=== PATIENT | male | born 1950 | race Caucasian/White ===

== ENCOUNTER 2016-11-19 21:03 | Emergency (ER) | payer OTHER ==
[~2016-11-19] VITALS: Ht 172.7 cm; Wt 83.5 kg
[~2016-11-19 21:03] MED LIST: AMBIEN5 MG PO; AMOXICILLIN500 MG PO; BENZTROPINE MESY2 MG PO; DOLOPHINE10 MG PO; HALDOL1 MG PO; IBU600 MG PO; NAPROSYN500 MG PO; ORETIC25 MG PO; PRILOSEC40 MG PO; SEROQUEL25 MG PO; TOPROL XL50 MG PO; ZESTRIL20 MG PO
[2016-11-19 21:11] VITALS: BP 156/68
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
--- NOTE | 2016-11-19 22:25 | NUR ---
SALTY CARRASCO AT BEDSIDE SPEAKING TO PT.
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
[2016-11-19] MEDS ORDERED: IBUPROFEN 400 MG TAB PO ONE (23:00)
[2016-11-19] MEDS ORDERED: BACITRACIN OINT 500 UNITS/GM PKT TP ONE (23:14)
[2016-11-19 23:29] VITALS: BP 145/83
--- NOTE | 2016-11-19 23:29 | NUR ---
Patient discharged with v/s stable. Written and verbal after care instructions given and explained. Patient verbalized understanding. Ambulatory with steady gait. All questions addressed prior to discharge. Advised to follow up with PMD OR RETURN TO ER IF CONDITION WORSENS. NO S/S OF DISTRESS AT THIS MOMENT.
== END 2016-11-19 23:29 | disposition home or self-care (01) ==
LOC: MED 21:03
DX: S00.31XA Abrasion of nose, initial encounter (principal); S00.81XA Abrasion of other part of head, initial encounter; Z88.8 Allergy status to other drugs, medicaments and biological substances; I10 Essential (primary) hypertension; Y04.2XXA Assault by strike against or bumped into by another person, initial encounter; Y93.89 Activity, other specified; Y92.89 Other specified places as the place of occurrence of the external cause; Y99.8 Other external cause status

== ENCOUNTER 2016-12-27 10:17 | Emergency (ER) | payer OTHER ==
[~2016-12-27] VITALS: Ht 167.6 cm; Wt 68.9 kg
[~2016-12-27 10:17] MED LIST changes: -AMBIEN5 MG PO; -AMOXICILLIN500 MG PO; +BENZ2TAB27 PO; -BENZTROPINE MESY2 MG PO; +DOL10 PO; -DOLOPHINE10 MG PO; +HAL1 PO; -HALDOL1 MG PO; -IBU600 MG PO; +LISI-420 PO; +METO50TE2 PO; +NAPR500T1 PO; -NAPROSYN500 MG PO; +OMEP40EC1 PO; +ORE25 PO; -ORETIC25 MG PO; -PRILOSEC40 MG PO; +QUET25TA PO; -SEROQUEL25 MG PO; -TOPROL XL50 MG PO; -ZESTRIL20 MG PO; +ZOLP5TAB1 PO; +[UNRECOGNIZED DRUG - CODE] PO
[2016-12-27 10:25] VITALS: BP 129/77
--- NOTE | 2016-12-27 14:00 | NUR ---
PT AMBULATED TO ER BED #7.
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
--- NOTE | 2016-12-27 14:15 | NUR ---
Patient being evaluated by physician at bedside.
[2016-12-27 14:29] VITALS: BP 130/78
--- NOTE | 2016-12-27 14:29 | NUR ---
Patient discharged with v/s stable. Written and verbal after care instructions given and explained. Patient alert, oriented and verbalized understanding of instructions. Ambulatory with steady gait. All questions addressed prior to discharge. ID band removed. Patient advised to follow up with PMD. Rx of AUGMENTIN 875MG TABLET given. Patient educated on indication of medication including possible reaction and side effects. Opportunity to ask questions provided and answered.
== END 2016-12-27 14:29 | disposition home or self-care (01) ==
LOC: MED 10:17
DX: L03.011 Cellulitis of right finger (principal); I10 Essential (primary) hypertension; J45.909 Unspecified asthma, uncomplicated; F11.90 Opioid use, unspecified, uncomplicated
CPT/HCPCS: 73130; 99284

== ENCOUNTER 2016-12-30 11:13 | Emergency (ER) | payer OTHER ==
[~2016-12-30] VITALS: Ht 172.7 cm; Wt 68.0 kg
--- NOTE | 2016-12-30 11:15 | NUR ---
Patient was BIBA and taken to bed 03 via gurney per EMS.
[2016-12-30 11:16] VITALS: BP 124/63
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
--- NOTE | 2016-12-30 11:45 | NUR ---
PT IS BEING EVALUATED BY DR. Romero AT BEDSIDE.
[2016-12-30 12:02] VITALS: BP 140/59
--- NOTE | 2016-12-30 12:03 | NUR ---
Patient discharged with v/s stable. Written and verbal after care instructions given and explained. Patient alert, oriented and verbalized understanding of instructions. Ambulatory with steady gait. All questions addressed prior to discharge. ID band removed. Patient advised to follow up with PMD. Rx of KELFEX 500 MG CAPSULE, 1 CAP 4 TIME A DAY, BY MOUTH, BACTRIM DS 800MG-160MG, 1 TAB, BID, BY MOUTH, MOTRIN 800 MG TABLE, 1 TAB, TID, BY MOUTH, AND NORCO 5MG/325MG TABLET, 1 TO 2 TABS, EVERY 4 HOURS, BY MOUTH given. Patient educated on indication of medication including possible reaction and side effects. Opportunity to ask questions provided and answered.
== END 2016-12-30 12:03 | disposition home or self-care (01) ==
LOC: MED 11:13
DX: L03.011 Cellulitis of right finger (principal); E11.9 Type 2 diabetes mellitus without complications; I10 Essential (primary) hypertension; Z79.899 Other long term (current) drug therapy; Z88.8 Allergy status to other drugs, medicaments and biological substances
CPT/HCPCS: 99283

== ENCOUNTER 2017-01-21 19:41 | Emergency (ER) | payer OTHER ==
[~2017-01-21] VITALS: Ht 172.7 cm; Wt 83.5 kg
[2017-01-21 20:02] VITALS: BP 132/75
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
[2017-01-21 21:54] VITALS: BP 128/88
--- NOTE | 2017-01-21 21:54 | NUR ---
Patient discharged with v/s stable. Written and verbal after care instructions given and explained. Patient alert, oriented and verbalized understanding of instructions. Ambulatory with steady gait. All questions addressed prior to discharge. ID band removed. Patient advised to follow up IN 2 DAYS. Rx of KEFLEX given. Patient educated on indication of medication including possible reaction and side effects. Opportunity to ask questions provided and answered.
== END 2017-01-21 21:54 | disposition home or self-care (01) ==
LOC: MED 20:02
DX: S41.111A Laceration without foreign body of right upper arm, initial encounter (principal); E11.9 Type 2 diabetes mellitus without complications; I10 Essential (primary) hypertension; Z79.899 Other long term (current) drug therapy; Z88.8 Allergy status to other drugs, medicaments and biological substances; X58.XXXA Exposure to other specified factors, initial encounter; Y93.89 Activity, other specified; Y92.89 Other specified places as the place of occurrence of the external cause; Y99.8 Other external cause status
CPT/HCPCS: 99283

== ENCOUNTER 2017-01-23 15:27 | Emergency (ER) | payer OTHER ==
[~2017-01-23] VITALS: Ht 162.6 cm; Wt 68.0 kg
--- NOTE | 2017-01-23 15:27 | NUR ---
Patient was BIBA at this time and taken to bed 04 via [facility].
[2017-01-23] MEDS ORDERED: MULTIVITAMIN-12 10 ML, THIAMINE 100 MG, MAGNESIUM SULFATE 50% 2,000 MG, FOLIC ACID 5 MG... IV ONE ×5 (15:34)
[2017-01-23] MEDS ORDERED: NACL 0.9% 1,000 ML IV ONE (15:34)
[2017-01-23 15:37] VITALS: BP 156/96
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
[2017-01-23 16:24] LABS: BASOPHILS # (AUTO) 0.2 K/uL (0.00-0.22); EOSINOPHILS # (AUTO) 0.1 K/uL (0-0.4); EOSINOPHILS % (AUTO) 2.3 % (0.0-4.0); HEMATOCRIT 30.4 % (36-52); HEMOGLOBIN 9.9 g/dL (12.0-18.0); LYMPHOCYTES # (AUTO) 2.1 K/uL (2.0-11.5); LYMPHOCYTES % (AUTO) 49.6 % (20.5-51.1); MEAN CORPUSCULAR HEMOGLOBIN 28 pg (27-31); MEAN CORPUSCULAR HGB CONC 32 g/dL (33-37); MEAN CORPUSCULAR VOLUME 86 fL (80-94); MONOCYTES # (AUTO) 0.4 K/uL (0.8-1.0); MONOCYTES % (AUTO) 10.6 % (1.7-9.3); NEUTROPHILS # (AUTO) 1.4 K/uL (1.8-7.7); PLATELET COUNT (AUTO) 166 K/uL (140-450); RED BLOOD CELL COUNT(AUTO) 3.52 MIL/uL (4.20-6.10); RED CELL DISTRIBUTION WIDTH 20.5 % (11.6-13.7); WHITE BLOOD COUNT (AUTO) 4.2 K/uL (4.8-10.8)
[2017-01-23 16:26] LABS: ANION GAP 9.3 (8-16); CALCIUM 7.4 mg/dL (8.5-10.1); CARBON DIOXIDE 27.7 mmol/L (21-32)
[2017-01-23 16:31] LABS: INR 1.4 (0.8-1.2); PARTIAL THROMBOPLASTIN TIME 29.9 secs (22-35.6); PROTHROMBIN TIME 13.4 secs (10.8-13.4)
[2017-01-23 16:32] LABS: ALBUMIN 2.2 g/dL (3.4-5.0); TOTAL BILIRUBIN 0.7 mg/dL (0.0-1.0); TOTAL PROTEIN, SERUM 7.2 g/dL (6.4-8.2)
[2017-01-23 16:40] LABS: ALANINE AMINOTRANSFERASE 34 U/L (12-78); ALBUMIN 2.2 g/dL (3.4-5.0); ALCOHOL, BLOOD < 3 mg/dL (<3); ALKALINE PHOSPHATASE 140 U/L (46-116); ASPARTATE AMINOTRANSFERASE 41 U/L (15-37); BILIRUBIN,DIRECT 0.4 mg/dL (0.0-0.3); TOTAL BILIRUBIN 0.6 mg/dL (0.0-1.0); TOTAL PROTEIN, SERUM 7.1 g/dL (6.4-8.2)
--- NOTE | 2017-01-23 18:00 | NUR ---
Patient appears to be resting comfortably in bed. Vital Signs within normal limits. Respirations even and unlabored.
[2017-01-23 18:14] LABS: APPEARANCE,URINE CLEAR (CLEAR); BILIRUBIN,URINE NEGATIVE (NEGATIVE); BLOOD, URINE NEGATIVE (NEGATIVE); COLOR,URINE YELLOW (YELLOW); LEUKOCYTE ESTERASE ,URINE NEGATIVE (NEGATIVE); NITRITE, URINE NEGATIVE (NEGATIVE); PROTEIN,URINE NEGATIVE (NEGATIVE); UGLUCOSE NEGATIVE (NEGATIVE)
[2017-01-23 18:19] LABS: BACTERIA,URINE None Seen /HPF (None Seen); RBC,URINE NONE SEEN /HPF (0-5); SQUAMOUS EPITHELIAL CELL,UR None Seen /LPF (0-3 (FEW)); WBC,URINE NONE SEEN /HPF (0-5)
[2017-01-23 18:20] VITALS: BP 186/94
--- NOTE | 2017-01-23 18:20 | NUR ---
Patient discharged with v/s stable. Written and verbal after care instructions given and explained. Patient alert, oriented and verbalized understanding of instructions. Ambulatory with steady gait. All questions addressed prior to discharge. ID band removed. Patient advised to follow up with PMD. Rx of MULTIVITAMIN given. Patient educated on indication of medication including possible reaction and side effects. Opportunity to ask questions provided and answered.
[2017-01-23 18:46] LABS: AMPHETAMINE, URINE NEG. ng/ml (NEG <=1000); BARBITURATE, URINE NEG. ng/ml (NEG <=200); BENZODIAZEPINE, URINE NEG. ng/mL (NEG <=200); CANNABINOID, URINE NEG. ng/mL (NEG <=50); COCAINE, URINE NEG. ng/mL (NEG <=300); OPIATE, URINE NEG. ng/mL (NEG <=2000); PHENCYCLIDINE SCREEN,URINE NEG. ng/mL (NEG <=25)
== END 2017-01-23 18:20 | disposition home or self-care (01) ==
LOC: MED 15:27
DX: F10.10 Alcohol abuse, uncomplicated (principal); E11.9 Type 2 diabetes mellitus without complications; I10 Essential (primary) hypertension; Z88.8 Allergy status to other drugs, medicaments and biological substances
CPT/HCPCS: 36415; 80053; 80076; 80305; 81001; 82553; 83880; 84484; 85025; 85610; 85730; 93005; 96365; 96366; 99285; A9153; G0482; J3411; J3475; J3490; J7030

== ENCOUNTER 2017-04-04 10:56 | Emergency (ER) | payer OTHER ==
[~2017-04-04] VITALS: Ht 170.2 cm; Wt 71.7 kg
[2017-04-04 11:00] VITALS: BP 140/91
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
--- NOTE | 2017-04-04 11:09 | NUR ---
BRIJESH PT TAKEN OFF THE UNIT FOR XRAY VIA WHEEL CHAIR BY JONH ADAMES
--- NOTE | 2017-04-04 11:32 | NUR ---
AAO PT BEING ASSESS BY DR PÉREZ AT BEDSIDE
[2017-04-04] MEDS ORDERED: KETOROLAC 60 MG/2 ML VIAL IM ONE (11:35)
[2017-04-04 11:55] VITALS: BP 135/77
--- NOTE | 2017-04-04 11:55 | NUR ---
Patient discharged with v/s stable. Written and verbal after care instructions given and explained. Patient alert, oriented and verbalized understanding of instructions. Ambulatory with steady gait. All questions addressed prior to discharge. ID band removed. Patient advised to follow up with PMD. Rx of KEFLEX, MOTRIN, BACTRIM given. Patient educated on indication of medication including possible reaction and side effects. Opportunity to ask questions provided and answered.
== END 2017-04-04 11:55 | disposition home or self-care (01) ==
LOC: MED 10:56
DX: S50.01XA Contusion of right elbow, initial encounter (principal); L03.113 Cellulitis of right upper limb; E11.9 Type 2 diabetes mellitus without complications; I10 Essential (primary) hypertension; F31.9 Bipolar disorder, unspecified; Z90.49 Acquired absence of other specified parts of digestive tract; W18.39XA Other fall on same level, initial encounter; Y93.89 Activity, other specified; Y92.89 Other specified places as the place of occurrence of the external cause; Y99.8 Other external cause status; Z88.8 Allergy status to other drugs, medicaments and biological substances
CPT/HCPCS: 73080; 96372; 99284; J1885

== ENCOUNTER 2017-04-11 15:08 | Emergency (ER) | payer OTHER ==
[~2017-04-11] VITALS: Ht 172.7 cm; Wt 71.9 kg
[2017-04-11 15:12] VITALS: BP 162/82
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
--- NOTE | 2017-04-11 16:45 | NUR ---
PT AMB TO BED6
[2017-04-11] MEDS ORDERED: DOXYCYCLINE 100 MG CAP PO SCH (17:05)
[2017-04-11] MEDS ORDERED: MORPHINE SULFATE 10 MG/ML SYR IM ONE (17:05)
[2017-04-11] MEDS ORDERED: LIDOCAINE 1% 500 MG/50 ML VIAL INJ ONE (17:10)
--- NOTE | 2017-04-11 17:10 | NUR ---
CALLED PHARMACY FOR VIBRAMYCIN.
--- NOTE | 2017-04-11 17:25 | NUR ---
I& D DONE BY ER MD DR DUMONT ; PT TOLERATED PROCEDURE WELL.
--- NOTE | 2017-04-11 17:50 | NUR ---
Patient discharged with v/s stable. Written and verbal after care instructions given and explained. Patient alert, oriented and verbalized understanding of instructions. Ambulatory with steady gait. All questions addressed prior to discharge. ID band removed. Patient advised to follow up with PMD. Rx of IBUPROFEN & DOXYCYCLINE given. Patient educated on indication of medication including possible reaction and side effects. Opportunity to ask questions provided and answered.
[2017-04-11 17:51] VITALS: BP 135/67
== END 2017-04-11 17:50 | disposition home or self-care (01) ==
LOC: MED 15:08
DX: L02.413 Cutaneous abscess of right upper limb (principal); I10 Essential (primary) hypertension; Z88.8 Allergy status to other drugs, medicaments and biological substances; E11.9 Type 2 diabetes mellitus without complications
CPT/HCPCS: 10060; 96372; 99283; J2001; J2270

== ENCOUNTER 2017-04-12 13:58 | Emergency (ER) | payer OTHER ==
[~2017-04-12] VITALS: Ht 172.7 cm; Wt 81.6 kg
[2017-04-12 14:03] VITALS: BP 126/58
--- NOTE | 2017-04-12 17:01 | NUR ---
PT PRESENTS TO ER EVALUATION OF BUG BITE TO RIGHT OUTER FOREARM X1 WEEK. DENIES N/V/D; SKIN IS PINK/WARM/DRY; AAOX4 WITH EVEN AND STEADY GAIT; LUNGS CLEAR BL; HR EVEN AND REGULAR; PT DENIES ANY FEVER, CP, SOB, OR COUGH AT THIS TIME; PATIENT STATES PAIN OF 6/10 AT THIS TIME; VSS; PATIENT POSITIONED FOR COMFORT; HOB ELEVATED; BEDRAILS UP X2; BED DOWN. ER MD MADE AWARE OF PT STATUS.
[2017-04-12 17:40] VITALS: BP 121/61
--- NOTE | 2017-04-12 17:40 | NUR ---
Patient discharged with v/s stable. Written and verbal after care instructions given and explained. Patient verbalized understanding. Ambulatory with steady gait. All questions addressed prior to discharge. Advised to follow up with PMD.
== END 2017-04-12 17:40 | disposition home or self-care (01) ==
LOC: MED 13:58
DX: Z48.01 Encounter for change or removal of surgical wound dressing (principal); E11.9 Type 2 diabetes mellitus without complications; I10 Essential (primary) hypertension; Z79.899 Other long term (current) drug therapy
CPT/HCPCS: 99282

== ENCOUNTER 2017-04-25 11:05 | Emergency (ER) | payer OTHER ==
[~2017-04-25] VITALS: Ht 172.7 cm; Wt 81.6 kg
[2017-04-25 11:11] VITALS: BP 149/77
--- NOTE | 2017-04-25 11:13 | NUR ---
Patient ambulated to bed 7. RN evaluating patient at bedside.
--- NOTE | 2017-04-25 11:22 | NUR ---
Dr. Cabral evaluating patient at bedside.
[2017-04-25] MEDS ORDERED: KETOROLAC 60 MG/2 ML VIAL IM ONE (11:30)
[2017-04-25 11:52] VITALS: BP 144/84
--- NOTE | 2017-04-25 11:53 | NUR ---
PATIENT PRESENTS TO ED WITH CHIEF COMPLAINTS OF RIGHT ELBOW PAIN . DENIES N/V/D; SKIN IS PINK/WARM/DRY; AAOX4 WITH EVEN AND STEADY GAIT; LUNGS CLEAR BL; HR EVEN AND REGULAR; PT DENIES ANY FEVER, CP, SOB, OR COUGH AT THIS TIME; PATIENT STATES PAIN OF 6/10 AT THIS TIME; VSS; PATIENT POSITIONED FOR COMFORT; HOB ELEVATED; BEDRAILS UP X2; BED DOWN. ER MD MADE AWARE OF PT STATUS.
--- NOTE | 2017-04-25 11:54 | NUR ---
Patient discharged with v/s stable. Written and verbal after care instructions given and explained. Patient alert, oriented and verbalized understanding of instructions. Ambulatory with steady gait. All questions addressed prior to discharge. ID band removed. Patient advised to follow up with PMD. Rx of MOTRIN, KEFLEX AND BACTRIM DS. given. Patient educated on indication of medication including possible reaction and side effects. Opportunity to ask questions provided and answered.
== END 2017-04-25 11:54 | disposition home or self-care (01) ==
LOC: MED 11:05
DX: L03.113 Cellulitis of right upper limb (principal); E11.9 Type 2 diabetes mellitus without complications; I10 Essential (primary) hypertension; Z88.8 Allergy status to other drugs, medicaments and biological substances; Z79.899 Other long term (current) drug therapy; Z79.1 Long term (current) use of non-steroidal anti-inflammatories (NSAID)
CPT/HCPCS: 96372; 99283; J1885

== ENCOUNTER 2017-07-09 10:47 | Inpatient (IN) | payer OTHER ==
[~2017-07-09] VITALS: Ht 172.7 cm; Wt 80.7 kg
--- NOTE | 2017-07-09 10:47 | NUR ---
Patient BIBA ACLS, transferred to bed 8. RN evaluating patient at bedside.
--- NOTE | 2017-07-09 10:50 | NUR ---
PLACED REVERSE TRENDELENBERG---PT SOMNOLENT AND RESPONSIVE --- REQUESTING BLANKET---DENIES PAIN
--- NOTE | 2017-07-09 10:50 | NUR ---
Dr. Sylvester evaluating patient at bedside.
[2017-07-09] MEDS ORDERED: ONDANSETRON 4 MG/2 ML VIAL IVP ONE (10:55)
[2017-07-09] MEDS ORDERED: NACL 0.9% 2,000 ML IV ONE (10:55)
--- NOTE | 2017-07-09 11:00 | NUR ---
MOVING ALL EXTREMITIES, PUPILS 2 BRISK REACTIVE---
[2017-07-09 11:01] VITALS: BP 80/54
--- NOTE | 2017-07-09 11:20 | NUR ---
# 16 FR Hazel catheter with ml utilizing sterile technique. Immediate return of ml urine noted. Bedside drainage bag placed below level of bladder. Urine sample collected and sent to lab. Pt tolerated procedure .
[2017-07-09 11:40] LABS: ACETAMINOPHEN 6.9 ug/ml (10-30); ALBUMIN 1.5 g/dL (3.4-5.0); ANION GAP 16.6 (8-16); ASPARTATE AMINOTRANSFERASE 59 U/L (15-37); CARBON DIOXIDE 17.6 mmol/L (21-32); CHLORIDE 110 mmol/L (98-107); CREATININE 1.5 mg/dL (0.7-1.3); GFR ARICAN-AMERICAN 60 mL/min (>90); GLUCOSE 135 mg/dL (74-106); POTASSIUM 4.2 mmol/L (3.5-5.1); SODIUM SERUM 140 mmol/L (136-145); TOTAL BILIRUBIN 0.2 mg/dL (0.0-1.0); UREA NITROGEN, BLOOD 38 mg/dL (7-18)
[2017-07-09 11:41] LABS: BILIRUBIN,URINE NEGATIVE (NEGATIVE); BLOOD, URINE NEGATIVE (NEGATIVE); COLOR,URINE YELLOW (YELLOW); LEUKOCYTE ESTERASE ,URINE TRACE (NEGATIVE); NITRITE, URINE NEGATIVE (NEGATIVE); UGLUCOSE NEGATIVE (NEGATIVE)
[2017-07-09 11:42] LABS: SALICYLATE < 2.8 mg/dL (2.8-20.0)
--- NOTE | 2017-07-09 11:44 | NUR ---
TO CT VIA [facility] ACLS PROTOCOL
[2017-07-09 11:54] LABS: BARBITURATE, URINE NEG. ng/ml (NEG <=200); BENZODIAZEPINE, URINE NEG. ng/mL (NEG <=200); CANNABINOID, URINE NEG. ng/mL (NEG <=50); COCAINE, URINE NEG. ng/mL (NEG <=300); OPIATE, URINE NEG. ng/mL (NEG <=2000); PHENCYCLIDINE SCREEN,URINE NEG. ng/mL (NEG <=25)
[2017-07-09] MEDS ORDERED: VANCOMYCIN 1,000 MG in DEXTROSE 5% 250 ML IV ONE (11:55)
[2017-07-09] MEDS ORDERED: PIPERACILLIN/TAZOBACTAM 3.375 GM in DEXTROSE 5% 50 ML IV ONE ×2 (11:55→14:20)
--- NOTE | 2017-07-09 11:57 | NUR ---
RETURNED FROM CT PLACED BACK ON MONITOR---PT MORE AWAKE--GCS 15 REMAINS SOMNOLENT
--- NOTE | 2017-07-09 11:59 | NUR ---
LAB TO REDRAW SAMPLE---
[2017-07-09] MEDS ORDERED: VANCOMYCIN 1,000 MG VIAL ONE (12:12)
[2017-07-09] MEDS ORDERED: PIPERACILLIN/TAZOBACTAM 3.375 GM VIAL IV ONE (12:12)
[2017-07-09 12:22] LABS: WHITE BLOOD COUNT (AUTO) 6.7 K/uL (4.8-10.8)
[2017-07-09 12:23] LABS: MEAN CORPUSCULAR HEMOGLOBIN 30 pg (27-31); MEAN CORPUSCULAR HGB CONC 32 g/dL (33-37); MEAN CORPUSCULAR VOLUME 92 fL (80-94); PLATELET COUNT (AUTO) 131 K/uL (140-450); RED BLOOD CELL COUNT(AUTO) 1.26 MIL/uL (4.20-6.10); RED CELL DISTRIBUTION WIDTH 17.1 % (11.6-13.7)
--- NOTE | 2017-07-09 12:25 | NUR ---
AWAKE, ABLE TO CONVERSE FOR X 2-3 MINS THEN CLOSES EYES ---HANDS FOLDED OVER ABD AND FEET CROSSED---NO S/S RESP DISTRESS
[2017-07-09 12:26] LABS: HEMATOCRIT 11.6 % (36-52); HEMOGLOBIN 3.7 g/dL (12.0-18.0)
[2017-07-09 12:52] LABS: PROTHROMBIN TIME 15.6 secs (10.8-13.4)
[2017-07-09 13:21] LABS: APPEARANCE,URINE HAZY (CLEAR)
[2017-07-09 13:22] LABS: RBC,URINE NONE SEEN /HPF (0-5); WBC,URINE 0-5 (RARE) /HPF (0-5)
[2017-07-09] MEDS ORDERED: NACL 0.9% 1,000 ML IV ONE (13:30)
--- NOTE | 2017-07-09 13:40 | NUR ---
BLOOD PRODUCTS STARTED
[2017-07-09] MEDS ORDERED: NOREPINEPHRINE 4 MG in DEXTROSE 5% 250 ML IV ONE (13:50)
--- NOTE | 2017-07-09 14:04 | NUR ---
DR. HORNER AT BEDSIDE EVALUATING PATIENT
[2017-07-09] MEDS ORDERED: MORPHINE SULFATE 2 MG/ML SYR IVP PRN (14:20)
[2017-07-09] MEDS ORDERED: LORazepam 2 MG/ML VIAL IVP PRN (14:20)
[2017-07-09] MEDS ORDERED: ONDANSETRON 4 MG/2 ML VIAL IVP PRN (14:20)
[2017-07-09] MEDS: MIDAZOLAM 2 MG/2 ML VIAL IV ONE ×2 (14:30→14:40)
[2017-07-09] MEDS ORDERED: MIDAZOLAM 2 MG/2 ML VIAL ONE (14:34)
[2017-07-09] MEDS ORDERED: diphenhydrAMINE 50 MG/ML VIAL ONE (14:34)
[2017-07-09] MEDS ORDERED: fentaNYL 0.05 MG/ML VIAL ONE (14:35)
--- NOTE | 2017-07-09 14:38 | NUR ---
Consent signed per MIGUEL AGUAYO agreeing to administration of blood. Blood has been type and crossmatched. Blood sent from blood bank. Information on unit of blood checked against patient wristband at bedside by two nurses. All information matches. Patient or responsible democrat informed of potential complications associated with blood transfusion. Informed of possible transfusion reaction symptoms. Aware of need to notify nurse at once of itching, shortness of breath, flushing, feeling of impending doom, or other symptoms not previously present. Vital signs taken within 5 minutes prior to initiation of transfusion. RN will remain with patient for first 15 minutes of transfusion at which time vital signs will be re-assessed.
--- NOTE | 2017-07-09 14:39 | NUR ---
PT TAKEN TO GI LAB REPORT GIVEN TO DEMETRIO AGUAYO---REPORT GIVEN TO JAVIER AGUAYO ICU
[2017-07-09] MEDS ORDERED: PANTOPRAZOLE 40 MG INJ VIAL IVP SCH (15:00)
--- NOTE | 2017-07-09 15:30 | NUR ---
received from gi lab after egd done. PT IS AWAKE IV ON RT ARM INFUSING BLOOD TRANSFUSION , IV ON LEFT ARM INFUSING LEVOPHED IS SLIGHTLY SWELLING. HIS V/S WITH IN NORMAL LIMIT ,IV WAS D/C, SKIN IS DRY AND WARM TO TOUCH. COLOR PALE. HE IS ON ROOM AIR O2 SAT93% . BREATH SOUND IS CLEAR, AB DOMEN IS FIRM B/S ACTIVE .RESTING IN BED QUIETLY , HORNER CATHETER DRAIN CLEAR YELLOW URINE,.
[2017-07-09] MEDS: PANTOPRAZOLE 80 MG in NACL 0.9% 100 ML IVP SCH ×2 (15:37→15:45)
--- NOTE | 2017-07-09 15:45 | NUR ---
PROTONIX IV DRIP STARTED AT 10 ML/HQ.
[2017-07-09 16:00] VITALS: BP 102/60
[2017-07-09 18:00] VITALS: BP 129/60
[2017-07-09 18:13] LABS: BASOPHILS # (AUTO) 0.2 K/uL (0.00-0.22); LYMPHOCYTES # (AUTO) 1.9 K/uL (2.0-11.5); MEAN CORPUSCULAR HEMOGLOBIN 29 pg (27-31); MEAN CORPUSCULAR HGB CONC 33 g/dL (33-37); MEAN CORPUSCULAR VOLUME 90 fL (80-94); MONOCYTES # (AUTO) 0.3 K/uL (0.8-1.0); NEUTROPHILS # (AUTO) 5.1 K/uL (1.8-7.7); PLATELET COUNT (AUTO) 136 K/uL (140-450); RED BLOOD CELL COUNT(AUTO) 1.88 MIL/uL (4.20-6.10); RED CELL DISTRIBUTION WIDTH 17.3 % (11.6-13.7); WHITE BLOOD COUNT (AUTO) 7.5 K/uL (4.8-10.8)
[2017-07-09 18:16] LABS: HEMATOCRIT 16.9 % (36-52); HEMOGLOBIN 5.5 g/dL (12.0-18.0)
--- NOTE | 2017-07-09 19:30 | NUR ---
RECEIVED PT FROM AM SHIFT, PT AWAKE,ALERT WITH CONFUSION, NO S/S OF RESP DISTRESS,NO SOB. PT ON ROOM AIR TOLERATED WELL.BILATERAL LUNGS SOUND CLEAR.DENIES ANY PAIN AT THIS TIME. SINUS RHYTHM ON THE MONITOR. ON GOING PROTONIX TO RIGHT ANTECUBITAL IV SITE NO 24 AND BLOOD RUNNING TO RIGHT HAND IV LINE NO 20 GAUGE TOLERATED WELL. NO S/S OF ALLERGIC REACTION NOTED. SKIN WARM TO TOUCH. PT NPO AT THIS TIME. ABD SOFT NON DISTENDED . MULTIPLE DRY SCABS TO LEFT FOREARM . KEPT AREA CLEAN AND DRY. EDEMA NOTED ON LET HAND,ELEVATED AREA WITH PILLOW.F/C INPLACE WITH YELLOW CLEAR URINE.
[2017-07-09 20:00] VITALS: BP 146/66
--- NOTE | 2017-07-09 20:05 | NUR ---
2ND BAG OF BLOOD FINISH TOLERATED WELL,NO S/S OF ANY ALLERGIC REACTION.
--- NOTE | 2017-07-09 20:30 | NUR ---
STARTING THE 3RD BAG OF BLOOD ABOUT 300 CC.V/S T 97.4, BP 131/69, P 72, R 14, SPO2 98%.
[2017-07-09] MEDS: BENZTROPINE 1 MG TAB PO SCH (21:00)
[2017-07-09] MEDS ORDERED: PANTOPRAZOLE 40 MG TABEC PO SCH (21:00)
[2017-07-09] MEDS: HALOPERIDOL 1 MG TAB PO SCH (21:00)
[2017-07-09] MEDS ORDERED: NON-FORMULARY ITEM (Omeprazole* (Prilosec*) 20 MG) PO SCH (21:00)
--- NOTE | 2017-07-09 21:10 | NUR ---
PLACED CALL TO DR.AMIT LIN PER MD TO HOLD ORDER OF CT SCAN ABD AND PELVIS WITH CONTRAST WAIT FOR MD TOMORROW. AND NEW ORDER CLEAR LIQUID DIET.ORDER NOTED AND CARRIED OUT.
[2017-07-09] MEDS: ZOLPIDEM 5 MG TAB PO SCH (21:36)
[2017-07-09 22:00] VITALS: BP 155/83
--- NOTE | 2017-07-09 22:00 | NUR ---
3RD BAG OF THE BLOOD DONE, TOLERATED WELL, NO S/S OF ALLERGIC TO TRANSFUSION. V/S T 97.4,P 73 BP 155/83,R 18,SPO2 97%. PT DRINK APPLE JUICE 100 CC TOLERATED WELL.
--- NOTE | 2017-07-09 22:20 | NUR ---
4TH BAG OF BLOOD TRANSFUSION STARTING,NO S/S OF ALLERGIC REACTION NOTED AT THIS TIME. V/S T 97.4 ,P67 ,BP 138/82,R19,SPO2 97%.
--- NOTE | 2017-07-09 22:30 | NUR ---
PER DR.AMIT LIN TO START THE HALDOL TAB AND COGENTIN TAB IN AM.PT MADE AWARE.
[2017-07-10] VITALS (10 sets, daily range): BP systolic 138–187; BP diastolic 68–130
--- NOTE | 2017-07-10 01:15 | NUR ---
THE LAST BAG OF TH BLOOD TRANSFUSION DONE. PT AWAKE ALERT, NO C/O OF ANY CHEST PAIN,NO C/O RESP DISTRESS OR SOB. SKIN WARM TO TOUCH. NO S/S OF ALLERGIC TO BLOOD TRANSFUSION. V/S T 98.0 ,BP 147/66, P 73 SPO2 97 %.
[2017-07-10] MEDS: DEXT 5% /NACL 0.9% 1,000 ML IV SCH ×3 (01:45→22:20)
--- NOTE | 2017-07-10 03:00 | NUR ---
PT SLEEPING WELL.NO S/S OF DISTRESS NOTED.
--- NOTE | 2017-07-10 05:00 | NUR ---
CBC AND CMP DRAWN RESULT PENDING
[2017-07-10 05:36] LABS: HEMATOCRIT 29.1 % (36-52); HEMOGLOBIN 9.7 g/dL (12.0-18.0); MEAN CORPUSCULAR HEMOGLOBIN 29 pg (27-31); MEAN CORPUSCULAR HGB CONC 33 g/dL (33-37); MEAN CORPUSCULAR VOLUME 86 fL (80-94); PLATELET COUNT (AUTO) 150 K/uL (140-450); RED CELL DISTRIBUTION WIDTH 14.7 % (11.6-13.7); WHITE BLOOD COUNT (AUTO) 7.6 K/uL (4.8-10.8)
[2017-07-10 05:46] LABS: LYMPHOCYTES % (MANUAL) 23 % (20-46); MONOCYTES % (MANUAL) 8 % (5-12)
[2017-07-10 05:52] LABS: ALBUMIN 1.9 g/dL (3.4-5.0); CARBON DIOXIDE 19.9 mmol/L (21-32); CREATININE 1.1 mg/dL (0.7-1.3); POTASSIUM 3.9 mmol/L (3.5-5.1); TOTAL BILIRUBIN 0.7 mg/dL (0.0-1.0)
--- NOTE | 2017-07-10 06:00 | NUR ---
AM CARE GIVEN TOLERATED WELL
--- NOTE | 2017-07-10 06:45 | NUR ---
PT PULLED IV LINE ON RIGHT HAND NO 20 GAUGE, CHANGE IV HYDRATION TO RIGHT AC SITE.
--- NOTE | 2017-07-10 07:15 | NUR ---
REPORT GIVEN TO AM SHIFT,PT IS ON STABLE CONDITION,NO S/S OF DISTRESS NOTED AT THIS TIME.
--- NOTE | 2017-07-10 07:43 | NUR ---
RECIEVED PT. SLEEPING, RESPIRATION EVEN AND UNLABORED, NO DISTRESS NOTED, NO BM AT THIS TIME.
[2017-07-10] MEDS: LISINOPRIL 20 MG TAB PO SCH (08:11)
[2017-07-10] MEDS: METHADONE 10 MG TAB PO SCH (08:12)
[2017-07-10] MEDS ORDERED: HYDROCHLOROTHIAZIDE 25 MG TAB PO SCH ×2 (09:00→17:30)
[2017-07-10] MEDS: HALOPERIDOL 1 MG TAB PO SCH ×2 (09:44→22:42)
[2017-07-10] MEDS: METOPROLOL SUCCINATE 50 MG TABER PO SCH (09:44)
[2017-07-10] MEDS: BENZTROPINE 1 MG TAB PO SCH ×2 (09:45→22:42)
--- NOTE | 2017-07-10 10:00 | NUR ---
PT. PASSING GAS, AM CARE DONE, TURNED TO BOTH SIDES, IV PUMP KEEPS ON BEEPING, DIFFICULT TO TROUBLE SHOOT.
[2017-07-10] MEDS: PANTOPRAZOLE 80 MG in NACL 0.9% 100 ML IVP SCH ×2 (10:47→21:00)
[2017-07-10] MEDS ORDERED: PROBIOTIC SCREEN 1 EA MISC MC PRN (11:40)
--- NOTE | 2017-07-10 13:00 | NUR ---
ATE LUNCH WITH POOR APPETITE.
--- NOTE | 2017-07-10 14:00 | NUR ---
IVF INFILTRATED, TRIED TO REINSERT BY 3 RN 7X, BUT UNABLE, MS JAVIER AGUAYO CHARGE NURSE MADE AWARE.
--- NOTE | 2017-07-10 14:52 | NUR ---
1200PM HEP LOCK WAS IN PLACE BY ANOTHER RN TO LT. AC GAUGE NUMBER 20, BUT IV MACHINE KEEP ON BEEPING.
--- NOTE | 2017-07-10 14:54 | NUR ---
FOR TRANSFER TO TELEMETRY ROOM , NURSE NOT AVAILABLE FOR REPORT AT THIS TIME, HEP LOCK INFILTRATED, WILL REINSER,
--- NOTE | 2017-07-10 15:30 | NUR ---
HOUSE SUPP INFORM THAT IV WAS INFILTRATED AND UNABL TO START THE NEWLINE. WILLL CALL DR LIN.
--- NOTE | 2017-07-10 16:29 | NUR ---
FOR PICC LINE INSERTION
--- NOTE | 2017-07-10 16:48 | NUR ---
FOR TRANSFER TO ROOM 106B
--- NOTE | 2017-07-10 17:02 | NUR ---
LATEST DJ=275/90
--- NOTE | 2017-07-10 17:05 | NUR ---
MD LIN WAS NOTIFIED BY [facility] NURSE OF PT. XF=661/90 TO MD LIN WITH ORDER TO GIVE CLONIDINE 0.1 PO.
--- NOTE | 2017-07-10 17:14 | NUR ---
TO ROOM 106B REPORT GIVEN TO MR RG AGUAYO FOR CONTINUITY OF CARE
[2017-07-10] MEDS: cloNIDine 0.1 MG TAB PO PRN (17:34)
--- NOTE | 2017-07-10 17:37 | NUR ---
CLONIDINE 0.1MG PO AND HYDROCHLOROTHIAZIDE 25MG PO GIVEN FOR PF=831/90, DINNEDR SERVED WITH GOOD APPETITE.
--- NOTE | 2017-07-10 17:55 | NUR ---
LATEST XO=773/92 NH=64, H1AMZ=32% ON RA
--- NOTE | 2017-07-10 17:57 | NUR ---
MS ARMENTA FURNITURE SPRAYER MADE AWARE OF PT. HIGH GB=797/92 AFTER THE BP MEDS WAS GIVEN
--- NOTE | 2017-07-10 18:35 | NUR ---
LATEST XI=633/92 CO=65 M0KGM=32% RA, WHEELED PT. TO TELEMETRY IN STABLE CONDITION.
--- NOTE | 2017-07-10 18:50 | NUR ---
PATIENT ARRIVED FROM ICU VIA WHEELCHAIR. PATIENT AMBULATED FROM WHEELCHAIR TO BED WITH ASSIST. PATIENT IN STABLE CONDITION. NO DISTRESS NOTED, DENIES ANY PAIN. V/S CHECKED: BP:167/78, 68, 97.6, 100% ROOM AIR. AAOX3, CALM, COOPERATIVE. ORIENTED PATIENT TO ROOM. NO IV IN PLACE. LEFT FOREARM CLOSED LESION, NO OTHER WOUND/LESIONS NOTED THROUGHOUT BODY. 16 FR HORNER CATHETER IN PLACE, INTACT. SAFETY MEASURES IN PLACE, CALL LIGHT WITHIN REACH. WILL ENDORSE PATIENT TO OTHER SPATIAL SCIENTIST NURSE.
--- NOTE | 2017-07-10 19:25 | NUR ---
GAVE REPORT TO SUPPLIER MANAGER NURSE DIONE. PATIENT IN STABLE CONDITION.
--- NOTE | 2017-07-10 19:27 | NUR ---
RECEIVED REPORT FROM DAY SHIFT NURSE. AAOX3. NO DISTRESS NOTED. NO IV LINE. DISCUSSED PLAN OF CARE. PT VERBALIZED UNDERSTANDING. CALL LIGHT WITHIN REACH. WILL CONTINUE TO MONITOR.
--- NOTE | 2017-07-10 19:45 | NUR ---
TRIED TO CONTACT FAMILY FOR PICC LINE INSERTION CONSENT. ROSEMARIE RASHID TEL. NO [phone], PHONE NOT IN SERVICE. JAYASHREE HOUSE TEL NO. [phone], PHONE NOT IN SERVICE. RAN ACEVEDO TEL NO. [phone], HE STATED THAT HE DIDNT KNOW THE PT.
--- NOTE | 2017-07-10 19:47 | NUR ---
PAGED DR. Zafar LIN REGARDING PICC LINE CONSENT, WAITING FOR CALL BACK.
--- NOTE | 2017-07-10 19:50 | NUR ---
DR. LIN STATED THAT LET THE PATIENT SIGN FOR THE PICC LINE CONSENT. PT IS ALERT AND ORIENTED.
--- NOTE | 2017-07-10 19:55 | NUR ---
PATIENT SIGNED THE PICC LINE INSERTION CONSENT. CHARGE NURSE WAS INFORMED AND SHE WILL INFORM FORM BUILDER HELPER.
--- NOTE | 2017-07-10 22:02 | NUR ---
PT LYING IN BED COMFORTABLY. NO DISTRESS NOTED. CALL LIGHT WITHIN REACH.
[2017-07-10] MEDS: ZOLPIDEM 5 MG TAB PO SCH (22:42)
[2017-07-11] VITALS (7 sets, daily range): BP systolic 140–180; BP diastolic 71–91
--- NOTE | 2017-07-11 00:45 | NUR ---
PT SLEEPING. NO SIGNS OF DISTRESS NOTED. CALL LIGHT WITHIN REACH.
--- NOTE | 2017-07-11 03:30 | NUR ---
PT AWAKE, LYING IN BED. NO C/O PAIN. CALL LIGHT WITHIN REACH.
--- NOTE | 2017-07-11 05:45 | NUR ---
PT SLEEPING. NO SIGNS OF DISTRESS. CALL LIGHT WITHIN REACH.
[2017-07-11 05:58] LABS: BASOPHILS # (AUTO) 0.3 K/uL (0.00-0.22); BASOPHILS % (AUTO) 4.8 % (0.0-2.0); EOSINOPHILS # (AUTO) 0.1 K/uL (0-0.4); HEMATOCRIT 27.6 % (36-52); HEMOGLOBIN 9.2 g/dL (12.0-18.0); LYMPHOCYTES # (AUTO) 2.2 K/uL (2.0-11.5); LYMPHOCYTES % (AUTO) 34.8 % (20.5-51.1); MEAN CORPUSCULAR HEMOGLOBIN 29 pg (27-31); MEAN CORPUSCULAR HGB CONC 33 g/dL (33-37); MEAN CORPUSCULAR VOLUME 87 fL (80-94); MONOCYTES # (AUTO) 0.6 K/uL (0.8-1.0); MONOCYTES % (AUTO) 9.4 % (1.7-9.3); NEUTROPHILS # (AUTO) 3.1 K/uL (1.8-7.7); PLATELET COUNT (AUTO) 151 K/uL (140-450); RED BLOOD CELL COUNT(AUTO) 3.16 MIL/uL (4.20-6.10); RED CELL DISTRIBUTION WIDTH 15.8 % (11.6-13.7); WHITE BLOOD COUNT (AUTO) 6.3 K/uL (4.8-10.8)
[2017-07-11] MEDS: DEXT 5% /NACL 0.9% 1,000 ML IV SCH (06:20)
[2017-07-11] MEDS: PANTOPRAZOLE 80 MG in NACL 0.9% 100 ML IVP SCH (06:32)
[2017-07-11 06:50] LABS: ANION GAP 10.2 (8-16); CARBON DIOXIDE 23.7 mmol/L (21-32); CREATININE 0.9 mg/dL (0.7-1.3); POTASSIUM 3.9 mmol/L (3.5-5.1)
[2017-07-11 06:55] LABS: MAGNESIUM 1.5 mg/dL (1.8-2.4)
--- NOTE | 2017-07-11 07:22 | NUR ---
ENDORSED PT TO DAY SHIFT NURSE. PT IN STABLE CONDITION.
--- NOTE | 2017-07-11 07:30 | NUR ---
RECEIVED PT REPORT FROM NIGHT NURSE AT BEDSIDE. PT IS SLEEPING AND SHOWS NO S/S OF ACUTE DISTRESS ON ROOM AIR. PT IS EASILY AWAKEN, AAOX4, WOUNDS IN DIFFERENT HEALING STAGES ON THE BUE. NO IV ACCESS, DR Chaya LIN IS AWARE AND PICC LINE NURSE IS ORDERED HOWEVER DR HAS NOT SIGNED CONSENT. WILL NOTIFY DR LIN. PT DENIES PAIN. PT ON TELE MONITOR. THE BED IS LOWERED WITH CALL LIGHT WITHIN REACH. WILL CONTINUE TO MONITOR.
--- NOTE | 2017-07-11 09:00 | NUR ---
DR Chaya LIN WAS NOTIFIED OF MAGNESIUM OF 1.5 AND STATED OKAY TO WAIT TO GIVE MEDICATION ONCE HE ARRIVED SO THAT HE CAN SIGN CONSENT FOR AN IV ACCESS.
--- NOTE | 2017-07-11 10:18 | NUR ---
PATIENT HAS BEEN SCREENED AND CATEGORIZED MODERATE NUTRITION RISK. PATIENT WILL BE SEEN WITHIN 3-5 DAYS OF ADMISSION. 07/11/17-07/14/[address]
[2017-07-11] MEDS: METOPROLOL SUCCINATE 50 MG TABER PO SCH (10:37)
[2017-07-11] MEDS: METHADONE 10 MG TAB PO SCH (10:37)
[2017-07-11] MEDS: LISINOPRIL 20 MG TAB PO SCH (10:37)
[2017-07-11] MEDS: PANTOPRAZOLE 40 MG TABEC PO SCH (10:38)
[2017-07-11] MEDS: BENZTROPINE 1 MG TAB PO SCH ×2 (10:38→20:27)
[2017-07-11] MEDS: HALOPERIDOL 1 MG TAB PO SCH ×2 (10:38→20:28)
[2017-07-11] MEDS: HYDROCHLOROTHIAZIDE 25 MG TAB PO SCH (10:38)
--- NOTE | 2017-07-11 10:40 | NUR ---
ADMINISTERED SCHEDULED MEDICATIONS LATE. PT SWALLOWED MEDICATIONS WITHOUT COMPLICATIONS. PT DENIES PAIN. PT HAS NO BM AND CANNOT ASSESS IF STOOLS IS BLOODY. PT IS AWARE TO NOTIFY HCP WHEN HE HAS A BM. THE BED IS LOWERED WITH CALL LIGHT WITHIN REACH.
--- NOTE | 2017-07-11 11:00 | NUR ---
PT IS SLEEPING AND SHOWS NO S/S OF ACUTE DISTRESS ON ROOM AIR.
--- NOTE | 2017-07-11 12:30 | NUR ---
DR LIN OKAYED TO HAVE NO IV ACCESS FOR PT. ORDER FOR PICC LINE WAS CANCELLED.
[2017-07-11] MEDS ORDERED: ONDANSETRON 4 MG ODT SL PRN (12:45)
[2017-07-11] MEDS ORDERED: MAGNESIUM OXIDE 400 MG TAB PO SCH (13:00)
[2017-07-11] MEDS: CHLORHEXADINE GLUC 2% CLOTH TP SCH (13:00)
[2017-07-11] MEDS: MUPIROCIN 2% OINT 22 GM TUBE TP SCH (13:00)
[2017-07-11] MEDS ORDERED: MAG SULF 2000 MG/WATER PREMIX 100 ML IV SCH (14:00)
--- NOTE | 2017-07-11 14:10 | NUR ---
ADMINISTERED SCHEDULED MEDICATIONS LATE. PT TOLERATED ACTIVITY WELL. ALL NEEDS MET AT THIS TIME. BED IN LOW POSITION WITH CALL LIGHT WITHIN REACH.
--- NOTE | 2017-07-11 15:32 | NUR ---
SPOKE WITH SABA FROM [facility]. FAXED INITIAL REVIEW TO [phone] PHONE [phone] PER SABA, [facility].
--- NOTE | 2017-07-11 16:02 | NUR ---
SPOKE WITH KEE AT [facility]. I TOLD HER TO CALL THE FLOOR IF NEEDED. SPOKE LATER WITH LUCIO AND SHE SAID THAT DR. LIN SPOKE WITH DR. RODRIGUEZ ABOUT PLACEMENT IN SNF EARLIER TODAY.
--- NOTE | 2017-07-11 16:30 | NUR ---
PT IS SITTING COMFORTABLY WATCHING TV AND SHOWS NO S/S OF ACUTE DISTRESS ON ROOM AIR. THE BED IN LOW POSITION WITH CALL LIGHT WITHIN REACH.
--- NOTE | 2017-07-11 17:00 | NUR ---
HORNER CATHETER DISCONTINUED WITH 1000 CC WITH CLEAR YELLOW URINE. PT TOLERATED WELL. WILL CONTINUE TO MONITOR.
--- NOTE | 2017-07-11 18:10 | NUR ---
PT VOIDED 100 CC CLEAR YELLOW URINE USING URINAL. NO BM TODAY; HOWEVER, PT HAS PASSED GAS.
--- NOTE | 2017-07-11 18:58 | NUR ---
PT IS WATCHING TV AND SHOWS NO S/S OF ACUTE DISTRESS ON ROOM AIR. PT DENIES PAIN. NO IV ACCESS. PT ON TELE. THE BED IS LOWERED WITH CALL LIGHT WITHIN REACH. PT REPORT WILL BE ENDORSED FOR CONTINUITY OF CARE TO NIGHT NURSE.
--- NOTE | 2017-07-11 19:20 | NUR ---
RECEIVED REPORT FROM AM NURSE. PT RESTING IN BED, AOX4, ABLE TO VERBALIZE NEEDS. PT CAN SPEAK FULL SENTENCES, TALKATIVE, MUMBLES WITH LOW VOLUME. PT DENIES CHEST PAIN, SOB OR S/S OF ACUTE DISTRESS. MOTORCYCLE REPAIR SHOP SUPERVISOR IN PLACE. BUE +1 PITTING EDEMA NOTED. RIGHT FA SKIN TEAR NOTED, LEFT FA ABRASIONS NOTED, MULTIPLE DRY SCABS ON UNDER RIGHT TOE AND ON LEFT HAND NOTED. SCDs IN PLACE. NO IV ACCESS, MD AWARE. DISCUSSED AND REVIEWED PLAN OF CARE WITH PT. PT STATED "OK." WILL CONTINUE WITH CONSTANT REINFORCEMENT. ALL NEEDS MET. SAFETY MEASURES ENSURED. CALL LIGHT WITHIN REACH. WILL CONTINUE TO MONITOR.
[2017-07-11] MEDS: cloNIDine 0.1 MG TAB PO PRN (20:27)
[2017-07-11] MEDS: ZOLPIDEM 5 MG TAB PO SCH (20:27)
--- NOTE | 2017-07-11 20:30 | NUR ---
BP 180/91, HR 66; ADMINISTERED CLONIDINE PO PRN WITH EDUCATION. WILL MONITOR BP ADMINISTERED DUE MEDS WITH EDUCATION. PT STATED "OK." PT TOLERATED MEDS WELL. ALL NEEDS MET. SAFETY MEASURES ENSURED. CALL LIGHT WITHIN REACH. WILL CONTINUE TO MONITOR.
[2017-07-11] MEDS ORDERED: DEXTROSE 50% 50 ML SYR IVP PRN (22:50)
[2017-07-11] MEDS ORDERED: LISINOPRIL 10 MG TAB PO SCH (22:50)
[2017-07-11] MEDS ORDERED: INSULIN LISPRO SLIDING SCALE 100 UNITS/ML VIAL SUBQ PRN (22:50)
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
[2017-07-11] MEDS: BLOOD GLUCOSE MONITORING 1 DEV DEV FS SCH (23:17)
--- NOTE | 2017-07-11 23:17 | NUR ---
BLOOD SUGAR CHECKED, 96, NO INSULIN COVERAGE NEEDED. ADMINISTERED LISINOPRIL 10MG PO AT THIS TIME PER MD WITH EDUCATION. PT VERBALIZED UNDERSTANDING, TOLERATED MED WELL. ALL NEEDS MET. SAFETY MEASURES ENSURED. CALL LIGHT WITHIN REACH. WILL CONTINUE TO MONITOR.
[2017-07-12] VITALS: BP 137/66
--- NOTE | 2017-07-12 00:12 | NUR ---
PT RESTING COMFORTABLY IN BED, NO S/S OF ACUTE DISTRESS. BP 137/66, HR 64. ALL NEEDS MET. SAFETY MEASURES ENSURED. CALL LIGHT WITHIN REACH. WILL CONTINUE TO MONITOR.
--- NOTE | 2017-07-12 02:15 | NUR ---
PT SLEEPING COMFORTABLY. NO S/S OF ACUTE DISTRESS. ALL NEEDS MET. SAFETY MEASURES ENSURED. CALL LIGHT WITHIN REACH. WILL CONTINUE TO MONITOR.
[2017-07-12 04:00] VITALS: BP 169/84
[2017-07-12] MEDS: cloNIDine 0.1 MG TAB PO PRN (04:37)
--- NOTE | 2017-07-12 04:38 | NUR ---
BLOOD PRESSURE 169/84, HR 62. ADMINISTERED CLONIDINE PO PRN ORDERED WITH EDUCATION. PT STATED "OK," TOLERATED MED WELL. ALL NEEDS MET. SAFETY MEASURES ENSURED. CALL LIGHT WITHIN REACH. WILL CONTINUE TO MONITOR.
[2017-07-12] MEDS: BLOOD GLUCOSE MONITORING 1 DEV DEV FS SCH ×2 (06:45→11:58)
[2017-07-12 06:57] LABS: ANION GAP 11.1 (8-16); CARBON DIOXIDE 25.8 mmol/L (21-32); CREATININE 0.9 mg/dL (0.7-1.3); HEMATOCRIT 26.9 % (36-52); HEMOGLOBIN 9.1 g/dL (12.0-18.0); MEAN CORPUSCULAR HEMOGLOBIN 30 pg (27-31); MEAN CORPUSCULAR HGB CONC 34 g/dL (33-37); MEAN CORPUSCULAR VOLUME 87 fL (80-94); PLATELET COUNT (AUTO) 169 K/uL (140-450); POTASSIUM 3.9 mmol/L (3.5-5.1); WHITE BLOOD COUNT (AUTO) 5.9 K/uL (4.8-10.8)
[2017-07-12 07:15] LABS: MAGNESIUM 1.5 mg/dL (1.8-2.4); PHOSPHORUS 3.9 mg/dL (2.5-4.9)
--- NOTE | 2017-07-12 07:15 | NUR ---
ENDORSED PLAN OF CARE TO AM NURSE. CONDITION STABLE.
--- NOTE | 2017-07-12 07:15 | NUR ---
RECEIVED REPORT FROM CONSTRUCTION SERVICES TECHNICIAN RN. PATIENT IS AWAKE AND ALERT X4, MUMBLES AT TIMES WHEN HE TALKS. DENIES ANY CHEST PAIN AND SOB, NO S/S OF ACUTE DISTRESS NOTED AT THIS TIME. NO IV ACCESS AT THIS TIME, DR LIN IS AWARE. PATIENT HAS SKIN TEAR ON RIGHT FA, HAS TRANSPARENT DRESSING. LEFT FA HAS A DRY SCAB MOLD SPRAYER. MULTIPLE DRY SCABS ON LEFT HAND. SCAB ON RIGHT TOE AZEEM. DISCUSSED PLAN OF CARE WITH PATIENT AND HE VERBALIZED UNDERSTANDING. SAFETY MEASURES IN PLACE. WILL CONTINUE TO MONITOR.
[2017-07-12] MEDS ORDERED: INFLUENZA VIRUS VACCINE QUAD 0.5 ML SYR IMVAC PRN (07:20)
[2017-07-12] MEDS ORDERED: PNEUMOCOCCAL VACCINE 23 MCG/0.5 ML VIAL IMVAC PRN (07:20)
[2017-07-12 07:49] LABS: EOSINOPHILS % (MANUAL) 1 % (0-4); LYMPHOCYTES % (MANUAL) 35 % (20-46); MONOCYTES % (MANUAL) 10 % (5-12)
[2017-07-12 08:00] VITALS: BP 161/97
[2017-07-12] MEDS: PANTOPRAZOLE 40 MG TABEC PO SCH (09:09)
[2017-07-12] MEDS: HYDROCHLOROTHIAZIDE 25 MG TAB PO SCH (09:09)
[2017-07-12] MEDS: LISINOPRIL 20 MG TAB PO SCH (09:09)
[2017-07-12] MEDS: METHADONE 10 MG TAB PO SCH (09:09)
[2017-07-12] MEDS: METOPROLOL SUCCINATE 50 MG TABER PO SCH (09:10)
[2017-07-12] MEDS: HALOPERIDOL 1 MG TAB PO SCH (09:10)
[2017-07-12] MEDS: BENZTROPINE 1 MG TAB PO SCH (09:10)
[2017-07-12] MEDS ORDERED: cloNIDine 0.1 MG TAB PO PRN (09:25)
[2017-07-12] MEDS ORDERED: MAGNESIUM OXIDE 400 MG TAB PO SCH (09:30)
--- NOTE | 2017-07-12 10:25 | NUR ---
SPOKE WITH RENE FROM [facility], . THEY ARE LOOKING FOR SNF FOR THIS PATIENT FOR P.T. WILL FAX CONCURRENT REVIEW AND PT JODY WHEN I GET THEM TO [phone].
[2017-07-12 12:00] VITALS: BP 157/77
[2017-07-12] MEDS: CHLORHEXADINE GLUC 2% CLOTH TP SCH (13:14)
[2017-07-12] MEDS: MUPIROCIN 2% OINT 22 GM TUBE TP SCH (13:16)
--- NOTE | 2017-07-12 13:58 | NUR ---
RECEIVED A CALL FROM RENE FROM [facility] [phone]. THE PATIENT HAS BEEN ACCEPTED AT [facility] ROOM [address] JANG. HE WILL SET UP TRANSPORT WITH [facility] FOR 3:30P.Nathan COX RN CHARGE NURSE AWARE
--- NOTE | 2017-07-12 14:41 | NUR ---
CALLED [facility] AND GAVE REPORT TO ELLE. HE WILL BE GOING TO BED 9B THERE.
--- NOTE | 2017-07-12 15:30 | NUR ---
[facility] HERE TO TRANSPORT PATIENT TO [facility]. PATIENT IS AAOX4, LEFT AND RIGHT ARMS HAVE ABRASIONS, MULTIPLE DRY SCABS ON RIGHT HAND, SCAB ON RIGHT TOE. HAS NO SIGNS AND SYMPTOMS OF DISTRESS NOTED AT THIS TIME. NO IV ACCESS. REMOVED PATIENT ID BAND. PATIENT IN STABLE CONDITION TO BE TRANSFERRED.
[2017-07-12] MEDS ORDERED: LISINOPRIL 10 MG TAB PO SCH (21:00)
[2017-07-12] MEDS ORDERED: LISINOPRIL 20 MG TAB PO SCH (21:00)
== END 2017-07-12 15:50 | DRG 377 ==
LOC: MED 10:47 → MIC 13:59 → MTU 07-10 19:00
PROVIDERS: ADMIT Preventive Medicine Preventive Medicine/Occupational Environmental Medicine; ATTEND Preventive Medicine Preventive Medicine/Occupational Environmental Medicine
PROC: 0DB68ZX Excision of Stomach, Via Natural or Artificial Opening Endoscopic, Diagnostic (ICD-10-PCS; 2017-07-09)
PROC: 0DB78ZX Excision of Stomach, Pylorus, Via Natural or Artificial Opening Endoscopic, Diagnostic (ICD-10-PCS; 2017-07-09)
PROC: 30233N1 Transfusion of Nonautologous Red Blood Cells into Peripheral Vein, Percutaneous Approach (ICD-10-PCS; 2017-07-09)
PROC: 3E0G8GC Introduction of Other Therapeutic Substance into Upper GI, Via Natural or Artificial Opening Endoscopic (ICD-10-PCS; 2017-07-09)
PROC: 0W3P8ZZ Control Bleeding in Gastrointestinal Tract, Via Natural or Artificial Opening Endoscopic (ICD-10-PCS; principal; 2017-07-09 13:40)
PROC: 3E0234Z Introduction of Serum, Toxoid and Vaccine into Muscle, Percutaneous Approach (ICD-10-PCS; 2017-07-12)
DX: K26.4 Chronic or unspecified duodenal ulcer with hemorrhage (principal); R57.8 Other shock; E43 Unspecified severe protein-calorie malnutrition; N17.9 Acute kidney failure, unspecified; D69.6 Thrombocytopenia, unspecified; E11.22 Type 2 diabetes mellitus with diabetic chronic kidney disease; E11.65 Type 2 diabetes mellitus with hyperglycemia; K22.10 Ulcer of esophagus without bleeding; E83.42 Hypomagnesemia; E83.52 Hypercalcemia; F31.9 Bipolar disorder, unspecified; J45.909 Unspecified asthma, uncomplicated; D64.9 Anemia, unspecified; K29.00 Acute gastritis without bleeding; N18.9 Chronic kidney disease, unspecified; I12.9 Hypertensive chronic kidney disease with stage 1 through stage 4 chronic kidney disease, or unspecified chronic kidney disease; Z88.8 Allergy status to other drugs, medicaments and biological substances; Z91.048 Other nonmedicinal substance allergy status; Z68.27 Body mass index [BMI] 27.0-27.9, adult; Z87.891 Personal history of nicotine dependence; Z22.322 Carrier or suspected carrier of Methicillin resistant Staphylococcus aureus; Z23 Encounter for immunization
CPT/HCPCS: 36415; 51702; 70450; 71010; 80048; 80053; 80305; 81001; 82140; 82948; 83605; 83735; 84100; 84484; 85025; 85610; 85651; 85730; 86140; 86677; 86886; 86900; 86901; 86920; 87040; 87081; 87086; 90658; 90732; 93005; 96361; 96365; 96367; 96375; 97110; 97530; 99291; 99292; C9113; G0480; G0482; J1200; J2250; J2405; J2543; J3010; J3370; J3490; J7030; J7060; P9016; Q0092

== ENCOUNTER 2017-08-07 21:20 | Emergency (ER) | payer OTHER ==
[~2017-08-07] VITALS: Ht 172.7 cm; Wt 64.0 kg
[2017-08-07 21:29] VITALS: BP 183/76
--- NOTE | 2017-08-07 21:36 | NUR ---
Pt placed in bed 3.
--- NOTE | 2017-08-07 21:38 | NUR ---
67/M c/o scab to left 3rd digit x1 month. Pt states "I was smoking meth and I didn't realize I burned my finger a month ago." Black scab noted to tip of left 3rd digit. CMS intact. Denies any numbness or tingling. AOX4, no distress noted. VSS.
--- NOTE | 2017-08-07 22:00 | NUR ---
Patient being evaluated by Dr. Sylvester at bedside.
[2017-08-07 22:34] VITALS: BP 169/80
--- NOTE | 2017-08-07 22:34 | NUR ---
Patient discharged with v/s stable. Written and verbal after care instructions given and explained. Patient alert, oriented and verbalized understanding of instructions. Ambulatory with steady gait. All questions addressed prior to discharge. ID band removed. Patient advised to follow up with PMD. Rx of Naproxen given. Patient educated on indication of medication including possible reaction and side effects. Opportunity to ask questions provided and answered.
== END 2017-08-07 22:34 | disposition home or self-care (01) ==
LOC: MED 21:20
DX: L98.499 Non-pressure chronic ulcer of skin of other sites with unspecified severity (principal); R03.0 Elevated blood-pressure reading, without diagnosis of hypertension; Z88.8 Allergy status to other drugs, medicaments and biological substances
CPT/HCPCS: 99282

== ENCOUNTER 2017-08-21 20:35 | Inpatient (IN) | payer OTHER ==
[~2017-08-21] VITALS: Ht 172.7 cm; Wt 63.0 kg
--- NOTE | 2017-08-21 20:38 | NUR ---
BIBA TO ER BED 8
[2017-08-21 20:44] VITALS: BP 158/93
--- NOTE | 2017-08-21 20:45 | NUR ---
PATIENT IS A 67 Y/O MALE BIB [facility] WHO PRESENTS TO THE ED C/O SOB FROM [facility]. PER [facility], PT O2 SAT MID 80S, WAS GIVEN BREATHING TX X1, O2 SATS WENT UP TO 95%. PT DENIES PAIN. PT REPORTS SOB, LUNG SOUNDS WHEEZING BILATERALLY, INITIAL O2 OF 85%. RT AT BEDSIDE, PT PUT ON NONREBREATHER 12L. PT DENIES CP, N/V/D. PT AAOX4, RR EVEN/UNLABORED. PT REPOSITIONED FOR COMFORT, BED IN LOWEST POSITION. ER MD DR. WADE NOTIFIED. WILL CONTINUE TO MONITOR. Addendum: 08/21/17 at 2126 by MEDDCV PATIENT IS A 67 Y/O MALE BIB [facility] WHO PRESENTS TO THE ED C/O SOB FROM [facility]. PER [facility], PT O2 SAT MID 80S, WAS GIVEN BREATHING TX X1, O2 SATS WENT UP TO 95%. PT DENIES PAIN. PT REPORTS SOB, LUNG SOUNDS WHEEZING BILATERALLY, INITIAL O2 OF 85%. RT AT BEDSIDE, PT PUT ON NONREBREATHER 12L. L AC 20 IV ESTABLISHED BY EMS. PT DENIES CP, N/V/D. PT AAOX4, RR EVEN/UNLABORED. PT REPOSITIONED FOR COMFORT, BED IN LOWEST POSITION. ER MD DR. WADE NOTIFIED. WILL CONTINUE TO MONITOR.
[2017-08-21] MEDS ORDERED: NACL 0.9% 500 ML IV SCH (20:47)
[2017-08-21] MEDS ORDERED: NACL 0.9% 500 ML IV ONE (20:50)
[2017-08-21] MEDS ORDERED: ALBUTEROL SULFATE/IPRATROPIU 3 ML SOL IH ONE (20:50)
--- NOTE | 2017-08-21 21:01 | NUR ---
MOVED TO ER BED 3
[2017-08-21] MEDS ORDERED: NITROGLYCERIN 2% 1 GM PKT TP ONE (21:15)
[2017-08-21] MEDS ORDERED: PIPERACILLIN/TAZOBACTAM 3.375 GM in DEXTROSE 5% 50 ML IV ONE (21:25)
[2017-08-21] MEDS ORDERED: AZITHROMYCIN 1,000 MG in DEXTROSE 5% 500 ML IV ONE (21:25)
--- NOTE | 2017-08-21 21:30 | NUR ---
PT IS MUMBLING, TALKING TO HIMSELF, STATED DON'T KNOW WHAT IS GOING ON TO HIME, REORINETATED PT, PT STILL ON NONREBREATHER 12L, LABORED BREATHING, O2 SAT 99%.
[2017-08-21] MEDS ORDERED: AZITHROMYCIN 500 MG INJ VIAL IV ONE (21:48)
[2017-08-21] MEDS ORDERED: PIPERACILLIN/TAZOBACTAM 3.375 GM VIAL IV ONE (21:48)
[2017-08-21 22:01] LABS: ANION GAP 11.5 (8-16); CARBON DIOXIDE 24.5 mmol/L (21-32)
[2017-08-21 22:05] LABS: PROTHROMBIN TIME 11.5 secs (10.8-13.4)
--- NOTE | 2017-08-21 22:05 | NUR ---
SPOKE TO INSURANCE COMPANY ABOUT PT'S CONDITION, PT IS NOT STABLE TRANSFFERED AT THIS TIME.
[2017-08-21 22:07] LABS: TOTAL BILIRUBIN 0.4 mg/dL (0.0-1.0)
[2017-08-21 22:22] LABS: BASOPHILS # (AUTO) 0.1 K/uL (0.00-0.22); BASOPHILS % (AUTO) 2.5 % (0.0-2.0); EOSINOPHILS # (AUTO) 0.1 K/uL (0-0.4); EOSINOPHILS % (AUTO) 2.3 % (0.0-4.0); HEMATOCRIT 25.6 % (36-52); HEMOGLOBIN 8.2 g/dL (12.0-18.0); MEAN CORPUSCULAR HEMOGLOBIN 27 pg (27-31); MEAN CORPUSCULAR HGB CONC 32 g/dL (33-37); MEAN CORPUSCULAR VOLUME 85 fL (80-94); MONOCYTES # (AUTO) 0.5 K/uL (0.8-1.0); MONOCYTES % (AUTO) 11.2 % (1.7-9.3); NEUTROPHILS # (AUTO) 2.9 K/uL (1.8-7.7); PLATELET COUNT (AUTO) 148 K/uL (140-450); RED BLOOD CELL COUNT(AUTO) 3.02 MIL/uL (4.20-6.10); WHITE BLOOD COUNT (AUTO) 4.6 K/uL (4.8-10.8)
--- NOTE | 2017-08-21 23:30 | NUR ---
PT WILL TRANSFER TO ICU BED 1.
[2017-08-21 23:43] LABS: APPEARANCE,URINE CLEAR (CLEAR); BILIRUBIN,URINE NEGATIVE (NEGATIVE); BLOOD, URINE NEGATIVE (NEGATIVE); COLOR,URINE YELLOW (YELLOW); LEUKOCYTE ESTERASE ,URINE NEGATIVE (NEGATIVE); NITRITE, URINE NEGATIVE (NEGATIVE); PH,URINE 6.5 (5.0-9.0); UGLUCOSE NEGATIVE (NEGATIVE)
--- NOTE | 2017-08-21 23:50 | NUR ---
RECEIVED PT TRANSFERRED FROM ER VIA GURNEY, PT IS AAOX3, ABLE TO FOLLOW COMMANDS AND MAKE NEEDS KNOWN, SOB, WHEEZING LUNG SOUNDS, ON NON-REBREATHER AT O2 15L, DENIES CHEST PAIN, SR ON CREW LEAD, SOFT ABDOMEN WITH ACTIVE BOWEL SOUNDS, GENERALIZED PITTING EDEMA NOTED, SKIN IS NON-INTACT WITH SEVERAL SCAB ON BLE, PICTURES TAKEN, PERIPHERAL LINE TO LEFT AC 20GA AND RIGHT HAND 22GA, RUNNING NS AT 100ML/HR AND AZITHROMYCIN AT 250ML/HR. GENERALIZED WEAKNESS NOTED, EXPLAINED POC AND ICU ENVIRONMENT TO PT, PT VERBALIZED UNDERSTANDING, HOB ELEVATED, SAFETY MEASURE IN PLACE, WILL CONTINUE TO MONITOR.
--- NOTE | 2017-08-21 23:50 | NUR ---
PT TRANSFERRED TO ICU BED 1 VIA GURNEY, NO INCIDNENT HAPPENED, ALL BELONGINGS GOES WITH PT. VSS.
[2017-08-21 23:55] VITALS: BP 147/65
[2017-08-22] VITALS (17 sets, daily range): BP systolic 122–219; BP diastolic 63–125
--- NOTE | 2017-08-22 | NUR ---
DR. ROBERSON CAME TO SEE PT AT BEDSIDE, NEW ORDERS GIVEN, WILL CARRY OUT.
[2017-08-22] MEDS ORDERED: FUROSEMIDE 20 MG/2 ML VIAL IVP ONE (00:10)
[2017-08-22] MEDS ORDERED: ALBUTEROL SULFATE/IPRATROPIU 3 ML SOL IH PRN (00:15)
--- NOTE | 2017-08-22 00:30 | NUR ---
PT STATED HUNGRY, HAVEN'T EATEN ANYTHING TONIGHT, FOOD PROVIDED. PT ABLE TO EAT SELF, AND TOLERATED FOOD WELL.
[2017-08-22] MEDS ORDERED: INSULIN LISPRO SLIDING SCALE 100 UNITS/ML VIAL SUBQ PRN (00:35)
[2017-08-22] MEDS ORDERED: DEXTROSE 50% 50 ML SYR IVP PRN (00:35)
[2017-08-22] MEDS: NACL 0.9% 1,000 ML IV SCH ×2 (00:40→23:40)
[2017-08-22 00:50] LABS: FREE T4 (FREE THYROXINE) 0.94 ng/dL (0.76-1.46); MAGNESIUM 1.6 mg/dL (1.8-2.4); PHOSPHORUS 4.3 mg/dL (2.5-4.9); THYROID STIMULATING HORMONE 1.34 uIU/mL (0.34-3.74)
[2017-08-22] MEDS: methylPREDNISolone SS 40 MG/ML VIAL IVP SCH ×3 (01:10→21:22)
[2017-08-22] MEDS ORDERED: methylPREDNISolone SS 40 MG/ML VIAL ONE (01:17)
[2017-08-22] MEDS ORDERED: ALBUTEROL SULFATE/IPRATROPIU 3 ML SOL IH ONE (01:19)
[2017-08-22] MEDS: PIPERACILLIN/TAZOBACTAM 3.375 GM in DEXTROSE 5% 50 ML IV SCH ×2 (01:20→05:39)
[2017-08-22] MEDS ORDERED: PIPERACILLIN/TAZOBACTAM 3.375 GM VIAL IV ONE (01:23)
[2017-08-22] MEDS ORDERED: MAG SULF 2000 MG/WATER PREMIX 50 ML IV ONE (01:30)
--- NOTE | 2017-08-22 02:17 | NUR ---
0115 PLACED PT ON BIPAP IPAP12 EPAP 6 RR 14 AND 50% FIO2. PT GIVEN HHNTX WITH DUONEB. MILD IMPROVEMENT. PT IS S.O.B
[2017-08-22] MEDS ORDERED: ALBUTEROL SULFATE/IPRATROPIU 3 ML SOL IH SCH ×2 (03:00→06:00)
[2017-08-22] MEDS: ZOLPIDEM 5 MG TAB PO SCH ×2 (03:09→21:23)
[2017-08-22] MEDS ORDERED: PNEUMOCOCCAL VACCINE 23 MCG/0.5 ML VIAL IMVAC SCH (03:10)
[2017-08-22] MEDS ORDERED: ZOLPIDEM 5 MG TAB ONE (03:13)
[2017-08-22 03:43] LABS: BARBITURATE, URINE NEG. ng/ml (NEG <=200); BENZODIAZEPINE, URINE NEG. ng/mL (NEG <=200); CANNABINOID, URINE NEG. ng/mL (NEG <=50); COCAINE, URINE NEG. ng/mL (NEG <=300); OPIATE, URINE NEG. ng/mL (NEG <=2000); PHENCYCLIDINE SCREEN,URINE NEG. ng/mL (NEG <=25)
[2017-08-22] MEDS: ALBUTEROL SULFATE/IPRATROPIU 3 ML SOL IH PRN ×2 (03:43→19:40)
[2017-08-22] MEDS: ALBUTEROL SULFATE/IPRATROPIU 3 ML SOL IH SCH ×6 (03:44→22:15)
--- NOTE | 2017-08-22 04:00 | NUR ---
PT IS RESTING IN BED, ON BIPAP WITH SETTING FIO2 40, I/E 12/, RATE 14. NO S/S OF DISTRESS AT THIS TIME, VSS.
[2017-08-22] MEDS: LORazepam 1 MG TAB PO SCH ×3 (04:48→21:24)
[2017-08-22 05:14] LABS: LYMPHOCYTES # (AUTO) 0.3 K/uL (2.0-11.5); MEAN CORPUSCULAR HGB CONC 32 g/dL (33-37); MONOCYTES # (AUTO) 0.2 K/uL (0.8-1.0); NEUTROPHILS # (AUTO) 3.4 K/uL (1.8-7.7)
--- NOTE | 2017-08-22 05:21 | NUR ---
LOWERED FIO2 TO 30% SATS 97%
--- NOTE | 2017-08-22 06:00 | NUR ---
NO CHANGE OF CONDITION AT THIS TIME, VSS.
[2017-08-22 06:14] LABS: BASOPHILS % (AUTO) 0.8 % (0.0-2.0); EOSINOPHILS % (AUTO) 0.5 % (0.0-4.0); HEMATOCRIT 28.4 % (36-52); LYMPHOCYTES % (AUTO) 7.3 % (20.5-51.1); MEAN CORPUSCULAR HEMOGLOBIN 27 pg (27-31); MEAN CORPUSCULAR VOLUME 86 fL (80-94); MONOCYTES % (AUTO) 4.1 % (1.7-9.3); NEUTROPHILS % (AUTO) 87.3 % (42.2-75.2); PLATELET COUNT (AUTO) 148 K/uL (140-450); RED BLOOD CELL COUNT(AUTO) 3.32 MIL/uL (4.20-6.10); RED CELL DISTRIBUTION WIDTH 17.9 % (11.6-13.7)
[2017-08-22 06:15] LABS: ANION GAP 14.8 (8-16); CARBON DIOXIDE 24.6 mmol/L (21-32); CREATININE 1.1 mg/dL (0.7-1.3); POTASSIUM 3.4 mmol/L (3.5-5.1)
[2017-08-22 06:19] LABS: MAGNESIUM 2.3 mg/dL (1.8-2.4); PHOSPHORUS 3.8 mg/dL (2.5-4.9)
--- NOTE | 2017-08-22 06:29 | NUR ---
REC'D PT ON CHRISTOPHER BIPAP SETTING 12\6 RR 14 FIO2 30% ALARMS ON AND FUNCTIONING PROPERLY, AMBU BAG AT SIDE OF BIPAP AND BIPAP IS PLUGGED INTO RED OUTLET, I\L TX GIVEN WITH DUONEB 3ML WITH NO ADVERSE REACTION POST TX B\S ARE WHEEZING BILATERALLY, PT IS WEARING MED FACE MASK WITH PROTETIC GEL IN PLACE AND SKIN INTEGRITY IS INTACT PT IS RESTING
[2017-08-22] MEDS: BLOOD GLUCOSE MONITORING 1 DEV DEV FS SCH ×4 (06:42→20:48)
[2017-08-22 06:47] LABS: WHITE BLOOD COUNT (AUTO) 3.9 K/uL (4.8-10.8)
--- NOTE | 2017-08-22 07:20 | NUR ---
REPORT GIVEN TO MORNING SHIFT RN AT BEDSIDE FOR CONTINUE OF CARE, PT IS STILL ON BIPAP, VSS.
--- NOTE | 2017-08-22 08:15 | NUR ---
PT OFF BIPAP PLACED ON 4L OXYMIZER
--- NOTE | 2017-08-22 08:30 | NUR ---
AWAKE C/O NOT BEING ABLE TO SLEEP LAST NIGHT, TAKING HIMSELF OFF THE MASK,HE WAS PLACED ON 5L OXYMIZER HE IS MUCH HAPPIER SATURATION 97%.
[2017-08-22] MEDS: PANTOPRAZOLE 40 MG TABEC PO SCH (08:42)
[2017-08-22] MEDS: MULTIVITAMIN 1 TAB PO SCH (08:49)
[2017-08-22] MEDS: FOLIC ACID 1 MG TAB PO SCH (08:49)
[2017-08-22] MEDS: THIAMINE 100 MG TAB PO SCH (08:49)
[2017-08-22] MEDS: FUROSEMIDE 40 MG/4 ML VIAL IVP SCH (08:53)
[2017-08-22] MEDS: NAPROXEN 500 MG TAB PO SCH ×2 (08:55→21:23)
[2017-08-22] MEDS: BENZTROPINE 1 MG TAB PO SCH ×2 (08:56→21:24)
[2017-08-22] MEDS: HALOPERIDOL 1 MG TAB PO SCH ×2 (08:56→21:24)
[2017-08-22] MEDS ORDERED: METHADONE 10 MG TAB PO SCH (09:00)
[2017-08-22] MEDS ORDERED: LISINOPRIL 20 MG TAB PO SCH ×2 (09:00→20:10)
[2017-08-22] MEDS ORDERED: POTASSIUM CHLORIDE 20% 40 MEQ/15 ML UDC GT SCH (09:00)
[2017-08-22] MEDS ORDERED: KCL 20 MEQ/WATER INJ PREMIX 100 ML IV SCH (09:00)
[2017-08-22] MEDS: HYDROCHLOROTHIAZIDE 25 MG TAB PO SCH (09:01)
--- NOTE | 2017-08-22 10:01 | NUR ---
PATIENT HAS BEEN SCREENED AND CATEGORIZED HIGH NUTRITION RISK. PATIENT WILL BE SEEN WITHIN 1-2 DAYS OF ADMISSION. 08/22/17-08/23/[address]
[2017-08-22] MEDS: METOPROLOL SUCCINATE 50 MG TABER PO SCH (11:01)
[2017-08-22] MEDS ORDERED: CALCIUM GLUCONATE 500 MG TAB PO SCH (12:54)
[2017-08-22] MEDS: PIPER/TAZO 3.375GM/D5W PREMIX 50 ML IV SCH ×3 (13:28→23:39)
[2017-08-22] MEDS ORDERED: CALCIUM GLUCONATE 10% 1,000 MG in NACL 0.9% 50 ML IV SCH (14:00)
--- NOTE | 2017-08-22 14:30 | NUR ---
TAKEN TO RADIOLOGY DPT,FOR CT OF THE CHEST WITH \CONTRAST PT COOPERATIVE WAS EXPLAINED REGARDING THE PROCEDURE BY DRAPERY ROD ASSEMBLER.
[2017-08-22 14:33] LABS: CREATININE 0.9 mg/dL (0.7-1.3)
--- NOTE | 2017-08-22 14:50 | NUR ---
Clinical review faxed to [facility] at [phone]
--- NOTE | 2017-08-22 14:52 | NUR ---
Clinical review faxed to [facility] [phone]
--- NOTE | 2017-08-22 19:00 | NUR ---
RECEIVED REPORT FROM AM SHIFT. PT GCS 14 (4,4,6). BILATERAL PERRLA NOTED. CURRENTLY GETTING ULTRASOUND DONE. PT DENIES ANY PAIN OR DISCOMFORT. DENIES ANY SOB. CURRENTLY ON 4 L OXYMIZER SATURATING WELL. EQUAL, BILATERAL BREATH SOUND NOTED. ST ON MONITOR. BLE REDNESS NOTED WITH SCABS ON BLE. R AC 18 GAUGE IV NOTED. INTACT AND PATENT. R HAND 22 GAUGE NOTED. INTACT AND PATENT. BOWEL SOUND PRESENT X 4 QUADRANT. ABDOMEN SOFT, NONTENDER. ABLE TO URINATE FREELY. CLEAR, YELLOW URINE NOTED. NO S/SX OF ACUTE DISTRESS NOTED. BED AT LOWEST SETTING. CALL LIGHT WITHIN REACH. WILL CONTINUE TO MONITOR FOR CHANGES.
--- NOTE | 2017-08-22 19:01 | NUR ---
HHN TREATMENT NOT GIVEN PATIENT HAVING A PROCEDURE AT BEDSIDE
--- NOTE | 2017-08-22 19:20 | NUR ---
RT NOTIFIED OF PT'S LOW O2 SATURATION WITH TACHYPNEA AND C/O DIFFICULTY BREATHING. AWAITING RT TO PLACE PT ON BIPAP.
--- NOTE | 2017-08-22 19:20 | NUR ---
CALLED TO ICU THAT PT. IN DISTRESS RR 32, SAO2 85% BS CRACKLES/COURSE. PLACED PT ON BIPAP AND HHN TREATMENT GIVEN RR 22 SAO2 98% BS IMPROVED, BILATERAL COURSE BREATH SOUNDS HR 113 BP190/105
--- NOTE | 2017-08-22 19:30 | NUR ---
DR. PHELAN NOTIFIED THAT PT IS CURRENTLY UNABLE TO BE TRANSFERRED D/T C/O RESPIRATORY DISTRESS AND LOW O2 SATURATION. AWAITING FURTHER ORDERS.
--- NOTE | 2017-08-22 19:44 | NUR ---
DR. PHELAN NOTIFIED REGARDING CONTINUING ELEVATED BP AND TACHYCARDIA. AWAITING CALL BACK.
--- NOTE | 2017-08-22 20:00 | NUR ---
DR. PHELAN NOTIFIED REGARDING ELEVATED BP 213/103 AND TACHYCARDIA 110S. STAT TELEPHONE ORDER RECEIVED.
[2017-08-22] MEDS ORDERED: LABETALOL 100 MG/20 ML VIAL IVP SCH (20:10)
--- NOTE | 2017-08-22 20:15 | NUR ---
PT REPORTED RELIEF. STATED BEING ABLE TO BREATH BETTER. NO C/O ANY OTHER DISCOMFORT.
--- NOTE | 2017-08-22 20:28 | NUR ---
ONE TIME ORDERED MEDICATION GIVEN ORDERED. TOLERATED WELL. WILL CONTINUE TO MONITOR FOR CHANGES.
[2017-08-22] MEDS: QUEtiapine FUMARATE 25 MG TAB PO SCH (21:23)
--- NOTE | 2017-08-22 21:26 | NUR ---
MEDICATION ADMINISTERED ORDERED. TOLERATED WELL.
--- NOTE | 2017-08-22 21:30 | NUR ---
DR. PHELAN NOTIFIED ABOUT BP REASSESSMENT. NO NEW ORDERS. WILL CONTINUE TO MONITOR UNTIL MD COMES TO ASSESS.
[2017-08-22] MEDS ORDERED: hydrALAZINE 20 MG/ML VIAL IVP PRN (22:05)
--- NOTE | 2017-08-22 22:20 | NUR ---
PT APPEARS TO BE IN RESPIRATORY DISTRESS, LOW O2 SATURATION AND TACHYPNEA ON MONITOR. RT NOTIFIED AND AT BEDSIDE TO CHANGE BIPAP SETTING. MD NOTIFIED.
[2017-08-22] MEDS ORDERED: LORazepam 1 MG TAB PO SCH (22:30)
[2017-08-22] MEDS ORDERED: HALOPERIDOL IM 5 MG/ML VIAL IM SCH (22:35)
--- NOTE | 2017-08-22 22:40 | NUR ---
DR. PHELAN AT BEDSIDE TO SEE PT. WILL F/U WITH NEW ORDERS.
--- NOTE | 2017-08-22 22:58 | NUR ---
ONE TIME DOSE MEDICATION ADMINISTERED ORDERED FOR AGITATION AND ANXIETY. PT TOLERATED WELL. WILL CONTINUE TO MONITOR.
--- NOTE | 2017-08-22 23:30 | NUR ---
PT SLEEPING COMFORTABLY IN BED WITH BIPAP ON. VITALS WITHIN NORMAL. WILL CONTINUE TO MONITOR.
[2017-08-23] VITALS (66 sets, daily range): BP systolic 95–187; BP diastolic 42–187
--- NOTE | 2017-08-23 | NUR ---
PT SLEEPING. NO S/SX OF ACUTE DISTRESS NOTED. VITALS WITHIN NORMAL. WILL CONTINUE TO MONITOR FOR CHANGES.
--- NOTE | 2017-08-23 02:00 | NUR ---
PT SLEEPING. NO S/SX OF ACUTE DISTRESS NOTED. WILL CONTINUE TO MONITOR FOR CHANGES.
[2017-08-23] MEDS: ALBUTEROL SULFATE/IPRATROPIU 3 ML SOL IH SCH ×6 (03:24→23:04)
--- NOTE | 2017-08-23 04:00 | NUR ---
PT SLEEPING. NO S/SX OF ACUTE DISTRESS NOTED. WILL CONTINUE TO MONITOR FOR CHANGES.
[2017-08-23] MEDS: LORazepam 1 MG TAB PO SCH ×3 (04:46→20:53)
--- NOTE | 2017-08-23 04:50 | NUR ---
MEDICATION ADMINISTERED ORDERED. TOLERATED WELL. WILL CONTINUE TO MONITOR FOR CHANGES. PT DENIES ANY DISCOMFORT OR PAIN AT THIS TIME. CONTINUING ON BIPAP, TOLERATING WELL.
[2017-08-23 05:10] LABS: BASOPHILS # (AUTO) 0.1 K/uL (0.00-0.22); BASOPHILS % (AUTO) 0.8 % (0.0-2.0); EOSINOPHILS # (AUTO) 0.1 K/uL (0-0.4); EOSINOPHILS % (AUTO) 0.7 % (0.0-4.0); HEMATOCRIT 26.6 % (36-52); HEMOGLOBIN 8.4 g/dL (12.0-18.0); LYMPHOCYTES # (AUTO) 0.5 K/uL (2.0-11.5); LYMPHOCYTES % (AUTO) 7.2 % (20.5-51.1); MEAN CORPUSCULAR HEMOGLOBIN 27 pg (27-31); MEAN CORPUSCULAR HGB CONC 32 g/dL (33-37); MEAN CORPUSCULAR VOLUME 86 fL (80-94); MONOCYTES # (AUTO) 0.4 K/uL (0.8-1.0); NEUTROPHILS # (AUTO) 6.1 K/uL (1.8-7.7); NEUTROPHILS % (AUTO) 86.3 % (42.2-75.2); PLATELET COUNT (AUTO) 170 K/uL (140-450); RED CELL DISTRIBUTION WIDTH 17.8 % (11.6-13.7)
[2017-08-23 05:32] LABS: ANION GAP 9.1 (8-16); CARBON DIOXIDE 27.7 mmol/L (21-32); POTASSIUM 4.8 mmol/L (3.5-5.1)
[2017-08-23 05:38] LABS: MAGNESIUM 1.9 mg/dL (1.8-2.4); PHOSPHORUS 4.1 mg/dL (2.5-4.9)
[2017-08-23] MEDS: PIPER/TAZO 3.375GM/D5W PREMIX 50 ML IV SCH ×3 (06:14→17:54)
[2017-08-23] MEDS: BLOOD GLUCOSE MONITORING 1 DEV DEV FS SCH ×4 (06:14→20:52)
[2017-08-23 06:20] LABS: WHITE BLOOD COUNT (AUTO) 7.2 K/uL (4.8-10.8)
--- NOTE | 2017-08-23 07:02 | NUR ---
RECEIVED PT ON DEL RIO V60 ON ST 12\6 RR12 FIO2 100 ALARMS ARE ON AND FUNCTIONING PT IS IN HF ASLEEP WEARING F\F MASK SIZE MED GEL UNDER MASK BS CRACKLES HHN GIVEMN I\L WITH 3 MG DUONEB BIPAP PLUGGED INTO RED OUTLET DECREASE FIO2 TO 40
--- NOTE | 2017-08-23 08:10 | NUR ---
REMOVED BIPAP PT REQUEST PLACED 2L OXYMIZER SPO2 94
[2017-08-23] MEDS: PANTOPRAZOLE 40 MG TABEC PO SCH (08:38)
[2017-08-23] MEDS: methylPREDNISolone SS 40 MG/ML VIAL IVP SCH ×2 (08:44→20:51)
[2017-08-23] MEDS: FOLIC ACID 1 MG TAB PO SCH (08:44)
[2017-08-23] MEDS: MULTIVITAMIN 1 TAB PO SCH (08:45)
[2017-08-23] MEDS: HYDROCHLOROTHIAZIDE 25 MG TAB PO SCH (08:45)
[2017-08-23] MEDS: HALOPERIDOL 1 MG TAB PO SCH ×2 (08:46→20:54)
[2017-08-23] MEDS: THIAMINE 100 MG TAB PO SCH (08:46)
[2017-08-23] MEDS: NAPROXEN 500 MG TAB PO SCH ×2 (08:46→20:51)
[2017-08-23] MEDS: BENZTROPINE 1 MG TAB PO SCH ×2 (08:46→20:51)
[2017-08-23] MEDS: FUROSEMIDE 40 MG/4 ML VIAL IVP SCH (08:47)
[2017-08-23] MEDS: LISINOPRIL 20 MG TAB PO SCH (08:52)
[2017-08-23] MEDS: METOPROLOL SUCCINATE 50 MG TABER PO SCH (09:02)
--- NOTE | 2017-08-23 09:11 | NUR ---
REPLACED BIPAP SAME SETTINGS BS CRACKLES PT DESAT ON OXYMIZER Addendum: 08/23/17 at 0935 by Gisselle Wallace RT GEL UNDER MASK
--- NOTE | 2017-08-23 10:05 | NUR ---
RELISH MAKER SHOWED ST WIDE QRS COMPLEXES HR 130 TO 140/MIN. HAVING RESP. DIFFICULTY. 02 SAT IN THE 40'S. SUCTIONED TRACH. MUCUS PLUG NOTED. LAVAGED. RT CALLED AT BEDSIDE.
--- NOTE | 2017-08-23 10:08 | NUR ---
02 SAT IN THE 91%. SKIN COLOR PINKISH. PT MORE RESPONSIVE. MOVING RT UPPER EXT. ST HR 140'S.
--- NOTE | 2017-08-23 10:23 | NUR ---
BIPAP CHECK BS DIMINISHED
--- NOTE | 2017-08-23 11:11 | NUR ---
DECREASE FIO2 ON BIPAP TO 30% SPO2 97
--- NOTE | 2017-08-23 12:00 | NUR ---
PT INTUBATED BY DR ROBERSON ET 7.5 23 CM SECURED CXR TO FOLLOW
--- NOTE | 2017-08-23 12:00 | NUR ---
Doctor at be side performing procedure, will visit pt again later.
--- NOTE | 2017-08-23 12:03 | NUR ---
PLACED PT ON CARESCAPE ON A\C 12 VT500 PEEP5 FIO2 100 ALARMS ARE ON AND FUNCTIONAL BMV HOB PTS ET TUBE SIZE 7.5 IS SECURE 23 CM CXR TO FOLLOW BS CRACKLES VENT PLUGGED INTO RED OUTLET
[2017-08-23] MEDS: PROPOFOL 1000 MG/100 ML PREMIX 100 ML IV PRN ×2 (12:19→19:08)
--- NOTE | 2017-08-23 12:49 | NUR ---
VENT CHECK BS CRACKLES
--- NOTE | 2017-08-23 13:00 | NUR ---
ATIVAN PO NOT GIVEN. PT INTUBATED ON PROPOFOL DRIP.
--- NOTE | 2017-08-23 13:15 | NUR ---
ABG REPORTED TO DR ROBERSON INCREASE RR TO 20 ABG TO FOLLOW
--- NOTE | 2017-08-23 13:20 | NUR ---
HORNER CATH SIZE 16 INSERTED ASEPTICALLY WITHOUT ANY DIFFICULTY. OBTAINED SMALL AMT. CLEAR YELLOW URINE.
--- NOTE | 2017-08-23 14:37 | NUR ---
RENE Andino / [facility] RECEIVED A VERBAL REVIEW FROM DEVON. PER RENE Andino/ [facility] JUST NEED H&P, PROGRESS NOTES AND CONSULT. FAXED H&P, PROGRESS NOTES AND CONSULT WERE FAXED TO [facility].
--- NOTE | 2017-08-23 14:47 | NUR ---
08/23/17 RD INITIAL ASSESSMENT COMPLETED PLEASE REFER TO NUTRITION ASSESSMENT UNDER CARE ACTIVITY FOR ESTIMATED NUTRITIONAL NEEDS. 1. D/T PT INTUBATED AND SEDATED RECOMMEND PLACEMENT OF NGTUBE OR OGTUBE FOR NUTRITION SUPPORT 2. RECOMMEND NUTRITION SUPPORT: NUTREN PULMONARY AT 55 ML/HR X24 HOURS -THIS WILL PROVIDE 1320 ML TOTAL VOLUME, 1980 KCAL, 90 GM PROTEIN TO MEET 100% OF PT KCAL NEEDS AND 82% OF PT PROTEIN NEEDS 3. SHOULD PT BE WEANED OFF OF VENTILATOR, CONSIDER ADVANCING DIET BACK TO CCHO [address] TOLERATED 4. RD TO FOLLOW-UP 2-3 DAYS, HIGH RISK PAVITHRA ANGEL RD
--- NOTE | 2017-08-23 14:51 | NUR ---
VENT CHECK BS CRACKLES I\L LAVAGE AND SX SM BLOODY HHN GIVEN I\L WITH 3 MG DUONEBPT IS RESTRAINED
--- NOTE | 2017-08-23 15:18 | NUR ---
AGATA REPORTED TO DR ROBERSON
[2017-08-23] MEDS: CHLORHEXADINE GLUC 2% CLOTH TP SCH (17:27)
[2017-08-23] MEDS: MUPIROCIN 2% OINT 22 GM TUBE TP SCH (17:28)
[2017-08-23] MEDS ORDERED: HYDROmorphone PFS 2 MG/ML SYR IVP SCH (17:30)
--- NOTE | 2017-08-23 17:42 | NUR ---
DILAUDID 2MG IVP GIVEN BEFORE CENTRAL LINE PLACEMENT
--- NOTE | 2017-08-23 18:44 | NUR ---
VENTILATOR SETTING NOW AC,ZXU061%,TV500,PEEP 5 ENDO TUBE 7.5 R LIP 23
--- NOTE | 2017-08-23 19:17 | NUR ---
RCV'D PT ON MECHANICAL VENTILATOR ETT 7.5 AT 24 AT LIP. SETTINGS ARE AC 20,500,80%,+5. ETT IS SECURED AND MIDLINE. VENT IS CONNECTED TO RED OUTLET. ALARMS ARE AUDIBLE. PT IS ASLEEP. HHN TX OF DUONEB GIVEN. NO SOB OR DISTRESS NOTED. WILL CONTINUE TO MONITOR.
--- NOTE | 2017-08-23 19:30 | NUR ---
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
--- NOTE | 2017-08-23 20:45 | NUR ---
ORDER RECEIVED OK TO USE OG TUBE AND CENTRAL LINE FROM DR. PHELAN. PT IS ON PROPOFOL SO SCHEDULED ATIVAN, SEROQUEL, AMBIEN, AND HALDOL WILL BE NOT ADMINISTERED AND DR. PHELAN MADE AWARE AND AGREED.
--- NOTE | 2017-08-23 20:48 | NUR ---
OGT PLACEMENT CHECKED. GASTRIC CONTENT RESIDUAL NOTED 5ML.
[2017-08-23] MEDS: ZOLPIDEM 5 MG TAB PO SCH (20:53)
[2017-08-23] MEDS: QUEtiapine FUMARATE 25 MG TAB PO SCH (20:54)
--- NOTE | 2017-08-23 21:19 | NUR ---
HEALTH CENTER ASSOCIATE AT BED SIDE AT THIS TIME.
--- NOTE | 2017-08-23 23:10 | NUR ---
VENT CHECK DONE. HHN TX OF DUONEB GIVEN. PT IS NOT ALERT. NO SOB OR DISTRESS NOTED. DECREASED FIO2 TO 50%. WILL CONTINUE TO MONITOR.
[2017-08-24] VITALS (106 sets, daily range): BP systolic 90–148; BP diastolic 37–87
[2017-08-24] MEDS: PIPER/TAZO 3.375GM/D5W PREMIX 50 ML IV SCH ×4 (00:01→17:54)
--- NOTE | 2017-08-24 01:04 | NUR ---
DECREASED PROPOFOL DRIP TO 35 MCG/KG/MIN DUE TO HR 58. GP=486/58. 98%. R=20. PT IS @ RASS -4 AT THIS TIME. WILL CONTINUE TO MONITOR.
[2017-08-24] MEDS: NACL 0.9% 1,000 ML IV SCH (01:15)
--- NOTE | 2017-08-24 01:40 | NUR ---
NOTED PT'S RASS WITH -2. INCREASED PROPOFOL TO 40 MCG/KG/MIN TO MEET RASS -4. WILL CONTINUE TO MONITOR.
--- NOTE | 2017-08-24 01:45 | NUR ---
RASS -4 WITH PROPOFOL 40 MCG/KG/MIN. WILL CONTINUE TO MONITOR.
[2017-08-24] MEDS: PROPOFOL 1000 MG/100 ML PREMIX 100 ML IV PRN ×5 (02:14→22:20)
[2017-08-24] MEDS: ALBUTEROL SULFATE/IPRATROPIU 3 ML SOL IH SCH ×6 (03:03→23:14)
--- NOTE | 2017-08-24 03:47 | NUR ---
CONTINUING WITH PROPOFOL DRIP @ 40MCG/KG/MIN AND RASS -4. VENT SETTING HAS NO CHANGE. HOB KEPT ELEVATED 30 DEGREES. FLACC =0. WILL CONTINUE TO MONITOR.
[2017-08-24] MEDS: LORazepam 1 MG TAB PO SCH ×3 (04:20→20:23)
--- NOTE | 2017-08-24 04:20 | NUR ---
ATIVAN NOT ADMINISTERED. PT IS SEDATED WITH PROPOFOL AT THIS TIME. DR. TAPAN TRAORE.
--- NOTE | 2017-08-24 04:41 | NUR ---
ABG DONE WITH NO INCIDENT. RESULTS GIVEN TO MD PHELAN.
[2017-08-24 05:27] LABS: BASOPHILS # (AUTO) 0.2 K/uL (0.00-0.22); BASOPHILS % (AUTO) 2.9 % (0.0-2.0); EOSINOPHILS % (AUTO) 0.6 % (0.0-4.0); HEMATOCRIT 24.9 % (36-52); HEMOGLOBIN 7.9 g/dL (12.0-18.0); LYMPHOCYTES # (AUTO) 0.6 K/uL (2.0-11.5); LYMPHOCYTES % (AUTO) 11.6 % (20.5-51.1); MEAN CORPUSCULAR HEMOGLOBIN 27 pg (27-31); MEAN CORPUSCULAR HGB CONC 32 g/dL (33-37); MEAN CORPUSCULAR VOLUME 85 fL (80-94); MONOCYTES # (AUTO) 0.2 K/uL (0.8-1.0); MONOCYTES % (AUTO) 4.5 % (1.7-9.3); NEUTROPHILS # (AUTO) 4.5 K/uL (1.8-7.7); NEUTROPHILS % (AUTO) 80.4 % (42.2-75.2); PLATELET COUNT (AUTO) 179 K/uL (140-450); RED BLOOD CELL COUNT(AUTO) 2.94 MIL/uL (4.20-6.10); RED CELL DISTRIBUTION WIDTH 17.6 % (11.6-13.7); WHITE BLOOD COUNT (AUTO) 5.5 K/uL (4.8-10.8)
--- NOTE | 2017-08-24 05:49 | NUR ---
MORNING CARE PROVIDED. TOLERATED WELL. VENT FIO2 DECREASED TO 40% AND SATING 98%. CONTINUE WITH PROPOFOL DRIP WITH RASS -4. ALL SAFETY PRECAUTIONS ARE IN PLACE. WILL CONTINUE TO MONITOR.
--- NOTE | 2017-08-24 05:52 | NUR ---
DR. MARINA AT BED SIDE. WILL FOLLOW UP WITH ANY ORDERS.
[2017-08-24 05:56] LABS: MAGNESIUM 2.1 mg/dL (1.8-2.4); PHOSPHORUS 4.9 mg/dL (2.5-4.9)
--- NOTE | 2017-08-24 06:00 | NUR ---
DR. BETANCUR AT BED SIDE. WILL FOLLOW UP WITH ANY ORDERS.
[2017-08-24 06:08] LABS: ANION GAP 8.1 (8-16); CARBON DIOXIDE 28.5 mmol/L (21-32); CREATININE 0.9 mg/dL (0.7-1.3); POTASSIUM 4.6 mmol/L (3.5-5.1)
[2017-08-24] MEDS: BLOOD GLUCOSE MONITORING 1 DEV DEV FS SCH ×4 (06:31→20:15)
[2017-08-24] MEDS: PANTOPRAZOLE 40 MG TABEC PO SCH (06:31)
--- NOTE | 2017-08-24 06:52 | NUR ---
RECIVED PT ON VENT WITH SETTINGS CHARTED BREATH SOUNDS PRESENT BILAT RHONCHI SXN PT WITH MIN AMT OFF WHITE SECS PT RESTING AM UB BAG AT BEDSIDE ETT SECURE 22@GUM LINE
--- NOTE | 2017-08-24 07:18 | NUR ---
REPORT GIVEN TO MORNING NURSE, DEDE WATKINS FOR CONTINUITY OF CARE. VS STABLE AT THIS TIME. ALL SAFETY PRECAUTIONS ARE IN PLACE.
--- NOTE | 2017-08-24 08:00 | NUR ---
INITIAL SHIFT ASSESSMENT DONE. SEDATED WITH PROPOFOL DRIP, TOLERATING WELL. NO SIGNS OF PAIN. OCCASIONAL AGITATION NOTED. ON VENTILATOR, TOLERATING CURRENT SETTINGS WELL. O2 SAT 99-100%. SB ON MONITOR. SBP IN 100'S-120'S. NO ECTOPY NOTED. HOB ELEVATED. OGT PATENT, INTACT, AND CLAMPED. UPDATED OF PLAN OF CARE. WILL CONTINUE TO MONITOR.
[2017-08-24] MEDS: METOPROLOL SUCCINATE 50 MG TABER PO SCH (09:00)
[2017-08-24] MEDS: methylPREDNISolone SS 40 MG/ML VIAL IVP SCH ×2 (09:26→20:22)
[2017-08-24] MEDS: NAPROXEN 500 MG TAB PO SCH ×2 (09:27→20:22)
[2017-08-24] MEDS: THIAMINE 100 MG TAB PO SCH (09:27)
[2017-08-24] MEDS: FOLIC ACID 1 MG TAB PO SCH (09:27)
[2017-08-24] MEDS: HALOPERIDOL 1 MG TAB PO SCH ×2 (09:27→20:23)
[2017-08-24] MEDS: BENZTROPINE 1 MG TAB PO SCH ×2 (09:27→20:22)
[2017-08-24] MEDS: HYDROCHLOROTHIAZIDE 25 MG TAB PO SCH (09:27)
[2017-08-24] MEDS: MULTIVITAMIN 1 TAB PO SCH (09:27)
[2017-08-24] MEDS: FUROSEMIDE 40 MG/4 ML VIAL IVP SCH (09:27)
[2017-08-24] MEDS: LISINOPRIL 20 MG TAB PO SCH (09:28)
--- NOTE | 2017-08-24 10:00 | NUR ---
RESTING IN BED. NO SIGNS OF PAIN. OCCASIONAL AGITATION NOTED. TOLERATING VENTILATOR WELL. O2 SAT 97-100%. SB ON MONITOR. SBP IN 100'S-120'S. NO ECTOPY NOTED. HOB ELEVATED. WILL CONTINUE TO MONITOR.
--- NOTE | 2017-08-24 11:00 | NUR ---
AWAKE AND STARTS PULLING THE ETT. PROPOFOL DRIP INCREASE TO 45 MCG/KG/MIN. WILL CONTINUE TO MONITOR.
--- NOTE | 2017-08-24 11:10 | NUR ---
STILL AWAKE AND TRYING TO PULL OUT THE ETT. PROPOFOL DRIP INCREASE TO 50 MCG/KG/MIN. WILL CONTINUE TO MONITOR.
--- NOTE | 2017-08-24 11:30 | NUR ---
TUBE FEEDING OF NUTREN PULMONARY STARTED AT THIS TIME AT 10 ML/HR PER MD ORDER. WILL CONTINUE TO MONITOR.
--- NOTE | 2017-08-24 12:00 | NUR ---
REASSESSMENT DONE. NEURO STATUS UNCHANGED. NO SIGNS OF PAIN. OCCASIONAL AGITATION NOTED. TOLERATING CURRENT VENTILATOR SETTINGS WELL. O2 SAT 99-100%. SB ON MONITOR. SBP IN 110'S-120'S. NO ECTOPY NOTED. TOLERATING TUBE FEEDING WELL. NO RESIDUALS NOTED. HOB ELEVATED. UPDATED OF PLAN OF CARE. WILL CONTINUE TO MONITOR.
[2017-08-24] MEDS: MUPIROCIN 2% OINT 22 GM TUBE TP SCH (12:39)
[2017-08-24] MEDS: CHLORHEXADINE GLUC 2% CLOTH TP SCH (13:13)
--- NOTE | 2017-08-24 13:23 | NUR ---
FAXED CONCURRENT REVIEW TO [facility] [phone] PHONE RENE [phone] TACKING NUMBER [phone]
--- NOTE | 2017-08-24 13:45 | NUR ---
DR ROBERSON IS IN THE ROOM. UPDATED OF STATUS. NO NEW ORDER RECEIVE.
--- NOTE | 2017-08-24 14:00 | NUR ---
RESTING IN BED. NO SIGNS OF PAIN. OCCASIONAL AGITATION NOTED. TOLERATING VENTILATOR WELL. O2 SAT 99-100%. SB ON MONITOR. SBP IN 90-130. NO ECTOPY NOTED. HOB ELEVATED. TUBE FEEDING TURN OFF PER FELT CARBONIZER IN PREPARATION FOR ULTRASOUND OF THE ABDOMEN. WILL CONTINUE TO MONITOR.
--- NOTE | 2017-08-24 16:00 | NUR ---
REASSESSMENT DONE. NEURO STATUS STILL THE SAME. NO SIGNS OF PAIN. OCCASIONAL AGITATION NOTED. TOLERATING CURRENT VENTILATOR SETTINGS WELL. O2 SAT 98-100%. SR ON MONITOR. SBP IN 110'S-140'S. NO ECTOPY NOTED. TUBE FEEDING STILL ON HOLD IN PREPARATION FOR ULTRASOUND OF THE ABDOMEN PER UNIVERSITY ADMINISTRATOR. HOB ELEVATED. UPDATED OF PLAN OF CARE. WILL CONTINUE TO MONITOR.
--- NOTE | 2017-08-24 17:00 | NUR ---
RESTARTED TUBE FEEDING AT THIS TIME AT 10 ML/HR PER ARTIFICIAL BREEDING DISTRIBUTOR. WILL CONTINUE TO MONITOR.
--- NOTE | 2017-08-24 17:24 | NUR ---
CONTINUED TO MONITOR PT ON VENT WWITH SETTINGS CHARTED BREATH SOUNDS PRESENT BILAT COARSE SXN PT WITH MIN AMT SECS OFF WHITE AMBU BAG AT BEDSIDE VENT PLUGGED INTO RED OUTLET
--- NOTE | 2017-08-24 18:00 | NUR ---
GIVEN BATH AND LINENS ARE CHANGE. TOLERATED THE PROCEDURE WELL.
--- NOTE | 2017-08-24 18:30 | NUR ---
RESTING IN BED. NO SIGNS OF PAIN OR AGITATION NOTED. TOLERATING VENTILATOR WELL. O2 SAT 97-100%. SR ON MONITOR. SBP IN 120'S-140'S. NO ECTOPY NOTED. HOB ELEVATED. WILL CONTINUE TO MONITOR.
--- NOTE | 2017-08-24 19:21 | NUR ---
VENT PT RECEIVED FROM [facility] ON NOTED VENT SETTINGS. PT QUIET, HAS A #7.5 ETT SECURED AT 22 LIP LINE WITH AN ANCHOR FAST. BREATH SOUNDS APPEAR CLEAR BILATERALLY, HHN TX GIVEN INLINE ORDERED. PT LAVAGED AND SUCTIONED SMALL AMT THICK CREAMY SECRETIONS. NO ADVERSE EFFECTS NOTED. VENT ALARMS ON AND AUDIBLE. VENT PLUGGED INTO RED ELECTRICAL OUTLET. AMBU BAG AT [facility].
--- NOTE | 2017-08-24 19:22 | NUR ---
REPORT GIVEN TO INCOMING PLAN EXAMINER RN, DEDE REYES.
--- NOTE | 2017-08-24 19:35 | NUR ---
REPORT RECEIVED FROM MORNING NURSE, ROLAND RN. PT IS SEDATED WITH PROPOFOL DRIP @ 50 MCG/KG/MIN WITH RASS -4. ETT TO VENT AC 20. IO2 40, TV 500, PEEP 5. SATING 99% AT THIS TIME. S1 AND S2 HEARD WITHOUT ABNORMAL HEART SOUNDS. ON CONTINUOS CARDIAC MONITORING WITH SR. BILATERAL LUNGS SOUND CLEAR UPPER LOBES AND DIMINISHED LOWER LOBES. BOWEL SOUNDS ACTIVE FROM ALL 4 QUADS. CENTRAL LINE TO RIJ WITH TRIPLE LUMEN. ALL PATENT AND ASYMPTOMATIC. OGT IN PLACE AND RUNNING NUTREN PULMONARY ORDERED VIA OGT. RESIDUAL NOTED NONE. HORNER CATHETER DRAINING CLEAR YELLOW URINE VIA GRAVITY. BILATERAL PEDAL PULSES PALPATED. MULTIPLE SCABS NOTED TO LOWER EXTREMITIES AND BLACK GANGRENE TO LEFT TIP OF THE MIDDLE FINGER. NO FEVER. FLACC=0. CALL LIGHT IN REACH AND HOB ELEVATED 30 DEGREES. BED KEPT TO THE LOWEST POSITION. WILL CONTINUE TO MONITOR.
[2017-08-24] MEDS: QUEtiapine FUMARATE 25 MG TAB PO SCH (20:23)
[2017-08-24] MEDS: ZOLPIDEM 5 MG TAB PO SCH (20:23)
--- NOTE | 2017-08-24 20:28 | NUR ---
HALDOL, ATIVAN, SEROQUEL, AMBIEN ARE NOT ADMINISTERED DUE TO PT BEING SEDATED WITH PROPOFOL. DR. TAPAN TRAORE.
--- NOTE | 2017-08-24 20:45 | NUR ---
NOTED RASS -1. INCREASED PROPOFOL TO 55 MCG/KG/MIN. WILL CONTINUE TO MONITOR.
--- NOTE | 2017-08-24 21:05 | NUR ---
RASS NOTED -1. INCREASED PROPOFOL TO 60 MCG/KG/MIN. WILL CONTINUE TO MONITOR.
--- NOTE | 2017-08-24 21:12 | NUR ---
VENT CHECKED. PT AWAKE, HAVING NEW IV LINE STARTED. NO RESPIRATORY DISTRESS NOTED.
[2017-08-25] VITALS (78 sets, daily range): BP systolic 105–159; BP diastolic 52–84
[2017-08-25] MEDS: PIPER/TAZO 3.375GM/D5W PREMIX 50 ML IV SCH ×4 (00:17→17:37)
--- NOTE | 2017-08-25 00:18 | NUR ---
PT VS STABLE. CONTINUING WITH PROPOFOL DRIP WITH RASS -4. NO CHANGE IN VENT SETTING. FLACC 0 AND NO FEVER. WILL CONTINUE TO MONITOR.
[2017-08-25] MEDS: NACL 0.9% 1,000 ML IV SCH (00:40)
[2017-08-25] MEDS: PROPOFOL 1000 MG/100 ML PREMIX 100 ML IV PRN ×2 (01:43→05:17)
--- NOTE | 2017-08-25 01:43 | NUR ---
NOTED RASS -1. INCREASED PROPOFOL DRIP TO 65 MCG/KG/MIN. WILL CONTINUE TO MONITOR.
--- NOTE | 2017-08-25 02:16 | NUR ---
PT CONTINUES TO BE SEDATED WITH PROPOFOL WITH RASS -4. FLACC 0. NO CHANGE IN VENT SETTING AT THIS TIME. SATING 98%. NO ACUTE DISTRESS NOTED. WILL CONTINUE TO MONITOR.
[2017-08-25] MEDS: ALBUTEROL SULFATE/IPRATROPIU 3 ML SOL IH SCH ×6 (03:41→23:05)
--- NOTE | 2017-08-25 04:30 | NUR ---
AM CARE AND HORNER CARE PROVIDED. KEPT SKIN CLEAN AND DRY. TOLERATED WELL.
[2017-08-25] MEDS: LORazepam 1 MG TAB PO SCH ×3 (05:00→20:26)
--- NOTE | 2017-08-25 05:10 | NUR ---
DR. BETANCUR AT BED SIDE. WILL FOLLOW UP WITH ANY ORDERS.
[2017-08-25 06:08] LABS: ANION GAP 7.8 (8-16); CARBON DIOXIDE 30.3 mmol/L (21-32); CREATININE 1.1 mg/dL (0.7-1.3); POTASSIUM 4.1 mmol/L (3.5-5.1)
[2017-08-25 06:12] LABS: MAGNESIUM 2.1 mg/dL (1.8-2.4); PHOSPHORUS 4.8 mg/dL (2.5-4.9)
--- NOTE | 2017-08-25 06:30 | NUR ---
WOUND CARE EVALUATION NOTES: REASON FOR EVALUATION: LOW ALEX SCORE WITH MULTIPLE SCABS COMPLETE SKIN ASSESSMENT DONE ON THIS 67 Y/O MALE PATIENT ADMITTED TO [facility], WITH INITIAL DIAGNOSIS OF SOB X 5 DAYS. PAST MEDICAL HISTORY INCLUDE DM, HTN, SCHIZOPHRENIA AND BIPOLAR. ALL ABOVE INFORMATION OBTAINED FROM THE ADMISSION H&P. LABS ARE WBC 4.4, H/H 8.3/26.7, GLUCOSE 148, ALBUMIN 2.0. CURRENT MEDS INCLUDE PIPERACILLIN, QUETIAPINE, LISINOPRIL, ALBUTEROL AND FUROSEMIDE. PATIENT IS SEDATED AND INTUBATED. SKIN WARM TO TOUCH WNL, THICKENED TOENAILS, BLE NO EDEMA, NO HAIR GROWTH AND BILATERAL PEDAL PULSES PRESENT. F/C #16 PATENT WITH SMALL AMOUNT OF YELLOW URINE OUTPUT. PLAN OF CARE AND PRESSURE ULCER PREVENTIVE MEASURES DISCUSSED WITH PRIMARY NURSE. INTEGUMENTARY: MULTIPLE DRY SCABS BLE WITH LARGEST 1.5.0.7 CM RIGHT MEDIAL FINGER BLACK ESCHAR 1.5X1.5 CM DEPTH UTD LEFT HALLUX PLANTAR AREA- DIABETIC ULCER - 3X 2CM DEPTH UTD , DRY SCAB EMILY WOUND PALE PINK RECOMMENDATIONS: -APPLY HYDRAGUARD TO BLE AND ALL SKIN SCABS BIDWC -CLEANSE LEFT MEDIAL FINGER BLACK ESCHAR WITH NS, PAINT WITH BETADINE SOLUTION QD AND LEAVE IT OPEN TO AIR. -DEBRIDEMENT OF LEFT MEDIAL FINGER IF AGREEABLE WITH DOCTOR -TURN AND REPOSITION PATIENT Q2H -OFFLOAD BILATERAL HEELS BY PLACING PILLOWS UNDER CALVES AT ALL TIMES, UNLESS OTHERWISE CONTRAINDICATED -ELECTRICAL SUPERVISOR CONSULT OF LEFT HALLUX PLANTAR AREA -PRESSURE REDISTRIBUTION SURFACE THERAPY -KEEP SKIN CLEAN AND DRY AT ALL TIMES. RECOMMENDATIONS DISCUSSED WITH PRIMARY RN WILL FOLLOW UP PATIENT Q 7 -10 DAYS AND PRN. PLEASE CONTACT WOUND CARE NURSE FOR ANY CONCERNS AND CHANGES IN WOUND CONDITION
[2017-08-25 06:31] LABS: EOSINOPHILS % (AUTO) 0.1 % (0.0-4.0); HEMATOCRIT 26.7 % (36-52); HEMOGLOBIN 8.3 g/dL (12.0-18.0); LYMPHOCYTES # (AUTO) 0.8 K/uL (2.0-11.5); LYMPHOCYTES % (AUTO) 18.6 % (20.5-51.1); MEAN CORPUSCULAR HEMOGLOBIN 26 pg (27-31); MEAN CORPUSCULAR HGB CONC 31 g/dL (33-37); MEAN CORPUSCULAR VOLUME 84 fL (80-94); MONOCYTES # (AUTO) 0.3 K/uL (0.8-1.0); MONOCYTES % (AUTO) 6.4 % (1.7-9.3); NEUTROPHILS # (AUTO) 3.3 K/uL (1.8-7.7); NEUTROPHILS % (AUTO) 73.9 % (42.2-75.2); PLATELET COUNT (AUTO) 209 K/uL (140-450); RED BLOOD CELL COUNT(AUTO) 3.18 MIL/uL (4.20-6.10); RED CELL DISTRIBUTION WIDTH 18.3 % (11.6-13.7); WHITE BLOOD COUNT (AUTO) 4.4 K/uL (4.8-10.8)
[2017-08-25] MEDS: BLOOD GLUCOSE MONITORING 1 DEV DEV FS SCH ×4 (06:35→20:25)
[2017-08-25] MEDS: PANTOPRAZOLE 40 MG TABEC PO SCH (06:36)
[2017-08-25] MEDS ORDERED: MIDAZOLAM MDV 50 MG in NACL 0.9% 40 ML IV PRN (07:00)
--- NOTE | 2017-08-25 07:12 | NUR ---
REPORT GIVEN TO MORNING NURSE, DEDE WATKINS FOR CONTINUITY OF CARE. ALL SAFETY PRECAUTIONS ARE IN PLACE.
--- NOTE | 2017-08-25 07:20 | NUR ---
RCV'D PT INTUBATED WITH 7.5 ETT AT 22 CM AT LIP. TUBE IS IN PLACE AND SECURED. VENT IS CONNECTED TO RED OUTLET. ALARMS ARE AUDIBLE. AMBU BAG AT BEDSIDE. NO SOB OR DISTRESS NOTED. HHN TX GIVEN. BS CLEAR. WILL CONTINUE TO MONITOR.
--- NOTE | 2017-08-25 08:00 | NUR ---
INITIAL SHIFT ASSESSMENT DONE. SEDATED WITH PROPOFOL DRIP, TOLERATING WELL. NO SIGNS OF PAIN OR AGITATION NOTED. ON VENTILATOR, TOLERATING CURRENT SETTINGS WELL. O2 SAT 98-100%. SR ON MONITOR. SBP IN 140'S. NO ECTOPY NOTED. ON TUBE FEEDING, TOLERATING WELL. NO RESIDUALS NOTED. HOB ELEVATED. UPDATED OF PLAN OF CARE. WILL CONTINUE TO MONITOR.
[2017-08-25] MEDS: METOPROLOL SUCCINATE 50 MG TABER PO SCH (09:00)
[2017-08-25] MEDS: LISINOPRIL 20 MG TAB PO SCH (09:20)
[2017-08-25] MEDS: MULTIVITAMIN 1 TAB PO SCH (09:20)
[2017-08-25] MEDS: NAPROXEN 500 MG TAB PO SCH ×2 (09:20→20:26)
[2017-08-25] MEDS: HYDROCHLOROTHIAZIDE 25 MG TAB PO SCH (09:20)
[2017-08-25] MEDS: HALOPERIDOL 1 MG TAB PO SCH ×2 (09:20→20:26)
[2017-08-25] MEDS: THIAMINE 100 MG TAB PO SCH (09:20)
[2017-08-25] MEDS: BENZTROPINE 1 MG TAB PO SCH ×2 (09:21→20:26)
[2017-08-25] MEDS: methylPREDNISolone SS 40 MG/ML VIAL IVP SCH ×2 (09:21→20:26)
[2017-08-25] MEDS: FOLIC ACID 1 MG TAB PO SCH (09:21)
[2017-08-25] MEDS: FUROSEMIDE 40 MG/4 ML VIAL IVP SCH (09:21)
[2017-08-25] MEDS: MORPHINE SULFATE 50 MG in NACL 0.9% 45 ML IV PRN ×2 (09:57→21:09)
--- NOTE | 2017-08-25 09:57 | NUR ---
PROPOFOL DRIP D/C PER MD ORDER. STARTED ON MORPHINE DRIP AT 1 MG/HR. WILL CONTINUE TO MONITOR.
--- NOTE | 2017-08-25 10:00 | NUR ---
DR ROBERSON IS IN THE ROOM. UPDATED OF STATUS. NEW ORDERS RECEIVE.
--- NOTE | 2017-08-25 10:08 | NUR ---
STARTED VERSED DRIP AT 1 MG/HR. WILL CONTINUE TO MONITOR.
--- NOTE | 2017-08-25 10:27 | NUR ---
AWAKE AND C/O GENERALIZED PAIN. MORPHINE DRIP INCREASE TO 2 MG/HR. WILL CONTINUE TO MONITOR.
--- NOTE | 2017-08-25 10:38 | NUR ---
STILL AWAKE. VERSED DRIP INCREASE TO 2 MG/HR. WILL CONTINUE TO MONITOR.
--- NOTE | 2017-08-25 10:57 | NUR ---
STILL C/O GENERALIZED PAIN. MORPHINE DRIP INCREASE TO 3 MG/HR. WILL CONTINUE TO MONITOR.
--- NOTE | 2017-08-25 10:58 | NUR ---
0918 RECEIVED CALL FROM ALTA CRM CONSULTANT AT [facility] [phone] PER ALTA PT DOES NOT HAVE ANY FAMILY. ALTA REQUESTS A PHONE CALL WHEN PT IS READY FOR DISCHARGE TO INFORM HER OF PTS DISCHARGE DISPOSITION.
--- NOTE | 2017-08-25 11:08 | NUR ---
STILL AWAKE AND TRYING TO MOUTH-WORDS. VERSED DRIP INCREASE TO 3 MG/HR. WILL CONTINUE TO MONITOR.
--- NOTE | 2017-08-25 11:38 | NUR ---
STILL AWAKE AND MOUTH-WORDING. VERSED DRIP INCREASE TO 4 MG/HR. WILL CONTINUE TO MONITOR.
--- NOTE | 2017-08-25 12:00 | NUR ---
REASSESSMENT DONE. NEURO STATUS UNCHANGED. NO SIGNS OF PAIN. OCCASIONAL AGITATION NOTED. TOLERATING CURRENT VENTILATOR SETTINGS WELL. O2 SAT 97-100%. SR ON MONITOR. SBP IN 130'S-150'S. NO ECTOPY NOTED. TOLERATING TUBE FEEDING WELL. NO RESIDUALS NOTED. HOB ELEVATED. UPDATED OF PLAN OF CARE. WILL CONTINUE TO MONITOR.
--- NOTE | 2017-08-25 12:08 | NUR ---
BECOMES RESTLESS AT THIS TIME. VERSED DRIP INCREASE TO 5 MG/HR. WILL CONTINUE TO MONITOR.
[2017-08-25] MEDS: CHLORHEXADINE GLUC 2% CLOTH TP SCH (12:55)
[2017-08-25] MEDS: MUPIROCIN 2% OINT 22 GM TUBE TP SCH (12:55)
--- NOTE | 2017-08-25 14:00 | NUR ---
RESTING IN BED. NO SIGNS OF PAIN OR AGITATION. TOLERATING VENTILATOR WELL. O2 SAT 98-99%. SR ON MONITOR. SBP IN 110'S-130'S. NO ECTOPY NOTED. HOB ELEVATED. WILL CONTINUE TO MONITOR.
--- NOTE | 2017-08-25 15:46 | NUR ---
CM NOTE CONCURRENT REVIEW FAXED TO [facility] (FAX# [phone], ATTN: RENE [phone])
--- NOTE | 2017-08-25 16:00 | NUR ---
REASSESSMENT DONE. NEURO STATUS STILL THE SAME. NO SIGNS OF PAIN OR AGITATION NOTED. TOLERATING CURRENT VENTILATOR SETTINGS WELL. O2 SAT 97-100%. SR ON MONITOR. SBP IN 110'S-120'S. NO ECTOPY NOTED. TOLERATING TUBE FEEDING WELL. RESIDUALS OF 10 ML ONLY. HOB ELEVATED. UPDATED OF PLAN OF CARE. WILL CONTINUE TO MONITOR.
--- NOTE | 2017-08-25 17:00 | NUR ---
CHIEF REVENUE OFFICER IS IN THE ROOM. UPDATED OF STATUS AND PLAN OF CARE. NO NEW ORDERS RECEIVE.
--- NOTE | 2017-08-25 17:10 | NUR ---
GIVEN PARTIAL BATH AND LINENS ARE CHANGE. TOLERATED THE PROCEDURE WELL.
[2017-08-25] MEDS: MIDAZOLAM MDV 100 MG in NACL 0.9% 80 ML IV PRN (17:32)
--- NOTE | 2017-08-25 18:00 | NUR ---
RESTING IN BED. NO SIGNS OF PAIN OR AGITATION NOTED. TOLERATING VENTILATOR WELL. O2 SAT 95-99%. SR ON MONITOR. SBP IN 110'S-120'S. NO ECTOPY NOTED. HOB ELEVATED. WILL CONTINUE TO MONITOR.
--- NOTE | 2017-08-25 19:10 | NUR ---
REPORT GIVEN TO INCOMING TIME MOTION ANALYST RN, RN [facility]TOIN[facility]TE.
--- NOTE | 2017-08-25 19:15 | NUR ---
RECEIVED REPORT FROM MORNING SHIFT NURSE AT BEDSIDE, PT IS SEDATED, RASS -3, ETT TO VENT WITH SETTING FIO2 30, VT 500, R 20, PEEP 5, CLEAR LUNG SOUNDS, OGT IN PLACE WITH FEEDING NUTREN PULMONARY AT 50ML/HR AND FREE WATER 100ML Q4HR, PT TOLERATED WELL, 0 RESIDUALS. CENTRAL LINE TO RIJ, TLC WITH GOOD BLOOD RETURN TO EACH LUMEN, RUNNING WITH VERSED AT 5MG/HR, MORPHINE DRIP AT 3MG/HR, AND NS AT 10ML/HR. SR ON WOOD ENGRAVER, SOFT ABDOMEN WITH ACTIVE BOWEL SOUNDS, HORNER CATHETER IN PLACE WITH CLEAR YELLOW URINE IN BAG, SKIN IS INTACT, WARM AND DRY IN TOUCH, SEVERAL SCAB ON BLE NOTED, GENERALIZED WEAKNESS TO ALL EXTREMITIES NOTED, VSS, FLACC 0. ORAL CARE PROVIDED, POSITION CHANGED FOR OFF LOAD PRESSURE, HOB ELEVATED, SAFETY MEASURE IN PLACE, WILL CONTINUE TO MONITOR.
[2017-08-25] MEDS: QUEtiapine FUMARATE 25 MG TAB PO SCH (20:26)
[2017-08-25] MEDS: ZOLPIDEM 5 MG TAB PO SCH (20:26)
--- NOTE | 2017-08-25 22:00 | NUR ---
NO CHANGE OF CONDITION AT THIS TIME, POSITION CHANGED FOR OFF LOAD PRESSURE, VSS.
[2017-08-26] VITALS (35 sets, daily range): BP systolic 106–156; BP diastolic 54–78
--- NOTE | 2017-08-26 | NUR ---
NO S/S OF DISTRESS, VSS, POSITION CHANGED FOR OFF LOAD PRESSURE, ORAL CARE PROVIDED.
[2017-08-26] MEDS: PIPER/TAZO 3.375GM/D5W PREMIX 50 ML IV SCH ×5 (00:21→23:11)
[2017-08-26] MEDS: NACL 0.9% 1,000 ML IV SCH ×2 (00:40→23:12)
--- NOTE | 2017-08-26 02:00 | NUR ---
NO CHANGE OF CONDITION AT THIS TIME, POSITION CHANGED FOR OFF LOAD PRESSURE. VSS.
[2017-08-26] MEDS: ALBUTEROL SULFATE/IPRATROPIU 3 ML SOL IH SCH ×6 (03:19→22:10)
--- NOTE | 2017-08-26 04:00 | NUR ---
AM CARE AND F/C PROVIDED, ORAL CARE PROVIDED, VSS, POSITION CHANGED FOR OFF LOAD PRESSURE.
[2017-08-26] MEDS: LORazepam 1 MG TAB PO SCH ×3 (04:22→20:42)
[2017-08-26 05:55] LABS: ANION GAP 7.1 (8-16); CARBON DIOXIDE 31.9 mmol/L (21-32); MAGNESIUM 2.1 mg/dL (1.8-2.4); PHOSPHORUS 4.2 mg/dL (2.5-4.9)
--- NOTE | 2017-08-26 06:00 | NUR ---
NO CHANGE OF CONDITION AT THIS TIME, VSS, POSITION CHANGED FOR OFF LOAD PRESSURE.
[2017-08-26 06:08] LABS: BASOPHILS # (AUTO) 0.2 K/uL (0.00-0.22); BASOPHILS % (AUTO) 4.3 % (0.0-2.0); EOSINOPHILS % (AUTO) 0.1 % (0.0-4.0); HEMATOCRIT 24.4 % (36-52); LYMPHOCYTES # (AUTO) 0.6 K/uL (2.0-11.5); LYMPHOCYTES % (AUTO) 16.6 % (20.5-51.1); MEAN CORPUSCULAR HEMOGLOBIN 28 pg (27-31); MEAN CORPUSCULAR HGB CONC 33 g/dL (33-37); MEAN CORPUSCULAR VOLUME 84 fL (80-94); MONOCYTES # (AUTO) 0.4 K/uL (0.8-1.0); MONOCYTES % (AUTO) 9.8 % (1.7-9.3); NEUTROPHILS # (AUTO) 2.6 K/uL (1.8-7.7); NEUTROPHILS % (AUTO) 69.2 % (42.2-75.2); PLATELET COUNT (AUTO) 188 K/uL (140-450); RED BLOOD CELL COUNT(AUTO) 2.91 MIL/uL (4.20-6.10); RED CELL DISTRIBUTION WIDTH 17.9 % (11.6-13.7); WHITE BLOOD COUNT (AUTO) 3.8 K/uL (4.8-10.8)
[2017-08-26] MEDS: PANTOPRAZOLE 40 MG TABEC PO SCH (06:25)
[2017-08-26] MEDS: BLOOD GLUCOSE MONITORING 1 DEV DEV FS SCH ×4 (06:25→20:41)
--- NOTE | 2017-08-26 07:10 | NUR ---
REPORT GIVEN TO MORNING SHIFT NURSE FOR CONTINUE OF CARE, PT IS IN STABLE CONDITION AT THIS TIME.
--- NOTE | 2017-08-26 08:00 | NUR ---
INITIAL SHIFT ASSESSMENT DONE. SEDATED BUT EASILY AROUSABLE TO NAME CALLING. NO SIGNS OF PAIN OR AGITATION NOTED. ON VENTILATOR, TOLERATING CURRENT SETTINGS WELL. O2 SAT 97-100%. SR ON MONITOR. SBP IN 110'S-140'S. NO ECTOPY NOTED. ON TUBE FEEDING, TOLERATING WELL. NO RESIDUALS NOTED. HOB ELEVATED. UPDATED OF PLAN OF CARE. WILL CONTINUE TO MONITOR.
[2017-08-26] MEDS: BENZTROPINE 1 MG TAB PO SCH ×2 (08:57→20:52)
[2017-08-26] MEDS: methylPREDNISolone SS 40 MG/ML VIAL IVP SCH ×2 (08:57→20:41)
[2017-08-26] MEDS: HALOPERIDOL 1 MG TAB PO SCH ×2 (08:57→20:42)
[2017-08-26] MEDS: THIAMINE 100 MG TAB PO SCH (08:57)
[2017-08-26] MEDS: HYDROCHLOROTHIAZIDE 25 MG TAB PO SCH (08:58)
[2017-08-26] MEDS: FUROSEMIDE 40 MG/4 ML VIAL IVP SCH (08:58)
[2017-08-26] MEDS: NAPROXEN 500 MG TAB PO SCH ×2 (08:58→20:43)
[2017-08-26] MEDS: LISINOPRIL 20 MG TAB PO SCH (08:58)
[2017-08-26] MEDS: FOLIC ACID 1 MG TAB PO SCH (08:58)
[2017-08-26] MEDS: MULTIVITAMIN 1 TAB PO SCH (08:58)
[2017-08-26] MEDS: METOPROLOL SUCCINATE 50 MG TABER PO SCH (09:00)
--- NOTE | 2017-08-26 09:25 | NUR ---
DR ROBERSON IS IN THE ROOM. UPDATED OF STATUS. MORPHINE AND VERSED DRIP TURN OFF PER DR ROBERSON IN PREPARATION FOR CPAP TRIAL. TUBE FEEDING IS ALSO TURN OFF PER .
--- NOTE | 2017-08-26 09:35 | NUR ---
DR ROBERSON PUT PATIENT ON CPAP TRIAL.
--- NOTE | 2017-08-26 09:36 | NUR ---
VENTILATOR AUTOMATICALLY SWITCH BACK TO AC MODE D/T APNEA EPISODE. DR DA TRAORE. TOLD THE RT TO DO CPAP TRIAL AGAIN ONCE THE PATIENT IS FULLY AWAKE.
--- NOTE | 2017-08-26 10:00 | NUR ---
SLEEPING AT THIS TIME BUT EASILY AROUSABLE. NO SIGNS OF PAIN OR AGITATION NOTED. TOLERATING VENTILATOR WELL. O2 SAT 96-99%. SR ON MONITOR. SBP IN 120'S-140'S. NO ECTOPY NOTED. HOB ELEVATED. WILL CONTINUE TO MONITOR.
--- NOTE | 2017-08-26 10:45 | NUR ---
PATIENT IS AWAKE AT THIS TIME. RT PUT PATIENT BACK ON CPAP TRIAL. WILL CONTINUE TO MONITOR.
--- NOTE | 2017-08-26 10:52 | NUR ---
PT STARTED ON CPAP WEANING TRAIL. CPAP 5 PS 10 FIO2 30% . SPO2 97% HR 65 RR 15 VT 445 RSBI 19 VC 462 NIF -25. NO SOB OR DISTRESS NOTED. DEDE WATKINS AND DEDE AVILES AWARE. WILL CONTINUE TO MONITOR.
[2017-08-26] MEDS ORDERED: LACTOBACILLUS RHAMNOSUS GG 1 EACH CAP PO SCH (11:22)
[2017-08-26] MEDS ORDERED: PROBIOTIC SCREEN 1 EA MISC MC PRN (11:25)
--- NOTE | 2017-08-26 12:00 | NUR ---
REASSESSMENT DONE. DROWSY, FOLLOWS COMMAND, MOUTH-WORDS. NO C/O PAIN OR DYSPNEA. ON CPAP TRIAL, TOLERATING WELL. O2 SAT 93-96%. SR ON MONITOR. SBP IN 120'S-140'S. NO ECTOPY NOTED. HOB ELEVATED. TUBE FEEDING STILL ON HOLD. UPDATED OF PLAN OF CARE. WILL CONTINUE TO MONITOR.
[2017-08-26] MEDS: MUPIROCIN 2% OINT 22 GM TUBE TP SCH (13:26)
[2017-08-26] MEDS: CHLORHEXADINE GLUC 2% CLOTH TP SCH (13:26)
--- NOTE | 2017-08-26 13:44 | NUR ---
FAXED CONCURRENT REVIEW TO [facility] [phone] PHONE RENE [phone]
--- NOTE | 2017-08-26 13:50 | NUR ---
ABG DONE WITH NO INCIDENT. RESULTS GIVEN TO DR ROBERSON AND DR BETANCUR. WILL CONTINUE TO MONITOR.
--- NOTE | 2017-08-26 14:00 | NUR ---
PT IS BACK ON AC MODE WITH SEDATION PER DR BETANCUR ORDERS. WILL CONTINUE TO MONITOR.
--- NOTE | 2017-08-26 14:00 | NUR ---
RESTING IN BED. NO C/O PAIN OR DYSPNEA. O2 SAT 94-96% ON CPAP. RT PUT PATIENT BACK ON AC MODE PER DR BETANCUR' ORDER. SR ON MONITOR. SBP IN 120'S-150'S. NO ECTOPY NOTED. HOB ELEVATED. WILL CONTINUE TO MONITOR.
--- NOTE | 2017-08-26 14:15 | NUR ---
PUT BACK ON MORPHINE AND VERSED DRIP PER DR BETANCUR' ORDER. WILL CONTINUE TO MONITOR.
--- NOTE | 2017-08-26 14:20 | NUR ---
RESTARTED THE TUBE FEEDING AT THIS TIME.
--- NOTE | 2017-08-26 14:33 | NUR ---
08/26/17 RD FOLLOW UP COMPLETED PLEASE REFER TO NUTRITION ASSESSMENT UNDER CARE ACTIVITY FOR ESTIMATED NUTRITIONAL NEEDS. 1. CONTINUE NUTRITION SUPPORT: NUTREN PULMONARY AT 50 ML/HR X24 HOURS -THIS WILL PROVIDE 1200 ML TOTAL VOLUME, 1800 KCAL AND 82 GM PROTEIN TO MEET 100% OF PT ESTIMATED KCAL NEEDS AND 83% OF PT ESTIMATED PROTEIN NEEDS 2. SHOULD PT BE WEANED OFF OF VENTILATOR, CONSIDER ADVANCING DIET BACK TO CCHO 60 GM DIET TOLERATED 3. RD TO FOLLOW-UP 2-3 DAYS, HIGH RISK PAVITHAR ANGEL RD
--- NOTE | 2017-08-26 14:45 | NUR ---
STILL AWAKE AT THIS TIME. VERSED DRIP INCREASE TO 6 MG/HR. WILL CONTINUE TO MONITOR.
--- NOTE | 2017-08-26 15:15 | NUR ---
DROWSY BUT TRYING TO STAY AWAKE. VERSED DRIP INCREASE TO 7 MG/HR. WILL CONTINUE TO MONITOR.
--- NOTE | 2017-08-26 16:00 | NUR ---
REASSESSMENT DONE. SLEEPING BUT AROUSABLE TO NAME CALLING. NO C/O PAIN. NO AGITATION NOTED. TOLERATING CURRENT VENTILATOR SETTINGS WELL. O2 SAT 96-100%. SR ON MONITOR. SBP IN 150'S. NO ECTOPY NOTED. HOB ELEVATED. TOLERATING TUBE FEEDING WELL. NO RESIDUALS NOTED. UPDATED OF PLAN OF CARE. WILL CONTINUE TO MONITOR.
--- NOTE | 2017-08-26 17:17 | NUR ---
DROWSY BUT TRYING TO BE AWAKE. VERSED DRIP INCREASE TO 8 MG/HR. WILL CONTINUE TO MONITOR.
--- NOTE | 2017-08-26 17:30 | NUR ---
GIVEN PARTIAL BATH AND LINENS ARE CHANGE. TOLERATED THE PROCEDURE WELL.
[2017-08-26] MEDS: MIDAZOLAM MDV 100 MG in NACL 0.9% 80 ML IV PRN (18:00)
--- NOTE | 2017-08-26 18:00 | NUR ---
RESTING IN BED. NO SIGNS OF PAIN OR AGITATION NOTED. TOLERATING VENTILATOR WELL. O2 SAT 95-96%. SR ON MONITOR. SBP IN 120'S-130'S. NO ECTOPY NOTED. HOB ELEVATED. WILL CONTINUE TO MONITOR.
--- NOTE | 2017-08-26 19:10 | NUR ---
REPORT GIVEN TO INCOMING FORESTRY CONSULTANT RN, DEDE PEREIRA.
--- NOTE | 2017-08-26 19:30 | NUR ---
RECEIVED PT SLEEPING, ETT TO VENT, AC 12, PEEP 5, TV 500ML AND 30 %fIO2, ETT 7.5CM,LIP LEVEL 21 CM,SKIN WARM TO TOUCH RESP. EVEN AND UNLABORED, OGT IN PLACE, FEEDING OF NUTREN AT 50ML WELL TOLERATED, IVF ONGOING VIA RIJ CENTRAL LINE INTACT WELL TOLERATED, WILL CHECK LATER, MORPHINE DRIP ONGOINGAT 3MG/HR, VERSED DRIP AT 8MG/HR, NS AT 10ML/HR, HORNER CATH DRAINING TO A ASIF URINE, VITAL SIGN STABLE AT THIS TIME.
[2017-08-26] MEDS: SULFAMETH/TRIMETH DS 800/160MG 1 TAB NG SCH (20:42)
[2017-08-26] MEDS: ZOLPIDEM 5 MG TAB PO SCH (20:42)
[2017-08-26] MEDS: QUEtiapine FUMARATE 25 MG TAB PO SCH (20:43)
[2017-08-26] MEDS ORDERED: SULFAMETH/TRIMETH DS 800/160MG 1 TAB PO SCH (21:00)
--- NOTE | 2017-08-26 21:27 | NUR ---
PT SLEEPING RASS -4 OGT INTACT NO RESIDUAL NOTED, FLUSHED [facility] CENTRAL LINE WITH NS , WITH GOOD BLOOD RETURN, NOTED DRY SCAB ON RIGHT AND LEFT STACY AND RIGHT AND LEFT KNEE AND ALSO DRY SCAB NOTED ON LEFT BACK OF GREAT TOE, NO BLEEDING NOTED, OFFLOAD PRESSURE AREAS, PILLOWS UNDER LOWER EXTERMITIES. Addendum: 08/26/17 at 2352 by Pham Neumann RN DRY BLACK SCAB ALSO NOTED ON LEFT THIRD FINGER, NO BLEEDING NOTED. Addendum: 08/27/17 at 0513 by Pham Neumann RN ALSO NOTED OLD DISCOLORATION ON RIGHT AND LEFT ARM,PALE REDDISH IN COLOR, HANDLE PT GENTLY
--- NOTE | 2017-08-26 22:11 | NUR ---
RT AT BEDSIDE
[2017-08-26] MEDS: MORPHINE SULFATE 50 MG in NACL 0.9% 45 ML IV PRN (22:31)
[2017-08-27] VITALS (22 sets, daily range): BP systolic 106–159; BP diastolic 53–86
--- NOTE | 2017-08-27 01:13 | NUR ---
PT IN DEEP SEDATION , DECREASED VERSED TO 7MG/HR, VITAL SIGN STABLE, WILL CONTINUE TO MONITOR
--- NOTE | 2017-08-27 01:45 | NUR ---
REPORTED TO DR. MOSELEY PT WITH EPISODES OF PAC' S, VITAL SIGN STABLE, CONTINUE ON VERSED DRIP @ 6MG/HR AND MORPHINE DRIP @3MG/HR
--- NOTE | 2017-08-27 02:13 | NUR ---
PT MOVED HIS HEAD FROM SIDE TO SIDE, WILL CONTINUE TO OBSERVE PT
[2017-08-27] MEDS: ALBUTEROL SULFATE/IPRATROPIU 3 ML SOL IH SCH ×6 (03:14→23:04)
--- NOTE | 2017-08-27 03:14 | NUR ---
RT AT BEDSIDE GIVING HHN
[2017-08-27] MEDS: LORazepam 1 MG TAB PO SCH ×3 (04:19→20:46)
--- NOTE | 2017-08-27 05:04 | NUR ---
PT EYES CLOSE, ABLE TO KNOD HEAD WHEN ASK ARE YOU OK,VITAL SIGN STABLE.
[2017-08-27] MEDS: PIPER/TAZO 3.375GM/D5W PREMIX 50 ML IV SCH (05:06)
--- NOTE | 2017-08-27 05:25 | NUR ---
DR. RIVERA AT BEDSIDE
[2017-08-27 06:00] LABS: BASOPHILS # (AUTO) 0.2 K/uL (0.00-0.22); BASOPHILS % (AUTO) 3.7 % (0.0-2.0); HEMATOCRIT 28.3 % (36-52); HEMOGLOBIN 8.8 g/dL (12.0-18.0); LYMPHOCYTES # (AUTO) 0.6 K/uL (2.0-11.5); LYMPHOCYTES % (AUTO) 13.2 % (20.5-51.1); MEAN CORPUSCULAR HEMOGLOBIN 26 pg (27-31); MEAN CORPUSCULAR HGB CONC 31 g/dL (33-37); MEAN CORPUSCULAR VOLUME 85 fL (80-94); MONOCYTES # (AUTO) 0.4 K/uL (0.8-1.0); MONOCYTES % (AUTO) 8.5 % (1.7-9.3); NEUTROPHILS # (AUTO) 3.5 K/uL (1.8-7.7); NEUTROPHILS % (AUTO) 74.6 % (42.2-75.2); PLATELET COUNT (AUTO) 215 K/uL (140-450); RED BLOOD CELL COUNT(AUTO) 3.32 MIL/uL (4.20-6.10); RED CELL DISTRIBUTION WIDTH 17.6 % (11.6-13.7); WHITE BLOOD COUNT (AUTO) 4.7 K/uL (4.8-10.8)
[2017-08-27 06:02] LABS: MAGNESIUM 2.2 mg/dL (1.8-2.4); PHOSPHORUS 4.2 mg/dL (2.5-4.9)
[2017-08-27 06:03] LABS: CARBON DIOXIDE 34.7 mmol/L (21-32); POTASSIUM 4.7 mmol/L (3.5-5.1)
[2017-08-27] MEDS: BLOOD GLUCOSE MONITORING 1 DEV DEV FS SCH ×4 (06:34→20:49)
[2017-08-27] MEDS: PANTOPRAZOLE 40 MG TABEC PO SCH (06:48)
--- NOTE | 2017-08-27 07:00 | NUR ---
RT AT BEDSIDE FOR HHN, PT SEDATED, ONGOING WITH VERSED DRIP AND MORPHINE DRIP, WELL TOLERATED, OGT IN PLACE NUTREN AT 50ML/HR
--- NOTE | 2017-08-27 07:13 | NUR ---
RECEIVED INTUBATE PT WITH ETT 7.5 SECURE @21 TEETH/GUMS. VENT SETTINGS AC 12, VT 500, PEEP 5 AND FIO2 30%. THERE IS NO BITING OR KINKING OF THE ETT. PT SUCTIONED OBTAINED SMALL AMOUNT OF THICK YELLOW SECRETIONS, AIRWAY IS PATENT AND TRACH IS SECURE. PT IS SEDATED AT THIS TIME. VENT IS PLUGGED INTO A RED OUTLET WITH ALARMS ON AND FUNCTIONING. PT IS NOT SOB AND NOT IN RESPIRATORY DISTRESS. WILL CONTINUE TO MONITOR. Addendum: 08/27/17 at 0733 by You Montoya RT NOT TRACH, ETT IS SECURE WITH ANCHOR FAST DEVICE.
--- NOTE | 2017-08-27 07:15 | NUR ---
ENDORSED TO STEFAN CONTINUATION OF CARE
--- NOTE | 2017-08-27 07:16 | NUR ---
RECEIVED REPORT FROM DEDE PEREIRA. NO SIGNS OF ACUTE DISTRESS AT THIS TIME, FLACC 0. PT IS SEDATED, ON MORPHINE AND VERSED DRIPS. PT IS ETT TO VENT. FIO2: 30%, TV: 500, AC: 12, PEEP: 5. PT HAS CENTRAL LINE TO RIGHT IJ TLC, BLOOD RETURN AND PATENCY ON ALL PORTS. PT HAS OGT TO TUBE FEEDING IN PLACE, NO RESIDUAL NOTED. PT HAS HORNER CATHETER DRAINAGE TO GRAVITY DRAINAGE BAG. WOUNDS NOTED TO BILATERAL NOTED EXTREMITIES. PT IS ON CONTACT ISOLATION WITH SIGNS POSTED OUTSIDE OF PT'S ROOM. SAFETY PRECAUTIONS IN PLACE WITH BED IN LOWEST POSITION AND SIDE RAILS UP. CALL LIGHT WITHIN REACH. PT IS CURRENTLY SINUS RHYTHM ON THE MONITOR. WILL CONTINUE TO MONITOR.
--- NOTE | 2017-08-27 08:24 | NUR ---
DR. ROBERSON IN TO SEE PT. WILL FOLLOW UP ON ORDERS.
--- NOTE | 2017-08-27 08:43 | NUR ---
PT PLACED ON CPAP 5 PS 10 BY . PT TOLERATING WELL AT THIS TIME .WILL CONTINUE TO MONITOR.
--- NOTE | 2017-08-27 08:58 | NUR ---
REQUESTS PT BE RETURNED TO AC 12, VT 500, PEEP 5 AND FIO2 30% AND TO BE WEANED THIS AFTERNOON. WILL OBTAIN WEANING PARAMETERS AND UPDATE PHYSICIAN.
--- NOTE | 2017-08-27 09:15 | NUR ---
CHECKED ON PT. NO SIGNS OF ACUTE DISTRESS AT THIS TIME, FLACC 0. CALL LIGHT WITHIN REACH. STUDENT NURSE ADMINISTERING MEDICATION WITH INSTRUCTOR. WILL CONTINUE TO MONITOR.
[2017-08-27] MEDS: LEVOFLOXACIN 750 MG/D5W PREMIX 150 ML IV SCH (09:24)
--- NOTE | 2017-08-27 09:27 | NUR ---
VENT CHECK COMPLETED. PT IS ASLEEP AT THIS TIME. PT IS NOT DEMONSTRATING ANY SIGNS OF SOB OR RESPIRATORY DISTRESS. WILL CONTINUE TO MONITOR. SUCTION NOT REQUIRED AT THIS TIME.
[2017-08-27] MEDS: HALOPERIDOL 1 MG TAB PO SCH ×2 (09:42→20:46)
[2017-08-27] MEDS: BENZTROPINE 1 MG TAB PO SCH ×2 (09:43→20:47)
[2017-08-27] MEDS: methylPREDNISolone SS 40 MG/ML VIAL IVP SCH ×2 (09:44→20:48)
[2017-08-27] MEDS: FUROSEMIDE 40 MG/4 ML VIAL IVP SCH (09:44)
[2017-08-27] MEDS: LACTOBACILLUS RHAMNOSUS GG 1 EACH CAP PO SCH (09:45)
[2017-08-27] MEDS: THIAMINE 100 MG TAB PO SCH (09:45)
[2017-08-27] MEDS: MULTIVITAMIN 1 TAB PO SCH (09:45)
[2017-08-27] MEDS: LISINOPRIL 20 MG TAB PO SCH (09:47)
[2017-08-27] MEDS: FOLIC ACID 1 MG TAB PO SCH (09:47)
[2017-08-27] MEDS: NAPROXEN 500 MG TAB PO SCH ×2 (09:48→20:47)
[2017-08-27] MEDS: SULFAMETH/TRIMETH DS 800/160MG 1 TAB NG SCH ×2 (09:48→20:47)
[2017-08-27] MEDS: HYDROCHLOROTHIAZIDE 25 MG TAB PO SCH (09:48)
[2017-08-27] MEDS: METOPROLOL SUCCINATE 50 MG TABER PO SCH (09:49)
[2017-08-27] MEDS: NACL 0.9% 1,000 ML IV SCH (10:15)
--- NOTE | 2017-08-27 10:31 | NUR ---
BREATHING TX ADMINISTERED. PT SUCTIONED OBTAINED SCANT AMOUNT OF SECRETIONS, ETT AIRWAY IS PATENT AND ETT REMAINS SECURE WITH ANCHOR FAST.
--- NOTE | 2017-08-27 11:18 | NUR ---
PT PLACED ON CPAP 5 PS 10 FIO2 30% WITH BACKUP VENT SETTINGS/ALARMS ON. NURSE STEFAN TRAORE.
[2017-08-27] MEDS: CHLORHEXADINE GLUC 2% CLOTH TP SCH (12:01)
[2017-08-27] MEDS: MUPIROCIN 2% OINT 22 GM TUBE TP SCH (12:01)
--- NOTE | 2017-08-27 12:13 | NUR ---
HELD ATIVAN PT IS PLANNED TO BE EXTUBATED SOON. PT TOLERATED ALL OTHER MEDS WELL.
--- NOTE | 2017-08-27 12:32 | NUR ---
PT TOLERATING CPAP WELL AT THIS TIME. PAGED BY NURSE STEFAN. WEANING PARAMETERS OBTAINED. WILL NOTIFY PHYSICIAN.
--- NOTE | 2017-08-27 12:35 | NUR ---
PHYSICIAN UPDATED WITH WEANING PARAMETERS, NO ABG REQUESTED BY PHYSICIAN.
--- NOTE | 2017-08-27 12:35 | NUR ---
SPOKE TO REGARDING PT STATUS ALONG WITH NURSE STEFAN. PHYSICIAN UPDATED WITH WEANING PARAMETERS. PHYSICIAN REQUESTS PT TO BE EXTUBATED. PT IS AWAKE AND ALERT ABLE TO FOLLOW COMMANDS.
--- NOTE | 2017-08-27 12:45 | NUR ---
RT, TOM, EXTUBATED PT WITH NO ISSUES. OGT DISCONTINUED. PT TOLERATED WELL. PT IS ON COOL MIST AEROSOL AT 30%. WILL PERFORM BEDSIDE SWALLOW EVAL ORDERED.
--- NOTE | 2017-08-27 12:53 | NUR ---
PT EXTUBATED BY REQUEST OF AND WILL BE PLACED ON 30% COOL AEROSOL. NO STRIDOR HEARD ON AUSCULTATION.
--- NOTE | 2017-08-27 14:28 | NUR ---
PT PASSED BEDSIDE SWALLOW EVAL, INFORMED DR. RIVERA.
[2017-08-27] MEDS ORDERED: ACETAMINOPHEN 325 MG TAB PO PRN (14:30)
--- NOTE | 2017-08-27 15:06 | NUR ---
CHECKED TEMP: 100.9. WILL ADMINISTER TYLENOL ORDERED. COOLING MEASURES IN PLACE.
--- NOTE | 2017-08-27 15:14 | NUR ---
PT TOLERATED MEDS WELL. WILL REASSESS.
--- NOTE | 2017-08-27 16:02 | NUR ---
PT REQUESTED ALEVISM SUSPECT ARTIST. CONTACTED [facility], NO ANSWER. LEFT MESSAGE WITH CALLBACK NUMBER.
--- NOTE | 2017-08-27 18:30 | NUR ---
ASSISTED PT WITH EATING DINNER, NO ISSUES. CALL LIGHT WITHIN REACH. WILL CONTINUE TO MONITOR.
--- NOTE | 2017-08-27 19:12 | NUR ---
ENDORSED CARE TO DEDE [place]. PT IN STABLE CONDITION.
--- NOTE | 2017-08-27 19:30 | NUR ---
RECEIVED PT FROM AM SHIFT. PT IS AWAKE, ALERT AND ORIENTED X3. ABLE TO MAKE NEEDS KNOWN. FOLLOW COMMANDS.CONTINUE ON COOL MIST AEROSOL AT 30 % TOLERATED WELL. NO S/S OF RESP.DISTRESS,NO SOB. CHRISS LUNGS SOUND CLEAR. SR ON MONITOR. CENTRAL LINE TO RIGHT IJ WITH TRIPLE LUMENS.INTACT WELL WITH GOOD BLOOD RETURN.IV NS AT 10 CC/HR JOHNATHON WELL. ABD SOFT NON DISDENTED. SKIN IS NON INTACT. MULTIPLE DRY SCABS BLE.PER AM NURSE PT EXTUBATED AT 12;40 AND TOLERATING WELL. ON CARDIAC DIET PUREE WITH NECKTAR THICK LIQUIDS. F/C IN PLACE WITH YELLOW CLEAR COLOR URINE.GENTLE CARE GIVEN. KEPT CLEAN AND DRY. CALL LIGHT IN REACH.
[2017-08-27] MEDS: QUEtiapine FUMARATE 25 MG TAB PO SCH (20:46)
[2017-08-27] MEDS: ZOLPIDEM 5 MG TAB PO SCH (20:46)
--- NOTE | 2017-08-27 21:00 | NUR ---
BLOOD SUGAR IS 142 NO INSULIN NEEDED. NIGHT MEDS GIVEN PO JOHNATHON WELL.
[2017-08-28] VITALS (10 sets, daily range): BP systolic 105–167; BP diastolic 68–84
--- NOTE | 2017-08-28 | NUR ---
PT IS SLEEPING EASY TO AWAKE.
[2017-08-28] MEDS: NACL 0.9% 1,000 ML IV SCH (00:40)
--- NOTE | 2017-08-28 02:47 | NUR ---
PT IS AWAKE DENIES PAIN. PT SAID WILL BE BACK TO SLEEP.NO DISTRESS CONT ON COOL MIST AEROSOL 30 % OF O2 .
[2017-08-28] MEDS: ALBUTEROL SULFATE/IPRATROPIU 3 ML SOL IH SCH ×5 (03:21→18:36)
--- NOTE | 2017-08-28 04:30 | NUR ---
AM CARE GIVEN.F/C CARE GIVEN. 1100 CC YELLOW CLEAR URINE. KEPT CLEAN AND DRY.
[2017-08-28] MEDS: LORazepam 1 MG TAB PO SCH ×3 (05:24→20:03)
[2017-08-28 06:12] LABS: BASOPHILS # (AUTO) 0.2 K/uL (0.00-0.22); BASOPHILS % (AUTO) 3.9 % (0.0-2.0); EOSINOPHILS % (AUTO) 0.6 % (0.0-4.0); HEMATOCRIT 27.2 % (36-52); HEMOGLOBIN 8.6 g/dL (12.0-18.0); LYMPHOCYTES # (AUTO) 0.8 K/uL (2.0-11.5); LYMPHOCYTES % (AUTO) 14.5 % (20.5-51.1); MEAN CORPUSCULAR HEMOGLOBIN 27 pg (27-31); MEAN CORPUSCULAR HGB CONC 32 g/dL (33-37); MEAN CORPUSCULAR VOLUME 84 fL (80-94); MONOCYTES # (AUTO) 0.2 K/uL (0.8-1.0); MONOCYTES % (AUTO) 3.5 % (1.7-9.3); NEUTROPHILS # (AUTO) 4.1 K/uL (1.8-7.7); NEUTROPHILS % (AUTO) 77.5 % (42.2-75.2); PLATELET COUNT (AUTO) 213 K/uL (140-450); RED BLOOD CELL COUNT(AUTO) 3.24 MIL/uL (4.20-6.10); RED CELL DISTRIBUTION WIDTH 16.5 % (11.6-13.7); WHITE BLOOD COUNT (AUTO) 5.3 K/uL (4.8-10.8)
[2017-08-28 06:16] LABS: ANION GAP 8.3 (8-16); CARBON DIOXIDE 31.5 mmol/L (21-32); POTASSIUM 3.8 mmol/L (3.5-5.1)
[2017-08-28 06:22] LABS: MAGNESIUM 1.9 mg/dL (1.8-2.4); PHOSPHORUS 3.6 mg/dL (2.5-4.9)
--- NOTE | 2017-08-28 06:30 | NUR ---
CENTRAL LINE DRESSING CHANGE DONE DONE. NO S/S OF INFECTION ON THE SITE.
--- NOTE | 2017-08-28 06:43 | NUR ---
BLOOD SUGAR IS 124 NO INSULIN NEEDED. COME TO SEE PT. PLAN TO DOWN GRADE TO TELE. WILL ENDORSE TO NEXT SHIFT TO FOLLOW UP.
--- NOTE | 2017-08-28 07:30 | NUR ---
Received report from the night nurse. Patient in bed with 02 FM at 30% FI02. Hos 02 sat 98%. Lungs clear apical and diminished at bases bilat. He moves all extremities equally with good strength. You Guo RN
[2017-08-28] MEDS: BLOOD GLUCOSE MONITORING 1 DEV DEV FS SCH ×4 (07:34→20:01)
--- NOTE | 2017-08-28 09:00 | NUR ---
Patient is awake, alert, and oriented x4. SR on monitor without ectopy. Patient on 02 30% facemask, and patient put on 02 2L NC so he can eat breakfast. He is doing well on 02 NC and sat 98%. Patient no co pain. Skin left leg scab, and otherwise dry. You Guo RN
[2017-08-28] MEDS: methylPREDNISolone SS 40 MG/ML VIAL IVP SCH ×2 (09:49→20:01)
[2017-08-28] MEDS: LEVOFLOXACIN 750 MG/D5W PREMIX 150 ML IV SCH (09:49)
[2017-08-28] MEDS: FUROSEMIDE 40 MG/4 ML VIAL IVP SCH (09:50)
[2017-08-28] MEDS: PANTOPRAZOLE 40 MG TABEC PO SCH (09:50)
[2017-08-28] MEDS: THIAMINE 100 MG TAB PO SCH (09:50)
[2017-08-28] MEDS: LISINOPRIL 20 MG TAB PO SCH (09:51)
[2017-08-28] MEDS: HYDROCHLOROTHIAZIDE 25 MG TAB PO SCH (09:51)
[2017-08-28] MEDS: LACTOBACILLUS RHAMNOSUS GG 1 EACH CAP PO SCH (09:52)
[2017-08-28] MEDS: FOLIC ACID 1 MG TAB PO SCH (09:52)
[2017-08-28] MEDS: MULTIVITAMIN 1 TAB PO SCH (10:04)
[2017-08-28] MEDS: METOPROLOL SUCCINATE 50 MG TABER PO SCH (10:12)
[2017-08-28] MEDS: NAPROXEN 500 MG TAB PO SCH ×2 (10:13→20:02)
[2017-08-28] MEDS: HALOPERIDOL 1 MG TAB PO SCH ×2 (10:13→20:03)
[2017-08-28] MEDS: SULFAMETH/TRIMETH DS 800/160MG 1 TAB NG SCH ×2 (10:13→20:02)
[2017-08-28] MEDS: BENZTROPINE 1 MG TAB PO SCH ×2 (10:15→20:02)
--- NOTE | 2017-08-28 12:00 | NUR ---
Patient BS 77 this afternoon, and no insulin necessary per sliding scale per do. Patient eating well this afternoon. Patient has order to go to telemetry, room. You Guo RN
--- NOTE | 2017-08-28 17:00 | NUR ---
BS 94, and patient without insulin per sliding scale per Do. Patient set up to eat dinner. Still awaiting a room, patient is now telemetry status. Patient without co pain today. You Guo RN
--- NOTE | 2017-08-28 19:00 | NUR ---
1845 GAVE HHNTX. PT BS ARE CLEAR.. CALLED RESIDENT TO MAKE HHNTX PRN. NO SOB NOTED ROOM AIR SATS 96%
[2017-08-28] MEDS ORDERED: ALBUTEROL SULFATE/IPRATROPIU 3 ML SOL IH PRN (19:20)
--- NOTE | 2017-08-28 19:20 | NUR ---
RECEIVED A REPORT FROM MORNING NURSE, DEDE VALDEZ. THE PT IS A&O X3. PERRL. SPEECH CLEAR. BILATERAL LUNGS SOUND CLEAR. ACTIVE BOWEL SOUNDS HEARD FROM ALL 4 QUAD. S1 AND S2 HEARD WITHOUT ABNORMAL HEART SOUNDS. BILATERAL HANDS SOFTWARE SUPPORT ENGINEER EQUAL. RIGHT IJ CENTRAL LINE WITH TRIPLE LUMEN. ALL PATENT AND ASYMPTOMATIC. BILATERAL PEDAL PULSES PALPATED. NOTED SCABS TO BILATERAL LOWER EXTREMITIES. BLACK SCAB TO TIP OF THE MIDDLE FINGER AND PT STATED THAT IT'S FROM SMOKING METH. SCAB TO RIGHT BOTTOM TOE. PT DENIES PAIN OR DISCOMFORT AT THIS TIME. BED KEPT TO THE LOWEST POSITION. CALL LIGHT IN REACH. HOB ELEVATED TO 30 DEGREES. WILL CONTINUE TO MONITOR.
[2017-08-28] MEDS: ZOLPIDEM 5 MG TAB PO SCH (20:02)
[2017-08-28] MEDS: QUEtiapine FUMARATE 25 MG TAB PO SCH (20:02)
--- NOTE | 2017-08-28 20:19 | NUR ---
PT TOLERATED SCHEDULED MEDS WELL.
--- NOTE | 2017-08-28 21:25 | NUR ---
PT TRANSFERRING TO [facility] IN TELEMETRY. PT MADE AWARE. ALL BELONGINGS AND MEDS TAKEN WITH THE PT.
--- NOTE | 2017-08-28 21:30 | NUR ---
BED SIDE REPORT GIVEN TO DEDE BANUELOS FROM TELEMETRY. PT STABLE.
--- NOTE | 2017-08-28 21:45 | NUR ---
RECEIVED FROM ICU TRANSFER PT. AWAKE AND ALERT. NO SOB. ROOM AIR. TELEMETRY MONITORING. CALL LIGHT WITH IN REACH. BED ALARM ON. STATED THAT HE CAN WALK. TRIED TO WALK BUT WE PUT HIM IN WHEELCHAIR RT COMPLAINED THAT HE IS DIZZY. WITH RIJ TRIPLE LUMEN. PATENT . DX. BILATERAL PNA AND ANEMIA. SCABS NOTED TO DIFFERENT PARTS OF EXTREMITIES. HX. OF HTN, DIABETES AND SUBSTANCE ABUSE OF METH. ISOLATION PRECAUTIONS RT HX. MRSA NARES. RE-ORIENTED TO ROOM AND CARE GIVERS. ENCOURAGED TO CALL FOR ANY HELP HE MAY NEED OR IF IN PAIN. PT. BEEN IN THIS UNIT PRIOR GOING ICU.
--- NOTE | 2017-08-28 23:00 | NUR ---
PT. IS AWAKE AND REQUESTED FOR SNACK. STATED THAT HE IS HUNGRY. PROVIDED WITH FOOD. NO PAIN COMPLAINTS DONE. BED ALARM ON AND CALL LIGHT AT BEDSIDE.
[2017-08-29 00:33] VITALS: BP 135/67
[2017-08-29] MEDS: NACL 0.9% 1,000 ML IV SCH (00:37)
--- NOTE | 2017-08-29 01:33 | NUR ---
SLEEPING AT THIS TIME.
--- NOTE | 2017-08-29 03:00 | NUR ---
SLEEPING. NO RESTLESSNESS NOTED. CALL LIGHT WITH IN REACH. NO SOB NOTED. TELEMETRY MONITORING.
[2017-08-29] MEDS: LORazepam 1 MG TAB PO SCH ×3 (04:32→20:26)
[2017-08-29 04:37] VITALS: BP 124/68
[2017-08-29] MEDS: BLOOD GLUCOSE MONITORING 1 DEV DEV FS SCH ×5 (06:04→20:24)
--- NOTE | 2017-08-29 06:11 | NUR ---
AWAKE AT THIS TIME. HORNER CATHETER IN PLACE AND DRAINING WELL WITH YELLOW URINE. ABLE TO VERBALIZE SIMPLE NEEDS. ON TELEMETRY MONITORING.
[2017-08-29 07:05] LABS: BASOPHILS # (AUTO) 0.2 K/uL (0.00-0.22); BASOPHILS % (AUTO) 3.6 % (0.0-2.0); EOSINOPHILS % (AUTO) 0.8 % (0.0-4.0); HEMATOCRIT 27.7 % (36-52); HEMOGLOBIN 8.6 g/dL (12.0-18.0); LYMPHOCYTES # (AUTO) 1.5 K/uL (2.0-11.5); LYMPHOCYTES % (AUTO) 25.5 % (20.5-51.1); MEAN CORPUSCULAR HEMOGLOBIN 26 pg (27-31); MEAN CORPUSCULAR HGB CONC 31 g/dL (33-37); MEAN CORPUSCULAR VOLUME 84 fL (80-94); MONOCYTES # (AUTO) 0.6 K/uL (0.8-1.0); MONOCYTES % (AUTO) 9.3 % (1.7-9.3); NEUTROPHILS # (AUTO) 3.7 K/uL (1.8-7.7); NEUTROPHILS % (AUTO) 60.8 % (42.2-75.2); PLATELET COUNT (AUTO) 232 K/uL (140-450); RED BLOOD CELL COUNT(AUTO) 3.32 MIL/uL (4.20-6.10); RED CELL DISTRIBUTION WIDTH 16.8 % (11.6-13.7)
--- NOTE | 2017-08-29 07:15 | NUR ---
RECEIVED PATIENT REPORT AT BEDSIDE FROM NIGHT NURSE. PATIENT IS AAOX2 AND SHOWS NO S/S OF ACUTE DISTRESS ON ROOM AIR. PATIENT DENIES PAIN. WHEN ASKED OF HIS SITUATION THAT BROUGHT HIM TO THE HOSPITAL PATIENT IS NOTABLY CONFUSED AND ANSWERS QUESTIONS INAPPROPRIATELY. PATIENT IS ON TELE MONITORING. RIGHT IJ TRIPLE LUMEN PICC LINE NOTED WITH IVF'S INFUSING WELL. HORNER CATHETER NOTED WITH LIGHT ASIF URINE DRAINING. PATIENT WAS EXPLAINED POC FOR TODAY; HOWEVER, NEEDS CONSTANT REINFORCEMENT. THE BED IS IN LOW POSITION, CALL LIGHT WITHIN REACH, CONTACT, SAFETY, AND FALL RISK PRECAUTIONS ARE IN PLACE. WILL CONTINUE TO MONITOR.
[2017-08-29 07:36] LABS: ANION GAP 9.3 (8-16); CARBON DIOXIDE 25.6 mmol/L (21-32); POTASSIUM 3.9 mmol/L (3.5-5.1)
[2017-08-29 07:38] LABS: MAGNESIUM 1.8 mg/dL (1.8-2.4); PHOSPHORUS 2.6 mg/dL (2.5-4.9)
[2017-08-29 08:00] VITALS: BP 149/76
[2017-08-29] MEDS: PANTOPRAZOLE 40 MG TABEC PO SCH (08:32)
[2017-08-29] MEDS: HYDROCHLOROTHIAZIDE 25 MG TAB PO SCH (08:33)
[2017-08-29] MEDS: FUROSEMIDE 40 MG/4 ML VIAL IVP SCH (08:33)
[2017-08-29] MEDS: FOLIC ACID 1 MG TAB PO SCH (08:33)
[2017-08-29] MEDS: SULFAMETH/TRIMETH DS 800/160MG 1 TAB NG SCH ×2 (08:33→20:38)
[2017-08-29] MEDS: methylPREDNISolone SS 40 MG/ML VIAL IVP SCH ×2 (08:33→20:25)
[2017-08-29] MEDS: LEVOFLOXACIN 750 MG/D5W PREMIX 150 ML IV SCH (08:33)
[2017-08-29] MEDS: THIAMINE 100 MG TAB PO SCH (08:34)
[2017-08-29] MEDS: NAPROXEN 500 MG TAB PO SCH ×2 (08:34→20:26)
[2017-08-29] MEDS: HALOPERIDOL 1 MG TAB PO SCH ×2 (08:34→20:26)
[2017-08-29] MEDS: MULTIVITAMIN 1 TAB PO SCH (08:34)
[2017-08-29] MEDS: METOPROLOL SUCCINATE 50 MG TABER PO SCH (08:34)
[2017-08-29] MEDS: LACTOBACILLUS RHAMNOSUS GG 1 EACH CAP PO SCH (08:34)
[2017-08-29] MEDS: LISINOPRIL 20 MG TAB PO SCH (08:35)
[2017-08-29] MEDS: BENZTROPINE 1 MG TAB PO SCH ×2 (08:35→20:25)
--- NOTE | 2017-08-29 08:40 | NUR ---
ADMINISTERED SCHEDULED MEDICATIONS. PATIENT SWALLOWED WITHOUT DIFFICULTY. PATIENT DENIES PAIN. IV ABX INFUSING WELL. THE BED IS IN LOW POSITION WITH CALL LIGHT WITHIN REACH.
--- NOTE | 2017-08-29 11:35 | NUR ---
CM NOTE SPOKE W/ PATIENT AT BEDSIDE RE. DISCHARGE PLAN. PATIENT'S ORIGINAL PLAN WAS TO GO BACK TO [facility] FOR INCUR[facility]LES AFTER DISCHARGE AND WANTED TO HAVE PHYSICAL THERAPY. SPOKE W/ ALTA FROM [facility] FOR [facility]. WILL NOT BE ABLE TO ACCOMMODATE PHYSICAL THERAPY AT THE HOME AND REQUESTING PATIENT TO GO TO REHAB FOR AT LEAST A WEEK. PATIENT THEN CAN COME BACK TO [facility] AFTER COMPLETION OF PHYSICAL THERAPY. SPOKE TO PATIENT AT BEDSIDE RE. ALTA'S REQUEST. PATIENT AGREED W/ PLAN TO GO TO REHAB AND THEN DISCHARGE BACK TO [facility]. DR. PHELAN MADE AWARE. Addendum: 08/29/17 at 1158 by Myke Correa RN CLINICAL INFORMATION FAXED TO [facility] / FAX#[phone], ATTN: JULIO C
[2017-08-29 12:00] VITALS: BP 132/64
--- NOTE | 2017-08-29 12:15 | NUR ---
ADMINISTERED SCHEDULED MEDICATIONS. PATIENT SWALLOWED WITHOUT DIFFICULTY. PATIENT IS SITTING UP AND EATING LUNCH AND TOLERATING DIET WELL.
--- NOTE | 2017-08-29 13:42 | NUR ---
CM NOTE PATIENT [facility] BE[facility] & CONTINUE IV ABX TX FOR 7 DAYS. ACCEPTING MD: DR. RUBI JANG FOR RN REPORT: [phone] Addendum: 08/29/17 at 1537 by Myke Correa RN PER GUERO LÓPEZ FOR [facility] TRANSPORT TO GUEST SERVICE SUPERVISOR PATIENT AROUND [phone]. ADWOA AGUAYO & CLINTON MCCLURE MADE AWARE.
[2017-08-29] MEDS ORDERED: SULF1TAB12 NG (14:12)
--- NOTE | 2017-08-29 14:30 | NUR ---
PATIENT WAS ASSISTED TO THE RR. PATIENT HAD A BM. PATIENT DENIES PAIN. PATIENT IN BED RESTING COMFORTABLY NOW WITH NO S/S OF ACUTE DISTRESS.
--- NOTE | 2017-08-29 14:33 | NUR ---
08/29/17 RD FOLLOW UP COMPLETED PLEASE REFER TO NUTRITION ASSESSMENT UNDER CARE ACTIVITY FOR ESTIMATED NUTRITIONAL NEEDS. 1. CONTINUE CARDIAC PUREE DIET WITH NECTAR THICKENED LIQUIDS PER MD NOTES - PT WITH GOOD APPETITE AND MEETING 100% OF ESTIMATED NEEDS 2. RD TO FOLLOW-UP 3-5 DAYS, MODERATE RISK PAVITHRA ANGEL, RANJAN
[2017-08-29] MEDS ORDERED: DEXT150S13 IV (14:39)
[2017-08-29] MEDS ORDERED: LACT10CA1 PO (14:41)
--- NOTE | 2017-08-29 14:50 | NUR ---
PATIENT IS ALSO TO CONTINUE PHYSICAL THERAPY AT [facility].
--- NOTE | 2017-08-29 14:50 | NUR ---
SPOKE WITH JEANNE FROM [facility] TO GIVE REPORT. PATIENT OKAYED TO LEAVE WITH HORNER CATHETER STILL IN PLACE AND KEEP RIGHT IJ TRIPLE LUMEN CENTRAL LINE. JEANNE VERBALIZED CONTINUITY OF CARE. PATIENT IS TO RECEIVED IV ABX LEVAQUIN 750 MG IV Q24 FOR 7 DAYS AND BACTRIM DS 800/160 MG BID FOR 7 DAYS.
--- NOTE | 2017-08-29 14:52 | NUR ---
CM NOTE CONCURRENT REVIEW FAXED TO [facility] (FAX# [phone], ATTN: RENE [phone])
[2017-08-29] MEDS ORDERED: ALBUTEROL SULFATE/IPRATROPIU 3 ML SOL IH SCH (15:00)
[2017-08-29 16:00] VITALS: BP 137/75
--- NOTE | 2017-08-29 16:40 | NUR ---
PATIENT IS RESTING AND WATCHING TV COMFORTABLY IN BED AND SHOWS NO S/S OF ACUTE DISTRESS AT THIS TIME. PATIENT DENIES PAIN. WILL CONTINUE TO MONITOR.
--- NOTE | 2017-08-29 17:45 | NUR ---
PATIENT WAS GIVEN PNEUMOCOCCAL VACCINATION. PATIENT TOLERATED ACTIVITY WELL. PATIENT'S NEEDS ARE MET. THE BED IS IN LOW POSITION WITH CALL LIGHT WITHIN REACH.
--- NOTE | 2017-08-29 18:54 | NUR ---
SPOKE WITH NEHAL FROM [facility] PHONE #[phone] AND NOTIFIED THAT PATIENT WILL BE GOING TO [facility] TO HAVE IV ABX, ABX, AND PHYSICAL THERAPY.
--- NOTE | 2017-08-29 19:04 | NUR ---
GAVE PATIENT REPORT TO PHILLIP AGUAYO. PATIENT ENDORSED IN STABLE CONDITION.
--- NOTE | 2017-08-29 19:05 | NUR ---
PATIENT REPORT RECEIVED FROM MORNING NURSE AT BEDSIDE. PATIENT IS AWAKE AND ALERT. NO SIGNS AND SYMPTOMS OF DISTRESS NOTED. NO COMPLAINTS OF PAIN AT THIS TIME. RIJ TRIPLE LUMEN NOTED. HORNER CATHETER IN PLACE DRAINING YELLOW URINE. BED IN LOWEST POSITION, SIDE RAILS UP AND CALL LIGHT WITHIN REACH. WILL CONTINUE TO MONITOR.
[2017-08-29 20:00] VITALS: BP 143/83
[2017-08-29] MEDS: QUEtiapine FUMARATE 25 MG TAB PO SCH (20:25)
--- NOTE | 2017-08-29 22:00 | NUR ---
WAS CALLED. THEY SAID THEY WERE GONNA BE HERE BETWEEN 12-1AM. THIS IS THE FOURTH TIME THEY CHANGED THEIR PICKUP TIME. THE MORNING NURSE SAID THEY WERE GONNA BE THERE FOR LASER SET UP OPERATOR BETWEEN 6:30-7. THEN IT WAS CHANGED TO 9:30PM. LOGISTICS ANALYTICS MANAGER FOLLOWED UP AND THEN THE LASER SET UP OPERATOR TIME CHANGED TO 10:30PM AND NOW THEY SAID THEY WILL ARRIVE FOR LASER SET UP OPERATOR BETWEEN 12-1 AM. HUMAN RESOURCE ASSISTANT AND CHARGE NURSE AWARE. NOTIFIED [facility] ABOUT TRANSPORTATION SITUATION. SPOKE TO GOLDEN. SHE SAID THAT IT WAS OK.
[2017-08-30] VITALS: BP 130/79
--- NOTE | 2017-08-30 00:15 | NUR ---
PREMIER ARRIVED TO INSULATION WORKER APPRENTICE PATIENT TO TRANSPORT HIM TO [facility]. GAVE REPORT TO EMT. DISCHARGE PAPERWORK AND INSTRUCTIONS GIVEN TO AND SIGNED BY PATIENT. PATIENT VERBALIZED UNDERSTANDING. URINE BAG EMPTIED. ID BAND REMOVED. TELE LEADS TAKEN OFF. PATIENT LEFT WITH ALL OF HIS BELONGINGS. PATIENT IS IN STABLE CONDITION
== END 2017-08-30 00:15 | DRG 208 ==
LOC: MED 20:35 → MIC 23:19 → MTU 08-28 21:40
PROVIDERS: ADMIT Family Medicine; ATTEND Family Medicine
PROC: 5A09357 Assistance with Respiratory Ventilation, Less than 24 Consecutive Hours, Continuous Positive Airway Pressure (ICD-10-PCS; 2017-08-22)
PROC: 5A09357 Assistance with Respiratory Ventilation, Less than 24 Consecutive Hours, Continuous Positive Airway Pressure (ICD-10-PCS; 2017-08-22)
PROC: 0BH17EZ Insertion of Endotracheal Airway into Trachea, Via Natural or Artificial Opening (ICD-10-PCS; principal; 2017-08-23)
PROC: 5A1945Z Respiratory Ventilation, 24-96 Consecutive Hours (ICD-10-PCS; 2017-08-23)
PROC: 02HV33Z Insertion of Infusion Device into Superior Vena Cava, Percutaneous Approach (ICD-10-PCS; 2017-08-23)
PROC: B548ZZA Ultrasonography of Superior Vena Cava, Guidance (ICD-10-PCS; 2017-08-23)
PROC: 3E0234Z Introduction of Serum, Toxoid and Vaccine into Muscle, Percutaneous Approach (ICD-10-PCS; 2017-08-29)
DX: J69.0 Pneumonitis due to inhalation of food and vomit (principal); J96.01 Acute respiratory failure with hypoxia; N17.0 Acute kidney failure with tubular necrosis; E43 Unspecified severe protein-calorie malnutrition; I50.43 Acute on chronic combined systolic (congestive) and diastolic (congestive) heart failure; E83.42 Hypomagnesemia; I42.2 Other hypertrophic cardiomyopathy; B95.62 Methicillin resistant Staphylococcus aureus infection as the cause of diseases classified elsewhere; M20.42 Other hammer toe(s) (acquired), left foot; M20.41 Other hammer toe(s) (acquired), right foot; L85.3 Xerosis cutis; E87.6 Hypokalemia; F42.4 Excoriation (skin-picking) disorder; E11.9 Type 2 diabetes mellitus without complications; F25.0 Schizoaffective disorder, bipolar type; I11.0 Hypertensive heart disease with heart failure; E78.5 Hyperlipidemia, unspecified; D63.8 Anemia in other chronic diseases classified elsewhere; L84 Corns and callosities; K21.9 Gastro-esophageal reflux disease without esophagitis; F17.210 Nicotine dependence, cigarettes, uncomplicated; F15.10 Other stimulant abuse, uncomplicated; F12.10 Cannabis abuse, uncomplicated; F10.10 Alcohol abuse, uncomplicated; F19.10 Other psychoactive substance abuse, uncomplicated; Z88.8 Allergy status to other drugs, medicaments and biological substances; Z91.09 Other allergy status, other than to drugs and biological substances; Z59.0 Homelessness; Z68.21 Body mass index [BMI] 21.0-21.9, adult; Z79.899 Other long term (current) drug therapy; Z23 Encounter for immunization
CPT/HCPCS: 36415; 36600; 71010; 71275; 80048; 80053; 80305; 81003; 82150; 82803; 82948; 83036; 83605; 83690; 83735; 83880; 84100; 84439; 84443; 84484; 85025; 85610; 85730; 87040; 87070; 87081; 87086; 87186; 87205; 89220; 90732; 93005; 93925; 93970; 93976; 94003; 94640; 94660; 96365; 96367; 97110; 99291; G0482; J0360; J0456; J0610; J1170; J1630; J1642; J1644; J1815; J1940; J1956; J2250; J2270; J2543; J2704; J2920; J3475; J3480; J3490; J7030; J7060; J7620; Q0092; Q9967

== ENCOUNTER 2017-09-01 16:16 | Emergency (ER) | payer OTHER ==
[~2017-09-01] VITALS: Ht 172.7 cm; Wt 54.4 kg
[~2017-09-01 16:16] MED LIST changes: +DEXT150S13 IV; +LACT10CA1 PO; +SULF1TAB12 NG
[2017-09-01 16:17] VITALS: BP 100/50
--- NOTE | 2017-09-01 16:20 | NUR ---
PT VSS AT THIS TIME; PT AA&OX4, RR EVEN/UNLABORED, ER MD DR. BRIONES NOTIFIED, SENT PT TO ER LOBBY VIA W/C TO WAIT FOR OPEN BED.
--- NOTE | 2017-09-01 18:41 | NUR ---
PATIENT WAS ASKED TO LEAVE DUE TO WEAPON POSSESSION.
--- NOTE | 2017-09-01 18:42 | NUR ---
PATIENT LEFT WITHOUT BEING SEEN BY DR. BRIONES. NO FURTHER CARE PROVIDED FOR PATIENT.
== END 2017-09-01 18:42 | disposition left against medical advice (07) ==
LOC: MED 16:16
DX: M25.552 Pain in left hip (principal); Z53.21 Procedure and treatment not carried out due to patient leaving prior to being seen by health care provider

== ENCOUNTER 2017-09-19 08:07 | Inpatient (IN) | payer OTHER ==
[~2017-09-19] VITALS: Ht 167.6 cm; Wt 71.7 kg
[~2017-09-19 08:07] MED LIST changes: -DOL10 PO; +NAPR-54 PO; -NAPR500T1 PO
[2017-09-19 08:21] VITALS: BP 200/72
--- NOTE | 2017-09-19 08:28 | NUR ---
Patient wheelchair assisted to Bed2
--- NOTE | 2017-09-19 08:30 | NUR ---
67M BIB SELF C/O SHORTNESS OF BREATH AND DIFFICULTY BREATHING X 4 DAYS; RR EVEN, DEEP, AND LABORED, AUDIBLE WHEEZING HEARD AT THIS TIME; WHEEZES HEARD TO LEFT UPPER LOBE; PT NOTED WITH TACHYPNEA AT THIS TIME WITH NON-PRODUCTIVE COUGH; PT NOTED WITH BL LOWER EXTRIMITY +3 PITTING EDEMA X 2 WEEKS ; PT AA&OX4, INDRA, STATES NO N/V/D AT THIS TIME; PT NOTED WITH HEALING SCABS TO RT STACY, LEFT KNEE/LEFT ANKLE, AND HEALED SCAR TO RT ABDOMEN; NO ACTIVE BLEEDING TO SITES AT THIS TIME; PT STATES NO PAIN AND NO CHEST PAIN AT THIS TIME; PT PLACED ON MONITOR, RESTING IN BED WITH HOB ELEVATED AND IN LOWEST POSITION; POSITIONED FOR COMFORT; ER MD MADE AWARE OF STATUS. WILL CONTINUE TO MONITOR, Addendum: 09/19/17 at 1107 by MEDSS PT NOTED WITH SKIN TEAR TO RT ELBOW; PT STATES NO PAIN AT THIS TIME; NO ACTIVE BLEEDING AT THIS TIME.
--- NOTE | 2017-09-19 08:41 | NUR ---
FLORI CONTRERASATING PT AT BEDSIDE.
[2017-09-19] MEDS ORDERED: NACL 0.9% 1,000 ML IV SCH (08:46)
[2017-09-19] MEDS ORDERED: methylPREDNISolone SS 125 MG/2 ML VIAL IVP ONE (08:50)
[2017-09-19] MEDS ORDERED: IPRATROPIUM 0.02% 0.5 MG/2.5 ML NEBU INH ONE (08:50)
[2017-09-19] MEDS ORDERED: ALBUTEROL 0.083% 2.5 MG/3 ML NEBU INH ONE (08:50)
--- NOTE | 2017-09-19 08:50 | NUR ---
RT AT BEDSIDE.
--- NOTE | 2017-09-19 08:55 | NUR ---
XRAY AT BEDSIDE.
--- NOTE | 2017-09-19 09:30 | NUR ---
PT APPEARS TO BE RESTING COMFORTABLY IN BED; POSITIONED FOR COMFORT; STATES NO PAIN AT THIS TIME; WILL CONTINUE TO MONITOR.
[2017-09-19] MEDS ORDERED: AZITHROMYCIN 500 MG in DEXTROSE 5% 250 ML IV ONE (09:40)
[2017-09-19] MEDS ORDERED: cefTRIAXone 1,000 MG in LIDOCAINE 1% ***ER ONLY *** 2.1 ML IM ONE (09:40)
[2017-09-19 10:05] LABS: HEMATOCRIT 26.2 % (36-52); HEMOGLOBIN 8.1 g/dL (12.0-18.0); MEAN CORPUSCULAR HEMOGLOBIN 25 pg (27-31); MEAN CORPUSCULAR HGB CONC 31 g/dL (33-37); MEAN CORPUSCULAR VOLUME 82 fL (80-94); PLATELET COUNT (AUTO) 254 K/uL (140-450); RED BLOOD CELL COUNT(AUTO) 3.21 MIL/uL (4.20-6.10); RED CELL DISTRIBUTION WIDTH 18.4 % (11.6-13.7); WHITE BLOOD COUNT (AUTO) 4.8 K/uL (4.8-10.8)
[2017-09-19 10:07] LABS: ANION GAP 13.6 (8-16); CARBON DIOXIDE 25.5 mmol/L (21-32); POTASSIUM 3.1 mmol/L (3.5-5.1)
[2017-09-19 10:09] LABS: LYMPHOCYTES % (MANUAL) 31 % (20-46); MONOCYTES % (MANUAL) 3 % (5-12)
[2017-09-19] MEDS ORDERED: AZITHROMYCIN 500 MG INJ VIAL IV ONE (10:09)
[2017-09-19 10:13] LABS: ALBUMIN 2.3 g/dL (3.4-5.0); TOTAL BILIRUBIN 0.4 mg/dL (0.0-1.0)
[2017-09-19] MEDS ORDERED: cefTRIAXone 1,000 MG VIAL ONE (10:15)
--- NOTE | 2017-09-19 10:45 | NUR ---
PT APPEARS TO BE RESTING COMFORTABLY IN BED; POSITIONED FOR COMFORT; STATES NO PAIN AT THIS TIME; WILL CONTINUE TO MONITOR.
[2017-09-19 11:24] LABS: APPEARANCE,URINE CLEAR (CLEAR); BILIRUBIN,URINE NEGATIVE (NEGATIVE); BLOOD, URINE NEGATIVE (NEGATIVE); COLOR,URINE YELLOW (YELLOW); LEUKOCYTE ESTERASE ,URINE NEGATIVE (NEGATIVE); NITRITE, URINE NEGATIVE (NEGATIVE); PH,URINE 6.5 (5.0-9.0); UGLUCOSE NEGATIVE (NEGATIVE)
[2017-09-19 11:35] LABS: RBC,URINE NONE SEEN /HPF (0-5); WBC,URINE 0-5 (RARE) /HPF (0-5)
[2017-09-19] MEDS ORDERED: OSELTAMIVIR PHOSPHATE 75 MG CAP PO ONE (11:50)
--- NOTE | 2017-09-19 12:24 | NUR ---
Erika pack in [facility] - 09/19/17 at 1224 by REJI PT APPEARS TO BE SLEEPING COMFORTABLY IN BED; POSITIONED FOR COMFORT; STATES NO PAIN AT THIS TIME; WILL CONTINUE TO MONITOR.
--- NOTE | 2017-09-19 12:24 | NUR ---
PT APPEARS TO BE SLEEPING COMFORTABLY IN BED; POSITIONED FOR COMFORT; WILL CONTINUE TO MONITOR.
--- NOTE | 2017-09-19 13:30 | NUR ---
PT APPEARS TO BE RESTING COMFORTABLY IN BED; POSITIONED FOR COMFORT; STATES NO PAIN AT THIS TIME; WILL CONTINUE TO MONITOR.
[2017-09-19] MEDS ORDERED: ACETAMINOPHEN 325 MG TAB PO PRN (14:10)
[2017-09-19] MEDS ORDERED: ONDANSETRON 4 MG/2 ML VIAL IVP PRN (14:10)
[2017-09-19] MEDS ORDERED: HYDROcodone/APAP 5/325 MG 1 TAB TAB PO PRN (14:10)
[2017-09-19] MEDS ORDERED: ENALAPRILAT 2.5 MG/2 ML VIAL IVP ONE (14:15)
--- NOTE | 2017-09-19 14:17 | NUR ---
Patient states " I'm not sure what happened to the IV"; IV removed, catheter intact and site benign. Applied folded 4x4 gauze and tape to stop bleeding. Pt states no pain to site at this time. Will continue to monitor.
--- NOTE | 2017-09-19 15:05 | NUR ---
PT SBP IN 200'S AT THIS TIME; ER MD DR. GAY NOTIFIED. AWAITING BP TO LOWER TO TAKE PT TO FLOOR.
[2017-09-19] MEDS ORDERED: ENALAPRILAT 2.5 MG/2 ML VIAL IVP PRN (15:25)
--- NOTE | 2017-09-19 15:39 | NUR ---
SPOKE WITH RESIDENT FROM DR. LO[facility]OY[facility]; STATES KEEP PT IN ER UNTIL BP STABILIZES.
[2017-09-19] MEDS: hydrALAZINE 20 MG/ML VIAL IVP PRN (16:03)
[2017-09-19 16:04] LABS: BARBITURATE, URINE NEG. ng/ml (NEG <=200); BENZODIAZEPINE, URINE NEG. ng/mL (NEG <=200); CANNABINOID, URINE NEG. ng/mL (NEG <=50); COCAINE, URINE NEG. ng/mL (NEG <=300); OPIATE, URINE NEG. ng/mL (NEG <=2000); PHENCYCLIDINE SCREEN,URINE NEG. ng/mL (NEG <=25)
[2017-09-19 16:09] LABS: CHOL/HDL RATIO 3.1 (1-4.5); MAGNESIUM 1.6 mg/dL (1.8-2.4)
[2017-09-19] MEDS ORDERED: ALBUTEROL SULFATE/IPRATROPIU 3 ML SOL IH PRN (16:50)
[2017-09-19] MEDS ORDERED: hydrALAZINE 20 MG/ML VIAL IVP SCH (17:00)
--- NOTE | 2017-09-19 17:36 | NUR ---
PER DR. MERIDA, OK TO SEND PT TO FLOOR WITH BP 184/71.
--- NOTE | 2017-09-19 17:45 | NUR ---
Patient will be admitted to care of DR. JARAMILLO. Admited to TELEMETRY. Will go to room 106B. Belongings list completed. Report to [facility] AT BEDSIDE.
[2017-09-19] MEDS ORDERED: DIVA500T1 PO (17:51)
[2017-09-19] MEDS ORDERED: ARIP15TA1 PO (17:51)
[2017-09-19] MEDS ORDERED: METO50TE2 PO (17:51)
[2017-09-19] MEDS ORDERED: QUET400T PO (17:51)
[2017-09-19] MEDS ORDERED: OMEP20TC12 PO (17:51)
[2017-09-19] MEDS ORDERED: BENZ2TAB27 PO (17:51)
[2017-09-19] MEDS ORDERED: ORE25 PO (17:51)
--- NOTE | 2017-09-19 18:00 | NUR ---
PATIENT WAS TRANSFERRED TO THE UNIT IN [facility]. PATIENT AMBULATE SELF TO BED, STEADY GAIT. REPORT WAS GIVEN AT BEDSIDE. PATIENT WAS ORIENTED WITH ROOM, STAFF, AND CALL LIGHT. VS WAS TAKEN, MRSA WAS SWABBED. IV PATENT AND INTACT. NO DISTRESS NOTED AT THIS TIME. BED AT LOW POSITION, SIDES RAILS UP. PLAN OF CARE WAS DISCUSSED WITH PATIENT. PATIENT VERBALIZED UNDERSTANDING. CALL LIGHT WITHIN REACH
[2017-09-19 18:25] VITALS: BP 164/84
[2017-09-19] MEDS ORDERED: KCL 20 MEQ/WATER INJ PREMIX 100 ML IV ONE (18:25)
[2017-09-19] MEDS ORDERED: POTASSIUM CHLORIDE 20% 40 MEQ/15 ML UDC GT SCH ×2 (18:33→19:20)
[2017-09-19] MEDS ORDERED: FUROSEMIDE 40 MG/4 ML VIAL IVP SCH (18:35)
[2017-09-19] MEDS ORDERED: METOPROLOL SUCCINATE 50 MG TABER PO SCH (18:36)
[2017-09-19] MEDS ORDERED: MAG SULF 2000 MG/WATER PREMIX 100 ML IV SCH (18:36)
[2017-09-19] MEDS: ALBUTEROL SULFATE/IPRATROPIU 3 ML SOL IH SCH (18:56)
[2017-09-19] MEDS ORDERED: ALBUTEROL 0.083% 2.5 MG/3 ML NEBU INH SCH (19:00)
[2017-09-19] MEDS ORDERED: POTASSIUM CHLORIDE 10 MEQ TABER PO ONE (19:15)
--- NOTE | 2017-09-19 19:21 | NUR ---
ENDORSEMENT GIVEN TO THE REELING AND TUBING MACHINE OPERATOR NURSE. PATIENT IS STABLE AT THIS TIME.
--- NOTE | 2017-09-19 19:23 | NUR ---
RECEIVED REPORT FROM DAY SHIFT NURSE. PT SITTING IN BED, EATING. NO C/O PAIN OR SOB NOTED. ON O2 AT 2L/MIN VIA NC. IV TO RIGHT HAND #22G, SALINE LOCK. SAFETY PRECAUTION IN PLACE. CALL LIGHT WITHIN REACH. WILL CONTINUE TO MONITOR.
[2017-09-19 20:00] VITALS: BP 157/74
[2017-09-19] MEDS ORDERED: POTASSIUM CHLORIDE 10 MEQ TABER PO SCH (20:15)
[2017-09-19] MEDS ORDERED: POTASSIUM CHLORIDE 20% 40 MEQ/15 ML UDC PO SCH ×2 (20:35)
[2017-09-19] MEDS ORDERED: CLINDAMYCIN 600 MG/4 ML VIAL ONE (21:10)
[2017-09-19] MEDS: QUEtiapine FUMARATE 100 MG TAB PO SCH (21:27)
[2017-09-19] MEDS: DIVALPROEX 500 MG TABEC PO SCH (21:27)
[2017-09-19] MEDS: LEVOFLOXACIN 750 MG/D5W PREMIX 150 ML IV SCH (21:29)
--- NOTE | 2017-09-19 22:00 | NUR ---
PT SLEEPING. NO S/S OF DISTRESS. SAFETY PRECAUTION IN PLACE. CALL LIGHT WITHIN REACH.
[2017-09-19] MEDS: CLINDAMYCIN 600 MG in DEXTROSE 5% 50 ML IV SCH (22:28)
[2017-09-20] VITALS: BP 131/60
--- NOTE | 2017-09-20 00:35 | NUR ---
PT LYING COMFORTABLY IN BED, AWAKE. NO C/O PAIN OR SOB. ALL NEEDS MET AT THIS THIS. KEPT PT CLEAN, DRY AND COMFORTABLE. CALL LIGHT WITHIN REACH
--- NOTE | 2017-09-20 03:05 | NUR ---
PT RESTING IN BED WITH EYES CLOSED. AROUSES EASILY. NO S/S DISTRESS. CALL LIGHT WITHIN REACH.
[2017-09-20 04:00] VITALS: BP 129/75
[2017-09-20] MEDS ORDERED: CLINDAMYCIN 600 MG/4 ML VIAL ONE (05:14)
[2017-09-20] MEDS: CLINDAMYCIN 600 MG in DEXTROSE 5% 50 ML IV SCH ×3 (05:22→21:44)
--- NOTE | 2017-09-20 05:30 | NUR ---
PT SLEEPING. NO S/S OF PAIN OR DISCOMFORT. SAFETY PRECAUTION IN PLACE. CALL LIGHT WITHIN REACH.
--- NOTE | 2017-09-20 07:15 | NUR ---
ENDORSED PT TO DAY SHIFT NURSE. PT IN STABLE CONDITION.
--- NOTE | 2017-09-20 07:30 | NUR ---
RECEIVED REPORT FROM ICE CREAM TRUCK DRIVER NURSE. PT IS AWAKE, ALERT, ORIENTEDX4. NO C/O PAIN OR SOB NOTED. ON O2 2L VIA NC. IV NOTED TO RIGHT HAND #22G, SALINE LOCK. SAFETY PRECAUTION IN PLACE. CALL LIGHT WITHIN REACH. WILL CONTINUE TO MONITOR.
[2017-09-20] MEDS: ALBUTEROL SULFATE/IPRATROPIU 3 ML SOL IH SCH ×3 (07:31→19:12)
[2017-09-20 07:48] LABS: BASOPHILS # (AUTO) 0.2 K/uL (0.00-0.22); BASOPHILS % (AUTO) 4.1 % (0.0-2.0); HEMATOCRIT 23.2 % (36-52); HEMOGLOBIN 7.2 g/dL (12.0-18.0); LYMPHOCYTES # (AUTO) 0.6 K/uL (2.0-11.5); LYMPHOCYTES % (AUTO) 11.2 % (20.5-51.1); MEAN CORPUSCULAR HEMOGLOBIN 26 pg (27-31); MEAN CORPUSCULAR HGB CONC 31 g/dL (33-37); MEAN CORPUSCULAR VOLUME 83 fL (80-94); MONOCYTES # (AUTO) 0.7 K/uL (0.8-1.0); MONOCYTES % (AUTO) 13.3 % (1.7-9.3); NEUTROPHILS # (AUTO) 3.8 K/uL (1.8-7.7); NEUTROPHILS % (AUTO) 71.4 % (42.2-75.2); PLATELET COUNT (AUTO) 234 K/uL (140-450); RED BLOOD CELL COUNT(AUTO) 2.81 MIL/uL (4.20-6.10); RED CELL DISTRIBUTION WIDTH 18.9 % (11.6-13.7); WHITE BLOOD COUNT (AUTO) 5.3 K/uL (4.8-10.8)
[2017-09-20 08:00] VITALS: BP 146/91
[2017-09-20 08:28] LABS: ANION GAP 12.4 (8-16); CARBON DIOXIDE 25.4 mmol/L (21-32); CREATININE 0.8 mg/dL (0.7-1.3); POTASSIUM 3.8 mmol/L (3.5-5.1)
[2017-09-20] MEDS ORDERED: POTASSIUM CHLORIDE 20% 40 MEQ/15 ML UDC GT SCH (09:00)
[2017-09-20] MEDS: DOCUSATE 100 MG/10 ML UDC PO SCH (09:00)
[2017-09-20] MEDS ORDERED: MECLIZINE 25 MG TAB PO PRN (09:05)
[2017-09-20] MEDS: PANTOPRAZOLE 40 MG TABEC PO SCH (09:36)
[2017-09-20] MEDS: LACTOBACILLUS RHAMNOSUS GG 1 EACH CAP PO SCH (09:37)
[2017-09-20] MEDS: BENZTROPINE 1 MG TAB PO SCH (09:37)
[2017-09-20] MEDS: ARIPiprazole 10 MG TAB PO SCH (09:38)
[2017-09-20] MEDS: HYDROCHLOROTHIAZIDE 25 MG TAB PO SCH (09:38)
[2017-09-20] MEDS: DIVALPROEX 500 MG TABEC PO SCH ×2 (09:39→21:44)
[2017-09-20] MEDS: METOPROLOL SUCCINATE 50 MG TABER PO SCH (09:39)
[2017-09-20] MEDS ORDERED: FUROSEMIDE 40 MG/4 ML VIAL IVP SCH (09:40)
[2017-09-20] MEDS: QUEtiapine FUMARATE 100 MG TAB PO SCH ×2 (09:47→22:03)
--- NOTE | 2017-09-20 10:39 | NUR ---
PATIENT HAS BEEN SCREENED AND CATEGORIZED MODERATE NUTRITION RISK. PATIENT WILL BE SEEN WITHIN 3-5 DAYS OF ADMISSION. 09/22/17 09/24/[address]
[2017-09-20 10:43] VITALS: BP 151/90
[2017-09-20 10:44] VITALS: BP_SYST 172; BP_SYST 188; BP_DIAS 75; BP_DIAS 79
--- NOTE | 2017-09-20 11:13 | NUR ---
PT HAS WALKED WITH PT. ACCORDING TO PHYSICAL THERAPIST, PT O2 SAT DECREASE TO 87% AFTER WALKING. ORTHOSTATIC PRESSURE WAS TAKEN. MADE DR. MARINA AWARE OF THE RESULTS.
--- NOTE | 2017-09-20 12:00 | NUR ---
ECHO CANCELLED PER RESIDENT. LAST ECHO DONE 08/22/17.
[2017-09-20] MEDS ORDERED: HYDROCHLOROTHIAZIDE 25 MG TAB PO SCH (12:59)
--- NOTE | 2017-09-20 13:30 | NUR ---
SKIN TEAR NOTED ON THE RIGHT ELBOW, CLEANED WITH STERIL WATER, PATTED DRY, COVERED WITH A NEW GAUZE DRESSING.
--- NOTE | 2017-09-20 14:29 | NUR ---
FAXED INITIAL REVIEW TO [facility] [phone] PHONE [phone] RENE
--- NOTE | 2017-09-20 14:39 | NUR ---
P.T. NOTES NURSING TO AMBULATE PATIENT AD [place]; O2 SAT ROOM AIR W GAIT=87%, NURSE AWARE.
[2017-09-20 16:00] VITALS: BP 130/68
--- NOTE | 2017-09-20 19:30 | NUR ---
ENDORSED PLAN OF CARE TO DAIRY QUALITY ASSURANCE OFFICER NURSE. PT IN STABLE CONDITION.
--- NOTE | 2017-09-20 19:31 | NUR ---
RECEIVED BEDSIDE REPORT FROM DAY SHIFT NURSE LINDA RN, PT STABLE NO DISTRESS NOTED, IV TO R H 22 G SL, PT CALM, APPROPRIATE, ON 2LPM O2 VIA NC, NO SOB, INITIAL ASSESSMENT DONE, ALL SAFETY PRECAUTION MET, WILL CONTINUE TO MONITOR.
[2017-09-20] MEDS: LEVOFLOXACIN 750 MG/D5W PREMIX 150 ML IV SCH (21:44)
--- NOTE | 2017-09-20 21:44 | NUR ---
DUE MEDICATION GIVEN, PT TOLERATED WELL, NO DISTRESS NOTED, CALL LIGHT WITHIN REACH, WILL CONTINUE TO MONITOR.
[2017-09-21] VITALS: BP 146/81
--- NOTE | 2017-09-21 00:01 | NUR ---
CHECKED ON PT, PT SLEEPING, EASY TO AROUSE, NO DISTRESS NOTED, V/S TAKEN, PT STABLE, CALL LIGHT WITHIN REACH, WILL CONTINUE TO MONITOR.
[2017-09-21] MEDS ORDERED: DEXTROSE 50% 50 ML SYR IVP PRN (01:05)
[2017-09-21] MEDS ORDERED: INSULIN LISPRO SLIDING SCALE 100 UNITS/ML VIAL SUBQ PRN (01:05)
[2017-09-21] MEDS: ALBUTEROL SULFATE/IPRATROPIU 3 ML SOL IH SCH ×3 (07:00→21:06)
[2017-09-21 08:00] VITALS: BP 165/94
[2017-09-21 10:54] LABS: ANION GAP 11.9 (8-16); CARBON DIOXIDE 28.2 mmol/L (21-32); CREATININE 0.9 mg/dL (0.7-1.3); POTASSIUM 4.1 mmol/L (3.5-5.1)
[2017-09-21] MEDS: BLOOD GLUCOSE MONITORING 1 DEV DEV FS SCH ×3 (11:30→21:00)
[2017-09-21] MEDS ORDERED: guaiFENesin 20 MG/ML UDC PO PRN (12:10)
--- NOTE | 2017-09-21 13:00 | NUR ---
Due to patient stating that he did not have a place to live. I contact patient's board and care at [facility] (assisted living). I Spoke to Mary facility staff content development manager about patient's information. According to Mary the facility its just a board and care that can provide a clean room, 3 meals a day, assist with medications but can not provide any higher level of care for the residents. Per Mary patient has been in and out of the hospitals and last time patient discharge he appear as if he had walk out of hospital with IV and tubes. Per Mary he is ill and seems as he is in need of a higher level of care, that they are not able to provide. Per Mary they no longer want patient to return and if he do go back they will bring patient back to the hospital. I explained to Mary that Social work and case management will make every attempt to assist patient with level of care that he needs, however it is also the right of the patient to accept the assistance he needs. Mary agreed and ended call.
--- NOTE | 2017-09-21 13:07 | NUR ---
[facility] [phone] CHANDRIKA LÓPEZ [phone] SPOKE WITH RENE ABOUT HOME O2 AND FAXED ORDER TO HIM.
[2017-09-21] MEDS ORDERED: FUROSEMIDE 20 MG/2 ML VIAL IVP SCH (14:00)
--- NOTE | 2017-09-21 14:53 | NUR ---
WALK TO QUALIFY HOME O2 DONE. RESULTS GIVEN TO Edgar GONZALEZ
[2017-09-21 15:58] LABS: HEMATOCRIT 24.4 % (36-52); HEMOGLOBIN 7.6 g/dL (12.0-18.0); MEAN CORPUSCULAR HEMOGLOBIN 26 pg (27-31); MEAN CORPUSCULAR HGB CONC 31 g/dL (33-37); MEAN CORPUSCULAR VOLUME 83 fL (80-94); PLATELET COUNT (AUTO) 231 K/uL (140-450); RED BLOOD CELL COUNT(AUTO) 2.94 MIL/uL (4.20-6.10); RED CELL DISTRIBUTION WIDTH 19.3 % (11.6-13.7); WHITE BLOOD COUNT (AUTO) 3.8 K/uL (4.8-10.8)
[2017-09-21 16:00] VITALS: BP 152/79
[2017-09-21 16:09] LABS: LYMPHOCYTES % (MANUAL) 38 % (20-46); MONOCYTES % (MANUAL) 10 % (5-12)
[2017-09-21] MEDS ORDERED: FUROSEMIDE 20 MG/2 ML VIAL IVP ONE (16:16)
--- NOTE | 2017-09-21 16:51 | NUR ---
PER TELLO LEARNING DISABLED TEACHER THIS PATIENT IS FROM [facility]. SHE SPOKE TO ADAMA AT [facility], AND SHE SAID SHE DID NOT WANT TO TAKE THE PATIENT BACK. SHE ALSO COULD NOT ACCOMMODATE OXYGEN THERE. I CALLED RENE FROM [facility] AND HE SAID WE COULD TRY TO GET HIM IN A SNF. RECEIVED ORDER FROM PHYSICIAN FOR SNF FOR IV ANTIBIOTICS AND RT. RENE FROM [facility] SAID TO TRY [facility], [facility] AND [facility]. I FAXED INQUIRY TO THEM.
[2017-09-21] MEDS ORDERED: MAG SULF 2000 MG/WATER PREMIX 100 ML IV ONE ×2 (17:00→17:15)
[2017-09-21] MEDS ORDERED: BUDESONIDE 0.5 MG/2 ML NEBU INH ONE (18:55)
[2017-09-21] MEDS ORDERED: ALBUTEROL SULFATE/IPRATROPIU 3 ML SOL IH ONE (18:55)
--- NOTE | 2017-09-21 19:20 | NUR ---
ENDORSED PATIENT TO WINTER INTERN RN FOR CONTINUITY OF CARE. PATIENT IN STABLE CONDITION.
--- NOTE | 2017-09-21 19:21 | NUR ---
RECEIVED REPORT FROM DAY NURSE, PT IN STABLE CONDITION. NO S/S OF DISTRESS NOTED. PT IS AAOX2, ON 2L O2 VIA NC. IV TO R HAND SALINE LOCK. MAGNESIUM BAG FOUND FINISHED, DAY NURSE STATED SHE HAS NOT HUNG SECOND BAG OF MAGNESIUM AND ENDORSED TO ME. PT HAS R ELBOW SKIN TEAR, DRESSING DRY AND INTACT, L KNEE HEALING WOUND, R LOWER EXTREMITY HEALING WOUND. INITIAL ASSESSMENT COMPLETED. PLAN OF CARE DISCUSSED WITH PT, VERBALIZED UNDERSTANDING. ALL SAFETY PRECAUTIONS MET, CALL LIGHT WITHIN REACH, WILL CONTINUE TO MONITOR
[2017-09-21] MEDS: CLINDAMYCIN 600 MG in DEXTROSE 5% 50 ML IV SCH (21:00)
[2017-09-21] MEDS: QUEtiapine FUMARATE 100 MG TAB PO SCH ×2 (21:00→22:15)
[2017-09-21] MEDS: LEVOFLOXACIN 750 MG/D5W PREMIX 150 ML IV SCH (21:00)
[2017-09-21] MEDS: DIVALPROEX 500 MG TABEC PO SCH ×2 (21:00→22:15)
[2017-09-21] MEDS: BUDESONIDE 0.5 MG/2 ML NEBU INH SCH (21:06)
--- NOTE | 2017-09-21 21:45 | NUR ---
PT FOUND WITH IV TAKEN OUT, TIP INTACT. PT STATED HE DIDN'T MEAN TO PULL IT OUT, BUT HE DID. NO S/S OF DISTRESS
--- NOTE | 2017-09-21 21:55 | NUR ---
NEW IV STARTED BY JARROD AGUAYO IN THE R HAND 22G, ONE ATTEMPT MADE, PT TOLERATED WELL
[2017-09-21] MEDS ORDERED: QUEtiapine FUMARATE 100 MG TAB ONE (22:08)
[2017-09-21] MEDS ORDERED: DIVALPROEX 500 MG TABEC PO ONE (22:08)
[2017-09-21] MEDS ORDERED: LEVOFLOXACIN 750 MG/D5W PREMIX 150 ML IV ONE (22:09)
[2017-09-22] VITALS: BP 146/74
[2017-09-22] MEDS ORDERED: hydrALAZINE 20 MG/ML VIAL ONE (05:34)
[2017-09-22] MEDS: hydrALAZINE 20 MG/ML VIAL IVP PRN ×2 (05:36→05:44)
[2017-09-22] MEDS: CLINDAMYCIN 600 MG in DEXTROSE 5% 50 ML IV SCH ×3 (05:42→20:00)
--- NOTE | 2017-09-22 05:44 | NUR ---
PTS BP 172/110 PU;SE 69, NO S/S OF DISTRESS NOTED. HYDRALAZINE ADMINISTERED PER ORDERS
[2017-09-22] MEDS: BLOOD GLUCOSE MONITORING 1 DEV DEV FS SCH ×4 (06:34→20:36)
[2017-09-22] MEDS ORDERED: ALBUTEROL SULFATE/IPRATROPIU 3 ML SOL IH ONE (07:01)
[2017-09-22] MEDS ORDERED: BUDESONIDE 0.5 MG/2 ML NEBU INH ONE (07:01)
--- NOTE | 2017-09-22 07:46 | NUR ---
REPORT GIVEN TO DAY NURSE FOR CONTINUITY OF CARE, PT IN STABLE CONDITION. NO S/S OF OF DISTRESS NOTED.
--- NOTE | 2017-09-22 07:47 | NUR ---
RECEIVED REPORT FROM GAS MASK INSPECTOR RN. PATIENT IS ON NASAL CANNULA 2LPM, RESPIRATORY EFFORT EVEN AND UNLABORED. AAOX4. NO SIGNS AND SYMPTOMS OF ACUTE DISTRESS NOTED AT THIS TIME. HAS IV TO RIGHT WRIST, SALINE LOCKED AT THIS TIME. DISCUSSED PLAN OF CARE WITH PATIENT AND HE VERBALIZED UNDERSTANDING. BED IN LOWEST POSITION, SIDE RAILS UP X2, CALL LIGHT WITHIN REACH. WILL CONTINUE TO MONITOR.
[2017-09-22 07:51] LABS: HEMATOCRIT 25.1 % (36-52); HEMOGLOBIN 7.9 g/dL (12.0-18.0); MEAN CORPUSCULAR HEMOGLOBIN 26 pg (27-31); MEAN CORPUSCULAR HGB CONC 32 g/dL (33-37); MEAN CORPUSCULAR VOLUME 82 fL (80-94); PLATELET COUNT (AUTO) 257 K/uL (140-450); RED BLOOD CELL COUNT(AUTO) 3.08 MIL/uL (4.20-6.10); RED CELL DISTRIBUTION WIDTH 18.4 % (11.6-13.7); WHITE BLOOD COUNT (AUTO) 3.7 K/uL (4.8-10.8)
[2017-09-22 08:00] VITALS: BP 173/76
[2017-09-22] MEDS: ALBUTEROL SULFATE/IPRATROPIU 3 ML SOL IH SCH ×3 (08:27→20:11)
[2017-09-22] MEDS: BUDESONIDE 0.5 MG/2 ML NEBU INH SCH ×2 (08:27→19:30)
[2017-09-22 08:51] LABS: CARBON DIOXIDE 34.3 mmol/L (21-32); CREATININE 0.8 mg/dL (0.7-1.3); POTASSIUM 4.3 mmol/L (3.5-5.1)
[2017-09-22] MEDS ORDERED: HYDROCHLOROTHIAZIDE 25 MG TAB PO SCH (09:00)
[2017-09-22] MEDS: DOCUSATE 100 MG/10 ML UDC PO SCH (09:03)
[2017-09-22] MEDS: ARIPiprazole 10 MG TAB PO SCH (09:03)
[2017-09-22] MEDS: BENZTROPINE 1 MG TAB PO SCH (09:04)
[2017-09-22] MEDS: LACTOBACILLUS RHAMNOSUS GG 1 EACH CAP PO SCH (09:04)
[2017-09-22] MEDS: QUEtiapine FUMARATE 100 MG TAB PO SCH ×2 (09:06→20:27)
[2017-09-22] MEDS: PANTOPRAZOLE 40 MG TABEC PO SCH (09:06)
[2017-09-22] MEDS: METOPROLOL SUCCINATE 50 MG TABER PO SCH (09:06)
[2017-09-22] MEDS: DIVALPROEX 500 MG TABEC PO SCH ×2 (09:07→20:28)
[2017-09-22] MEDS: HYDROCHLOROTHIAZIDE 25 MG TAB PO SCH (09:08)
[2017-09-22 09:53] LABS: EOSINOPHILS % (MANUAL) 2 % (0-4); LYMPHOCYTES % (MANUAL) 45 % (20-46); MONOCYTES % (MANUAL) 9 % (5-12)
--- NOTE | 2017-09-22 13:00 | NUR ---
GUERO Andino/ [facility] (C: [phone]) Addendum: 09/22/17 at 1425 by Myke Correa RN 2ND WAYLON LÓPEZ
--- NOTE | 2017-09-22 15:26 | NUR ---
CM NOTE PER JULIO C FROM [facility] (C: [phone]), UNABLE TO TAKE PATIENT. PER SHABBIR FROM [facility] (C: [phone]), UNABLE TO TAKE PATIENT. PER GODFREY FROM [facility] (C: [phone]), UNABLE TO TAKE PATIENT. PER GUERO LÓPEZ FOR [facility], WILLING TO DO AN CARRI W/ [facility]. CLINICAL INFORMATION FAXED TO [facility] / FAX# [phone], ATTN: ROSA #[phone] Addendum: 09/22/17 at 1620 by Myke Correa RN PER TORIN FROM [facility], NO BEDS AVAILABLE.
[2017-09-22 16:00] VITALS: BP 155/79
--- NOTE | 2017-09-22 16:01 | NUR ---
CM NOTE CONCURRENT REVIEW FAXED TO [facility] / FAX# [phone], ATTN: RENE [phone]
--- NOTE | 2017-09-22 19:29 | NUR ---
ENDORSED PATIENT TO SENIOR RELATIONSHIP MANAGER NURSE FOR CONTINUITY OF CARE. PATIENT IN STABLE CONDITION.
--- NOTE | 2017-09-22 19:30 | NUR ---
RECEIVED REPORT FROM DAY NURSE, PT IN STABLE CONDITION. NO S/S OF DISTRESS NOTED. PT IS AAOX2, ON 2L O2 VIA NC. IV TO R HAND 22G SALINE LOCK. PT HAS R ELBOW SKIN TEAR, DRESSING DRY AND INTACT, L KNEE HEALING WOUND, R LOWER EXTREMITY HEALING WOUND. INITIAL ASSESSMENT COMPLETED. PLAN OF CARE DISCUSSED WITH PT, VERBALIZED UNDERSTANDING. ALL SAFETY PRECAUTIONS MET, CALL LIGHT WITHIN REACH, WILL CONTINUE TO MONITOR
[2017-09-22] MEDS: methylPREDNISolone SS 40 MG/ML VIAL IVP SCH (20:27)
[2017-09-22] MEDS: LEVOFLOXACIN 750 MG/D5W PREMIX 150 ML IV SCH (21:36)
[2017-09-23] VITALS: BP 149/75
[2017-09-23] MEDS: methylPREDNISolone SS 40 MG/ML VIAL IVP SCH (05:31)
[2017-09-23] MEDS: CLINDAMYCIN 600 MG in DEXTROSE 5% 50 ML IV SCH (05:32)
--- NOTE | 2017-09-23 05:50 | NUR ---
DR. MERIDA IN TO SEE PT AND DISCUSS PLAN OF CARE WITH PT AND FAMILY.
[2017-09-23] MEDS: ALBUTEROL SULFATE/IPRATROPIU 3 ML SOL IH SCH (07:08)
--- NOTE | 2017-09-23 07:45 | NUR ---
ENDORSED TO DAY NURSE FOR CONTINUITY OF CARE, PT IN STABLE CONDITION. NO S/S OF DISTRESS
[2017-09-23 08:00] VITALS: BP 164/97
--- NOTE | 2017-09-23 08:00 | NUR ---
PT IN BED AWAKE ALERT AND ORIENTED X4. PT IS ALWAYS TALKING TO HIMSELF EVEN WHEN THERE IS NO ONE AROUND. NO PAIN OR RESP DISTRESS NOTED. RESPONSIVE TO VERBAL COMMAND APPROPRIATELY. PT HAS MULTIPLE SCABS ON HIS UPPER AND LOWER EXT INCLUDING SKIN TEAR TO THE RIGHT ELBOW. V/S STABLE.
[2017-09-23] MEDS: ARIPiprazole 10 MG TAB PO SCH (09:09)
[2017-09-23] MEDS: BENZTROPINE 1 MG TAB PO SCH (09:10)
[2017-09-23] MEDS: DOCUSATE 100 MG/10 ML UDC PO SCH (09:11)
[2017-09-23] MEDS: LACTOBACILLUS RHAMNOSUS GG 1 EACH CAP PO SCH (09:11)
[2017-09-23] MEDS: DIVALPROEX 500 MG TABEC PO SCH (09:11)
[2017-09-23] MEDS: PANTOPRAZOLE 40 MG TABEC PO SCH (09:13)
[2017-09-23] MEDS: QUEtiapine FUMARATE 100 MG TAB PO SCH (09:13)
[2017-09-23] MEDS: METOPROLOL SUCCINATE 50 MG TABER PO SCH (09:14)
[2017-09-23] MEDS ORDERED: LACT10CA PO (10:37)
[2017-09-23] MEDS ORDERED: ORE25 PO (10:37)
[2017-09-23] MEDS ORDERED: LEVO750T2 PO (10:37)
[2017-09-23] MEDS ORDERED: CLIN300C2 PO (10:37)
[2017-09-23] MEDS ORDERED: PUL.5N INH (10:37)
[2017-09-23] MEDS ORDERED: ROB PO (10:37)
--- NOTE | 2017-09-23 10:37 | NUR ---
I spoke to Mary facility staff manager heart failure bout Patient's status and progress. Do to previous discussion with clinical assessment manager and concerns for Patient not meeting criteria to return to facility; I requested for facility to come evaluate patient for criteria to return today after discharge. After status report on patient Mary stated that she can send one of her staff to evaluate and grape picker Patient at about 11:00 am. I agreed and inform her that will coordinate with MD and staff to have patient ready for D/C about 11:00am she agreed and ended call.
[2017-09-23] MEDS ORDERED: FURO-572 PO (10:38)
--- NOTE | 2017-09-23 11:14 | NUR ---
PT IN BED RESTING WELL. PT HAS BEEN AMBULATING IN THE HALLWAY MULTIPLE TIMES WITHOUT ASSIST. DISCHARGE ORDERS ENTERED IN THE COMPUTER. NO ACUTE CONDITION STATUS CHANGES NOTED.
--- NOTE | 2017-09-23 14:09 | NUR ---
CALLED [facility] AND SPOKE WITH KEE AND INFORMED HER THAT PATIENT IS GOING BACK HOME TO [facility], NO OXYGEN. [phone]
--- NOTE | 2017-09-23 15:32 | NUR ---
EDUCATION ON MEDICATIONS, F/U WITH PCP DR LOZOYA'S GROUP ON 09/27 AT 0900, DX, S/S OF INFECTION AND WHEN TO RETURN TO ED, DM EDUCATION INCLUDING DIET AND FOOT CARE PROVIDED TO PT. VERBAL UNDERSTANDING RECEIVED BACK FROM PT. PRINTED MATERIAL ON EDUCATION GIVEN TO PT. PT PICKED UP BY HIS FRIEND. AT 1240. HL REMOVED PRIOR TO LEAVING.
== END 2017-09-23 12:40 | disposition home or self-care (01) | DRG 177 ==
LOC: MED 08:07 → MTU 14:09
PROVIDERS: ADMIT Family Medicine Sports Medicine; ATTEND Family Medicine Sports Medicine
DX: J69.0 Pneumonitis due to inhalation of food and vomit (principal); I50.43 Acute on chronic combined systolic (congestive) and diastolic (congestive) heart failure; J96.01 Acute respiratory failure with hypoxia; E43 Unspecified severe protein-calorie malnutrition; E83.42 Hypomagnesemia; J84.89 Other specified interstitial pulmonary diseases; E11.9 Type 2 diabetes mellitus without complications; D63.8 Anemia in other chronic diseases classified elsewhere; I16.1 Hypertensive emergency; J02.9 Acute pharyngitis, unspecified; F20.9 Schizophrenia, unspecified; K21.9 Gastro-esophageal reflux disease without esophagitis; E87.6 Hypokalemia; F31.9 Bipolar disorder, unspecified; I70.0 Atherosclerosis of aorta; I11.0 Hypertensive heart disease with heart failure; F10.21 Alcohol dependence, in remission; F17.210 Nicotine dependence, cigarettes, uncomplicated; F15.90 Other stimulant use, unspecified, uncomplicated; F19.10 Other psychoactive substance abuse, uncomplicated; Z88.8 Allergy status to other drugs, medicaments and biological substances; Z91.048 Other nonmedicinal substance allergy status; Z90.49 Acquired absence of other specified parts of digestive tract; Z68.25 Body mass index [BMI] 25.0-25.9, adult; Z79.899 Other long term (current) drug therapy
CPT/HCPCS: 36415; 36600; 71045; 80048; 80053; 80305; 81001; 82150; 82803; 82948; 83036; 83605; 83690; 83735; 83880; 84100; 84484; 85025; 85610; 85730; 86592; 86702; 87040; 87081; 87086; 87804; 93005; 93880; 94617; 94640; 96365; 96367; 96375; 96376; 99285; J0360; J0456; J0696; J1815; J1940; J1956; J2920; J2930; J3475; J3490; J7030; J7060; J7613; J7620; J7626; J7644; Q0092

== ENCOUNTER 2017-10-01 03:13 | Emergency (ER) | payer OTHER ==
[~2017-10-01] VITALS: Ht 172.7 cm; Wt 72.6 kg
[~2017-10-01 03:13] MED LIST changes: +ARIP15TA1 PO; +CLIN300C2 PO; -DEXT150S13 IV; +DIVA500T1 PO; +FURO-572 PO; -HAL1 PO; +LACT10CA PO; -LACT10CA1 PO; +LEVO750T2 PO; -LISI-420 PO; -NAPR-54 PO; +OMEP20TC12 PO; -OMEP40EC1 PO; +PUL.5N INH; -QUET25TA PO; +QUET400T PO; +ROB PO; -SULF1TAB12 NG; -ZOLP5TAB1 PO; -[UNRECOGNIZED DRUG - CODE] PO
[2017-10-01 03:15] VITALS: BP 178/95
--- NOTE | 2017-10-01 03:31 | NUR ---
BIBA TO ER BED 3
--- NOTE | 2017-10-01 03:43 | NUR ---
67Y/ M PT. BIBA FROM [facility] FOR SOB, SATS 82%RA, GIVEN BREATHING TREATMENTS, SATS 98%. C/O /10 CHEST PAIN, WAS GIVEN ASA 325, NITRO X1 ON FIELD. AAO X4, AMBULATORY WITH STEADY GAIT. RESPITIONS ROOM AIR, EVEN AND UNLABORED, BL LUNG WHEEZES. SKIN WARM AND DRY, OPEN AREA TO LT. ARM. C/O CHEST TIGHNESS 01/19. VS, BP ELEVATED, ER MD MADE AWARE OF PT. STATUS.
[2017-10-01 04:24] LABS: HEMATOCRIT 23.3 % (36-52); HEMOGLOBIN 7.4 g/dL (12.0-18.0); MEAN CORPUSCULAR HEMOGLOBIN 25 pg (27-31); MEAN CORPUSCULAR HGB CONC 32 g/dL (33-37); MEAN CORPUSCULAR VOLUME 80 fL (80-94); PLATELET COUNT (AUTO) 174 K/uL (140-450); RED BLOOD CELL COUNT(AUTO) 2.92 MIL/uL (4.20-6.10); RED CELL DISTRIBUTION WIDTH 17.7 % (11.6-13.7); WHITE BLOOD COUNT (AUTO) 3.3 K/uL (4.8-10.8)
[2017-10-01 04:28] LABS: ANION GAP 13.2 (8-16); CARBON DIOXIDE 21.8 mmol/L (21-32)
[2017-10-01 04:34] LABS: ALBUMIN 2.4 g/dL (3.4-5.0); TOTAL BILIRUBIN 0.4 mg/dL (0.0-1.0)
[2017-10-01 04:40] LABS: EOSINOPHILS % (MANUAL) 3 % (0-4); LYMPHOCYTES % (MANUAL) 36 % (20-46); MONOCYTES % (MANUAL) 4 % (5-12)
[2017-10-01] MEDS ORDERED: IPRATROPIUM 0.02% 0.5 MG/2.5 ML NEBU INH ONE (04:55)
[2017-10-01] MEDS ORDERED: PIPERACILLIN/TAZOBACTAM 3.375 GM in DEXTROSE 5% 50 ML IV ONE (04:55)
[2017-10-01] MEDS ORDERED: ALBUTEROL 0.083% 2.5 MG/3 ML NEBU INH ONE (04:55)
[2017-10-01] MEDS ORDERED: VANCOMYCIN 1,000 MG in DEXTROSE 5% 250 ML IV ONE (04:55)
[2017-10-01] MEDS ORDERED: PIPERACILLIN/TAZOBACTAM 3.375 GM VIAL IV ONE (05:22)
[2017-10-01] MEDS ORDERED: VANCOMYCIN 1,000 MG VIAL ONE ×2 (05:22→05:23)
--- NOTE | 2017-10-01 05:30 | NUR ---
Patient appears to be resting comfortably in bed. Vital Signs within normal limits. Respirations even and unlabored.
--- NOTE | 2017-10-01 05:35 | NUR ---
Respiratory Therapist at bedside for respiratory intervention. Patient tolerated .
--- NOTE | 2017-10-01 06:00 | NUR ---
Patient appears to be resting comfortably in bed. Vital Signs within normal limits. Respirations even and unlabored.
--- NOTE | 2017-10-01 06:36 | NUR ---
PT ALERT AND TALKING, NO ACUTE DISTRESS NOTED.
[2017-10-01 07:43] VITALS: BP 185/76
--- NOTE | 2017-10-01 07:45 | NUR ---
Patient does not wish to proceed with medical care recommended by Terese Son DO. Patient given information related to possible complications, up to and including , which could occur as a result of leaving hospital at this time. Patient verbalizes understanding of risks involved leaving against medical advice. Patient has signed AMA form.
== END 2017-10-01 07:45 | disposition left against medical advice (07) ==
LOC: MED 03:13
DX: J18.9 Pneumonia, unspecified organism (principal); D64.9 Anemia, unspecified; R09.02 Hypoxemia; Z88.8 Allergy status to other drugs, medicaments and biological substances; E11.9 Type 2 diabetes mellitus without complications; I10 Essential (primary) hypertension; J44.9 Chronic obstructive pulmonary disease, unspecified; I50.9 Heart failure, unspecified; F17.200 Nicotine dependence, unspecified, uncomplicated; F12.10 Cannabis abuse, uncomplicated
CPT/HCPCS: 36415; 36600; 71045; 80053; 82803; 83605; 84484; 85025; 87040; 93005; 94640; 96365; 96367; 99291; J2543; J3370; J7060; J7613; J7644; Q0092

== ENCOUNTER 2017-10-03 14:03 | Inpatient (IN) | payer OTHER ==
[~2017-10-03] VITALS: Ht 172.7 cm; Wt 75.3 kg
[2017-10-03 14:16] VITALS: BP 135/81
--- NOTE | 2017-10-03 14:16 | NUR ---
Pt taken to bed 3.
[2017-10-03] MEDS ORDERED: methylPREDNISolone SS 125 MG/2 ML VIAL IVP ONE (14:20)
[2017-10-03] MEDS ORDERED: IPRATROPIUM 0.02% 0.5 MG/2.5 ML NEBU INH ONE (14:20)
[2017-10-03] MEDS ORDERED: ALBUTEROL 0.083% 2.5 MG/3 ML NEBU INH ONE (14:20)
--- NOTE | 2017-10-03 14:30 | NUR ---
67/M bib self for evaluation of SOB starting today. Patient states he was at home and his room mate was smoking in his room and pt told him "You know I have bad lungs." Pt also states he had a trip and fall this am and has a skin tear noted to left hand. No active bleedings. Pt has clear lung sounds. Denies chest pain. AOX4, mumbling speech, normal for patient. VSS.
[2017-10-03] MEDS ORDERED: FUROSEMIDE 40 MG/4 ML VIAL IVP ONE (15:00)
[2017-10-03 15:12] LABS: BASOPHILS # (AUTO) 0.2 K/uL (0.00-0.22); HEMATOCRIT 23.4 % (36-52); HEMOGLOBIN 7.4 g/dL (12.0-18.0); LYMPHOCYTES # (AUTO) 1.2 K/uL (2.0-11.5); MEAN CORPUSCULAR HEMOGLOBIN 25 pg (27-31); MEAN CORPUSCULAR HGB CONC 32 g/dL (33-37); MEAN CORPUSCULAR VOLUME 80 fL (80-94); MONOCYTES # (AUTO) 0.5 K/uL (0.8-1.0); PLATELET COUNT (AUTO) 164 K/uL (140-450); RED BLOOD CELL COUNT(AUTO) 2.93 MIL/uL (4.20-6.10); RED CELL DISTRIBUTION WIDTH 18.5 % (11.6-13.7); WHITE BLOOD COUNT (AUTO) 3.9 K/uL (4.8-10.8)
[2017-10-03] MEDS ORDERED: LEVOFLOXACIN 750 MG/D5W PREMIX 150 ML IV ONE (15:25)
[2017-10-03 15:32] LABS: ALBUMIN 2.4 g/dL (3.4-5.0); ANION GAP 14.6 (8-16); CARBON DIOXIDE 22.1 mmol/L (21-32); POTASSIUM 3.7 mmol/L (3.5-5.1); TOTAL BILIRUBIN 0.4 mg/dL (0.0-1.0)
--- NOTE | 2017-10-03 17:02 | NUR ---
800ml of clear, yellow urine emptied from urinal.
--- NOTE | 2017-10-03 17:10 | NUR ---
Patient appears to be resting comfortably in bed. VSS. Pt awaiting to be discharged to a facility.
--- NOTE | 2017-10-03 18:00 | NUR ---
500ml clear, yellow urine emptied from urinal.
--- NOTE | 2017-10-03 18:18 | NUR ---
Patient appears to be resting comfortably in bed. VSS.
[2017-10-03] MEDS ORDERED: cloNIDine 0.1 MG TAB PO ONE (19:20)
--- NOTE | 2017-10-03 19:22 | NUR ---
Pt report given to Dao AGUAYO. Transfer of care at this time.
--- NOTE | 2017-10-03 20:00 | NUR ---
PATIENT RESTING AT THIS TIME.
[2017-10-03] MEDS ORDERED: ACETAMINOPHEN 325 MG TAB PO PRN (22:15)
[2017-10-03] MEDS ORDERED: ONDANSETRON 4 MG/2 ML VIAL IVP PRN (22:15)
[2017-10-03] MEDS ORDERED: ALBUTEROL SULFATE/IPRATROPIU 3 ML SOL IH PRN (22:15)
[2017-10-03] MEDS ORDERED: HYDROcodone/APAP 7.5/325 MG 1 TAB PO PRN (22:15)
--- NOTE | 2017-10-03 22:53 | NUR ---
Patient will be admitted to care of DR. BROOKS. Admited to TELE OBS. Will go to room 116. Belongings list completed. Report to VERÓNICA AGUAYO.
[2017-10-03 23:00] VITALS: BP 149/89
--- NOTE | 2017-10-03 23:00 | NUR ---
Admitted from ER, with chief complaint of SOB, DX COPD; RECEIVED REPORT FROM ER NURSE. 67 y/o, Male, Cooperative, PT RESTING IN BED, AOX4, AMBULATORY, ABLE TO VERBALIZE NEEDS. SPO2 97% ON O2 2L NC, RR 20 EVEN AND UNLABORED. BP 149/89, HR 74 AT THIS TIME. ASSOCIATE ENGINEER IN PLACE. PT DENIES CHEST PAIN, SOB OR S/S OF ACUTE DISTRESS AT THIS TIME. L LE SKIN TEAR NOTED, MULTIPLE DRY SCABS, DISCOLORATION AND BRUISES NOTED ON BLE AND BLE, WILL TAKE PICTURES. BOTH IV ACCESS ASYMPTOMATIC, PATENT AND INTACT, WILL ADMINISTER IVF AND DUE MED IVPB. DISCUSSED AND REVIEWED PLAN OF CARE WITH PT. INSTRUCTED PT TO COLLECT URINE AND SPUTUM SAMPLE. PT VERBALIZED UNDERSTANDING. oriented to call light, bed, phone,television, bathroom, smoking policy, visiting hours, procedures, ID bracelet on. Belongings list checked. ALL NEEDS MET. SAFETY MEASURES ENSURED. CALL LIGHT WITHIN REACH.
[2017-10-03] MEDS ORDERED: CLINDAMYCIN 600 MG/4 ML VIAL ONE (23:08)
[2017-10-03] MEDS ORDERED: INSULIN LISPRO SLIDING SCALE 100 UNITS/ML VIAL SUBQ PRN (23:20)
[2017-10-03] MEDS ORDERED: guaiFENesin 20 MG/ML UDC PO PRN (23:20)
[2017-10-03] MEDS ORDERED: DEXTROSE 50% 50 ML SYR IVP PRN (23:20)
[2017-10-03] MEDS: NACL 0.9% 1,000 ML IV SCH (23:20)
[2017-10-03] MEDS: CLINDAMYCIN 600 MG in DEXTROSE 5% 50 ML IV SCH (23:20)
--- NOTE | 2017-10-03 23:20 | NUR ---
STARTED 500ML BAG OF NS AT 10ML/HR AT THIS TIME. ALSO ADMINISTERED DUE MED CLEOCIN 600MG IN D5W 50ML AT 100ML/HR AT THIS TIME. PT VERBALIZED UNDERSTANDING.
[2017-10-03 23:30] LABS: PHOSPHORUS 3.5 mg/dL (2.5-4.9)
--- NOTE | 2017-10-03 23:50 | NUR ---
CLEOCIN IVPB FINISHED AT THIS TIME.
--- NOTE | 2017-10-04 | NUR ---
BLOOD GLUCOSE 157, SPOKE WITH DR MARINA, MADE AWARE, ORDERS RECEIVED TO HOLD PT'S SLIDING SCALE COVERAGE AT THIS TIME. TO RECHECK IN THE AM.
[2017-10-04 04:00] VITALS: BP 196/100
[2017-10-04 04:01] VITALS: BP 197/98
[2017-10-04] MEDS ORDERED: hydrALAZINE 20 MG/ML VIAL IVP SCH (04:35)
[2017-10-04] MEDS ORDERED: CLINDAMYCIN 600 MG/4 ML VIAL ONE (04:45)
[2017-10-04] MEDS ORDERED: hydrALAZINE 20 MG/ML VIAL ONE (04:59)
[2017-10-04] MEDS: CLINDAMYCIN 600 MG in DEXTROSE 5% 50 ML IV SCH ×3 (05:07→18:08)
--- NOTE | 2017-10-04 05:07 | NUR ---
CALLED DR MARINA, MADE AWARE OF ELEVATED BP AT THIS TIME 196/100 AND 197/98, HR 80, RR 24, SPO2 94% ON O2 2L NC. PT IS SLEEPING, AROUSABLE TO NAME. ORDERS RECEIVED FOR APRESOLINE 10MG IVP ONCE. UNABLE TO PULL FROM PYXIS. RECEIVED MED FROM LAST PICKER. ADMINISTERED APRESOLINE 10MG IVP ONCE WITH EDUCATION. ADMINISTERED DUE MED 600MG CLEOCIN IN 50ML D5W IVPB WITH EDUCATION AT THIS TIME. PT VERBALIZED UNDERSTANDING, TOLERATED MED WELL. ALL NEEDS MET. IVPB INFUSING WELL. SAFETY MEASURES ENSURED. CALL LIGHT WITHIN REACH.
--- NOTE | 2017-10-04 05:37 | NUR ---
CLEOCIN IVPB FINISHED INFUSING AT THIS TIME.
[2017-10-04] MEDS: BLOOD GLUCOSE MONITORING 1 DEV DEV FS SCH ×5 (06:13→21:01)
--- NOTE | 2017-10-04 06:14 | NUR ---
BLOOD GLUCOSE 124, NO INSULIN COVERAGE NEEDED. BP RECHECKEDD 150/75 AND 145/69, HR 77, SPO2 97% ON O2 2L NC, RR 22 EVEN AND UNLABORED. ALL NEEDS MET. SAFETY MEASURES ENSURED. CALL LIGHT WITHIN REACH.
[2017-10-04 07:01] LABS: BASOPHILS # (AUTO) 0.1 K/uL (0.00-0.22); EOSINOPHILS % (AUTO) 0.9 % (0.0-4.0); HEMOGLOBIN 7.6 g/dL (12.0-18.0); LYMPHOCYTES # (AUTO) 0.7 K/uL (2.0-11.5); LYMPHOCYTES % (AUTO) 19.1 % (20.5-51.1); MEAN CORPUSCULAR HEMOGLOBIN 25 pg (27-31); MEAN CORPUSCULAR HGB CONC 31 g/dL (33-37); MEAN CORPUSCULAR VOLUME 79 fL (80-94); MONOCYTES # (AUTO) 0.3 K/uL (0.8-1.0); MONOCYTES % (AUTO) 8.3 % (1.7-9.3); NEUTROPHILS # (AUTO) 2.5 K/uL (1.8-7.7); NEUTROPHILS % (AUTO) 69.7 % (42.2-75.2); PLATELET COUNT (AUTO) 196 K/uL (140-450); RED BLOOD CELL COUNT(AUTO) 3.06 MIL/uL (4.20-6.10); RED CELL DISTRIBUTION WIDTH 18.4 % (11.6-13.7); WHITE BLOOD COUNT (AUTO) 3.6 K/uL (4.8-10.8)
[2017-10-04] MEDS: ALBUTEROL SULFATE/IPRATROPIU 3 ML SOL IH SCH ×2 (07:09→13:00)
[2017-10-04 07:18] LABS: MAGNESIUM 1.5 mg/dL (1.8-2.4); PHOSPHORUS 3.9 mg/dL (2.5-4.9)
[2017-10-04] MEDS: BUDESONIDE 0.5 MG/2 ML NEBU INH SCH ×2 (07:20→19:30)
--- NOTE | 2017-10-04 07:20 | NUR ---
ENDORSED PLAN OF CARE TO AM NURSE. CONDITION STABLE.
--- NOTE | 2017-10-04 07:21 | NUR ---
RECEIVED REPORT FROM SENIOR PROGRAM PLANNER NURSE VERÓNICA AT BEDSIDE FOR CONTINUITY OF CARE. PT IS AWAKE AND ORIENTED X4. INTRODUCED SELF AND UPDATED BOARD. LUNG SOUNDS CLEAR ON AUSCULTATION. PT ON O2 NC 1L/MIN WITH O2 SAT AT 98%. IV TO R WRIST 24G WITH NS INFUSING AT 10ML/HR AND L AC 20G SL. EDEMA TO BILATERAL LE +1. NO SIGNS OF DISTRESS. PT DENIES PAIN. BED IN LOW POSITION, CALL LIGHT WITHIN REACH, WILL CONTINUE TO MONITOR.
--- NOTE | 2017-10-04 07:24 | NUR ---
DECREASE FIO2 TO 1 L POST HHN SPO2 98 PT UNABLE TO PRODUCE SPUTUM AT THIS TIME
[2017-10-04 07:39] LABS: ANION GAP 14.3 (8-16); CARBON DIOXIDE 24.8 mmol/L (21-32); CREATININE 0.9 mg/dL (0.7-1.3); POTASSIUM 4.1 mmol/L (3.5-5.1)
[2017-10-04 07:45] LABS: BARBITURATE, URINE NEG. ng/ml (NEG <=200); BENZODIAZEPINE, URINE NEG. ng/mL (NEG <=200); CANNABINOID, URINE NEG. ng/mL (NEG <=50); COCAINE, URINE NEG. ng/mL (NEG <=300); OPIATE, URINE NEG. ng/mL (NEG <=2000); PHENCYCLIDINE SCREEN,URINE NEG. ng/mL (NEG <=25)
[2017-10-04 08:00] VITALS: BP 158/78
[2017-10-04 08:56] LABS: APPEARANCE,URINE CLEAR (CLEAR); BILIRUBIN,URINE NEGATIVE (NEGATIVE); BLOOD, URINE NEGATIVE (NEGATIVE); COLOR,URINE YELLOW (YELLOW); LEUKOCYTE ESTERASE ,URINE NEGATIVE (NEGATIVE); NITRITE, URINE NEGATIVE (NEGATIVE); UGLUCOSE TRACE (NEGATIVE)
[2017-10-04] MEDS ORDERED: DIVALPROEX 500 MG TABER PO SCH (09:00)
--- NOTE | 2017-10-04 09:02 | NUR ---
PATIENT HAS BEEN SCREENED AND CATEGORIZED MODERATE NUTRITION RISK. PATIENT WILL BE SEEN WITHIN 3-5 DAYS OF ADMISSION. 10/05/17-10/07/[address]
[2017-10-04] MEDS: PANTOPRAZOLE 40 MG TABEC PO SCH (09:06)
[2017-10-04] MEDS: BENZTROPINE 1 MG TAB PO SCH (09:06)
[2017-10-04] MEDS: ATORVASTATIN 20 MG TAB PO SCH (09:06)
[2017-10-04] MEDS: methylPREDNISolone SS 125 MG/2 ML VIAL IVP SCH ×2 (09:06→21:04)
--- NOTE | 2017-10-04 09:06 | NUR ---
ADMINISTERED SCHEDULED MEDS. NON-ADMINISTERED COLACE, PT REFUSED MED. EXPLAINED RISKS AND BENEFITS. PT STILL REFUSED MED. PT TOLERATED ADMINISTERED MEDS WELL. NO SIGNS OF DISTRESS. DENIES PAIN. WILL CONTINUE TO MONITOR.
[2017-10-04] MEDS: HYDROCHLOROTHIAZIDE 25 MG TAB PO SCH (09:07)
[2017-10-04] MEDS: ARIPiprazole 10 MG TAB PO SCH (09:07)
[2017-10-04] MEDS: LACTOBACILLUS RHAMNOSUS GG 1 EACH CAP PO SCH (09:07)
[2017-10-04] MEDS: QUEtiapine FUMARATE 100 MG TAB PO SCH ×2 (09:07→21:05)
[2017-10-04] MEDS: DOCUSATE SODIUM 100 MG GELCAP PO SCH ×2 (09:08→09:12)
[2017-10-04] MEDS: ECOTRIN 81 MG TABEC PO SCH (09:08)
[2017-10-04] MEDS: METOPROLOL SUCCINATE 50 MG TABER PO SCH (09:08)
[2017-10-04] MEDS: FUROSEMIDE 20 MG TAB PO SCH (09:09)
[2017-10-04 09:13] LABS: RBC,URINE NONE SEEN /HPF (0-5); WBC,URINE 0-5 (RARE) /HPF (0-5)
--- NOTE | 2017-10-04 10:20 | NUR ---
I contacted Lata Staff Dinkey Engine Firer/Fireman from [facility] to update and gather patient's information. Per Lata Patient is uncomplying with his treatment and do not follow instructions to make progress with health after discharge. She also stated that patient is not compliant with expectations and restrictions placed in the housing facility and has been spoken to about issues. Lata stated that she will have another conversation with Patient Mr. Argueta about cooperating with staff and following rules, because if he is not going to make progress with health due to his lack of compliance and care; then patient will need a different level of care that board and [facility] facility will not be able to provide for him. I Acknowledge Lata's concerns and encouraged her to have this conversation with patient when he returns to the facility. I thank Lata for information and ended call.
--- NOTE | 2017-10-04 11:30 | NUR ---
CHECKED ON PT IN ROOM. AWAKE AND WATCHING TV. BS 112. NO SIGNS OF DISTRESS. PT STATED HE WANTS TO TAKE A WALK LATER TODAY AND THAT HE TOLERATED P/T WELL THIS MORNING. BED IN LOW POSITION, WHEELS LOCKED, CALL LIGHT WITHIN REACH. WILL CONTINUE TO MONITOR.
[2017-10-04 12:00] VITALS: BP 157/93
[2017-10-04] MEDS ORDERED: MAG SULF 2000 MG/WATER PREMIX 50 ML IV SCH (12:00)
--- NOTE | 2017-10-04 12:07 | NUR ---
ADMINISTERED 50ML CLEOCIN IVPB @100ML/HR. PT TOLERATED WELL. NO SIGNS OF DISTRESS. WILL CONTINUE TO MONITOR.
--- NOTE | 2017-10-04 12:29 | NUR ---
RENE FROM [facility] CALLED. I INFORMED HIM THAT THIS PATIENT WAS ADMITTED UNDER OBSERVATION. VERBAL REPORT GIVEN. HE ASKED ME TO FAX FACE SHEET, H&P, PROGRESS NOTE AND PT EVAL TO HIM AT [phone] PHONE [phone]. I ALSO SPOKE WITH HIM ABOUT A FWW. HE SAID LAST TIME HE WAS HERE A FWW WAS ORDERED AND HE SENT THE INFORMATION TO [facility]. HE WILL FOLLOW UP ON WHETHER IT WAS DELIVERED.
[2017-10-04] MEDS ORDERED: MAG SULF 2000 MG/WATER PREMIX 50 ML IV ONE (13:11)
--- NOTE | 2017-10-04 13:17 | NUR ---
ADMINISTERED 50ML MAG SULFATE 2000MG IVPB. MAG WAS 1.5. PT TOLERATING WELL. NO SIGNS OF DISTRESS. PT IS SLEEPING IN BED NOW. CALL LIGHT WITHIN REACH. WILL CONTINUE TO MONITOR.
--- NOTE | 2017-10-04 13:47 | NUR ---
PT IS ASLEEP HHN NOT GIVEN NO APPARENT DISTRESS
--- NOTE | 2017-10-04 15:25 | NUR ---
SPOKE WITH RENE FROM [facility]. HE SAID THE PATIENT WAS TO GET A FWW AND THAT IT WAS ORDERED THROUGH [facility]. THEY WERE UNABLE TO DELIVER TO HIM AFTER LAST VISIT. [facility] WAS NOTIFIED AND THEY WILL DELIVER THE FWW TO THE HOSPITAL TODAY BETWEEN 5P.M. AND 6P.M. BROOKE AGUAYOLATHE SANDER NURSE AWARE.
[2017-10-04 16:00] VITALS: BP 120/66
--- NOTE | 2017-10-04 19:25 | NUR ---
ENDORSED PT TO SPORTS WRITER NURSE JAK AT BEDSIDE FOR CONTINUITY OF CARE. PT IN STABLE CONDITION.
--- NOTE | 2017-10-04 19:26 | NUR ---
RECEIVED BEDSIDE REPORT FROM DAY SHIFT NURSE JAMES RN, PT STABLE, NO DISTRESS NOTED, IV TO R WRIST 24G RUNNING NS @ 10ML/HR, INFUSING WELL , PT ON 1LPM O2 VIA NC, NO SOB, INITIAL ASSESSMENT DONE, ALL SAFETY PRECAUTION MET, WILL CONTINUE TO MONITOR.
[2017-10-04 20:00] VITALS: BP 155/87
[2017-10-04] MEDS ORDERED: LEVOFLOXACIN 750 MG/D5W PREMIX 150 ML IV SCH (21:00)
[2017-10-04] MEDS: DIVALPROEX 500 MG TABEC PO SCH (21:13)
--- NOTE | 2017-10-04 21:14 | NUR ---
DUE MEDICATION GIVEN, PT TOLERATED WELL, NO DISTRESS NOTED, CALL LIGHT WITHIN REACH, WILL CONTINUE TO MONITOR.
[2017-10-04] MEDS: NACL 0.9% 1,000 ML IV SCH (22:31)
[2017-10-05] VITALS: BP 156/75
--- NOTE | 2017-10-05 00:04 | NUR ---
CHECKED ON PT, PT SLEEPING, NO DISTRESS NOTED, CALL LIGHT WITHIN REACH, WILL CONTINUE TO MONITOR.
[2017-10-05] MEDS: CLINDAMYCIN 600 MG in DEXTROSE 5% 50 ML IV SCH ×3 (00:28→12:22)
--- NOTE | 2017-10-05 03:37 | NUR ---
CHECKED ON PT, PT STABLE, NO DISTRESS NOTED, CALL LIGHT WITHIN REACH, WILL CONTINUE TO MONITOR.
[2017-10-05] MEDS: BLOOD GLUCOSE MONITORING 1 DEV DEV FS SCH ×2 (06:26→12:22)
--- NOTE | 2017-10-05 06:26 | NUR ---
DUE MEDICATION GIVEN, PT TOLERATED WELL, NO DISTRESS NOTED, CALL LIGHT WITHIN REACH, WILL CONTINUE TO MONITOR.
--- NOTE | 2017-10-05 07:30 | NUR ---
BEDSIDE REPORT GIVEN TO DAY SHIFT NURSE BAILEE AGUAYO, ENDORSED PLAN OF CARE, PT STABLE, NO DISTRESS NOTED, CALL LIGHT WITHIN REACH.
--- NOTE | 2017-10-05 07:31 | NUR ---
RECEIVED REPORT AT BEDSIDE FOR CONTINUITY OF CARE. PT IS AWAKE AND ORIENTED. INTRODUCED MYSELF AND UPDATED THE BOARD. PT AMBULATES WITH WALKER AND W/ ASSIST. V/S WITHIN NORMAL RANGE, BP SLIGHTLY ELEVATED. TACHYPNEA. DENIES ANY PAIN, SOB. SKIN TEAR ON LLE, TRANSPARENT TAPE ON. RLE HAS SCABS. LBM 10/04. IV ON R WRIST 24G NS AT 10ML. L AC 20SL. R/T HERE FOR BREATHING TX. BREAKFAST ALSO HERE. WILL CONTINUE TO MONITOR PT.
[2017-10-05] MEDS: BUDESONIDE 0.5 MG/2 ML NEBU INH SCH (07:52)
[2017-10-05] MEDS: ALBUTEROL SULFATE/IPRATROPIU 3 ML SOL IH SCH ×2 (07:52→13:25)
[2017-10-05 08:00] VITALS: BP 162/94
[2017-10-05] MEDS ORDERED: CLIN300C2 PO (08:35)
[2017-10-05] MEDS ORDERED: PRED10TA6 PO (08:35)
[2017-10-05] MEDS ORDERED: LACT10CA PO (08:35)
[2017-10-05] MEDS ORDERED: LEVO750T2 PO (08:35)
[2017-10-05] MEDS ORDERED: ALBU0.0912 INH (08:37)
--- NOTE | 2017-10-05 08:56 | NUR ---
RECEIVED A CALL FROM RENE FROM [facility]. I INFORMED HIM THAT THE PATIENT'S STATUS WAS CHANGED TO IN PATIENT ON 10/04/17. I ALSO INFORMED HIM THAT THE PATIENT IS BEING DISCHARGED TODAY. HE JUST ASKED FOR THE PROGRESS NOTES AND CONSULT. SENT PROGRESS FROM 10/04/[address] ROBERSON.
[2017-10-05] MEDS ORDERED: methylPREDNISolone SS 40 MG/ML VIAL IVP SCH (09:00)
[2017-10-05] MEDS: DIVALPROEX 500 MG TABEC PO SCH (09:00)
[2017-10-05] MEDS: ATORVASTATIN 20 MG TAB PO SCH (09:59)
[2017-10-05] MEDS: QUEtiapine FUMARATE 100 MG TAB PO SCH (09:59)
[2017-10-05] MEDS: PANTOPRAZOLE 40 MG TABEC PO SCH (09:59)
[2017-10-05] MEDS: BENZTROPINE 1 MG TAB PO SCH (09:59)
[2017-10-05] MEDS: HYDROCHLOROTHIAZIDE 25 MG TAB PO SCH (10:00)
[2017-10-05] MEDS: LACTOBACILLUS RHAMNOSUS GG 1 EACH CAP PO SCH (10:01)
[2017-10-05] MEDS: ARIPiprazole 10 MG TAB PO SCH (10:01)
[2017-10-05] MEDS: FUROSEMIDE 20 MG TAB PO SCH (10:02)
[2017-10-05] MEDS: ECOTRIN 81 MG TABEC PO SCH (10:02)
[2017-10-05] MEDS: METOPROLOL SUCCINATE 50 MG TABER PO SCH (10:02)
[2017-10-05] MEDS: DOCUSATE SODIUM 100 MG GELCAP PO SCH (10:02)
--- NOTE | 2017-10-05 10:14 | NUR ---
ADMINISTERED MORNING MEDS. PT TOLERATED WELL. WILL START D/C PROCESS.
--- NOTE | 2017-10-05 13:00 | NUR ---
DC INSTRUCTIONS GIVEN. PT VERBALIZED UNDERSTANDING. REMOVED IV, CANNULA INTACT. NO BLEEDING NOTED. REMOVED ID BANDS. PT ALREADY DRESSED. READY TO GO. GATHERED ALL PERSONAL BELONGINGS. ATE LUNCH. WILL LET US KNOW WHEN VICE PRESIDENT EDUCATION GETS HERE.
--- NOTE | 2017-10-05 13:53 | NUR ---
PT REFUSED WHEELCHAIR. PT WANTED TO WALK OUT WITH WALKER. PT IS STABLE. ACCOMPANIED BY SHAI, FACILITY SALES DESIGNER.
[2017-10-09 10:32] LABS: FOLIC ACID 15.9 ng/mL (>3.0)
== END 2017-10-05 13:53 | disposition home or self-care (01) | DRG 177 ==
LOC: MED 14:03 → INTOOBSV 22:16 → MTU 22:16 → OBSVTOIN 10-04 16:32
PROVIDERS: ADMIT Family Medicine Sports Medicine; ATTEND Family Medicine Sports Medicine
DX: J69.0 Pneumonitis due to inhalation of food and vomit (principal); I50.43 Acute on chronic combined systolic (congestive) and diastolic (congestive) heart failure; J96.01 Acute respiratory failure with hypoxia; E43 Unspecified severe protein-calorie malnutrition; D68.59 Other primary thrombophilia; E11.51 Type 2 diabetes mellitus with diabetic peripheral angiopathy without gangrene; F20.9 Schizophrenia, unspecified; I42.9 Cardiomyopathy, unspecified; J45.901 Unspecified asthma with (acute) exacerbation; J44.1 Chronic obstructive pulmonary disease with (acute) exacerbation; I11.0 Hypertensive heart disease with heart failure; M62.50 Muscle wasting and atrophy, not elsewhere classified, unspecified site; F15.90 Other stimulant use, unspecified, uncomplicated; D50.9 Iron deficiency anemia, unspecified; F17.210 Nicotine dependence, cigarettes, uncomplicated; F29 Unspecified psychosis not due to a substance or known physiological condition; F12.90 Cannabis use, unspecified, uncomplicated; I25.10 Atherosclerotic heart disease of native coronary artery without angina pectoris; F19.11 Other psychoactive substance abuse, in remission; F31.9 Bipolar disorder, unspecified; I70.0 Atherosclerosis of aorta; Z88.8 Allergy status to other drugs, medicaments and biological substances; Z91.048 Other nonmedicinal substance allergy status; Z90.49 Acquired absence of other specified parts of digestive tract; Z68.25 Body mass index [BMI] 25.0-25.9, adult
CPT/HCPCS: 96365; 96375; 99285; G0378; 36415; 36600; 71045; 80048; 80053; 80305; 81001; 82607; 82728; 82746; 82803; 82948; 83540; 83605; 83735; 83880; 84100; 84484; 85025; 85045; 87040; 87081; 87086; 93005; 94640; J0360; J1940; J1956; J2920; J2930; J3475; J3490; J7030; J7060; J7613; J7620; J7626; J7644

== ENCOUNTER 2017-12-02 12:03 | Inpatient (IN) | payer OTHER ==
[~2017-12-02] VITALS: Ht 172.7 cm; Wt 64.4 kg
[~2017-12-02 12:03] MED LIST changes: +ALBU0.0912 INH; +PRED10TA6 PO
--- NOTE | 2017-12-02 12:05 | NUR ---
PT BIB BY EMS VIA GURNEY TO ER BED 11.
--- NOTE | 2017-12-02 12:05 | NUR ---
67/M BIBA C/O ALOC x TODAY. EMS STATES PT WAS FOUND BY BYSTANDERS ALOC AT [facility]. EMS STATES PT WAS FOUND SITTING ON BENCH WITH AN EMPTY 4 OZ BOTTLE OF LIQUID BENADRYL BY HIS SIDE. PT IS ALTERED AND AGGRESSIVE. GCS=14. PT ABLE TO FOLLOW COMMANDS AND SLURRING WORDS. NO FACIAL DROOL NOTED. MOVING ALL FOUR EXTREMITIES. RR ARE EVEN AND SWALLOW. SKIN COOL/APPRIOPRIATE FOR ETHNCIITY/DRY. PT IS SINUS BART ON CM AND HYPOTENSION. ER MD BRIONES MADE AWARE OF PT STATUS. WILL CONTINUE TO MONITOR.
[2017-12-02 12:08] VITALS: BP 99/53
--- NOTE | 2017-12-02 12:21 | NUR ---
CALLED POISON CONTROL AND TALKED TO DECEMBER FOR POSSIBLE INGESTION OF LIQUID BENADRYL. WAS ADVICE TO MONITOR PATIENT AND HAVE LABS DONE WITH PATIENT LFT'S, TYLENOL AND ASPIRIN TOXICOLOGY.
[2017-12-02] MEDS ORDERED: diphenhydrAMINE 50 MG/ML VIAL IVP ONE (12:25)
[2017-12-02] MEDS ORDERED: LORazepam 2 MG/ML VIAL IVP ONE ×2 (12:25→17:25)
[2017-12-02] MEDS ORDERED: NACL 0.9% 1,000 ML IV ONE ×3 (12:30→16:30)
[2017-12-02] MEDS ORDERED: HALOPERIDOL IM 5 MG/ML VIAL IVP ONE (12:35)
[2017-12-02] MEDS ORDERED: HALOPERIDOL IM 5 MG/ML VIAL IM ONE ×2 (12:45→13:50)
--- NOTE | 2017-12-02 12:49 | NUR ---
PT AGGRESSIVE, ATTEMPED TO SWING FIGHT TO RN. PT REMAINS IN [place] BUT IS VERBALLY AGGRESSIVE. UNABLE TO TAKE PATIENT TO CT OR DRAW BLOOD WORK. PT MEDICATED. ER MD BUTLER MADE AWARE. WILL CONTINUE TO MONITOR.
--- NOTE | 2017-12-02 13:09 | NUR ---
PT CALM AND RESTING WITH EYES CLOSED IN [facility]; NOTIFIED ER MD BRIONES, CT, AND LAB. WILL CONTINUE TO MONITOR.
--- NOTE | 2017-12-02 13:13 | NUR ---
xray by bedside
--- NOTE | 2017-12-02 13:16 | NUR ---
pt to ct via darius accompanied by customer technical services manager
--- NOTE | 2017-12-02 13:32 | NUR ---
pt returned from ct via gurney accompanied by test engineering technician
[2017-12-02] MEDS ORDERED: diphenhydrAMINE 50 MG/ML VIAL IM ONE (13:50)
--- NOTE | 2017-12-02 13:50 | NUR ---
PATIENT PULLED IV CATHETER; BLEEDING CONTROLLED; DRESSING APPLIED. IV CATHETER INTACT.
[2017-12-02 13:53] LABS: HEMATOCRIT 25.1 % (36-52); HEMOGLOBIN 7.8 g/dL (12.0-18.0); MEAN CORPUSCULAR HEMOGLOBIN 23 pg (27-31); MEAN CORPUSCULAR HGB CONC 31 g/dL (33-37); MEAN CORPUSCULAR VOLUME 73.7 fL (80-94); PLATELET COUNT (AUTO) 250 K/uL (140-450); RED BLOOD CELL COUNT(AUTO) 3.41 MIL/uL (4.20-6.10); RED CELL DISTRIBUTION WIDTH 20.9 % (11.6-13.7)
[2017-12-02 13:54] LABS: WHITE BLOOD COUNT (AUTO) 5.8 K/uL (4.8-10.8)
[2017-12-02 13:59] LABS: LYMPHOCYTES % (MANUAL) 38 % (20-46); MONOCYTES % (MANUAL) 6 % (5-12)
[2017-12-02 14:06] LABS: ACETAMINOPHEN 0.8 ug/ml (10-30); ANION GAP 12.6 (8-16); ASPARTATE AMINOTRANSFERASE 85 U/L (15-37); CARBON DIOXIDE 22.9 mmol/L (21-32); CHLORIDE 112 mmol/L (98-107); CREATININE 1.6 mg/dL (0.7-1.3); GFR ARICAN-AMERICAN 56 mL/min (>90); GLUCOSE 108 mg/dL (74-106); SODIUM SERUM 145 mmol/L (136-145); TOTAL BILIRUBIN 1.2 mg/dL (0.0-1.0); UREA NITROGEN, BLOOD 29 mg/dL (7-18)
[2017-12-02 14:10] LABS: POTASSIUM 2.5 mmol/L (3.5-5.1); SALICYLATE < 2.8 mg/dL (2.8-20.0)
[2017-12-02] MEDS ORDERED: KCL 20 MEQ/WATER INJ PREMIX 200 ML IV ONE (14:20)
[2017-12-02 14:45] LABS: CKMB RELATIVE INDEX 9.8 (0.0-2.5); CREATINE KINASE MB 82.8 ng/mL (0-3.6)
[2017-12-02 14:48] LABS: APPEARANCE,URINE CLEAR (CLEAR); BILIRUBIN,URINE 1+ (NEGATIVE); BLOOD, URINE NEGATIVE (NEGATIVE); LEUKOCYTE ESTERASE ,URINE NEGATIVE (NEGATIVE); NITRITE, URINE NEGATIVE (NEGATIVE); PH,URINE 5.5 (5.0-9.0); UGLUCOSE NEGATIVE (NEGATIVE)
[2017-12-02 14:57] LABS: COLOR,URINE AMBER (YELLOW)
[2017-12-02 15:01] LABS: BARBITURATE, URINE NEG. ng/ml (NEG <=200); BENZODIAZEPINE, URINE NEG. ng/mL (NEG <=200); CANNABINOID, URINE NEG. ng/mL (NEG <=50); COCAINE, URINE NEG. ng/mL (NEG <=300); OPIATE, URINE NEG. ng/mL (NEG <=2000); PHENCYCLIDINE SCREEN,URINE NEG. ng/mL (NEG <=25)
--- NOTE | 2017-12-02 15:50 | NUR ---
HOME FROM POISION CONTROL CALLED FOR UPDATE ON PT STATUS
--- NOTE | 2017-12-02 17:30 | NUR ---
PT CALM. IV FLUIDS INFUSING WITHOUT DIFFICULTLY. LAYING ON LEFT SIDE SUPINE IN GURNEY. NO ACUTE DISTRESS. WILL CONTINUE TO MONITOR.
--- NOTE | 2017-12-02 19:29 | NUR ---
Pt report given to VERÓNICA AGUAYO. Transfer of care at this time.
--- NOTE | 2017-12-02 20:15 | NUR ---
WAS NOTIFIED BY TOLL LINE MECHANIC THAT [facility] CALLED, AND [facility] WILL CALL WHEN THERE IS AN AVAILABLE BED
--- NOTE | 2017-12-02 20:21 | NUR ---
Patient appears to be sleeping comfortably in bed. Vital Signs within normal limits. Respirations even and unlabored.
--- NOTE | 2017-12-02 21:50 | NUR ---
Patient appears to be resting comfortably in bed. Vital Signs within normal limits. Respirations even and unlabored.
[2017-12-02] MEDS ORDERED: KETOROLAC 30 MG/ML VIAL IVP PRN (22:45)
[2017-12-02] MEDS ORDERED: ONDANSETRON 4 MG/2 ML VIAL IM/IVP PRN (22:45)
[2017-12-02] MEDS ORDERED: HYDROcodone/APAP 7.5/325 MG 1 TAB PO PRN (22:45)
[2017-12-02] MEDS ORDERED: MORPHINE SULFATE 4 MG/ML SYR IVP PRN (22:45)
[2017-12-02] MEDS ORDERED: DOCUSATE SODIUM 100 MG GELCAP PO PRN (22:45)
[2017-12-02] MEDS ORDERED: LORazepam 2 MG/ML VIAL IM/IVP PRN (23:25)
[2017-12-02 23:35] VITALS: BP 135/72
--- NOTE | 2017-12-02 23:35 | NUR ---
PATIENT ADMITTED TO THE UNIT FROM ER. PATIENT IS AOX0. PATIENT MUMBLING/GROANING, UNABLE TO ANSWER QUESTIONS. BEDREST. ON 2L O2 NC. IV SITE NOTED ON RIGHT FOREARM. HORNER CATHETER IN PLACE DRAINING ASIF URINE. HEALED SCABS NOTED ON LEFT ARM. FALL PRECAUTIONS IN PLACE. MRSA SPECIMEN SWABBED AND VITAL SIGNS TAKEN. BED IN LOWEST POSITION, SIDE RAILS UP. WILL CONTINUE TO MONITOR.
--- NOTE | 2017-12-02 23:42 | NUR ---
Patient will be admitted to care of DEDE JARAMILLO. Admited to TELE. Will go to room 113. Belongings list completed. Report to DEDE FISHER AT BEDSIDE.
[2017-12-03 00:15] LABS: CHOL/HDL RATIO 5.9 (1-4.5); MAGNESIUM 1.4 mg/dL (1.8-2.4); PHOSPHORUS 4.8 mg/dL (2.5-4.9); THYROID STIMULATING HORMONE 1.54 uIU/mL (0.34-3.74)
[2017-12-03 00:21] LABS: PROTHROMBIN TIME 15.4 secs (10.8-13.4)
--- NOTE | 2017-12-03 01:30 | NUR ---
CHECKED ON PATIENT. PATIENT IS ASLEEP. NO SIGNS AND SYMPTOMS OF DISTRESS NOTED. BREATHING EVEN AND UNLABORED WILL CONTINUE TO MONITOR.
--- NOTE | 2017-12-03 03:00 | NUR ---
WHILE ON BREAK, DEDE HOLBROOK WAS COVERING ME. SHE SAID THAT PATIENT WAS AGITATED, REMOVING HIS GOWN, AND TRYING TO REMOVE HIS TELE LEADS AND IV. PATIENT MEDICATED ORDERED.
[2017-12-03 03:47] VITALS: BP 143/76
--- NOTE | 2017-12-03 07:25 | NUR ---
PATIENT REPORT GIVEN TO MORNING NURSE AT BEDSIDE FOR CONTINUITY OF CARE. PATIENT IS IN STABLE CONDITION.
--- NOTE | 2017-12-03 07:26 | NUR ---
RECEIVED REPORT FROM MARINE ENGINE DRIVER NURSE PHILLIP AT BEDSIDE FOR CONTINUITY OF CARE. PT IN ROOM GETTING US DONE. NO SIGNS OF DISTRESS. HORNER CATHETER IN PLACE. IV TO R AC 20G INTACT. SKIN WARM AND DRY. NO OPEN WOUNDS. BED ALARM ON, CALL LIGHT WITHIN REACH. WILL CONTINUE TO MONITOR.
[2017-12-03 07:28] LABS: BASOPHILS # (AUTO) 0.2 K/uL (0.00-0.22); BASOPHILS % (AUTO) 3.3 % (0.0-2.0); EOSINOPHILS # (AUTO) 0.1 K/uL (0-0.4); EOSINOPHILS % (AUTO) 0.9 % (0.0-4.0); HEMATOCRIT 26.9 % (36-52); HEMOGLOBIN 8.2 g/dL (12.0-18.0); LYMPHOCYTES # (AUTO) 0.8 K/uL (2.0-11.5); LYMPHOCYTES % (AUTO) 11.1 % (20.5-51.1); MEAN CORPUSCULAR HEMOGLOBIN 23 pg (27-31); MEAN CORPUSCULAR HGB CONC 30 g/dL (33-37); MEAN CORPUSCULAR VOLUME 74.4 fL (80-94); MONOCYTES # (AUTO) 0.5 K/uL (0.8-1.0); MONOCYTES % (AUTO) 6.9 % (1.7-9.3); NEUTROPHILS # (AUTO) 5.2 K/uL (1.8-7.7); NEUTROPHILS % (AUTO) 77.8 % (42.2-75.2); PLATELET COUNT (AUTO) 226 K/uL (140-450); RED BLOOD CELL COUNT(AUTO) 3.61 MIL/uL (4.20-6.10); RED CELL DISTRIBUTION WIDTH 21.5 % (11.6-13.7); WHITE BLOOD COUNT (AUTO) 6.8 K/uL (4.8-10.8)
[2017-12-03 07:51] LABS: ANION GAP 12.5 (8-16); CARBON DIOXIDE 21.8 mmol/L (21-32); CREATININE 1.2 mg/dL (0.7-1.3); POTASSIUM 3.3 mmol/L (3.5-5.1)
[2017-12-03 08:00] VITALS: BP 147/78
[2017-12-03] MEDS: FERROUS SULFATE 325 MG TABEC PO SCH ×2 (08:00→17:51)
--- NOTE | 2017-12-03 08:05 | NUR ---
REPORTED TO DR. GREEN PT'S MAG 1.4, K 3.3 AND NA 147
--- NOTE | 2017-12-03 08:28 | NUR ---
PATIENT HAS BEEN SCREENED AND CATEGORIZED HIGH RISK. PATIENT WILL BE SEEN WITHIN 1-2 DAYS OF ADMISSION. 12/03- [address]
[2017-12-03] MEDS: ARIPiprazole 10 MG TAB PO SCH (09:00)
[2017-12-03] MEDS: QUEtiapine FUMARATE 100 MG TAB PO SCH ×2 (09:00→21:12)
[2017-12-03] MEDS: BENZTROPINE 1 MG TAB PO SCH (09:00)
[2017-12-03] MEDS: DIVALPROEX 500 MG TABER PO SCH ×2 (09:00→21:12)
[2017-12-03] MEDS: NACL 0.9% 1,000 ML IV SCH ×2 (09:28)
--- NOTE | 2017-12-03 09:55 | NUR ---
PT UNABLE TO TAKE SCHEDULED MEDS. PT IS DROWSY. PT ABLE TO STATE HIS NAME, BIRTHDAY AND DAY WHEN ASKED. HAD EYES CLOSED AND NOT ABLE TO STAY AWAKE. NON ADMINISTERED SCHEDULED MEDS AT THIS TIME. INSTRUCTED USE OF CALL LIGHT. PT STATED "OKAY." BED IN LOW POSITION, WHEELS LOCKED, CALL LIGHT WITHIN REACH. WILL CONTINUE TO MONITOR.
--- NOTE | 2017-12-03 11:43 | NUR ---
CHECKED ON PT IN ROOM. D/C IVF ORDERED. PT ON O2 NC 2L. O2 SAT 94%. NO SIGNS OF DISTRESS. PT STILL ASLEEP AT THIS TIME. ANSWERS WHEN NAME CALLED WITH EYES CLOSED. BED IN LOW POSITION, WHEELS LOCKED, BED ALARM ON, WILL CONTINUE TO MONITOR.
--- NOTE | 2017-12-03 11:50 | NUR ---
RECEIVED CALL FROM DECEMBER FROM POISON CONTROL. GAVE UPDATE ON PT STATUS. SAID SHE WILL D/C PT FROM LIST.
[2017-12-03 12:00] VITALS: BP 152/75
[2017-12-03] MEDS ORDERED: METOPROLOL SUCCINATE 50 MG TABER PO SCH (14:00)
[2017-12-03] MEDS ORDERED: HYDROCHLOROTHIAZIDE 25 MG TAB PO SCH (14:00)
[2017-12-03] MEDS ORDERED: POTASSIUM CHLORIDE 40 MEQ, LIDOCAINE 1% 25 MG in NACL 0.9% 250 ML IV SCH (14:00)
[2017-12-03] MEDS ORDERED: MAG SULF 2000 MG/WATER PREMIX 100 ML IV SCH (14:00)
[2017-12-03] MEDS ORDERED: FUROSEMIDE 20 MG/2 ML VIAL IVP SCH (14:00)
--- NOTE | 2017-12-03 14:25 | NUR ---
PT IS AWAKE NOW. ADMINISTERED PO MEDS. PT TOLERATED WELL. STARTED MAG RIDER IVPB. PT IS SITTING IN BED. NO SIGNS OF DISTRESS. WENT BACK TO SLEEP. BED ALARM ON, CALL LIGHT WITHIN REACH. WILL CONTINUE TO MONITOR.
[2017-12-03 16:00] VITALS: BP 178/81
[2017-12-03] MEDS: LORazepam 2 MG/ML VIAL IM/IVP PRN (17:09)
--- NOTE | 2017-12-03 17:13 | NUR ---
REPORTED TO DR. BROOKS THAT PT'S BP WAS 178/81. RECEIVED ORDER TO GIVE ATIVAN IVP.
[2017-12-03 17:17] LABS: PROTHROMBIN TIME 14.4 secs (10.8-13.4)
--- NOTE | 2017-12-03 19:15 | NUR ---
ENDORSED PT TO ORDER PLANNER NURSE CHRISTINA AT BEDSIDE FOR CONTINUITY OF CARE. PT IN STABLE CONDITION.
--- NOTE | 2017-12-03 19:25 | NUR ---
RECEIVED REPORT FROM DAY SHIFT RN, PATIENT IS SLEEPING, BE AROUSED BY CALLING NAME AND TAPPING ON HIS SHOULDER. RESPIRATION EVEN AND UNLABORED, HORNER CATHETER IN PLACE, DRAINING URINE BY GRAVITY. CALL LIGHT WITHIN REACH, SAFETY MEASURE ENSURED, WILL CONTINUE TO MONITOR.
[2017-12-03 20:00] VITALS: BP 150/75
[2017-12-03] MEDS: FUROSEMIDE 20 MG/2 ML VIAL IVP SCH (21:11)
[2017-12-03] MEDS: LORazepam 1 MG TAB PO SCH (21:12)
--- NOTE | 2017-12-03 21:25 | NUR ---
DUE MEDICATION GIVEN, PATIENT TOLERATED WELL. NO S/S OF DISTRESS NOTED, RESPIRATION EVEN AND UNLABORED, CALL LIGHT WITHIN REACH, SAFETY MEASURE ENSURED, WILL CONTINUE TO MONITOR.
--- NOTE | 2017-12-03 22:30 | NUR ---
PATIENT IS SLEEPING, RESPIRATION EVEN AND UNLABORED, ON NC O2 2L. CALL LIGHT WITHIN REACH, SAFETY MEASURE ENSURED, WILL CONTINUE TO MONITOR.
[2017-12-03 23:41] VITALS: BP 124/62
--- NOTE | 2017-12-04 00:26 | NUR ---
VITAL SIGNS STABLE, NO S/S OF DISTRESS NOTED, RESPIRATION EVEN AND UNLABORED, CALL LIGHT WITHIN REACH, SAFETY MEASURE ENSURED, WILL CONTINUE TO MONITOR.
--- NOTE | 2017-12-04 02:20 | NUR ---
PATIENT IS SLEEPING, RESPIRATION EVEN AND UNLABORED, ON ROOM AIR. CALL LIGHT WITHIN REACH, SAFETY MEASURE ENSURED, WILL CONTINUE TO MONITOR. Addendum: 12/04/17 at 0221 by Tonya Pena RN ON NC 2L, NOT ON ROOM AIR
[2017-12-04] MEDS: LORazepam 1 MG TAB PO SCH ×3 (04:21→21:57)
--- NOTE | 2017-12-04 04:35 | NUR ---
PATIENT WAS SLEEPING, WOKE HIM UP BY TAPPING HIS SHOULDER AND CALLING HIS NAME, BP 113/58, HR 66,DUE ATIVAN GIVEN, PATIENT TOLERATED WELL. NO S/S OF DISTRESS NOTED, RESPIRATION EVEN AND UNLABORED, ON NC 2L. CALL LIGHT WITHIN REACH, SAFETY MEASURE ENSURED, WILL CONTINUE TO MONITOR.
--- NOTE | 2017-12-04 07:03 | NUR ---
ENDORSED PLAN OF CARE TO DAY SHIFT NURSE. PATIENT IS IN STABLE CONDITION.
--- NOTE | 2017-12-04 07:04 | NUR ---
RECEIVED REPORT FROM SPORTS PSYCHOLOGIST NURSE CHRISTINA AT BEDSIDE FOR CONTINUITY OF CARE. INTRODUCED SELF AND UPDATED BOARD. PT IS ASLEEP RIGHT NOW. FOUND PT'S LEGS OFF EDGE OF BED. ASSISTED PT BACK TO BED AND REPOSITIONED WITH HOB UP. NO SOB. ON O2 NC 2L. IV TO L FA 22G INTACT. NS TKO. HORNER CATHETER IN PLACE. BED ALARM ON, WHEELS LOCKED, BED IN LOW POSITION, CALL LIGHT WITHIN REACH. WILL CONTINUE TO MONITOR.
[2017-12-04 07:59] LABS: HEMATOCRIT 28.5 % (36-52); HEMOGLOBIN 8.6 g/dL (12.0-18.0); MEAN CORPUSCULAR HEMOGLOBIN 22 pg (27-31); MEAN CORPUSCULAR HGB CONC 30 g/dL (33-37); MEAN CORPUSCULAR VOLUME 74.6 fL (80-94); PLATELET COUNT (AUTO) 195 K/uL (140-450); RED BLOOD CELL COUNT(AUTO) 3.82 MIL/uL (4.20-6.10); RED CELL DISTRIBUTION WIDTH 20.8 % (11.6-13.7); WHITE BLOOD COUNT (AUTO) 4.8 K/uL (4.8-10.8)
[2017-12-04] MEDS: FERROUS SULFATE 325 MG TABEC PO SCH ×2 (08:00→16:55)
[2017-12-04 08:04] VITALS: BP 147/58
[2017-12-04] MEDS: FUROSEMIDE 20 MG/2 ML VIAL IVP SCH ×2 (08:58→21:00)
[2017-12-04] MEDS: BENZTROPINE 1 MG TAB PO SCH (09:00)
[2017-12-04] MEDS: HYDROCHLOROTHIAZIDE 25 MG TAB PO SCH (09:00)
[2017-12-04] MEDS: DIVALPROEX 500 MG TABER PO SCH ×2 (09:00→21:57)
[2017-12-04] MEDS: ARIPiprazole 10 MG TAB PO SCH (09:00)
[2017-12-04] MEDS: LACTULOSE 20 GM/30 ML UDC PO SCH ×2 (09:00→21:57)
[2017-12-04] MEDS: METOPROLOL SUCCINATE 50 MG TABER PO SCH (09:00)
[2017-12-04] MEDS: PANTOPRAZOLE 40 MG TABEC PO SCH (09:00)
[2017-12-04] MEDS: QUEtiapine FUMARATE 100 MG TAB PO SCH ×2 (09:00→21:58)
[2017-12-04] MEDS ORDERED: FERRIC GLUCONATE 125 MG in NACL 0.9% 100 ML IV SCH (09:00)
[2017-12-04 09:24] LABS: ANION GAP 13.6 (8-16); CARBON DIOXIDE 23.5 mmol/L (21-32); POTASSIUM 3.1 mmol/L (3.5-5.1)
--- NOTE | 2017-12-04 09:59 | NUR ---
PT IS DROWSY. ANSWERS WHEN NAME CALLED. UNABLE TO STAY AWAKE. NON ADMINISTERED SCHEDULED PO MEDS.
[2017-12-04] MEDS ORDERED: POTASSIUM CHLORIDE 40 MEQ, LIDOCAINE 1% 25 MG in NACL 0.9% 250 ML IV SCH (10:00)
[2017-12-04 10:10] LABS: T4 (THYROXINE) 7.6 ug/dL (4.5-12.0)
--- NOTE | 2017-12-04 12:00 | NUR ---
PT ASLEEP NO SIGNS OF DISTRESS, BED LOWERED CALL LIGHT WITHIN REACH. BED ALARM ON . WILL CONTINUE TO MONITOR.
[2017-12-04 12:59] LABS: EOSINOPHILS % (MANUAL) 5 % (0-4); LYMPHOCYTES % (MANUAL) 32 % (20-46); MONOCYTES % (MANUAL) 5 % (5-12)
[2017-12-04 16:00] VITALS: BP 186/82
--- NOTE | 2017-12-04 16:55 | NUR ---
PT AWAKE GAVE HIM SIPS OF WATER TO OBSERVE SWALLOWING ABILITY. PT ABLE TO SWALLOW WATER AND IRON PILL. WILL CONTINUE TO MONITOR
[2017-12-04] MEDS ORDERED: LISINOPRIL 5 MG TAB PO PRN (17:40)
--- NOTE | 2017-12-04 18:00 | NUR ---
CALL DR. GREEN REPORTED NPO STATUS AND NOT ON ANY FLUIDS. RECEIVED ORDER FOR REGULAR DIET. DR TRAORE OF BP 186/82 RECEIVED ORDERS FOR PRN LISINOPRIL. PENDING PHARMACY TO VERIFY.
[2017-12-04] MEDS: LISINOPRIL 5 MG TAB PO SCH (18:10)
--- NOTE | 2017-12-04 19:14 | NUR ---
PT REPORT GIVEN AT BEDSIDE TO NIGHTSHIFT NURSE FOR CONTINUITY OF CARE. PT IS AWAKE AND EATING DINNER. IN STABLE CONDITION.
--- NOTE | 2017-12-04 19:15 | NUR ---
RECD. RESTING IN BED, AWAKE, A/OX1, RESPIRATION EVEN AND UNLABORED. BUT DESATURATES WITHOUT O2 CANNULA AT 2 LITERS, TO 77 - 87%. PUT BACK 02 CANNULA, 02 INCREASED TO 95-96%. IV OF NS AT TKO INFUSING, LEFT FOREARM G22. SEEMS DROWSY, ASSISTED TO EAT DINNER SWALLOWS WELL, BUT FOOD IS SCATTERED ON THE GOWN. PATIENT IS EDENTULOUS. REORIENTED TO HOSPITAL SETTING. F/C PATENT DRAINING DARK YELLOW CLEAR URINE. SAFETY MEASURES ENFORCED. PLAN OF CARE FOR THE SHIFT DISCUSSED. VERBALIZED UNDERSTANDING. DENIES PAIN 0/10.
--- NOTE | 2017-12-04 19:54 | NUR ---
Patient's Plan of Care was discussed and reviewed with WHARF LABORER: SVETA
[2017-12-05] VITALS: BP 156/72
--- NOTE | 2017-12-05 00:30 | NUR ---
INFORMED DR. ORANTES, PATIENT BP - 161/71, HR - 76. METOPROLOL NOT GIVEN BY AM NURSE BECAUSE PATIENT IS VERY DROWSY, STATED YOU CAN GIVE METOPROLOL NOW.
[2017-12-05] MEDS: METOPROLOL SUCCINATE 50 MG TABER PO SCH (00:51)
--- NOTE | 2017-12-05 02:00 | NUR ---
BP CHECKED - 155/66, HR - 69, 02 SAT - 95%. RESTING COMFORTABLY IN BED.
[2017-12-05] MEDS: LORazepam 1 MG TAB PO SCH ×3 (05:33→21:00)
--- NOTE | 2017-12-05 06:00 | NUR ---
BED ALARM SOUNDED, FOUND PATIENT SITTING AT THE EDGE OF BED. ASSISTED TO LAY DOWN IN BED. SAFETY MAINTAINED.
--- NOTE | 2017-12-05 06:39 | NUR ---
CONDITION REMAIN STABLE. WILL ENDORSE TO AM NURSE FOR CONTINUITY OF CARE.
--- NOTE | 2017-12-05 07:32 | NUR ---
RECEIVED REPORT FROM IMPREGNATOR AND DRIER NURSE. PATIENT LYING DOWN IN BED SLEEPING, AROUSABLE BY VOICE. NO DISTRESS NOTED. DENIES ANY PAIN, FLACC 0. RESPIRATIONS EVEN, UNLABORED, ON O2 2L/MIN VIA NC. AAOX1, DROWSY, CALM, COOPERATIVE, SKIN COLOR APPROPRIATE TO ETHNICITY, WARM TO TOUCH. SKIN IS INTACT. LUNGS CTA ON ALL LOBES. ABDOMEN SOFT, NON-DISTENDED. IV SITE INTACT, PATENT, AND ON SALINE LOCK. REVIEWED PLAN OF CARE WITH PATIENT. REINFORCEMENT NEEDED. SAFETY MEASURES IN PLACE, CALL LIGHT WITHIN REACH, FALL PREVENTIONS IN PLACE. WILL CONTINUE TO MONITOR.
[2017-12-05 08:24] VITALS: BP 174/72
[2017-12-05] MEDS: LACTULOSE 20 GM/30 ML UDC PO SCH ×2 (09:53→21:04)
[2017-12-05] MEDS: ARIPiprazole 10 MG TAB PO SCH (09:54)
[2017-12-05] MEDS: FUROSEMIDE 20 MG/2 ML VIAL IVP SCH ×2 (09:54→21:28)
[2017-12-05] MEDS: FERROUS SULFATE 325 MG TABEC PO SCH ×2 (09:55→17:43)
[2017-12-05] MEDS: PANTOPRAZOLE 40 MG TABEC PO SCH (09:55)
[2017-12-05] MEDS: HYDROCHLOROTHIAZIDE 25 MG TAB PO SCH (09:55)
[2017-12-05] MEDS: QUEtiapine FUMARATE 100 MG TAB PO SCH ×2 (09:58→21:05)
[2017-12-05] MEDS: BENZTROPINE 1 MG TAB PO SCH (09:58)
[2017-12-05] MEDS: DIVALPROEX 500 MG TABER PO SCH ×2 (10:00→21:04)
[2017-12-05] MEDS: LISINOPRIL 5 MG TAB PO SCH (10:01)
--- NOTE | 2017-12-05 10:10 | NUR ---
PATIENT LYING IN BED SLEEPING, AROUSABLE BY VOICE. NO DISTRESS NOTED. DENIES ANY PAIN. SCHEDULED MEDICATIONS DUE GIVEN. SAFETY MEASURES IN PLACE, CALL LIGHT WITHIN REACH. WILL CONTINUE TO MONITOR.
[2017-12-05] MEDS ORDERED: POTASSIUM CHLORIDE 40 MEQ, LIDOCAINE 1% 25 MG in NACL 0.9% 250 ML IV SCH (12:00)
[2017-12-05] MEDS ORDERED: CALCIUM CARB/VIT-D 500 MG/200 IU 1 TAB PO SCH (12:00)
--- NOTE | 2017-12-05 12:56 | NUR ---
PATIENT LYING IN BED SLEEPING, AROUSABLE BY VOICE AND SHAKING. PATIENT IS DROWSY. SCHEDULED ATIVAN NOT GIVEN DUE TO PATIENT DROWSINESS. OTHER SCHEDULED MEDICATIONS DUE GIVEN. SAFETY MEASURES IN PLACE, CALL LIGHT WITHIN REACH. WILL CONTINUE TO MONITOR.
--- NOTE | 2017-12-05 14:50 | NUR ---
PATIENT LYING IN BED, CONTINUES TO BE DROWSY. AROUSABLE BY VOICE, SHAKING AND PAIN STIMULATION. SCHEDULED MEDICATION DUE GIVEN. SAFETY MEASURES IN PLACE, CALL LIGHT WITHIN REACH. WILL CONTINUE TO MONITOR.
[2017-12-05 16:00] VITALS: BP 155/77
--- NOTE | 2017-12-05 16:30 | NUR ---
PATIENT LYING IN BED SLEEPING, NO DISTRESS NOTED. DENIES ANY PAIN. CONDITION UNCHANGED. REMAINS DROWSY. WILL CONTINUE TO MONITOR.
--- NOTE | 2017-12-05 18:00 | NUR ---
PATIENT SPILLED WATER ON BED. CHANGED PATIENT GOWN AND BED LINENS. NO DISTRESS NOTED. CONDITION UNCHANGED. WILL CONTINUE TO MONITOR.
--- NOTE | 2017-12-05 19:20 | NUR ---
GAVE REPORT TO MATTRESS SPECIALIST NURSE FOR CONTINUITY OF CARE. PATIENT IN STABLE CONDITION.
--- NOTE | 2017-12-05 19:21 | NUR ---
PATIENT REPORT RECEIVED FROM MORNING NURSE AT BEDSIDE. PATIENT IS ASLEEP, RESTING COMFORTABLY IN BED BUT EASY TO AWAKEN. PATIENT IS ON O2 VIA NC. IV SITE NOTED ON LEFT FOREARM, IVF INFUSING WELL. HORNER CATHETER IN PLACE DRAINING YELLOW URINE. SAFETY PRECAUTIONS IN PLACE. BED IN LOWEST POSITION, SIDE RAILS UP AND CALL LIGHT WITHIN REACH. WILL CONTINUE TO MONITOR.
[2017-12-05] MEDS: ACETAMINOPHEN 325 MG TAB PO PRN (21:06)
[2017-12-05] MEDS: LISINOPRIL 20 MG TAB PO SCH (21:06)
--- NOTE | 2017-12-05 21:37 | NUR ---
MEDICATION EDUCATION GIVEN, PATIENT VERBALIZED UNDERSTANDING BUT STILL DROWSY. DUE MEDS ADMINISTERED ORDERED. PATIENT TOLERATED WELL. ATIVAN HELD DUE TO DROWSINESS. WILL CONTINUE TO MONITOR.
[2017-12-06] VITALS: BP 146/72
--- NOTE | 2017-12-06 | NUR ---
CHECKED ON PATIENT. PATIENT IS ASLEEP. NO SIGNS AND SYMPTOMS OF DISTRESS NOTED. BREATHING EVEN AND UNLABORED. WILL CONTINUE TO MONITOR.
--- NOTE | 2017-12-06 07:35 | NUR ---
PATIENT REPORT GIVEN TO MORNING NURSE AT BEDSIDE FOR CONTINUITY OF CARE. PATIENT IS IN STABLE CONDITION
--- NOTE | 2017-12-06 07:36 | NUR ---
RECEIVED REPORT FROM INTERNAL CONSULTANT NURSE. PATIENT LYING IN BED SLEEPING, AROUSABLE BY VOICE AND SHAKING. PATIENT IS DROWSY. RESPIRATIONS EVEN, UNLABORED, ON 2L/MIN VIA NC. AAOX1, CALM, DROWSY, SKIN COLOR APPROPRIATE TO ETHNICITY, WARM TO TOUCH. SKIN IS INTACT. IV SITE INTACT, PATENT, AND INFUSING IVF PER ORDERS. HORNER CATHETER IN PLACE, DRAINING CLEAR ASIF URINE. REVIEWED PLAN OF CARE WITH PATIENT. REINFORCEMENT NEEDED. SAFETY MEASURES IN PLACE, CALL LIGHT WITHIN REACH. WILL CONTINUE TO MONITOR.
[2017-12-06 08:00] VITALS: BP 144/78
[2017-12-06] MEDS ORDERED: LORazepam 1 MG TAB PO SCH (09:00)
[2017-12-06] MEDS: BENZTROPINE 1 MG TAB PO SCH (09:24)
[2017-12-06] MEDS: ARIPiprazole 10 MG TAB PO SCH (09:24)
[2017-12-06 09:25] LABS: HEMATOCRIT 28.6 % (36-52); HEMOGLOBIN 8.7 g/dL (12.0-18.0); MEAN CORPUSCULAR HEMOGLOBIN 23 pg (27-31); MEAN CORPUSCULAR HGB CONC 30 g/dL (33-37); MEAN CORPUSCULAR VOLUME 74.4 fL (80-94); PLATELET COUNT (AUTO) 128 K/uL (140-450); RED BLOOD CELL COUNT(AUTO) 3.85 MIL/uL (4.20-6.10); RED CELL DISTRIBUTION WIDTH 20.6 % (11.6-13.7); WHITE BLOOD COUNT (AUTO) 10.3 K/uL (4.8-10.8)
[2017-12-06] MEDS: POTASSIUM CHLORIDE 20% 40 MEQ/15 ML UDC PO SCH (09:25)
[2017-12-06] MEDS: LACTULOSE 20 GM/30 ML UDC PO SCH ×3 (09:25→17:15)
[2017-12-06] MEDS: FUROSEMIDE 20 MG/2 ML VIAL IVP SCH ×2 (09:26→20:18)
[2017-12-06] MEDS: FERROUS SULFATE 325 MG TABEC PO SCH ×2 (09:26→17:15)
[2017-12-06] MEDS: PANTOPRAZOLE 40 MG TABEC PO SCH (09:27)
[2017-12-06] MEDS: LISINOPRIL 20 MG TAB PO SCH ×2 (09:27→20:18)
[2017-12-06] MEDS: METOPROLOL SUCCINATE 50 MG TABER PO SCH (09:28)
[2017-12-06] MEDS: CALCIUM CARB/VIT-D 500 MG/200 IU 1 TAB PO SCH (09:28)
[2017-12-06] MEDS: DIVALPROEX 500 MG TABER PO SCH ×2 (09:29→20:18)
[2017-12-06] MEDS: RIFAXIMIN 550 MG TAB PO SCH ×2 (09:29→20:25)
--- NOTE | 2017-12-06 09:30 | NUR ---
PATIENT LYING IN BED COMFORTABLY. NO DISTRESS NOTED. RESPIRATIONS EVEN, UNLABORED, ON O2 2L/MIN VIA NC. CONTINUES TO BE DROWSY, HOWEVER, IS STARTING TO BE MORE AWAKE AND ALERT. SCHEDULED MEDICATIONS DUE GIVEN. PATIENT ABLE TO SWALLOW MEDICATIONS. SAFETY MEASURES IN PLACE, CALL LIGHT WITHIN REACH. WILL CONTINUE TO MONITOR.
--- NOTE | 2017-12-06 11:36 | NUR ---
PATIENT LYING DOWN IN BED SLEEPING, AROUSABLE BY VOICE AND SHAKING. NO DISTRESS NOTED. DENIES ANY PAIN, FLACC 0. SAFETY MEASURES IN PLACE, WILL CONTINUE TO MONITOR.
--- NOTE | 2017-12-06 13:30 | NUR ---
PATIENT LYING DOWN IN BED SLEEPING, AROUSABLE BY VOICE. NO DISTRESS NOTED. DENIES ANY PAIN AT THIS TIME. CONDITION UNCHANGED. PATIENT IS MORE ALERT AND AWAKE AT THIS TIME. WILL CONTINUE TO MONITOR.
--- NOTE | 2017-12-06 14:20 | NUR ---
PHYSICAL THERAPIST AT BEDSIDE WORKING WITH PATIENT. WILL CONTINUE TO MONITOR.
--- NOTE | 2017-12-06 14:32 | NUR ---
[phone] PHONE [phone]
[2017-12-06 15:05] LABS: EOSINOPHILS % (MANUAL) 1 % (0-4); LYMPHOCYTES % (MANUAL) 17 % (20-46); MONOCYTES % (MANUAL) 8 % (5-12)
--- NOTE | 2017-12-06 15:30 | NUR ---
ASSISTED RISK INVESTIGATOR IN CLEANING AND REPOSITIONING PATIENT. PATIENT CONTINUES TO TRY TO GET OUT OF BED TO GO TO TOILET. HOWEVER, PATIENT REFUSES TO GO TO BATHROOM WHEN ASSISTANCE IS PRESENT. ASKED PATIENT TO PRESS CALL LIGHT FOR ASSISTANCE TO BATHROOM. SAFETY MEASURES IN PLACE, CALL LIGHT WITHIN REACH, FALL PREVENTIONS IN PLACE. WILL CONTINUE TO MONITOR.
[2017-12-06 16:00] VITALS: BP 171/76
--- NOTE | 2017-12-06 17:08 | NUR ---
PHYSICAL THERAPY CO-SIGN The Physical Therapy Progress Notes documented by Dental Prosthetist have been reviewed. Reviewed/Co-Signed by: Nanette Mendenhall PT Documentation Done by:CHAO BIRD VULCANIZER RUBBER PLATE POC REVIEWED W/ VULCANIZER RUBBER PLATE; WILL BENEFIT W/P.T.
--- NOTE | 2017-12-06 17:16 | NUR ---
PATIENT LYING IN BED. CONTINUES TO TRY TO GET OUT OF BED TO GO TO BATHROOM. REINFORCE TO PATIENT TO PRESS CALL LIGHT FOR ASSISTANCE TO GO TO BATHROOM. PATIENT VERBALIZED UNDERSTANDING. REINFORCEMENT NEEDED. WILL CONTINUE TO MONITOR.
--- NOTE | 2017-12-06 19:24 | NUR ---
GAVE REPORT TO DOCUMENTATION LEAD NURSE FOR CONTINUITY OF CARE. PATIENT IN STABLE CONDITION.
[2017-12-06] MEDS: QUEtiapine FUMARATE 100 MG TAB PO SCH (20:17)
[2017-12-06] MEDS: ACETAMINOPHEN 325 MG TAB PO PRN (20:18)
--- NOTE | 2017-12-06 20:30 | NUR ---
PATIENT TRIED TO GET OUT OF BED. NOTICED THAT PATIENT HAD A BOWEL MOVEMENT. PERICARE DONE. BED SHEETS AND CHUCKS CHANGED. PATIENT TOLERATED WELL. REMINDED PATIENT THAT IF HE NEEDED HELP TO USE THE CALL LIGHT REINFORCEMENT NEEDED. WILL CONTINUE TO MONITOR.
--- NOTE | 2017-12-06 21:45 | NUR ---
PATIENT TRIED TO GET OUT OF BED AGAIN. ASKED HIM WHAT HE NEEDED HELP WITH HE SAID HE WANTED TO PEE. REMINDED PATIENT THAT HE HAD A HORNER CATHETER IN PLACE. SAFETY PRECAUTIONS IN PLACE. WILL CONTINUE TO MONITOR.
--- NOTE | 2017-12-06 22:30 | NUR ---
BED ALARM WENT OFF. PATIENT FCI TO THE RESTROOM. ASSISTED PATIENT TO THE RESTROOM. PATIENT HAD LARGE BOWEL MOVEMENT. PERICARE DONE. ASSISTED PATIENT BACK TO BED. TOLD HIM TO USE CALL LIGHT WHEN HE NEEDS ASSISTANCE. REINFORCEMENT NEEDED. BED ALARM TURNED ON. WILL CONTINUE TO MONITOR.
[2017-12-07] VITALS: BP 153/69
[2017-12-07 00:45] LABS: ANION GAP 11.3 (8-16); CARBON DIOXIDE 29.6 mmol/L (21-32); CREATININE 0.8 mg/dL (0.7-1.3)
[2017-12-07 00:48] LABS: POTASSIUM 2.9 mmol/L (3.5-5.1)
--- NOTE | 2017-12-07 00:50 | NUR ---
CRITICAL LAB POTASSIUM 2.9. DR. HORNE NOTIFIED. ORDERS RECEIVED
[2017-12-07] MEDS ORDERED: KCL 20 MEQ/WATER INJ PREMIX 200 ML IV SCH (01:05)
[2017-12-07] MEDS: LORazepam 2 MG/ML VIAL IM/IVP PRN (01:43)
--- NOTE | 2017-12-07 03:00 | NUR ---
CHECKED ON PATIENT. PATIENT IS ASLEEP. NO SIGNS AND SYMPTOMS OF DISTRESS NOTED. BREATHING EVEN AND UNLABORED. WILL CONTINUE TO MONITOR.
[2017-12-07] MEDS ORDERED: MAG SULF 2000 MG/WATER PREMIX 100 ML IV SCH (06:10)
[2017-12-07] MEDS ORDERED: POTASSIUM CHLORIDE 40 MEQ, LIDOCAINE 1% 25 MG in NACL 0.9% 250 ML IV SCH ×2 (06:10→13:00)
[2017-12-07 07:04] LABS: HEMATOCRIT 29.5 % (36-52); HEMOGLOBIN 9.1 g/dL (12.0-18.0); MEAN CORPUSCULAR HEMOGLOBIN 23 pg (27-31); MEAN CORPUSCULAR HGB CONC 31 g/dL (33-37); PLATELET COUNT (AUTO) 136 K/uL (140-450); RED BLOOD CELL COUNT(AUTO) 3.93 MIL/uL (4.20-6.10); RED CELL DISTRIBUTION WIDTH 21.4 % (11.6-13.7); WHITE BLOOD COUNT (AUTO) 7.6 K/uL (4.8-10.8)
--- NOTE | 2017-12-07 07:13 | NUR ---
PATIENT REPORT GIVEN TO MORNING NURSE FOR CONTINUITY OF CARE. PATIENT IS IN STABLE CONDITION
--- NOTE | 2017-12-07 07:14 | NUR ---
RECEIVED REPORT FROM PHARMACEUTICAL SALES REPRESENTATIVE NURSE. PATIENT LYING DOWN IN BED SLEEPING, AROUSABLE BY VOICE AND SHAKING. NO DISTRESS NOTED. RESPIRATIONS EVEN, UNLABORED, ON O2 2L/MIN VIA NC. DENIES ANY PAIN AT THIS TIME. AAOX1, DROWSY, SKIN COLOR APPROPRIATE TO ETHNICITY, WARM TO TOUCH. SKIN IS INTACT. LUNGS CTA ON ALL LOBES. ABDOMEN SOFT, NON-DISTENDED. IV SITE INTACT, PATENT, AND CURRENTLY INFUSING FIRST 2GM BAG OF MAGNESIUM. REVIEWED PLAN OF CARE WITH PATIENT. REINFORCEMENT NEEDED. HORNER CATHETER IN PLACE, DRAINING ASIF CLEAR URINE. SAFETY MEASURES IN PLACE, FALL PREVENTIONS IN PLACE. CALL LIGHT WITHIN REACH. WILL CONTINUE TO MONITOR.
[2017-12-07 07:56] VITALS: BP 113/71
[2017-12-07 08:31] LABS: ANION GAP 6.6 (8-16); CARBON DIOXIDE 33.4 mmol/L (21-32); CREATININE 0.8 mg/dL (0.7-1.3)
[2017-12-07 08:53] LABS: MAGNESIUM 1.4 mg/dL (1.8-2.4); PHOSPHORUS 3.6 mg/dL (2.5-4.9)
[2017-12-07] MEDS: LISINOPRIL 20 MG TAB PO SCH ×2 (09:00→21:16)
[2017-12-07] MEDS: METOPROLOL SUCCINATE 50 MG TABER PO SCH (09:00)
[2017-12-07 09:23] LABS: EOSINOPHILS % (MANUAL) 1 % (0-4); LYMPHOCYTES % (MANUAL) 28 % (20-46); MONOCYTES % (MANUAL) 8 % (5-12)
--- NOTE | 2017-12-07 09:30 | NUR ---
PATIENT LYING IN BED SLEEPING, AROUSABLE BY VOICE. NO DISTRESS NOTED. CONDITION UNCHANGED. WILL CONTINUE TO MONITOR.
--- NOTE | 2017-12-07 10:00 | NUR ---
DR. MERIDA AT BEDSIDE REVIEWING PLAN OF CARE WITH PATIENT. WILL CONTINUE TO MONITOR.
[2017-12-07] MEDS: DIVALPROEX 500 MG TABER PO SCH ×2 (10:05→21:16)
[2017-12-07] MEDS: FERROUS SULFATE 325 MG TABEC PO SCH ×2 (10:05→17:42)
[2017-12-07] MEDS: ARIPiprazole 10 MG TAB PO SCH (10:05)
[2017-12-07] MEDS: CALCIUM CARB/VIT-D 500 MG/200 IU 1 TAB PO SCH (10:06)
[2017-12-07] MEDS: BENZTROPINE 1 MG TAB PO SCH (10:06)
[2017-12-07] MEDS: LACTULOSE 20 GM/30 ML UDC PO SCH ×3 (10:06→17:42)
[2017-12-07] MEDS: PANTOPRAZOLE 40 MG TABEC PO SCH (10:06)
[2017-12-07] MEDS: FUROSEMIDE 20 MG/2 ML VIAL IVP SCH ×2 (10:06→21:44)
[2017-12-07] MEDS: POTASSIUM CHLORIDE 20% 40 MEQ/15 ML UDC PO SCH (10:07)
[2017-12-07] MEDS: RIFAXIMIN 550 MG TAB PO SCH ×2 (10:09→22:03)
--- NOTE | 2017-12-07 10:27 | NUR ---
PATIENT LYING IN BED SLEEPING, AROUSABLE BY VOICE. NO DISTRESS NOTED. BREAKFAST TRAY FOUND ON THE FLOOR. CLEANED UP MESS. SCHEDULED MEDICATIONS DUE GIVEN. RE-PLACED O2 VIA N/C THAT PATIENT TOOK OFF. SAFETY MEASURES IN PLACE, CALL LIGHT WITHIN REACH. WILL CONTINUE TO MONITOR.
--- NOTE | 2017-12-07 11:29 | NUR ---
ASSISTED HEALTH INSURANCE SPECIALIST IN CLEANING AND REPOSITIONING PATIENT. NO DISTRESS NOTED. MAGNESIUM VIA IV RUNNING PER ORDERS. SAFETY MEASURES IN PLACE, CALL LIGHT WITHIN REACH. WILL CONTINUE TO MONITOR.
--- NOTE | 2017-12-07 11:40 | NUR ---
FAXED CONCURRENT REVIEW TO [facility] [phone] PHONE GROVER [phone] I SPOKE WITH GROVER FROM [facility] EARLIER ABOUT POS SNF FOR PT. SHE SAID WHEN I GET THE ORDER, FAX IT TO HER AND SHE WILL LOOK FOR SNF.
--- NOTE | 2017-12-07 12:44 | NUR ---
PSYCH CONSULT AT BEDSIDE TRYING TO PERFORM EVALUATION. PATIENT DROWSY, UNABLE TO ANSWER QUESTIONS. ASSISTED PATIENT WITH LUNCH. SAFETY MEASURES IN PLACE, CALL LIGHT WITHIN REACH. WILL CONTINUE TO MONITOR.
--- NOTE | 2017-12-07 12:44 | NUR ---
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 PT SOMEWHAT DROWSY BUT ABLE TO ASK AND ANSWER QUESTIONS. PT STATED THAT HE WANTS TO GO HOME. DISCUSSED WITH PT THAT ADAMA MEAL MILLER OF [facility] WILL ONLY ALLOW HIM BACK IF HE IS INDEPENDENTLY WALKING. STATED THAT HE IS AWARE OF THAT. PT ENCOURAGED TO PARTICIPATE IN PT WHICH HE SAID HE WOULD AND IS IN AGREEMENT TO GO TO SNF FOR THERAPY IF NEEDED.
--- NOTE | 2017-12-07 13:23 | NUR ---
ASSISTED FWS FACULTY ASSISTANT IN CLEANING AND REPOSITIONING PATIENT. PATIENT HAD A BOWEL MOVEMENT. SAFETY MEASURES IN PLACE, CALL LIGHT WITHIN REACH. WILL CONTINUE TO MONITOR.
--- NOTE | 2017-12-07 13:41 | NUR ---
PHYSICAL THERAPISTS AT BEDSIDE WORKING WITH PATIENT. WILL CONTINUE TO MONITOR.
--- NOTE | 2017-12-07 14:30 | NUR ---
12/07/2017 RD INITIAL ASSESSMENT COMPLETED PLEASE REFER TO NUTRITION ASSESSMENT UNDER CARE ACTIVITY FOR ESTIMATED NUTRITIONAL NEEDS. CONTINUE PUREED DIET MEDICALLY NECESSARY. WHEN MEDICALLY FEASIBLE, ADVANCE TO [address] TO FOLLOW-UP IN 3-5 DAYS PATIENT IS MODERATE RISK. PAVITHRA ANGEL RD
--- NOTE | 2017-12-07 14:33 | NUR ---
SPOKE WITH GROVER FROM [facility] WHO IS TRYING TO GET A SNF FOR THIS PATIENT. [facility], NO [facility], NO TEA [place], NO. SHE LEFT MESSAGE WITH [facility], WAITING FOR CALL BACK. GROVER FROM [facility], PHONE [phone] Addendum: 12/07/17 at 1446 by Sri Sosa COUNTRY TEA [place], NO BEDS [facility], NO DUE TO HX [facility], NO BEDS TEA [place], NO. HAD PATIENT BEFORE AND HE LEFT [place].
--- NOTE | 2017-12-07 15:00 | NUR ---
ASSISTED FINAL ASSEMBLER IN CLEANING AND REPOSITIONING PATIENT. HORNER CATHETER REMOVED PER MD ORDERS. ALSO WEANING PATIENT OFF O2. CURRENT O2 SAT IS 91% WITH O2 VIA NC REMOVED 30 MIN AGO. WILL CONTINUE TO MONITOR.
[2017-12-07 16:00] VITALS: BP 136/63
--- NOTE | 2017-12-07 16:15 | NUR ---
PHYSICAL THERAPY CO-SIGN The Physical Therapy Progress Notes documented by Route Specialist have been reviewed. Reviewed/Co-Signed by: Enma Us SHIP PILOT DISPATCHER Documentation Done by: Brie Rodriguez SHIP PILOT DISPATCHER Patient brandon tx well, slowly progressing towards goals, demo improve OOB activity brandon and limited gait at bedside. Cont with PT POC as brandon/safe. Addendum: 12/07/17 at 1616 by Enma Us PT Amended: Links added.
[2017-12-07 16:22] LABS: ANION GAP 8.5 (8-16); CARBON DIOXIDE 30.2 mmol/L (21-32); CREATININE 0.9 mg/dL (0.7-1.3); POTASSIUM 3.7 mmol/L (3.5-5.1)
--- NOTE | 2017-12-07 17:45 | NUR ---
PATIENT LYING IN BED SLEEPING, NO DISTRESS NOTED. O2 SAT 90% WITHOUT O2. SCHEDULED MEDICATIONS DUE GIVEN. PATIENT MORE AWAKE AND ALERT, HOWEVER, STILL DROWSY. SAFETY MEASURES IN PLACE, CALL LIGHT WITHIN REACH. WILL CONTINUE TO MONITOR.
--- NOTE | 2017-12-07 19:32 | NUR ---
GAVE REPORT TO CERTIFIED WELLNESS PROGRAM COORDINATOR NURSE. PATIENT IN STABLE CONDITION.
--- NOTE | 2017-12-07 19:33 | NUR ---
RECD. RESTING IN BED, AWAKE, A/OX1, CONFUSED. RESPIRATION EVEN AND UNLABORED. 02 SAT ON ROOM AIR - 93- 95%. IV SALINE LOCK AT THE LEFT FOREARM G22, PATENT, INTACT. REORIENTED TO HOSPITAL SETTING. SAFETY MEASURES ENFORCED. PLAN OF CARE DISCUSSED. UNABLE TO COMPREHEND. NO APPEARANCE OF PAIN NOTED 0/10.
--- NOTE | 2017-12-07 19:35 | NUR ---
Patient's Plan of Care was discussed and reviewed with INCIDENT COORDINATOR: RANJANA HERNANDEZ
[2017-12-07] MEDS: QUEtiapine FUMARATE 100 MG TAB PO SCH (21:16)
--- NOTE | 2017-12-07 21:16 | NUR ---
DUE PO MEDICATIONS GIVEN WITH APPLE SAUCE, TOLERATED WELL.
[2017-12-08] VITALS: BP 127/65
--- NOTE | 2017-12-08 01:00 | NUR ---
SLEEPING COMFORTABLY IN BED.
--- NOTE | 2017-12-08 02:00 | NUR ---
TRYING TO GET OUT OF BED, CONFUSED. REORIENTED TO HOSPITAL SETTING.
[2017-12-08 07:18] LABS: ANION GAP 9.9 (8-16); CARBON DIOXIDE 30.1 mmol/L (21-32); CREATININE 0.8 mg/dL (0.7-1.3)
[2017-12-08 07:28] LABS: HEMATOCRIT 26.8 % (36-52); MEAN CORPUSCULAR HEMOGLOBIN 22 pg (27-31); MEAN CORPUSCULAR HGB CONC 30 g/dL (33-37); MEAN CORPUSCULAR VOLUME 74.4 fL (80-94); PLATELET COUNT (AUTO) 133 K/uL (140-450); RED BLOOD CELL COUNT(AUTO) 3.61 MIL/uL (4.20-6.10); RED CELL DISTRIBUTION WIDTH 24.1 % (11.6-13.7); WHITE BLOOD COUNT (AUTO) 5.1 K/uL (4.8-10.8)
--- NOTE | 2017-12-08 07:30 | NUR ---
RESTING COMFORTABLY IN BED, ENDORSED TO AM NURSE FOR CONTINUITY OF CARE.
--- NOTE | 2017-12-08 07:30 | NUR ---
RECEIVED PT FROM RENTAL CAR FERRY DRIVER NURSE. PT IS RESTING IN BED, AWAKE, ALERT, OX2. NO S/S OF ACUTE DISTRESS. RESPIRATION EVEN AND UNLABORED. PT IS ON O2 MONITORING, 92%-94% ON RM AIR. IV SALINE LOCK AT THE LEFT FOREARM G22, FLUSHED, PATENT, INTACT AND ASYMPTOMATIC. REORIENTED TO HOSPITAL SETTING. FALL PRECAUTIONS IN PLACE. DENIES PAIN. BED IN LOW POSITION. BED ALARM IS ON. WILL CONTINUE TO MONITOR.
[2017-12-08 08:00] VITALS: BP 123/82
--- NOTE | 2017-12-08 08:20 | NUR ---
PT IS ABLE TO EAT BY HIMSELF. ONLY STANDBY ASSISTANCE IS NEEDED. PT HAS GOOD STRENGTH IN PLATAR AND DORSAL FLEXION. , BUE HAS MILD WEAKNESS. SKIN IS WARM TO TOUGH, LOOSE, INTACT. PT USED URINAL. HOWEVER CHUX WAS WET WITH URINE. BED BATH GIVEN. BED LINENS HAS BEEN CHANGED.
[2017-12-08] MEDS: FUROSEMIDE 20 MG/2 ML VIAL IVP SCH ×2 (08:40→20:34)
[2017-12-08] MEDS: LACTULOSE 20 GM/30 ML UDC PO SCH ×3 (08:40→18:04)
[2017-12-08] MEDS: POTASSIUM CHLORIDE 20% 40 MEQ/15 ML UDC PO SCH (08:40)
[2017-12-08] MEDS: CALCIUM CARB/VIT-D 500 MG/200 IU 1 TAB PO SCH (08:41)
[2017-12-08] MEDS: METOPROLOL SUCCINATE 50 MG TABER PO SCH (08:41)
[2017-12-08] MEDS: BENZTROPINE 1 MG TAB PO SCH (08:41)
[2017-12-08] MEDS: DIVALPROEX 500 MG TABER PO SCH ×2 (08:42→20:35)
[2017-12-08] MEDS: ARIPiprazole 10 MG TAB PO SCH (08:42)
[2017-12-08] MEDS: FERROUS SULFATE 325 MG TABEC PO SCH ×2 (08:42→18:03)
[2017-12-08] MEDS: PANTOPRAZOLE 40 MG TABEC PO SCH (08:42)
[2017-12-08] MEDS: LISINOPRIL 20 MG TAB PO SCH ×2 (08:42→20:35)
[2017-12-08] MEDS: RIFAXIMIN 550 MG TAB PO SCH ×2 (08:45→20:35)
--- NOTE | 2017-12-08 11:00 | NUR ---
ROSA FROM [facility] CAME TO EVALUATE PT. PER ROSA, PT REFUSED TO COOPERATE WITH HER AND DOES NOT WANT TO WAKE UP. ROSA STATED SOMEBODY FROM THEIR DEPARTMENT WILL COME TO EVALUATE PT AGAIN PROBABLY TODAY.
--- NOTE | 2017-12-08 11:30 | NUR ---
PT HAS BEEN WORKED WITH PHYSICAL THERAPY. NO S/S OF ACUTE DISTRESS NOTED
[2017-12-08 13:14] LABS: EOSINOPHILS % (MANUAL) 1 % (0-4); LYMPHOCYTES % (MANUAL) 35 % (20-46); MONOCYTES % (MANUAL) 15 % (5-12)
--- NOTE | 2017-12-08 14:15 | NUR ---
PT HAD LARGE BM. YELLOW MUSHY STOOL. CLEANED PT AND CHANGED ALL BED LINENS. PT TOLERATED WELL AND FOLLOWING COMMANDS. Addendum: 12/08/17 at 1937 by Rolan Mauro RN SKIN IS INTACT.
[2017-12-08] MEDS: KCL 20 MEQ/WATER INJ PREMIX 200 ML IV SCH ×2 (14:18→16:28)
--- NOTE | 2017-12-08 14:20 | NUR ---
CM NOTE CONCURRENT REVIEW FAXED TO [facility] / FAX# [phone], ATTN: GROVER #[phone]
--- NOTE | 2017-12-08 15:20 | NUR ---
GUERO NOTE CLINICAL INFORMATION FAXED TO [facility] / FAX# [phone] Addendum: 12/08/17 at 1523 by Myke Correa RN CORRECTION: INFORMATION FAXED [facility]
[2017-12-08 16:00] VITALS: BP 151/101
--- NOTE | 2017-12-08 16:33 | NUR ---
[facility].
--- NOTE | 2017-12-08 19:30 | NUR ---
ENDORSED PT CARE TO HEALTH AND WELLNESS ADVISOR NURSE. PT IN STABLE CONDITION.
--- NOTE | 2017-12-08 19:31 | NUR ---
RECEIVED BEDSIDE REPORT FROM DAY SHIFT NURSE LINDA RN, PT STABLE, NO DISTRESS NOTED, IC TO L FA 22G SL, PATENT, INTACT, PT ON ROOM AIR NO SOB, PT AAOX2, INITIAL ASSESSMENT DONE, ALL SAFETY PRECAUTION MET, WILL CONTINUE TO MONITOR.
[2017-12-08] MEDS: QUEtiapine FUMARATE 100 MG TAB PO SCH (20:34)
--- NOTE | 2017-12-08 20:35 | NUR ---
DUE MEDICATION GIVEN, PT TOLERATED WELL, PT AMBULATED TO BATHROOM AND BACK TO BED, CLEANED PT, PT TOLERATED WELL, NO DISTRESS NOTED, CALL LIGHT WITHIN REACH, WILL CONTINUE TO MONITOR.
--- NOTE | 2017-12-08 22:45 | NUR ---
CHECKED ON PT, PT SLEEPING, NO DISTRESS NOTED, CALL LIGHT WITHIN REACH, WILL CONTINUE TO MONITOR.
[2017-12-09] VITALS: BP 151/56
--- NOTE | 2017-12-09 01:12 | NUR ---
PT GOT OUT OF BED, BED ALARM SOUNDED, FOUND PT STANDING BY BED, PT STABLE, NO DISTRESS NOTED, PT WAS CONFUSED, KEPT SAYING HE WANTS TO GO SOMEWHERE BUT DOES NOT KNOW WHERE. PT WENT BACK TO BED, CALL LIGHT WITHIN REACH, EDUCATE PT TO CALL WHEN HE NEEDS ANYTHING, PT STATED UNDERSTANDING.
--- NOTE | 2017-12-09 03:09 | NUR ---
CHECKED ON PT, PT SLEEPING, NO DISTRESS NOTED, CALL LIGHT WITHIN REACH, WILL CONTINUE TO MONITOR.
--- NOTE | 2017-12-09 05:30 | NUR ---
PT SLEEPING, NO DISTRESS NOTED, CALL LIGHT WITHIN REACH, WILL CONTINUE TO MONITOR.
[2017-12-09 06:57] LABS: ANION GAP 11.7 (8-16); CREATININE 0.9 mg/dL (0.7-1.3); POTASSIUM 3.7 mmol/L (3.5-5.1)
--- NOTE | 2017-12-09 07:18 | NUR ---
ENDORSED PLAN OF CARE TO DAY SHIFT NURSE LINDA RN, PT IN STABLE CONDITION, NO DISTRESS NOTED, CALL LIGHT WITHIN REACH.
--- NOTE | 2017-12-09 07:30 | NUR ---
RECEIVED PT FROM REGULATOR OPERATOR NURSE. PT IS RESTING IN BED, AWAKE, ALERT, OX2. NO S/S OF ACUTE DISTRESS. RESPIRATION EVEN AND UNLABORED. PT IS ON RM AIR, 92%-94%. IV SALINE LOCK AT THE LEFT FOREARM G22, FLUSHED, PATENT, INTACT AND ASYMPTOMATIC. REORIENTED TO HOSPITAL SETTING. FALL PRECAUTIONS IN PLACE. DENIES PAIN. BED IN LOW POSITION. BED ALARM IS ON. WILL CONTINUE TO MONITOR.
[2017-12-09 08:00] VITALS: BP 132/78
[2017-12-09] MEDS: FERROUS SULFATE 325 MG TABEC PO SCH ×2 (08:46→17:12)
[2017-12-09] MEDS: PANTOPRAZOLE 40 MG TABEC PO SCH (08:46)
[2017-12-09] MEDS: LACTULOSE 20 GM/30 ML UDC PO SCH ×3 (08:46→17:11)
[2017-12-09] MEDS: FUROSEMIDE 20 MG/2 ML VIAL IVP SCH ×2 (08:47→20:57)
[2017-12-09] MEDS: DIVALPROEX 500 MG TABER PO SCH ×2 (08:47→20:57)
[2017-12-09] MEDS: BENZTROPINE 1 MG TAB PO SCH (08:47)
[2017-12-09] MEDS: LISINOPRIL 20 MG TAB PO SCH ×2 (08:47→20:57)
[2017-12-09] MEDS: CALCIUM CARB/VIT-D 500 MG/200 IU 1 TAB PO SCH (08:47)
[2017-12-09] MEDS: ARIPiprazole 10 MG TAB PO SCH (08:47)
[2017-12-09] MEDS: RIFAXIMIN 550 MG TAB PO SCH ×2 (08:48→20:58)
[2017-12-09] MEDS: METOPROLOL SUCCINATE 50 MG TABER PO SCH (08:48)
--- NOTE | 2017-12-09 11:30 | NUR ---
HELPED PT TO BATHROOM. PT HAD A BM. PT WANTS TO SIT DOWN AT THE CHAIR. NO S/S OF ACUTE DISTRESS. WILL CONTINUE TO MONITOR.
--- NOTE | 2017-12-09 13:02 | NUR ---
FAXED CONCURRENT REVIEW TO [facility] [phone] PHONE GROVER [phone]
--- NOTE | 2017-12-09 13:30 | NUR ---
BRANCH CREDIT COUNSELOR FROM [facility] CAME TO SEE THE PT. PT IS RESTING IN CHAIR. NO ACUTE DISTRESS NOTED.
--- NOTE | 2017-12-09 15:02 | NUR ---
PHYSICAL THERAPY CO-SIGN The Physical Therapy Progress Notes documented by Reconnaissance Man have been reviewed. I CONCUR W/MUSCULOSKELETAL PHYSIOTHERAPIST NOTE; CONT PER TX PLAN Reviewed/Co-Signed by: Lyn Burr, PT Documentation Done by: DEMETRIO THRASHER, MUSCULOSKELETAL PHYSIOTHERAPIST Addendum: 12/09/17 at 1503 by Lyn Burr PT Amended: Links added.
--- NOTE | 2017-12-09 15:38 | NUR ---
MERLINE FROM [facility] CAME THIS PM TO SEE PATIENT. HE HAS BEEN ACCEPTED. THEY ARE WAITING FOR CARRI FROM [facility]. RECEIVED A CALL FROM ADY FROM [facility]. THEY SENT AN CARRI TO [facility]. THE AUTH FOR SNF IS [id number]. SHE SAID FOR TRANSPORT USE [facility] TRANSPORT AUTH [id number]. I CALLED [facility] AND INFORMED HER. HE WILL GO TO ROOM 213B UNDER DR. BROTHERS/ [facility] RESPITE WORKER NURSE WILL ARRANGE TRANSPORT. [facility] PHONE [phone].
[2017-12-09] MEDS ORDERED: ROB PO (15:51)
[2017-12-09] MEDS ORDERED: LACT10SO11 PO (15:51)
[2017-12-09] MEDS ORDERED: METO50TE2 PO (15:51)
[2017-12-09] MEDS ORDERED: FERR-18 PO (15:51)
[2017-12-09] MEDS ORDERED: ASCO-786 PO (15:51)
[2017-12-09] MEDS ORDERED: QUET100T44 PO (15:51)
[2017-12-09] MEDS ORDERED: FURO-572 PO (15:51)
[2017-12-09] MEDS ORDERED: DOCU-299 PO (15:51)
[2017-12-09] MEDS ORDERED: RIFA550T PO (15:51)
[2017-12-09] MEDS ORDERED: PANT40EC28 PO (15:51)
[2017-12-09] MEDS ORDERED: LISI-420 PO (15:51)
[2017-12-09 16:00] VITALS: BP 122/78
--- NOTE | 2017-12-09 16:02 | NUR ---
SET UP TRANSPORTATION [facility]RU [facility] AND SPOKE WITH NITHYA, THE EARLIEST TIME THEY CAN STATION ATTENDANT PT WILL BE @ 2130 TONIGHT, IF WHEELCHAIR WILL BE LATER AFTER 2230. KO NOTIFIED. PITO SENIOR C SOFTWARE ENGINEER AT [facility] NOTIFIED THAT THE STATION ATTENDANT TIME WILL BE AT 2130 HRS.
--- NOTE | 2017-12-09 16:44 | NUR ---
CALLED [facility], REPORT GIVEN TO MIGUE. RECEIVED DR BROTHERS. PT GOING TO RM 213 BED B. WARM IN TIME 2129.
--- NOTE | 2017-12-09 19:30 | NUR ---
ENDORSED PT TO JOB LITHOGRAPHER RN. PT IS IN STABLE CONDITION.
--- NOTE | 2017-12-09 19:35 | NUR ---
RECEIVED REPORT FROM DAY SHIFT RN, PATIENT RESTING IN BED, NO S/S OF DISTRESS NOTED, RESPIRATION EVEN AND UNLABORED. PER DAY SHIFT RN, PATIENT WILL BE PICKED UP BY [facility] T[facility], ALL THE DISCHARGE INSTRUCTION WERE DONE. PATIENT'S VITAL SIGNS STABLE, CALL LIGHT WITHIN REACH, SAFETY MEASURE ENSURED, WILL CONTINUE TO MONITOR.
[2017-12-09] MEDS: QUEtiapine FUMARATE 100 MG TAB PO SCH (20:57)
--- NOTE | 2017-12-09 21:04 | NUR ---
DUE MEDICATION GIVEN, PATIENT TOLERATED WELL. NO S/S OF DISTRESS NOTED, RESPIRATION EVEN AND UNLABORED, CALL LIGHT WITHIN REACH, SAFETY MEASURE ENSURED, WILL CONTINUE TO MONITOR.
--- NOTE | 2017-12-09 22:17 | NUR ---
FOUND PATIENT WALKING OUT FROM HIS ROOM, ASSISTED PATIENT BACK TO HIS ROOM, PATIENT IS RESTING IN BED, NO S/S OF DISTRESS NOTED, RESPIRATION EVEN AND UNLABORED, CALL LIGHT WITHIN REACH, BED ALARM ON, SAFETY MEASURE ENSURED, WILL CONTINUE TO MONITOR.
--- NOTE | 2017-12-09 23:27 | NUR ---
REPORT GIVEN TO JAGJIT STEEL FROM [facility]. PATIENT LEFT UNIT IN STABLE CONDITION VIA [facility].
== END 2017-12-09 23:25 | DRG 917 ==
LOC: MED 12:03 → MTU 22:48
PROVIDERS: ADMIT Family Medicine Sports Medicine; ATTEND Family Medicine Sports Medicine
DX: T45.0X1A Poisoning by antiallergic and antiemetic drugs, accidental (unintentional), initial encounter (principal); K72.00 Acute and subacute hepatic failure without coma; N17.0 Acute kidney failure with tubular necrosis; I21.A1 Myocardial infarction type 2; E43 Unspecified severe protein-calorie malnutrition; G92 Toxic encephalopathy; I50.43 Acute on chronic combined systolic (congestive) and diastolic (congestive) heart failure; M62.82 Rhabdomyolysis; E83.42 Hypomagnesemia; K72.10 Chronic hepatic failure without coma; F15.20 Other stimulant dependence, uncomplicated; T43.621A Poisoning by amphetamines, accidental (unintentional), initial encounter; E11.9 Type 2 diabetes mellitus without complications; E87.6 Hypokalemia; K21.9 Gastro-esophageal reflux disease without esophagitis; F25.0 Schizoaffective disorder, bipolar type; R45.850 Homicidal ideations; F31.9 Bipolar disorder, unspecified; R74.0 Nonspecific elevation of levels of transaminase and lactic acid dehydrogenase [LDH]; D50.9 Iron deficiency anemia, unspecified; F12.20 Cannabis dependence, uncomplicated; J44.9 Chronic obstructive pulmonary disease, unspecified; R60.0 Localized edema; F19.10 Other psychoactive substance abuse, uncomplicated; I70.0 Atherosclerosis of aorta; F17.210 Nicotine dependence, cigarettes, uncomplicated; I11.0 Hypertensive heart disease with heart failure; Z91.5 Personal history of self-harm; Z88.8 Allergy status to other drugs, medicaments and biological substances; Z91.09 Other allergy status, other than to drugs and biological substances; Z90.49 Acquired absence of other specified parts of digestive tract; Y92.89 Other specified places as the place of occurrence of the external cause; Z86.73 Personal history of transient ischemic attack (TIA), and cerebral infarction without residual deficits; Z68.21 Body mass index [BMI] 21.0-21.9, adult
CPT/HCPCS: 36415; 70450; 71045; 76700; 80048; 80053; 80305; 81003; 82140; 82550; 82553; 82948; 83036; 83540; 83605; 83690; 83735; 83880; 84100; 84436; 84443; 84479; 84484; 85025; 85610; 85730; 87040; 87081; 93005; 96361; 96372; 96374; 96375; 97110; 97116; 97140; 97530; 99285; G0480; G0482; J1200; J1630; J1940; J2001; J2060; J2916; J3475; J3480; J7030; Q0092

== ENCOUNTER 2018-01-05 07:29 | Inpatient (IN) | payer OTHER ==
[~2018-01-05] VITALS: Ht 162.6 cm; Wt 65.8 kg
[2018-01-05] VITALS (16 sets, daily range): BP systolic 95–147; BP diastolic 39–71
[~2018-01-05 07:29] MED LIST changes: +ASCO-786 PO; -CLIN300C2 PO; +DOCU-299 PO; +FERR-18 PO; -LACT10CA PO; +LACT10SO11 PO; -LEVO750T2 PO; +LISI-420 PO; -OMEP20TC12 PO; -ORE25 PO; +PANT40EC28 PO; -PRED10TA6 PO; +QUET100T44 PO; -QUET400T PO; +RIFA550T PO
--- NOTE | 2018-01-05 07:50 | NUR ---
67/BIB SELF c/o sob and chest pain. pt is awake, alert, able to follow commands but lethargic and drowsy. OREITED TO HIS NAME. C/O PAIN ALL OVER BODY. PITTING EDEMA CHRISS LEGS +4. SKIN ABRASION L FOOT.CHRISS LUNGS CONGESTED.hx--htn, dm . DENIES N/V/D.PATIENT STATES PAIN OF 8/10 AT THIS TIME. PATIENT POSITIONED FOR COMFORT; HOB ELEVATED; BEDRAILS UP X2; BED DOWN. ER MD MADE AWARE OF PT STATUS.
--- NOTE | 2018-01-05 07:55 | NUR ---
Patient being evaluated by DR GAY at bedside.
[2018-01-05] MEDS ORDERED: NACL 0.9% 1,000 ML IV SCH (08:00)
[2018-01-05] MEDS ORDERED: methylPREDNISolone SS 125 MG/2 ML VIAL IVP ONE (08:05)
[2018-01-05] MEDS ORDERED: IPRATROPIUM 0.02% 0.5 MG/2.5 ML NEBU INH ONE (08:05)
[2018-01-05] MEDS ORDERED: ALBUTEROL 0.083% 2.5 MG/3 ML NEBU INH ONE (08:05)
[2018-01-05 08:21] LABS: PLATELET COUNT (AUTO) 67 K/uL (140-450)
[2018-01-05 08:28] LABS: BASOPHILS % (AUTO) 0.1 % (0.0-2.0); EOSINOPHILS % (AUTO) 0.1 % (0.0-4.0); HEMATOCRIT 32.4 % (36-52); LYMPHOCYTES # (AUTO) 1.2 K/uL (2.0-11.5); LYMPHOCYTES % (AUTO) 8.1 % (20.5-51.1); MEAN CORPUSCULAR HEMOGLOBIN 27 pg (27-31); MEAN CORPUSCULAR HGB CONC 31 g/dL (33-37); MEAN CORPUSCULAR VOLUME 87.6 fL (80-94); MONOCYTES # (AUTO) 0.4 K/uL (0.8-1.0); MONOCYTES % (AUTO) 2.5 % (1.7-9.3); NEUTROPHILS # (AUTO) 13.7 K/uL (1.8-7.7); NEUTROPHILS % (AUTO) 89.2 % (42.2-75.2); RED BLOOD CELL COUNT(AUTO) 3.71 MIL/uL (4.20-6.10); RED CELL DISTRIBUTION WIDTH 26.6 % (11.6-13.7); WHITE BLOOD COUNT (AUTO) 15.3 K/uL (4.8-10.8)
--- NOTE | 2018-01-05 08:30 | NUR ---
RT AT BEDSIDE FOR BREATHING TREATMENT
[2018-01-05] MEDS ORDERED: NACL 0.9% 250 ML IV ONE (08:45)
[2018-01-05] MEDS ORDERED: NACL 0.9% 1,000 ML IV ONE (08:45)
[2018-01-05] MEDS ORDERED: AZITHROMYCIN 500 MG in DEXTROSE 5% 250 ML IV ONE (08:45)
--- NOTE | 2018-01-05 08:47 | NUR ---
BREATHING TX ADMINISTERED. JOHNATHON WELL. NO ADVERSE REACTIONS. WILL CONTINUE TO MONITOR.
[2018-01-05] MEDS ORDERED: cefTRIAXone 1,000 MG VIAL ONE (08:49)
[2018-01-05] MEDS ORDERED: AZITHROMYCIN 500 MG INJ VIAL IV ONE (08:49)
[2018-01-05 08:50] LABS: PROTHROMBIN TIME 14.6 secs (10.8-13.4)
--- NOTE | 2018-01-05 09:23 | NUR ---
CHRISS LUNGS CRACKLE REPORT DR GAY PULSE 89% . CURTIS PARDO. CALLED RT .
--- NOTE | 2018-01-05 09:32 | NUR ---
RT AT BEDSIDE FOR SET BI PAP. Addendum: 01/05/18 at 0951 by [email or web address] OXYGEN 50%, IPAP 08/17.
--- NOTE | 2018-01-05 09:51 | NUR ---
Patient appears to be resting comfortably in bed. BP 131/54. PULSE 90% ON BI PAP AT THIS TIME. WILL CONTINUE TO MONITOR.
[2018-01-05 09:52] LABS: ALBUMIN 1.8 g/dL (3.4-5.0); ANION GAP 12.9 (8-16); CARBON DIOXIDE 23.5 mmol/L (21-32); CREATININE 1.6 mg/dL (0.7-1.3)
[2018-01-05 09:57] LABS: POTASSIUM 2.4 mmol/L (3.5-5.1)
--- NOTE | 2018-01-05 10:00 | NUR ---
PT PLACED ON BIPAP PER MD. BIPAP SETTINGS 08/17, BUR 12, FIO2 50%, I-TIME 1.00, RISE 4. TOLERATING BIPAP WELL. ALARMS ON AND AUDIBLE. PROTECTIVE SKIN GEL IN PLACE. NO DISTRESS NOTED AT THIS TIME. WILL CONTINUE TO MONITOR.
[2018-01-05] MEDS ORDERED: KCL 20 MEQ/WATER INJ PREMIX 100 ML IV ONE (10:05)
--- NOTE | 2018-01-05 11:10 | NUR ---
Patient being reevaluated by DR GAY at bedside.
--- NOTE | 2018-01-05 11:20 | NUR ---
PATIENT RESTING QUIETLY. TOLERATING BIPAP WELL. NO RESPIRATORY DISTRESS NOTED AT THIS TIME. WILL CONTINUE TO MONITOR.
--- NOTE | 2018-01-05 11:32 | NUR ---
PT IS UNABLE TO PROVIDE URINE AT THIS TIME. DR GAY NOTIFIED.
[2018-01-05] MEDS ORDERED: ALBUTEROL SULFATE/IPRATROPIU 3 ML SOL IH PRN (11:40)
[2018-01-05] MEDS ORDERED: ACETAMINOPHEN 325 MG TAB PO PRN (11:40)
[2018-01-05] MEDS ORDERED: ONDANSETRON 4 MG/2 ML VIAL IVP PRN (11:40)
[2018-01-05] MEDS ORDERED: DOCUSATE SODIUM 100 MG GELCAP PO PRN (11:50)
[2018-01-05] MEDS ORDERED: guaiFENesin 20 MG/ML UDC PO PRN (11:50)
--- NOTE | 2018-01-05 11:53 | NUR ---
ADMITTED A 67 YO MALE FROM ER WITH CO SHORTNESS OF BREATH .RESPIRATORY THERAPIST PUT ON BIPAP.PT IS ALERT TO PERSON AND PLACE BUT GOES BACK TO SLEEP.PT DOESNT ANSWER MOST OF THE QUESTION.LEFT AC SALINE LOCK NO SIGNS OF INFILTRATION.BILATERAL LOWER EXTREMITIES SWOLLEN ELEVATED .LEFT ANTERIOR FOOT ABRASION RED IN COLOR,NO DRAINAGE.NSR ON THE MONITOR.KRIDER AND NS I LITER FINISHED FROM ER.NO CO PAIN NOR SHORTNESS OF BREATH.PT IS NOT IN RESPIRATORY DISTRESS.WILL MONITOR.
[2018-01-05] MEDS ORDERED: ALBUTEROL HFA MDI 90 MCG/ACTUATION 8 GM INH SCH (12:00)
--- NOTE | 2018-01-05 12:00 | NUR ---
Patient will be admitted to care of DR JARAMILLO. Admited to ICU. Will go to room1. Belongings list completed. Report to KO AGUAYO.
--- NOTE | 2018-01-05 12:02 | NUR ---
PATIENT TRANSFERRED TO ICU BED 2. PLACED PT BACK ON DOCUMENTED BIPAP SETTINGS. TOLERATING WELL. WILL CONTINUE TO MONITOR.
--- NOTE | 2018-01-05 12:20 | NUR ---
RECEIVED ON A CHRISTOPHER [employer] V60 BIPAP PLUGGED INTO RED OUTLET TOLERATING WELL WITHOUT ADVERSE REACTION NOTED TO A LARGE FACIAL MASK SECURED WITH HEAD GEAR LOC SLEEPING RESTING COMFORTABLY WITHOUT RESPIRATORY DISTRESS NOTED SKIN TONE PINK BREATH SOUNDS RALES BILATERAL WITH GOOD CHEST RISE REVIEWED ABG SAMPLE REPORT, CXR, HEMATOLOGY AND HX DECREASED IPAP TO 98vhE0C AND EPAP TO 5 cmH2O ULTRASOUND TECH CONTINUE TO MONITOR
[2018-01-05] MEDS ORDERED: METOPROLOL SUCCINATE 50 MG TABER PO SCH (12:30)
[2018-01-05] MEDS ORDERED: POTASSIUM CHLORIDE 40 MEQ, LIDOCAINE 1% 25 MG in NACL 0.9% 250 ML IV ONE (12:40)
[2018-01-05] MEDS: LACTULOSE 20 GM/30 ML UDC PO SCH ×2 (13:01→16:52)
[2018-01-05] MEDS: NACL 0.9% 1,000 ML IV SCH ×2 (13:02→21:24)
[2018-01-05] MEDS: CLINDAMYCIN PHOS. 600MG/D5W PM 50 ML IV SCH ×2 (13:04→21:25)
[2018-01-05 13:47] LABS: FREE T4 (FREE THYROXINE) 0.98 ng/dL (0.76-1.46); THYROID STIMULATING HORMONE 2.05 uIU/mL (0.34-3.74)
[2018-01-05] MEDS ORDERED: LEVOFLOXACIN 750 MG/D5W PREMIX 150 ML IV SCH (14:00)
[2018-01-05] MEDS: ALBUTEROL SULFATE/IPRATROPIU 3 ML SOL IH SCH ×2 (14:06→18:59)
--- NOTE | 2018-01-05 14:06 | NUR ---
SPUTUM COLLECTION USING STERILE TECHNIQUE APPLIED MEDLINE [place] LUBRICANT TO THE TIP OF A MEDLINE 14FR SUCTION CATHETER INSERTED INTO RIGHT AND LEFT NASAL X 1 OBTAINED MODERATE THICK YELLOW WITH SLIGHT HEMO TOLERATED PROCEDURE WELL WITHOUT ADVERSE REACTIONS NOTED HYPEROXYGENATION PRE AND POST SUCTIONING WITH BIPAP TO MASK
--- NOTE | 2018-01-05 14:35 | NUR ---
SATURATION 99% ON FIO2 OF 50% POST SPUTUM COLLECTION TITRATED FIO2 TO 40% KO/RN NOTIFIED
[2018-01-05] MEDS: KCL 20 MEQ/WATER INJ PREMIX 100 ML IV SCH ×2 (14:53→16:55)
--- NOTE | 2018-01-05 15:13 | NUR ---
RESTING WELL NO SOB NOTED BREATH SOUNDS INSP/EXP WHEEZE BILATERAL HHN PRN THERAPY GIVEN POST ABG PUNCTURE
--- NOTE | 2018-01-05 15:40 | NUR ---
CALLED DR. RUDOLPH ROBERSON [phone] TO REVIEW AB SAMPLE REPORT
--- NOTE | 2018-01-05 15:41 | NUR ---
CALLED DR. ADALGISA MERIDA [id number] REVIEWED ABG SAMPLE REPORT NO NEW ORDERS
[2018-01-05] MEDS: FERROUS SULFATE 325 MG TABEC PO SCH (16:52)
--- NOTE | 2018-01-05 17:00 | NUR ---
DR MERIDA NOTIFIED PATIENT DID NOT URINATE YET .PER MD DOES NOT WANT HORNER TO BE INSERTED JUST WAIT FOR LASIX TO BE GIVEN LATER.
--- NOTE | 2018-01-05 17:13 | NUR ---
NO RESPIRATORY DISTRESS NOTED BREATH SOUNDS RALES BILATERAL WITH GOOD CHEST RISE SATURATION 97% ON FIO2 OF 40% TITRATED FIO2 TO 35% KO/RN NOTIFIED
--- NOTE | 2018-01-05 17:30 | NUR ---
UNABLE TO DO FAMILY ASSESSMENT DUE TO PATIENT NOT ANSWERING QUESTIONS.
--- NOTE | 2018-01-05 18:45 | NUR ---
family assessment was done patient is more conversant.
[2018-01-05] MEDS: BUDESONIDE 0.5 MG/2 ML NEBU INH SCH (18:59)
--- NOTE | 2018-01-05 19:17 | NUR ---
report given to
--- NOTE | 2018-01-05 19:30 | NUR ---
RECEIVED PT FROM AM SHIFT,PER REPORT PT IS NEW ADMIT IN AM. PT IS ALERT ORIENTED X3, NO S/S OF RESP.DISTRESS,NO SOB. HOB UP 30-45 DEGREE ALL THE TIMES. O2 VIA BI-PAP TOLERATED WELL.RATE 12,I/E 10/5,FIO2 35% TOLERATED WELL. LUNGS SOUND RHONCHI BILATERALLY . NSR ON MONITOR. DENIES ANY PAIN AT THIS TIME. IV TO LEFT AC NO 20 INTACT WELL. IV NS AT 126 CC/HR ORDER.ABD SOFT MILD DISTENDED. PER REPORT PT IS NPO AT THIS TIME, PER REPORT NEED URINE FOR UA C&S AND UDS .NO URINE OUT PUT SINCE ADMISSION.SKIN NON INTACT ABRASION TO LEFT LEG.KEPT CLEAN AND DRY. CALL LIGHT IN REACH.
--- NOTE | 2018-01-05 19:55 | NUR ---
PATIENT ON BIPAP AND SAO2 92% RR 22-24BPM UNABLE TO PERFORM INCENTIVE SPIROMETER AT THIS TIME
[2018-01-05] MEDS ORDERED: LISINOPRIL 20 MG TAB PO SCH (21:00)
--- NOTE | 2018-01-05 21:00 | NUR ---
PT SAYING NEED TO URINATE, URINAL GIVEN AND PT UNABLE TO URINATE. BLADDER DISTENTION NOTED. MADE AWARE. NER ORDER TO INSERT F/C . ALSO AWARE PT KEPT ASKING FOR WATER, NEW ORDER GIVEN CARDIAC DIET.F/C INSERTED. NOTED YELLOW CLOUDY URINE ABOUT 300 CC. URINE FOR UA C&S AND UDS SENT TO LAB. PT VERBALIZED FEELING MUCH BETTER.
[2018-01-05] MEDS ORDERED: CLINDAMYCIN 600 MG/4 ML VIAL ONE (21:14)
[2018-01-05] MEDS: RIFAXIMIN 550 MG TAB PO SCH (21:23)
[2018-01-05] MEDS: DIVALPROEX 500 MG TABER PO SCH (21:23)
[2018-01-05 21:40] LABS: BARBITURATE, URINE NEG. ng/ml (NEG <=200); BENZODIAZEPINE, URINE NEG. ng/mL (NEG <=200); CANNABINOID, URINE NEG. ng/mL (NEG <=50); COCAINE, URINE NEG. ng/mL (NEG <=300); OPIATE, URINE NEG. ng/mL (NEG <=2000); PHENCYCLIDINE SCREEN,URINE NEG. ng/mL (NEG <=25)
--- NOTE | 2018-01-05 21:45 | NUR ---
IV ABT AND NIGHT MEDS GIVEN PO TOLERATED WELL, PT DRINK 100 CC ORANGE JUICE,NO S/S OF ASPIRATION. REPOSITION PT FOR COMFORT.
[2018-01-05 21:56] LABS: APPEARANCE,URINE CLEAR (CLEAR); BLOOD, URINE NEGATIVE (NEGATIVE); COLOR,URINE YELLOW (YELLOW); LEUKOCYTE ESTERASE ,URINE NEGATIVE (NEGATIVE); NITRITE, URINE NEGATIVE (NEGATIVE); PH,URINE 5.5 (5.0-9.0); UGLUCOSE NEGATIVE (NEGATIVE)
[2018-01-05 21:58] LABS: BILIRUBIN,URINE NEGATIVE (NEGATIVE)
[2018-01-05 22:12] LABS: HYALINE CASTS, URINE 0-10 /LPF (None Seen); RBC,URINE 0-5 (RARE) /HPF (0-5); WBC,URINE 0-5 (RARE) /HPF (0-5)
[2018-01-05 22:44] LABS: ANION GAP 18.7 (8-16); CARBON DIOXIDE 14.7 mmol/L (21-32); CREATININE 1.3 mg/dL (0.7-1.3); POTASSIUM 3.4 mmol/L (3.5-5.1)
[2018-01-06] VITALS (13 sets, daily range): BP systolic 93–164; BP diastolic 63–94
--- NOTE | 2018-01-06 00:10 | NUR ---
PT SLEEP WELL, NO S/S OF PAIN,NO S/S OF ANY DISTRESS.
--- NOTE | 2018-01-06 02:10 | NUR ---
PT SLEEPING WELL, EASY TO AWAKE,NO S/S OF ANY DISTRESS.REPOSITION FOR COMFORT.
[2018-01-06] MEDS: NACL 0.9% 1,000 ML IV SCH (04:22)
[2018-01-06] MEDS: CLINDAMYCIN PHOS. 600MG/D5W PM 50 ML IV SCH ×3 (04:22→21:06)
--- NOTE | 2018-01-06 05:30 | NUR ---
AM CARE GIVEN. SPONGE BATH,ORAL CARE AND F/C CARE. NO BM AT THIS TIME. KEPT CLEAN AND DRY. CALL LIGHT IN REACH.
[2018-01-06 05:37] LABS: BASOPHILS % (AUTO) 0.1 % (0.0-2.0); HEMATOCRIT 32.3 % (36-52); HEMOGLOBIN 10.2 g/dL (12.0-18.0); LYMPHOCYTES # (AUTO) 0.9 K/uL (2.0-11.5); LYMPHOCYTES % (AUTO) 5.6 % (20.5-51.1); MEAN CORPUSCULAR HEMOGLOBIN 28 pg (27-31); MEAN CORPUSCULAR HGB CONC 32 g/dL (33-37); MEAN CORPUSCULAR VOLUME 87.3 fL (80-94); MONOCYTES # (AUTO) 0.5 K/uL (0.8-1.0); MONOCYTES % (AUTO) 3.3 % (1.7-9.3); NEUTROPHILS # (AUTO) 14.3 K/uL (1.8-7.7); PLATELET COUNT (AUTO) 57 K/uL (140-450); RED CELL DISTRIBUTION WIDTH 26.5 % (11.6-13.7); WHITE BLOOD COUNT (AUTO) 15.7 K/uL (4.8-10.8)
[2018-01-06 06:29] LABS: ANION GAP 14.7 (8-16); CARBON DIOXIDE 19.2 mmol/L (21-32); CREATININE 1.2 mg/dL (0.7-1.3)
--- NOTE | 2018-01-06 06:31 | NUR ---
PT DRINK 50 CC WATER TOLERATED WELL, NO S/S OF ASPIRATION.
[2018-01-06 06:35] LABS: POTASSIUM 2.9 mmol/L (3.5-5.1)
[2018-01-06 06:40] LABS: MAGNESIUM 1.7 mg/dL (1.8-2.4); PHOSPHORUS 6.1 mg/dL (2.5-4.9)
[2018-01-06] MEDS ORDERED: POTASSIUM CHLORIDE 40 MEQ, LIDOCAINE 1% 25 MG in NACL 0.9% 250 ML IV ONE (06:45)
[2018-01-06] MEDS ORDERED: MAG SULF 2000 MG/WATER PREMIX 100 ML IV ONE (06:45)
[2018-01-06] MEDS: ALBUTEROL SULFATE/IPRATROPIU 3 ML SOL IH SCH ×3 (07:29→20:58)
--- NOTE | 2018-01-06 07:30 | NUR ---
RECEIVED A REPORT FROM SKIN WASHER RNRUBÉN. PATIENT IS AWAKE AND ABLE TO MAKE NEEDS KNOWN, ORIENTED X2. ON BIPAP 06/16. RESPIRATION ARE EVEN AND UNLABORED. DENIES ANY PAIN OR DISCOMFORT AT THIS TIME. SINUS RHYTHM ON THE MONITOR. SKIN WARM TO TOUCH. BLE EDEMATOUS NOTED. HORNER CATHETER DRAINING SMALL AMOUNT OF YELLOW URINE. PERIPHERAL IV LINE TO LAC NOTED. SAFETY PRECAUTION IMPLEMENTED. BED IN LOW POSITION, CALL LIGHT WITHIN REACH. WILL CONTINUE TO MONITOR.
[2018-01-06] MEDS: BUDESONIDE 0.5 MG/2 ML NEBU INH SCH (07:35)
--- NOTE | 2018-01-06 07:38 | NUR ---
RECEIVED PT ON BIPAP /, R12 FIO2 35%. PT TOLERATING BIPAP WELL AT THIS TIME. PT REMAINS TACHYPNEIC. BREATHING TX ADMINISTERED. PROTECTA GEL PLACED UNDER MASK. PT IS AWAKE IN BED AT THIS TIME. BIPAP IS PLUGGED INTO A RED OUTLET WITH ALARMS ON AND FUNCTIONING. WILL CONTINUE TO MONITOR.
--- NOTE | 2018-01-06 08:10 | NUR ---
REPLACED BIPAP TO OXYGEN 4L/MIN VIA N/C FOR BREAKFAST BY RT AND O2 SAT 92-95% NOTED.
--- NOTE | 2018-01-06 08:20 | NUR ---
RESIDENT GROUP IN TO SEE PATIENT. WILL FOLLOW UP ON ORDERS. Addendum: 01/06/18 at 0843 by Horacio Chopra RN PHARMACY STATED THAT POTASSIUM WITH XYLOCAINE IVPB NOT AVAILABLE AT THIS TIME AND DR. ADALGISA MERIDA WAS NOTIFIED. DR. MERIDA STATED THAT SHE WILL CHANGE TO PO ORDER INSTEAD.
[2018-01-06] MEDS: ASCORBIC ACID 500 MG TAB PO SCH (08:21)
[2018-01-06] MEDS: LACTULOSE 20 GM/30 ML UDC PO SCH ×4 (08:21→17:00)
[2018-01-06] MEDS: CALCIUM ACETATE 667 MG TAB PO SCH ×3 (08:22→17:27)
[2018-01-06] MEDS: DIVALPROEX 500 MG TABER PO SCH (08:22)
[2018-01-06] MEDS: RIFAXIMIN 550 MG TAB PO SCH ×2 (08:22→21:07)
[2018-01-06] MEDS: PANTOPRAZOLE 40 MG TABEC PO SCH (08:22)
[2018-01-06] MEDS: BENZTROPINE 1 MG TAB PO SCH (08:22)
[2018-01-06] MEDS: LACTOBACILLUS RHAMNOSUS GG 1 EACH CAP PO SCH (08:22)
[2018-01-06] MEDS: ARIPiprazole 10 MG TAB PO SCH (08:23)
[2018-01-06] MEDS: FERROUS SULFATE 325 MG TABEC PO SCH ×2 (08:23→17:28)
--- NOTE | 2018-01-06 08:35 | NUR ---
ADMINISTERED ALL MEDICATIONS ORDERED AND PATIENT TOLERATED WELL.
--- NOTE | 2018-01-06 08:39 | NUR ---
PATIENT ATE BREAKFAST 75% WITH ONLY SET UP ASSIST. ENCOURAGED FLUIDS INTAKE TOLERATED.
--- NOTE | 2018-01-06 08:48 | NUR ---
PT ON 4L NC AT THIS TIME. SPO2 94%. PT NOT DEMONSTRATING ANY SIGNS/SYMPTOMS OF RESPIRATORY DISTRESS, PT NOT SOB. WILL CONTINUE TO MONITOR. NURSE IS BEDSIDE.
--- NOTE | 2018-01-06 08:50 | NUR ---
PATIENT REFUSED LACTULOSE MEDICATION AND NOTIFIED TO DR. ADALGISA EMRIDA. PATIENT'S AMMONIA LEVEL WAS NORMAL RANGE HOWEVER HE WAS TAKING LACTULOSE AT HOME. NO NEW ORDER AT THIS TIME AND WILL CONTINUE TO MONITOR.
[2018-01-06] MEDS: POTASSIUM CHLORIDE 20% 40 MEQ/15 ML UDC PO SCH ×3 (08:59→17:27)
[2018-01-06] MEDS ORDERED: POTASSIUM CHLORIDE 20% 40 MEQ/15 ML UDC PO SCH (09:00)
[2018-01-06] MEDS ORDERED: FUROSEMIDE 20 MG TAB PO SCH (09:00)
[2018-01-06] MEDS ORDERED: PANTOPRAZOLE 40 MG TABEC PO SCH (09:00)
[2018-01-06] MEDS ORDERED: DOCUSATE 100 MG/10 ML UDC PO SCH (09:00)
[2018-01-06] MEDS ORDERED: NON-FORMULARY ITEM (Ascorbic Acid (Vitamin C) 500 MG) PO SCH (09:00)
--- NOTE | 2018-01-06 09:09 | NUR ---
PATIENT HAS BEEN SCREENED AND CATEGORIZED HIGH NUTRITION RISK. PATIENT WILL BE SEEN WITHIN 1-2 DAYS OF ADMISSION. 01/05/18 - 01/06/[address]
--- NOTE | 2018-01-06 09:55 | NUR ---
Monotyper's notes: I attempted to meet with Patient to do screen Patient was sleeping and unable to communicate his needs. general worker will attempt in another time.
--- NOTE | 2018-01-06 10:09 | NUR ---
DR. ROBERSON IN TO SEE PATIENT. WILL FOLLOW UP ON ORDERS.
--- NOTE | 2018-01-06 10:10 | NUR ---
DR. MART IN TO SEE PATIENT. WILL FOLLOW UP ON ORDERS.
--- NOTE | 2018-01-06 10:17 | NUR ---
DR. BROTHERS IN TO SEE PATIENT. WILL FOLLOW UP ON ORDERS.
[2018-01-06] MEDS ORDERED: FUROSEMIDE 20 MG/2 ML VIAL IVP SCH (10:30)
--- NOTE | 2018-01-06 10:39 | NUR ---
FAXED INITIAL REVIEW TO [facility] [phone] PHONE GROVER [phone]
--- NOTE | 2018-01-06 14:56 | NUR ---
01/06/18 RD INITIAL ASSESSMENT COMPLETED PLEASE REFER TO NUTRITION ASSESSMENT UNDER CARE ACTIVITY FOR ESTIMATED NUTRITIONAL NEEDS. 1. RECOMMEND CARDIAC, CCHO [address] TO FOLLOW-UP 3-5 DAYS, MODERATE RISK PAVITHRA ANGEL RD
--- NOTE | 2018-01-06 16:15 | NUR ---
DR. MCKENZIE WAS NOTIFIED OF INCREASING BLOOD PRESSURE 164/79. WILL FOLLOW UP ON ORDERS.
[2018-01-06 17:32] LABS: ANION GAP 16.6 (8-16); CARBON DIOXIDE 18.2 mmol/L (21-32); CREATININE 1.3 mg/dL (0.7-1.3); POTASSIUM 3.8 mmol/L (3.5-5.1)
--- NOTE | 2018-01-06 18:20 | NUR ---
PATIENT WAS TRANSFERRED TO TELEMETRY UNIT ROOM 124B. REPORT GIVEN TO DEDE ROCK AT BEDSIDE. PATIENT IS STABLE. Addendum: 01/06/18 at 1843 by Horacio Chopra RN ALL PERSONAL BELONGINGS TAKEN WITH PATIENT TO ROOM 124B AND ENDORSED TO DEDE CAMACHO.
--- NOTE | 2018-01-06 18:25 | NUR ---
PATIENT BROUGHT TO UNIT VIA WHEELCHAIR FROM ICU. PATIENT IS AAOX2-3, HAS BOUTS OF FORGETFULNESS. HE IS ON A NASAL CANNULA AT 4LPM, HE HAD SOME DIFFICULTY TRANSFERRING FROM THE WHEELCHAIR TO THE BED. BUT NO SIGNS AND SYMPTOMS OF ACUTE DISTRESS NOTED AT THIS TIME. ORIENTED PATIENT TO THE ROOM. HAS IV TO THE LEFT HAND AND FOREARM ON SALINE LOCK AT THIS TIME. HAS HORNER CATHETER DRAINING TO GRAVITY. BED IN LOWEST POSITION, SIDE RAILS UP X2, CALL LIGHT PLACED WITHIN REACH. WILL CONTINUE TO MONITOR.
--- NOTE | 2018-01-06 19:30 | NUR ---
RECEIVED PATIENT IN BED IN HIGH-CAMARA POSITION WITH FC IN PLACE. PATIENT AWAKE AND ALERT WITH CALL LIGHT WITHIN REACH. FALL PRECAUTION IMPLEMENTED.WILL CONTINUE TO MONITOR.
--- NOTE | 2018-01-06 19:30 | NUR ---
ENDORSED PATIENT TO SCHOOL OFFICE MANAGER RN FOR CONTINUITY OF CARE. PATIENT IN STABLE CONDITION.
--- NOTE | 2018-01-06 20:30 | NUR ---
ASSESSED PATIENT PRIOR TO HHN TX. UPON ENTERING ROOM, PATIENT WAS AWAKE AND ALERT WITH RN AT BEDSIDE. PATIENT RESPONDED TO QUESTIONS AND ASKED TO BE MOVED UP IN THE BED AND ASKED FOR A CIGARETTE. B/S: CRACKLES IN THE RIGHT AND LEFT UPPER LOBES. DIMINISHED IN THE BASES PRE AND POST TX. COMPLETED HHN TX WITH NO ADVERSE EFFECTS. PLACED PATIENT FLAT TO MOVE UP IN THE BED WITH ASSISTANCE OF RN AND PATIENT CANNOT TOLERATE, ORTHOPNEA VERY QUICKLY. PATIENT IS TACHYPNEIC AT A RATE OF 22 BUT DOES NOT APPEAR TO BE IN RESPIRATORY DISTRESS. WILL CONTINUE TO MONITOR BIPAP IS PRN IF IN THE EVENT PATIENT NEEDS FURTHER ASSISTANCE.
[2018-01-06] MEDS: DIVALPROEX 500 MG TABEC PO SCH (21:06)
--- NOTE | 2018-01-06 22:52 | NUR ---
SEEN PATIENT ASLEEP IN BED IN SEMI- FOWLERS POSITION BUT EASILY AROUSABLE. NO S/S OF DISTRESS NOTED AT THIS TIME. BED ALARM ON . CALL LIGHT WITHIN REACH.
[2018-01-07] VITALS: BP 139/68
--- NOTE | 2018-01-07 01:05 | NUR ---
SEEN PATIENT ASLEEP BUT EASILY AROUSABLE. NO S/ S OF DISTRESS AT THIS TIME. HORNER CATH IN PLACE FLOWING YELLOW COLOR URINE. FALL PRECAUTION IN EFFECT. WILL CONTINUE TO MONITOR.
--- NOTE | 2018-01-07 02:24 | NUR ---
ASSESSED PATIENT. UPON ENTERING ROOM, PATIENT HAD REMOVED HIS NASAL CANNULA AND SPO2 WAS AT 87%. PATIENT WAS AWKE AND ALERT ASKING TO GET OUT OF BED AND SIT IN CHAIR BECAUSE HE DOES NOT LIKE WATCHING TV. I ADVISED PATIENT THAT HE COULD BE ASSISTED INTO A CHAIR IN THE MORNING. PLACED NASAL CANNULA ON PATIENT, SPO2 INCREASED TO 93%, HEART RATE 91 AND RESPIRATORY RATE 18.
[2018-01-07 04:00] VITALS: BP 167/64
--- NOTE | 2018-01-07 04:56 | NUR ---
SEEN PATIENT ASLEEP IN SEMI [place] POSITION WITH OXYGEN ON. CALL LIGHT WITHIN REACH. WILL CONTINUE TO MONITOR.
[2018-01-07] MEDS: CLINDAMYCIN PHOS. 600MG/D5W PM 50 ML IV SCH (05:11)
[2018-01-07] MEDS: ALBUTEROL SULFATE/IPRATROPIU 3 ML SOL IH SCH ×3 (06:33→19:08)
[2018-01-07] MEDS: BUDESONIDE 0.5 MG/2 ML NEBU INH SCH ×2 (06:41→19:08)
--- NOTE | 2018-01-07 07:20 | NUR ---
ENDORSED PATIENT TO AM SHIFT NURSE FOR CONTINUITY OF CARE. PATIENT IN STABLE CONDITION.
[2018-01-07 07:28] LABS: HEMOGLOBIN 11.7 g/dL (12.0-18.0); PLATELET COUNT (AUTO) 87 K/uL (140-450)
[2018-01-07 07:39] LABS: MEAN CORPUSCULAR HEMOGLOBIN 27 pg (27-31); MEAN CORPUSCULAR HGB CONC 32 g/dL (33-37); MEAN CORPUSCULAR VOLUME 86.3 fL (80-94); RED BLOOD CELL COUNT(AUTO) 4.29 MIL/uL (4.20-6.10); RED CELL DISTRIBUTION WIDTH 26.9 % (11.6-13.7)
[2018-01-07 07:42] LABS: ANION GAP 16.9 (8-16); CARBON DIOXIDE 17.1 mmol/L (21-32); CREATININE 1.2 mg/dL (0.7-1.3)
[2018-01-07 07:48] LABS: WHITE BLOOD COUNT (AUTO) 33.7 K/uL (4.8-10.8)
--- NOTE | 2018-01-07 07:50 | NUR ---
PATIENT AWAKE, ALERT. RESPIRATION EVEN, UNLABOR ON 4L NC. SKIN DRY AND WARM. IV PATENT AND INTACT. DENIED PAIN, SOB AT THIS TIME. VS IS STABLE. PLAN OF CARE WAS DISCUSSED WITH PATIENT. BED AT LOW POSITION, SIDE RAILS UP. CALL LIGHT WITHIN REACH. BED ALARM IS ACTIVE
[2018-01-07 07:51] LABS: MAGNESIUM 1.9 mg/dL (1.8-2.4)
[2018-01-07 07:52] LABS: PHOSPHORUS 4.2 mg/dL (2.5-4.9)
[2018-01-07 08:00] VITALS: BP 169/70
[2018-01-07 08:01] LABS: LYMPHOCYTES % (MANUAL) 11 % (20-46); METAMYELOCYTES % 1 % (0-0); MONOCYTES % (MANUAL) 5 % (5-12); MYELOCYTES % 1 % (0-0)
[2018-01-07] MEDS: FUROSEMIDE 20 MG/2 ML VIAL IVP SCH ×2 (08:25→21:51)
[2018-01-07] MEDS: LACTULOSE 20 GM/30 ML UDC PO SCH ×4 (08:26→16:26)
[2018-01-07] MEDS: RIFAXIMIN 550 MG TAB PO SCH ×2 (08:27→21:00)
[2018-01-07] MEDS: PANTOPRAZOLE 40 MG TABEC PO SCH (08:27)
[2018-01-07] MEDS: LACTOBACILLUS RHAMNOSUS GG 1 EACH CAP PO SCH (08:27)
[2018-01-07] MEDS: ASCORBIC ACID 500 MG TAB PO SCH (08:27)
[2018-01-07] MEDS: BENZTROPINE 1 MG TAB PO SCH (08:27)
[2018-01-07] MEDS: FERROUS SULFATE 325 MG TABEC PO SCH ×2 (08:27→16:27)
[2018-01-07] MEDS: CALCIUM ACETATE 667 MG TAB PO SCH ×3 (08:28→16:26)
[2018-01-07] MEDS: ARIPiprazole 10 MG TAB PO SCH (08:28)
[2018-01-07] MEDS: DIVALPROEX 500 MG TABEC PO SCH ×2 (08:28→21:52)
[2018-01-07] MEDS ORDERED: FUROSEMIDE 20 MG/2 ML VIAL IVP SCH (09:00)
--- NOTE | 2018-01-07 09:07 | NUR ---
INSTRUCTED PT FOR SPUTUM SAMPLE PATIENT STATED HE WOULD TRY TO DO IT I EXPLAINED IF HE COULD NOT I WOULD COME BACK AND INDUCE THE SPUTUM.
[2018-01-07] MEDS: NICOTINE TRANSD SYS 14 MG/24 HR PATCH TD SCH (09:55)
[2018-01-07 12:00] VITALS: BP 134/73
--- NOTE | 2018-01-07 12:00 | NUR ---
PATIENT IS AWAKE, ALERT, EATING LUNCH COMFORTABLY. RESPIRATION EVEN, TACHYPNEIC ON 4L NC. VS IS STABLE. DENIED PAIN AT THIS TIME. MED WAS GIVEN PER ORDER
[2018-01-07] MEDS: PIPER/TAZO 3.375GM/D5W PREMIX 50 ML IV SCH ×2 (12:18→21:50)
--- NOTE | 2018-01-07 13:20 | NUR ---
PT IS STILL UNABLE TO PRODUCE ANY SPUTUM, PT IS ALOC AT THIS TIME AND HAD BREATHING TX.
--- NOTE | 2018-01-07 13:42 | NUR ---
SPUTUM CULTURE WAS COLLECTED AND SENT TO LAB
[2018-01-07 16:00] VITALS: BP 131/69
--- NOTE | 2018-01-07 16:00 | NUR ---
PATIENT IS SLEEPING COMFORTABLY. RESPIRATION EVEN, UNLABOR ON 4L NC. VS IS STABLE. CALL LIGHT WITHIN REACH. NO DISTRESS NOTED AT THIS TIME
--- NOTE | 2018-01-07 17:19 | NUR ---
WENT TO SEE PT FOR SPUTUM SAMPLE PT IS STILL UNABLE TO GIVE SAMPLE I EXPLAINED THE PROCEDURE FOR NT SXN TO PT AND HE REFUSED TO HAVE THE PROCEDURE DONE I ALSO SPEAK WITH DR. TOUSSAINT THAT THE PT IS REFUSING TO GIVE ME THE SPUTUM SAMPLE. WILL ENDORSE TO QUALITY ANALYST.
--- NOTE | 2018-01-07 17:30 | NUR ---
PATIENT IS AWAKE, ALERT. RESPIRATION EVEN, UNLABOR ON 4L NC. PT IS AT BEDSIDE. NO DISTRESS NOTED AT THIS TIME. CALL LIGHT WITHIN REACH
--- NOTE | 2018-01-07 19:25 | NUR ---
ENDORSEMENT GIVEN TO STRIKE OPERATIONS OFFICER NURSE. PATIENT IS STABLE AT THIS TIME
[2018-01-07 20:00] VITALS: BP 161/81
[2018-01-08] VITALS: BP 140/70
[2018-01-08] MEDS: PIPER/TAZO 3.375GM/D5W PREMIX 50 ML IV SCH ×3 (05:00→20:35)
[2018-01-08 06:00] VITALS: BP 150/75
[2018-01-08] MEDS: ALBUTEROL SULFATE/IPRATROPIU 3 ML SOL IH SCH ×3 (06:52→19:27)
[2018-01-08] MEDS: BUDESONIDE 0.5 MG/2 ML NEBU INH SCH ×2 (07:01→19:27)
--- NOTE | 2018-01-08 07:09 | NUR ---
DECREASED FIO2 TO 2L N\C PT UNABLE TO PRODUCE SPUTUM AT THIS TIME Addendum: 01/08/18 at 1454 by Gisselle Wallace RT PT INSTRUCTED ON SPUTUM SAMPLE CUP LEFT AT BEDSIDE
--- NOTE | 2018-01-08 07:50 | NUR ---
PATIENT AWAKE, ALERT. RESPIRATION EVEN, UNLABOR. SKIN DRY AND WARM. IV PATENT AND INTACT. DENIED PAIN, SOB AT THIS TIME. VS IS STABLE. PERINEAL CARE WAS GIVEN. PATIENT WAS REPOSITIONED. PLAN OF CARE WAS DISCUSSED WITH PATIENT. BED AT LOW POSITION, SIDE RAILS UP. CALL LIGHT WITHIN REACH. BED ALARM IS ACTIVE
[2018-01-08 08:00] VITALS: BP 159/73
[2018-01-08] MEDS: LACTULOSE 20 GM/30 ML UDC PO SCH ×3 (08:31→17:00)
[2018-01-08] MEDS: RIFAXIMIN 550 MG TAB PO SCH ×2 (08:31→20:34)
[2018-01-08] MEDS: BENZTROPINE 1 MG TAB PO SCH (08:31)
[2018-01-08] MEDS: LACTOBACILLUS RHAMNOSUS GG 1 EACH CAP PO SCH (08:32)
[2018-01-08] MEDS: FERROUS SULFATE 325 MG TABEC PO SCH ×2 (08:32→17:04)
[2018-01-08] MEDS: PANTOPRAZOLE 40 MG TABEC PO SCH (08:32)
[2018-01-08] MEDS: ASCORBIC ACID 500 MG TAB PO SCH (08:32)
[2018-01-08] MEDS: ARIPiprazole 10 MG TAB PO SCH (08:32)
[2018-01-08] MEDS: CALCIUM ACETATE 667 MG TAB PO SCH ×3 (08:32→17:04)
[2018-01-08] MEDS: FUROSEMIDE 20 MG/2 ML VIAL IVP SCH ×2 (08:33→20:34)
[2018-01-08] MEDS: DIVALPROEX 500 MG TABEC PO SCH ×2 (08:33→20:34)
[2018-01-08 09:28] LABS: HEMATOCRIT 44.3 % (36-52); HEMOGLOBIN 14.3 g/dL (12.0-18.0); MEAN CORPUSCULAR HEMOGLOBIN 27 pg (27-31); MEAN CORPUSCULAR HGB CONC 32 g/dL (33-37); PLATELET COUNT (AUTO) 91 K/uL (140-450); RED BLOOD CELL COUNT(AUTO) 5.21 MIL/uL (4.20-6.10); RED CELL DISTRIBUTION WIDTH 27.8 % (11.6-13.7)
[2018-01-08 09:54] LABS: ANION GAP 12.9 (8-16); CARBON DIOXIDE 24.3 mmol/L (21-32); CREATININE 1.1 mg/dL (0.7-1.3); POTASSIUM 3.2 mmol/L (3.5-5.1)
[2018-01-08 10:37] LABS: BASOPHILS % (MANUAL) 0 % (0-2); EOSINOPHILS % (MANUAL) 1 % (0-4); LYMPHOCYTES % (MANUAL) 12 % (20-46); MONOCYTES % (MANUAL) 7 % (5-12)
[2018-01-08 10:38] LABS: METAMYELOCYTES % 1 % (0-0); MYELOCYTES % 1 % (0-0)
--- NOTE | 2018-01-08 10:59 | NUR ---
WOUND DRESSING WAS CHANGED. NO SIGNS OF INFECTION NOTED. WOUND CLEAN AND DRY. Addendum: 01/08/18 at 1400 by Mague Beck RN WRONG PATIENT
--- NOTE | 2018-01-08 11:00 | NUR ---
DR. MERIDA WAS MADE AWARE OF PATIENT'S POTASSIUM LEVEL 3.2, WILL MEDICATE PER ORDER
[2018-01-08] MEDS: NICOTINE TRANSD SYS 14 MG/24 HR PATCH TD SCH (11:10)
[2018-01-08] MEDS ORDERED: POTASSIUM CHLORIDE 20% 40 MEQ/15 ML UDC PO SCH (11:30)
--- NOTE | 2018-01-08 12:30 | NUR ---
PATIENT AWAKE, ALERT. RESPIRATION EVEN, UNLABOR ON ROOM AIR. MEDS WERE GIVEN PER ORDER. NO DISTRESS NOTED AT THIS TIME
--- NOTE | 2018-01-08 13:14 | NUR ---
PT IS ASLEEP HHN NOT GIVEN NO APPARENT DISTRESS
--- NOTE | 2018-01-08 14:00 | NUR ---
PATIENT IS SLEEPING COMFORTABLY. RESPIRATION EVEN, UNLABOR ON 2L NC. NO DISTRESS NOTED AT THIS TIME. CALL LIGHT WITHIN REACH
[2018-01-08 16:00] VITALS: BP 157/85
--- NOTE | 2018-01-08 16:40 | NUR ---
PATIENT IS SLEEPING COMFORTABLY, EASILY AROUSABLE BY NAME. RESPIRATION EVEN, UNLABOR ON 2L NC. DENIED PAIN AT THIS TIME. NO DISTRESS NOTED AT THIS TIME. CALL LIGHT WITHIN REACH
--- NOTE | 2018-01-08 18:06 | NUR ---
PATIENT IS AWAKE, ALERT, EATING DINNER. NO DISTRESS NOTED AT THIS TIME. IV PATENT AND INTACT. CALL LIGHT WITHIN REACH
--- NOTE | 2018-01-08 19:20 | NUR ---
ENDORSEMENT GIVEN TO THE SUPERVISOR PULLET FARM NURSE. PATIENT IS STABLE AT THIS TIME
--- NOTE | 2018-01-08 19:30 | NUR ---
RECEIVED PT REPORT FROM FORREST AT BEDSIDE FOR CONTINUITY OF CARE. PT AWAKE AO X3. NO S/S OF DISTRESS. PT ON SOB, PT NC O2 3L. NO C/O PAIN AT THIS TIME. IV LINE NOTED L HAND 22G AND LAC 20G BOTH HEP LOCK. BED LOWERED CALL LIGHT WITHIN REACH. WILL CONTINUE TO MONITOR.
--- NOTE | 2018-01-08 21:58 | NUR ---
CHECKED ON PATIENT. PT IS RESTING ON BED SLEEPING WILL CONTINUE TO MONITOR.
[2018-01-09] MEDS: PIPER/TAZO 3.375GM/D5W PREMIX 50 ML IV SCH ×3 (05:28→20:50)
[2018-01-09 06:06] VITALS: BP 156/89
[2018-01-09 06:08] VITALS: BP 149/88
[2018-01-09 06:25] LABS: HEMATOCRIT 36.9 % (36-52); HEMOGLOBIN 11.9 g/dL (12.0-18.0); MEAN CORPUSCULAR HEMOGLOBIN 27 pg (27-31); MEAN CORPUSCULAR HGB CONC 32 g/dL (33-37); MEAN CORPUSCULAR VOLUME 83.3 fL (80-94); PLATELET COUNT (AUTO) 56 K/uL (140-450); RED BLOOD CELL COUNT(AUTO) 4.43 MIL/uL (4.20-6.10); RED CELL DISTRIBUTION WIDTH 27.1 % (11.6-13.7); WHITE BLOOD COUNT (AUTO) 20.9 K/uL (4.8-10.8)
[2018-01-09 06:49] LABS: LYMPHOCYTES % (MANUAL) 20 % (20-46); MONOCYTES % (MANUAL) 4 % (5-12)
[2018-01-09] MEDS: ALBUTEROL SULFATE/IPRATROPIU 3 ML SOL IH SCH ×3 (07:00→18:59)
--- NOTE | 2018-01-09 07:22 | NUR ---
GAVE REPORT TO DAYSHIFT NURSE FOR CONTINUITY OF CARE. WILL CONTINUE WITH PLAN OF CARE.
[2018-01-09 07:25] LABS: ANION GAP 14.1 (8-16); CARBON DIOXIDE 24.3 mmol/L (21-32); CREATININE 0.9 mg/dL (0.7-1.3); POTASSIUM 3.4 mmol/L (3.5-5.1)
--- NOTE | 2018-01-09 07:25 | NUR ---
PT IN BED ALERT AND ORIENTED X 3., SKIN INTACT BUT HE HAS 2 IV SITES, LEFT F/A ARM 20 G AND LEFT AC 22 GAUGE HE HAS NO COMPLAIN OF PAIN AT THIS TIME PT V/S STABLE, PT NEED ASSIST TO AMBULATE AND HE DOES HAVE FALL RISK BAND ON R WRIST. PT HAS F/C 16F DRAINING ASIF URINE AT 100MLS ARE IN F/C BAG AT THIS TIME. WILL CONTINUE TO MONITOR PT FOR I AND O'S WELL FOR RISK OF FALLING.
[2018-01-09] MEDS: BUDESONIDE 0.5 MG/2 ML NEBU INH SCH ×2 (07:30→18:59)
[2018-01-09] MEDS: FERROUS SULFATE 325 MG TABEC PO SCH ×2 (08:00→17:00)
[2018-01-09] MEDS: CALCIUM ACETATE 667 MG TAB PO SCH ×3 (08:41→17:00)
[2018-01-09] MEDS: FUROSEMIDE 20 MG/2 ML VIAL IVP SCH ×2 (08:42→20:50)
[2018-01-09] MEDS: ARIPiprazole 10 MG TAB PO SCH (08:43)
[2018-01-09] MEDS: LACTULOSE 20 GM/30 ML UDC PO SCH ×3 (08:44→17:00)
[2018-01-09] MEDS: LACTOBACILLUS RHAMNOSUS GG 1 EACH CAP PO SCH (08:45)
[2018-01-09] MEDS: BENZTROPINE 1 MG TAB PO SCH (08:45)
[2018-01-09] MEDS: PANTOPRAZOLE 40 MG TABEC PO SCH (08:46)
[2018-01-09] MEDS: ASCORBIC ACID 500 MG TAB PO SCH (08:47)
[2018-01-09] MEDS: DIVALPROEX 500 MG TABEC PO SCH ×2 (09:17→20:50)
[2018-01-09] MEDS: RIFAXIMIN 550 MG TAB PO SCH ×2 (10:44→20:50)
[2018-01-09] MEDS: NICOTINE TRANSD SYS 14 MG/24 HR PATCH TD SCH (10:46)
[2018-01-09 12:00] VITALS: BP 168/86
--- NOTE | 2018-01-09 12:12 | NUR ---
PT SITTING UP AT THE EDGE OF THE BED WITH GAIT BELT ON, PT IN ROOM, MONITORED WITH SPO2 WHILE PT IS AMBULATING TO CHAIR WITH PT. PT CONSUMED ABOUT 60% OF HIS LUNCH AND ABOUT 1/2 THE FLUIDS GIVEN. NO C/O OF PAIN AT THIS TIME.
--- NOTE | 2018-01-09 13:05 | NUR ---
PT REFUSED BREATHING TX. HR 94 SAT 99 RR 18 BS ANT BILAT DIMINISHED. WILL CONT TO MONITOR PT.
--- NOTE | 2018-01-09 14:21 | NUR ---
FAXED CONCURRENT REVIEW TO [facility] [phone] PHONE [facility] [phone]
[2018-01-09] MEDS ORDERED: POTASSIUM CHLORIDE 20% 40 MEQ/15 ML UDC GT SCH (14:33)
[2018-01-09] MEDS ORDERED: POTASSIUM CHLORIDE 20% 40 MEQ/15 ML UDC PO SCH (15:00)
--- NOTE | 2018-01-09 15:00 | NUR ---
HORNER CATHETER REMOVED, BALLOON DEFLATED 10MLS, URINE BAG HAD 300 DARK YELLOW MLS WHEN D/C'D. PT TOLERATED PROCEDURES WELL.
[2018-01-09] MEDS ORDERED: POTASSIUM CHLORIDE 10 MEQ TABER PO SCH (16:00)
--- NOTE | 2018-01-09 18:00 | NUR ---
PT SITTING UP IN BED. HE HAD USED THE BED SUNG AT 1700 AND DID VOID WELL. PT CLEANED UP AND WAS ASSISTED WITH DINNER PT ATE ABOUT 50% OF MEAL. NO C/O OF PAIN OR DISTRESS NOTED IV SITE PT AND NACL 500 ML BAG STILL RUNNING AT 5MLS/HR. PT RESTING IN BED AT THIS TIME.
--- NOTE | 2018-01-09 19:40 | NUR ---
ENDORSED PT TO FORESTRY INSTRUCTOR NURSE, FOR CONTINUITY OF CARE. PT STABLE AT THIS TIME.
--- NOTE | 2018-01-09 19:41 | NUR ---
RECEIVED PT AWAKE, AAOX3, PERIODS OF CONFUSION NOTED, ABLE TO MAKE NEEDS KNOWN, ON O2 AT 3L/NC, PRODUCTIVE COUGH NOTED, BREATHING TX PER RT, SAFETY MEASURES IN PLACE, SIDE RAILS UP AND BED ALARM ON, CALL LIGHT WITHIN REACH.
--- NOTE | 2018-01-09 20:50 | NUR ---
DUE MEDS ADMINISTERED, MILK AND CRACKERS PROVIDED, GOOD APPETITE, ALL NEEDS ATTENDED.
--- NOTE | 2018-01-09 21:50 | NUR ---
PT USES URINAL TO VOID BUT AT TIMES INCONTINENT, PERINEAL CARE DONE, KEPT CLEAN AND DRY, MONITORED CLOSELY.
[2018-01-09] MEDS ORDERED: ALUMINUM HYD/MAG/SIMETHICONE 30 ML UDC PO SCH (23:30)
[2018-01-10] VITALS: BP 143/66
--- NOTE | 2018-01-10 | NUR ---
PT SLEEPING, EASILY AROUSABLE, VITAL SIGNS STABLE, BP SLIGHTLY ELEVATED, ASYMPTOMATIC, DENIES PAIN, NO SOB NOTED, CONTINUE TO MONITOR CLOSELY.
[2018-01-10] MEDS: PIPER/TAZO 3.375GM/D5W PREMIX 50 ML IV SCH ×3 (04:21→20:15)
--- NOTE | 2018-01-10 05:09 | NUR ---
BM WITH LARGE SOFT BROWN STOOL, PERINEAL CARE DONE, IV ANTIBIOTIC ON-GOING, MONITORED CLOSELY.
--- NOTE | 2018-01-10 05:40 | NUR ---
PT REFUSED AM LAB DRAW, SAYING "I'VE HAD ENOUGH, IM GOING HOME TODAY AND HAPPY MOTHERS DAY TO YOU", EXPLAINED RISK AND BENEFITS, STILL REFUSING, WILL TRY AGAIN LATER.
[2018-01-10] MEDS: ALBUTEROL SULFATE/IPRATROPIU 3 ML SOL IH SCH ×3 (06:51→19:34)
[2018-01-10] MEDS: BUDESONIDE 0.5 MG/2 ML NEBU INH SCH ×2 (06:59→19:34)
--- NOTE | 2018-01-10 07:15 | NUR ---
RECEIVED PATIENT REPORT AT BEDSIDE. PATIENT AWAKE AND ALERT. PATIENT ON 3L O2 VIA NC. WHEEZING NOTED UPON AUSCULTATION. NO SOB. O2 SAT 97% AT THIS TIME. FALL PRECAUTIONS IN PLACE. WILL CONTINUE TO MONITOR
--- NOTE | 2018-01-10 07:25 | NUR ---
PT AWAKE, NO SIGNS OF DISTRESS, REPORT GIVEN TO DEDE MALDONADO FOR CONTINUITY OF CARE.
[2018-01-10 08:00] VITALS: BP 157/74
[2018-01-10] MEDS: BENZTROPINE 1 MG TAB PO SCH (08:35)
[2018-01-10] MEDS: CALCIUM ACETATE 667 MG TAB PO SCH ×3 (08:36→16:24)
[2018-01-10] MEDS: ASCORBIC ACID 500 MG TAB PO SCH (08:36)
[2018-01-10] MEDS: LACTOBACILLUS RHAMNOSUS GG 1 EACH CAP PO SCH (08:37)
[2018-01-10] MEDS: DIVALPROEX 500 MG TABEC PO SCH ×2 (08:37→20:14)
[2018-01-10] MEDS: PANTOPRAZOLE 40 MG TABEC PO SCH (08:37)
[2018-01-10] MEDS: ARIPiprazole 10 MG TAB PO SCH (08:37)
[2018-01-10] MEDS: FERROUS SULFATE 325 MG TABEC PO SCH ×2 (08:37→16:24)
[2018-01-10] MEDS: RIFAXIMIN 550 MG TAB PO SCH ×2 (08:38→20:19)
[2018-01-10] MEDS: FUROSEMIDE 20 MG/2 ML VIAL IVP SCH ×2 (08:39→20:15)
[2018-01-10] MEDS: NICOTINE TRANSD SYS 14 MG/24 HR PATCH TD SCH (08:39)
--- NOTE | 2018-01-10 08:39 | NUR ---
SCHEDULED MEDICATIONS ADMINISTERED. PATIENT TOLERATED WELL. WILL CONTINUE TO MONITOR
[2018-01-10] MEDS: HYDROcodone/APAP 5/325 MG 1 TAB TAB PO PRN ×2 (10:54→21:32)
[2018-01-10] MEDS: LACTULOSE 20 GM/30 ML UDC PO SCH ×3 (10:55→16:28)
--- NOTE | 2018-01-10 13:00 | NUR ---
PATIENT REFUSING TO TAKE SCHEDULED LACTULOSE AT THIS TIME. PATIENT STATES HE GETS DIARRHEA. EXPLAINED TO THE PATIENT THAT THE DIARRHEA ASSOCIATED WITH THE MEDICATION IS PART OF THE MANAGEMENT FOR HIS ELEVATED AMMONIA LEVELS. PATIENT STATES HE WILL TAKE HIS MEDICATIONS AT NIGHT. DR EMMETT TRAORE
[2018-01-10] MEDS ORDERED: POTASSIUM CHLORIDE 10 MEQ TABER PO SCH (13:30)
--- NOTE | 2018-01-10 14:57 | NUR ---
PT OFF O2 PER ORDER TO WEAN PT OFF O2, VERBAL ORDER BY DR. MCKENZIE TO KEEP O2 SAT BETWEEN 88-92% DEDE MALDONADO NOTIFIED OF CHANGES MADE
--- NOTE | 2018-01-10 14:58 | NUR ---
CALLED [facility] AND SPOKE WITH [facility]. INFORMED HER THAT PATIENT HAS MDRO AND ESBL IN SPUTUM. FAXED CONCURRENT REVIEW TO [facility] [phone] PHONE [phone].
[2018-01-10 16:00] VITALS: BP 143/60
--- NOTE | 2018-01-10 16:23 | NUR ---
PER DEDE MALDONADO PT WAS PLACED BACK ON 2LNC DUE TO O2 SAT BELOW 87%
--- NOTE | 2018-01-10 17:15 | NUR ---
PATIENT ASLEEP IN BED. NO S/S OF DISTRESS NOTED
--- NOTE | 2018-01-10 18:45 | NUR ---
PATIENT SEEN BY DR ROBERSON. PER DR ROBERSON, KEEP PATIENT ON 2L O2
--- NOTE | 2018-01-10 19:27 | NUR ---
PATIENT REPORT GIVEN AT BEDSIDE. PATIENT ENDORSED IN STABLE CONDITION
--- NOTE | 2018-01-10 19:28 | NUR ---
RECEIVED PT SLEEPING, EASILY AROUSABLE, AAOX3, PERIODS OF CONFUSION NOTED, ABLE TO MAKE NEEDS KNOWN, ON O2 AT 2L/NC, SAT-96%, NO SOB NOTED, WITH OCCASIONAL COUGH AT TIMES, BREATHING TX PER RT, SAFETY MEASURES IN PLACE, SIDE RAILS UP AND BED ALARM ON, CALL LIGHT WITHIN REACH, MAINTAINED ON ISOLATION ORDERED.
--- NOTE | 2018-01-10 19:55 | NUR ---
RECEIVED PATIENT ON 2L NC. O2 SAT 97%. BREATHING TREATMENTS ADMINISTERED. TOLERATED TX WELL, NO ADVERSE SIDE EFFECTS. NO RESPIRATORY DISTRESS NOTED AT THIS TIME. WILL CONTINUE TO MONITOR.
[2018-01-10] MEDS: LISINOPRIL 20 MG TAB PO SCH (20:14)
--- NOTE | 2018-01-10 20:20 | NUR ---
DUE MEDS ADMINISTERED, PROVIDED WITH CRACKERS AND MILK PER REQUEST, ALL NEEDS ATTENDED.
[2018-01-11] VITALS: BP 121/69
--- NOTE | 2018-01-11 | NUR ---
SEEN PT WITH NASAL CANNULA NOT IN PLACE, SAT-89%, PUT BACK NASAL CANNULA, SAT WENT UP TO 93%, EDUCATE ON IMPORTANCE OF OXYGEN, MONITORED CLOSELY.
--- NOTE | 2018-01-11 02:10 | NUR ---
PT AWAKE, TURKEY SANDWICH PROVIDED PER REQUEST, CONSUMED 50%, WENT BACK TO SLEEP.
[2018-01-11] MEDS: PIPER/TAZO 3.375GM/D5W PREMIX 50 ML IV SCH ×2 (04:20→13:17)
--- NOTE | 2018-01-11 06:20 | NUR ---
AM LABS DRAWN, PT HAD BM X3 WITH SOFT STOOL, NO DISTRESS NOTED.
[2018-01-11 06:27] LABS: HEMATOCRIT 32.7 % (36-52); HEMOGLOBIN 10.4 g/dL (12.0-18.0); MEAN CORPUSCULAR HEMOGLOBIN 27 pg (27-31); MEAN CORPUSCULAR HGB CONC 32 g/dL (33-37); PLATELET COUNT (AUTO) 53 K/uL (140-450); RED BLOOD CELL COUNT(AUTO) 3.81 MIL/uL (4.20-6.10); RED CELL DISTRIBUTION WIDTH 26.2 % (11.6-13.7)
[2018-01-11 06:31] LABS: ANION GAP 7.7 (8-16); CARBON DIOXIDE 32.6 mmol/L (21-32); CREATININE 0.9 mg/dL (0.7-1.3); POTASSIUM 3.3 mmol/L (3.5-5.1)
[2018-01-11 07:07] LABS: EOSINOPHILS % (MANUAL) 2 % (0-4); LYMPHOCYTES % (MANUAL) 18 % (20-46); MONOCYTES % (MANUAL) 8 % (5-12)
--- NOTE | 2018-01-11 07:15 | NUR ---
PT AWAKE, NO SIGNS OF DISTRESS, REPORT GIVEN TO DEDE TRINIDAD FOR CONTINUITY OF CARE.
--- NOTE | 2018-01-11 07:20 | NUR ---
RECEIVED PT FROM TAX COMPLIANCE MANAGER NURSE. PT IS AWAKE LYING ON THE BED WITH AN IV LINE AT LEFT HAND G. 20. NO SIGN OF DISTRESS NOTED ON THE PT. CALL LIGHT WITHIN REACH, SIDE RAILS ARE UP. WILL MONITOR.
[2018-01-11] MEDS: ALBUTEROL SULFATE/IPRATROPIU 3 ML SOL IH SCH ×2 (07:30→14:42)
[2018-01-11] MEDS: BUDESONIDE 0.5 MG/2 ML NEBU INH SCH (07:30)
--- NOTE | 2018-01-11 07:43 | NUR ---
CHRISTOPHER [facility] V60 BIPAP AT BEDSIDE
[2018-01-11 08:00] VITALS: BP 125/85
[2018-01-11] MEDS: FERROUS SULFATE 325 MG TABEC PO SCH ×3 (08:00→17:05)
--- NOTE | 2018-01-11 08:00 | NUR ---
PT IS AWAKE LYING ON THE BED AND VITAL SIGNS ARE TAKEN. NO SIGN OF DISTRESS NOTED. CALL LIGHT WITHIN REACH. WILL MONITOR.
[2018-01-11] MEDS: ASCORBIC ACID 500 MG TAB PO SCH (09:00)
[2018-01-11] MEDS: RIFAXIMIN 550 MG TAB PO SCH (09:00)
[2018-01-11] MEDS: PANTOPRAZOLE 40 MG TABEC PO SCH ×2 (09:00→09:37)
--- NOTE | 2018-01-11 09:00 | NUR ---
PT IS AWAKE AND ON 2L O2 NC, MEDICATIONS GIVEN. WILL MONITOR.
[2018-01-11] MEDS: CALCIUM ACETATE 667 MG TAB PO SCH ×3 (09:04→17:05)
[2018-01-11] MEDS: NICOTINE TRANSD SYS 14 MG/24 HR PATCH TD SCH (09:04)
[2018-01-11] MEDS: LACTOBACILLUS RHAMNOSUS GG 1 EACH CAP PO SCH (09:04)
[2018-01-11] MEDS: ARIPiprazole 10 MG TAB PO SCH (09:06)
[2018-01-11] MEDS: BENZTROPINE 1 MG TAB PO SCH (09:07)
[2018-01-11] MEDS: DIVALPROEX 500 MG TABEC PO SCH (09:08)
[2018-01-11] MEDS: LISINOPRIL 20 MG TAB PO SCH (09:08)
[2018-01-11] MEDS: FUROSEMIDE 20 MG/2 ML VIAL IVP SCH (09:08)
[2018-01-11] MEDS: LACTULOSE 20 GM/30 ML UDC PO SCH ×3 (09:10→17:07)
--- NOTE | 2018-01-11 09:45 | NUR ---
P.T. NOTES RN AT BEDSIDE ATTEMPTING TO GIVE MEDS TO PATIENT, PT'S SPEECH IS GARBLED AND STARTED TO GET UPSET AND SAID "NO I DON'T WANT TO WALK" PT ALSO NOTED TO HAVE SOME COUGHING AFTER DRINKING WATER. PATIENT TAKIGN INCREASED TIEM TO TAKE MEDS, THEN HE WENT ON ABOUT "NO! I DON'T LIKE YOU!" PATIENT REASSURED THAT WE ARE JUST TRYING TO HELP. PT NOTED TO HAVE INCREASED AGITATION COMPARED TO PREVIOUS SESSION. RN SAID SHE WILL LL LOOK INTO HIS MEDS TO HELP CALM PATIENT DOWN. UNABLE TO PARTICIPATE DUE TO AGITATION. RN AGREEABLE. PVE
--- NOTE | 2018-01-11 13:43 | NUR ---
SANDBLAST CARVER NOTE [id number] Pt seen for swallow evaluation following clearance by DEDE Ibarra. Please refer to SANDBLAST CARVER evaluation for full report. Recommend: 1) MBSS to r/o silent aspiration 2/2 weak/breathy delayed cough noted w/liquids, PNA per CXR + hx of aspiration PNA. 2) SANDBLAST CARVER to follow 2-3x/wk x10 days for continued diagnostic assessment of swallow + education of safe swallow strategies. PVE w/DEDE Ibarra re: results and recommendations. G8996: CK G8997: CI Swallow NOMs 2
--- NOTE | 2018-01-11 14:11 | NUR ---
PATIENT OUT OF ROOM AT THIS TIME IN RADIOLOGY CHIEF DESIGN BRANCH TO ATTEMPT HHN THERAPY AT A LATER TIME
--- NOTE | 2018-01-11 14:47 | NUR ---
FAXED CONCURRENT REVIEW TO [facility] [phone] PHONE [facility] [phone] CALLED [facility] AND AT [facility] AND ASKED ABOUT PLACEMENT. THEY WILL BE LOOKING FOR PLACEMENT FOR THIS PATIENT. I TOLD HER TO CALL SEBASTIEN AGUAYOOPTICAL GLASS SAWYER DIRECTOR IF NEEDED TOMORROW AND GAVE HER THE PHONE NUMBER TO THE FLOOR.
--- NOTE | 2018-01-11 15:06 | NUR ---
CARNIVAL WORKER NOTE [id number] Modified barium swallow study completed, Dr. Flores (radiologist) present. Please refer to CARNIVAL WORKER evaluation for full report. Impressions: WFL oropharyngeal phases of swallowing. Premature loss of puree and thin liquids to level of valleculae, swallow initiated and completed w/WFL hyolaryngeal elevation and no penetration/aspiration on thin/puree textures. No residues remained in pharyngeal space s/p swallow. Recommend: 1) Continue puree/thin liquid diet w/STRICT aspiration precautions as noted: -Upright at 90 during and 20 min after, tray set up assistance required. -Slow bites/sips -Slow rate -Alternate bites/sips 2) CARNIVAL WORKER to follow 2x/wk x1wk for continued diet tolerance and education of safe swallow precautions.
--- NOTE | 2018-01-11 15:35 | NUR ---
01/11/18 RD FOLLOW UP COMPLETED PLEASE REFER TO NUTRITION ASSESSMENT UNDER CARE ACTIVITY FOR ESTIMATED NUTRITIONAL NEEDS. 1. CONTINUE CARDIAC, CCHO 60 GM DIET TOLERATED 2. RECOMMEND BOOST GLUCOSE CONTROL TIB 3. RD TO FOLLOW-UP 2-3 DAYS, HIGH RISK BETINA SALINAS, RD
[2018-01-11 16:00] VITALS: BP 138/61
[2018-01-11] MEDS ORDERED: POTASSIUM CHLORIDE 10 MEQ TABER PO SCH (16:00)
--- NOTE | 2018-01-11 16:45 | NUR ---
PT IS AWAKE AND VITAL SIGNS TAKEN, MEDICATIONS GIVEN ALSO AND PT TOLERATED IT. NO SIGN OF DISTRESS NOTED.
--- NOTE | 2018-01-11 16:53 | NUR ---
Director Oracle Notes: I met with Patient to discuss (SNF) Skill [facility]. These remote mortgage underwriter Discuss with Patient his need for continuance of care, Medication Management (Antibiotics) and Physical Therapy. Patient was awake and in a really good mood stating "feeling better then yesterday" I explained to patient that SNF in [place] will be able to accept him tonight to continue with his care and will be able to provide him with transport back to [facility] and care in [place] when he is discharge from their facility. Patient stated "Yes I will like to go to [facility]" I informed patient that I will let [facility] Director Of Institutional Sales Sri of his acceptance to go to SNF tonight and to set up his transport to facility. Patient agreed and thanked me for information.
--- NOTE | 2018-01-11 17:11 | NUR ---
RECEIVED A CALL FROM RIYA FROM [facility]. SHE SAID THE PATIENT CAN GO TO [place] [id number] [facility], [id number]. CAN GO TO RO[address] [place]. PHONE [phone]. DR. MCCONNELL AWARE. RIYA FROM [facility] WILL ARRANGE TRANSPORT AND WILL CALL THE FLOOR WITH THE TIME. I INFORMED BROOKE AGUAYOASSOCIATE MEDICAL DIRECTOR NURSE. PLATE SETTER TELLO SPOKE WITH THE PATIENT AND HE IS AGREEABLE TO THE TRANSFER. RIYA CURRY PHONE [phone].
[2018-01-11] MEDS ORDERED: FER325 PO (17:29)
[2018-01-11] MEDS ORDERED: DIVA500E2 PO (17:29)
[2018-01-11] MEDS ORDERED: IPRA3AMP IH (17:29)
[2018-01-11] MEDS ORDERED: LISI-420 PO (17:29)
[2018-01-11] MEDS ORDERED: ACET-1182 PO (17:29)
[2018-01-11] MEDS ORDERED: POTA10TE30 PO (17:29)
[2018-01-11] MEDS ORDERED: ABI10 PO (17:29)
[2018-01-11] MEDS ORDERED: DOCU-299 PO (17:29)
[2018-01-11] MEDS ORDERED: LACT10SO11 PO (17:29)
[2018-01-11] MEDS ORDERED: COG1 PO (17:29)
[2018-01-11] MEDS ORDERED: VITC500 PO (17:29)
[2018-01-11] MEDS ORDERED: PANT40EC28 PO (17:29)
[2018-01-11] MEDS ORDERED: NICO14TD30 TD (17:29)
[2018-01-11] MEDS ORDERED: PUL.5N INH (17:29)
[2018-01-11] MEDS ORDERED: PHO667 PO (17:29)
[2018-01-11] MEDS ORDERED: LACT10CA PO (17:29)
--- NOTE | 2018-01-11 18:01 | NUR ---
CALLED [facility] AND GAVE REPORT TO RN [place] LINE TIER
--- NOTE | 2018-01-11 18:55 | NUR ---
DISCHARGED PT VIA GURNEY ASSISTED BY [facility]ERSONS. PT IS STABLE, IV LINE AND ARM BANDS REMOVED.
== END 2018-01-11 18:55 | disposition home or self-care (01) | DRG 871 ==
LOC: MED 07:29 → MIC 10:34 → MTU 01-06 18:25
PROVIDERS: ADMIT Family Medicine Sports Medicine; ATTEND Family Medicine Sports Medicine
PROC: 5A09357 Assistance with Respiratory Ventilation, Less than 24 Consecutive Hours, Continuous Positive Airway Pressure (ICD-10-PCS; principal; 2018-01-05)
DX: A41.9 Sepsis, unspecified organism (principal); J69.0 Pneumonitis due to inhalation of food and vomit; N17.0 Acute kidney failure with tubular necrosis; J96.21 Acute and chronic respiratory failure with hypoxia; E43 Unspecified severe protein-calorie malnutrition; I50.43 Acute on chronic combined systolic (congestive) and diastolic (congestive) heart failure; D69.6 Thrombocytopenia, unspecified; I42.9 Cardiomyopathy, unspecified; K72.90 Hepatic failure, unspecified without coma; J96.22 Acute and chronic respiratory failure with hypercapnia; J44.0 Chronic obstructive pulmonary disease with (acute) lower respiratory infection; J44.1 Chronic obstructive pulmonary disease with (acute) exacerbation; E11.9 Type 2 diabetes mellitus without complications; D50.9 Iron deficiency anemia, unspecified; E87.6 Hypokalemia; F17.210 Nicotine dependence, cigarettes, uncomplicated; I11.0 Hypertensive heart disease with heart failure; F19.10 Other psychoactive substance abuse, uncomplicated; F25.0 Schizoaffective disorder, bipolar type; R13.10 Dysphagia, unspecified; D63.8 Anemia in other chronic diseases classified elsewhere; F15.10 Other stimulant abuse, uncomplicated; K21.9 Gastro-esophageal reflux disease without esophagitis; Z88.8 Allergy status to other drugs, medicaments and biological substances; Z91.048 Other nonmedicinal substance allergy status; Z79.899 Other long term (current) drug therapy; Z91.19 Patient's noncompliance with other medical treatment and regimen; Z90.49 Acquired absence of other specified parts of digestive tract; Z68.24 Body mass index [BMI] 24.0-24.9, adult; Z82.5 Family history of asthma and other chronic lower respiratory diseases
CPT/HCPCS: 36415; 36600; 70370; 71045; 80048; 80053; 80305; 81001; 82140; 82150; 82803; 83605; 83690; 83735; 83880; 84100; 84439; 84443; 84479; 84484; 85025; 85610; 85730; 87040; 87070; 87081; 87086; 87186; 87205; 89220; 92610; 92611; 94640; 94660; 96361; 96365; 97110; 97116; 97530; 97799; 99291; J0456; J0696; J1940; J1956; J2001; J2543; J2930; J3475; J3480; J3490; J7030; J7060; J7613; J7620; J7626; J7644; Q0092

== ENCOUNTER 2018-02-12 19:57 | Inpatient (IN) | payer OTHER ==
[~2018-02-12] VITALS: Ht 185.4 cm; Wt 59.1 kg
[~2018-02-12 19:57] MED LIST changes: +ABI10 PO; +ACET-1182 PO; -ALBU0.0912 INH; -ARIP15TA1 PO; -ASCO-786 PO; -BENZ2TAB27 PO; +COG1 PO; +DIVA500E2 PO; -DIVA500T1 PO; +FER325 PO; -FERR-18 PO; -FURO-572 PO; +IPRA3AMP IH; +LACT10CA PO; -METO50TE2 PO; +NICO14TD30 TD; +PHO667 PO; +POTA10TE30 PO; -QUET100T44 PO; -RIFA550T PO; -ROB PO; +VITC500 PO
[2018-02-12 20:08] VITALS: BP 62/40
--- NOTE | 2018-02-12 20:16 | NUR ---
PT TAKEN TO OVERFLOW
--- NOTE | 2018-02-12 20:18 | NUR ---
Dr. Guerrero evaluating patient
--- NOTE | 2018-02-12 20:20 | NUR ---
PT MOVED TO BED 8
--- NOTE | 2018-02-12 20:21 | NUR ---
67/M BROUGHT IN BY CORRECTION HOUSE SERVICE EMPLOYEE DUE TO ALOC X1 HR. PT REPORTS "USED METH FOR 3 DAYS STRAIGHT." PT AOX2, GCS13, BEDREST AT THIS TIME, ABLE TO ANSWER SIMPLE QUESTIONS, GENERALIZED WEAKNESS NOTED, PT REPORTS GENERALIZED BODY PAIN. PT DENIES FEVER, CP, SOB, COUGH, N/V/D; MULTIPLE ABRASIONS NOTED ON BUE, SKIN PINK/WARM/DRY; LUNGS CLEAR BL, BREATHING UNLABORED; HR EVEN AND REGULAR, BL PERIPHERAL PULSES PRESENT; BS ACTIVE X4, NO TENDERNESS TO PALPATION; BEDRAILS UP X2; BED DOWN.
--- NOTE | 2018-02-12 20:25 | NUR ---
PT UNABLE TO COLLECT URINE AT THIS TIME.
[2018-02-12] MEDS ORDERED: NACL 0.9% 1,000 ML IV ONE ×3 (20:40→23:30)
--- NOTE | 2018-02-12 20:54 | NUR ---
X-Ray at bedside.
[2018-02-12 21:08] LABS: BASOPHILS # (AUTO) 0.1 K/uL (0.00-0.22); BASOPHILS % (AUTO) 0.7 % (0.0-2.0); EOSINOPHILS % (AUTO) 0.1 % (0.0-4.0); HEMATOCRIT 31.7 % (36-52); HEMOGLOBIN 10.1 g/dL (12.0-18.0); MEAN CORPUSCULAR HEMOGLOBIN 30 pg (27-31); MEAN CORPUSCULAR HGB CONC 32 g/dL (33-37); MEAN CORPUSCULAR VOLUME 93.3 fL (80-94); MONOCYTES # (AUTO) 0.8 K/uL (0.8-1.0); MONOCYTES % (AUTO) 7.2 % (1.7-9.3); NEUTROPHILS # (AUTO) 6.9 K/uL (1.8-7.7); PLATELET COUNT (AUTO) 123 K/uL (140-450); RED CELL DISTRIBUTION WIDTH 21.1 % (11.6-13.7); WHITE BLOOD COUNT (AUTO) 10.9 K/uL (4.8-10.8)
[2018-02-12 21:19] LABS: ANION GAP 21.2 (8-16); CARBON DIOXIDE 18.2 mmol/L (21-32); CHLORIDE 97 mmol/L (98-107); GFR ARICAN-AMERICAN 16 mL/min (>90); GLUCOSE 114 mg/dL (74-106); POTASSIUM 3.4 mmol/L (3.5-5.1); SODIUM SERUM 133 mmol/L (136-145); UREA NITROGEN, BLOOD 58 mg/dL (7-18)
[2018-02-12 21:21] LABS: CREATININE 4.6 mg/dL (0.7-1.3)
[2018-02-12 21:26] LABS: ALBUMIN 2.4 g/dL (3.4-5.0); ASPARTATE AMINOTRANSFERASE 61 U/L (15-37); TOTAL BILIRUBIN 0.6 mg/dL (0.0-1.0)
--- NOTE | 2018-02-12 21:30 | NUR ---
PT RETURN FROM CT
[2018-02-12 21:48] LABS: CKMB RELATIVE INDEX 4.4 (0.0-2.5); CREATINE KINASE MB 18.2 ng/mL (0-3.6)
--- NOTE | 2018-02-12 22:03 | NUR ---
Dr. Guerrero re-evaluating patient at bedside.
--- NOTE | 2018-02-12 22:34 | NUR ---
PT RESTING COMFORTABLY IN BED, RR EVEN AND UNLABORED. URINE COLLECTED VIA STRAIGHT CATH, PT TOLERATED WELL. URINE SAMPLE PLACED ON COLLECTION BOX
[2018-02-12 23:47] LABS: APPEARANCE,URINE CLEAR (CLEAR); BILIRUBIN,URINE NEGATIVE (NEGATIVE); BLOOD, URINE 3+ (NEGATIVE); COLOR,URINE YELLOW (YELLOW); LEUKOCYTE ESTERASE ,URINE TRACE (NEGATIVE); NITRITE, URINE NEGATIVE (NEGATIVE); PH,URINE 5.5 (5.0-9.0); UGLUCOSE NEGATIVE (NEGATIVE)
[2018-02-12 23:55] LABS: BARBITURATE, URINE NEG. ng/ml (NEG <=200); BENZODIAZEPINE, URINE NEG. ng/mL (NEG <=200); CANNABINOID, URINE NEG. ng/mL (NEG <=50); COCAINE, URINE NEG. ng/mL (NEG <=300); OPIATE, URINE NEG. ng/mL (NEG <=2000); PHENCYCLIDINE SCREEN,URINE NEG. ng/mL (NEG <=25)
[2018-02-13] MEDS ORDERED: NACL 0.9% 1,000 ML IV ONE (00:05)
[2018-02-13 00:10] LABS: HYALINE CASTS, URINE 0-10 /LPF (None Seen); RBC,URINE 3-10 (FEW) /HPF (0-5)
--- NOTE | 2018-02-13 02:16 | NUR ---
PT RESTING COMFORTABLY, PROVIDED PT WITH SANDWICH AND SNACKS, ALL NEEDS MET AT THIS TIME.
[2018-02-13] MEDS ORDERED: NACL 0.9% 1,000 ML IV SCH (03:53)
[2018-02-13] MEDS ORDERED: DOCUSATE SODIUM 100 MG GELCAP PO PRN (03:55)
[2018-02-13] MEDS ORDERED: ACETAMINOPHEN 325 MG TAB PO PRN (03:55)
--- NOTE | 2018-02-13 04:09 | NUR ---
DR. VALENZUELA EVALUATING PATIENT
[2018-02-13 04:23] LABS: BASOPHILS % (AUTO) 0.4 % (0.0-2.0); EOSINOPHILS % (AUTO) 0.3 % (0.0-4.0); HEMATOCRIT 32.9 % (36-52); HEMOGLOBIN 10.5 g/dL (12.0-18.0); MEAN CORPUSCULAR HEMOGLOBIN 30 pg (27-31); MEAN CORPUSCULAR HGB CONC 32 g/dL (33-37); MONOCYTES # (AUTO) 0.5 K/uL (0.8-1.0); MONOCYTES % (AUTO) 7.3 % (1.7-9.3); PLATELET COUNT (AUTO) 75 K/uL (140-450); RED BLOOD CELL COUNT(AUTO) 3.54 MIL/uL (4.20-6.10); RED CELL DISTRIBUTION WIDTH 20.6 % (11.6-13.7); WHITE BLOOD COUNT (AUTO) 6.5 K/uL (4.8-10.8)
[2018-02-13 04:34] LABS: ANION GAP 18.3 (8-16); CARBON DIOXIDE 15.4 mmol/L (21-32); CREATININE 3.8 mg/dL (0.7-1.3)
[2018-02-13 04:40] LABS: MAGNESIUM 1.9 mg/dL (1.8-2.4)
[2018-02-13] MEDS ORDERED: DEXTROSE 50% 50 ML SYR IVP PRN (04:45)
[2018-02-13] MEDS ORDERED: INSULIN LISPRO SLIDING SCALE 100 UNITS/ML VIAL SUBQ PRN (04:45)
[2018-02-13 04:48] LABS: CHOL/HDL RATIO 2.9 (1-4.5); FREE T4 (FREE THYROXINE) 0.82 ng/dL (0.76-1.46); MAGNESIUM 1.9 mg/dL (1.8-2.4); THYROID STIMULATING HORMONE 1.41 uIU/mL (0.34-3.74)
--- NOTE | 2018-02-13 04:50 | NUR ---
Patient will be admitted to care of DR BROTHERS. Admited to TELE. Will go to room 113. Belongings list completed. Report to DEDE MEEK.
[2018-02-13 04:51] LABS: PROTHROMBIN TIME 13.7 secs (10.8-13.4)
[2018-02-13 04:56] LABS: POTASSIUM 2.7 mmol/L (3.5-5.1)
[2018-02-13 05:00] VITALS: BP 112/67
[2018-02-13] MEDS ORDERED: KCL 20 MEQ/WATER INJ PREMIX 200 ML IV SCH ×2 (05:00→16:00)
--- NOTE | 2018-02-13 05:00 | NUR ---
IVF OF NS 1 L AT 100ML/HR STARTED, ALL NEEDS ATTENDED.
--- NOTE | 2018-02-13 05:37 | NUR ---
K-RIDER 1ST BAG IVPB STARTED, BLOOD SUGAR CHECKED WITH 113 RESULT, PT HUNGRY AT THIS TIME, PROVIDED WITH JUICE AND PUDDING, TOLERATED WELL, MONITORED CLOSELY.
[2018-02-13] MEDS: PANTOPRAZOLE 40 MG TABEC PO SCH (05:46)
--- NOTE | 2018-02-13 07:50 | NUR ---
RECEIVED PT FROM ASSOCIATE AGENT INSURANCE SALES CHARGE NURSE, PT IS AWAKE AND LYUING ON THE BED WITH AN IV LINE IN LEFT AC G. 20 NS @ 100ML/HR. SIDE RAILS ARE UP AND CALL LIGHT WITHIN REACH. NO SIGN OF DISTRESS NOTED AND WILL CONTINUE TO [place].
--- NOTE | 2018-02-13 07:55 | NUR ---
PT IS AWAKE AND LYING ON THE BED, VITAL SIGNS TAKEN AND IS STABLE. WILL CONTINUE TO MONITOR.
[2018-02-13 08:00] VITALS: BP 128/59
--- NOTE | 2018-02-13 08:00 | NUR ---
PT AWAKE, NO SIGNS OF DISTRESS, REPORT GIVEN TO DEDE FENG FOR CONTINUITY OF CARE.
[2018-02-13] MEDS: BLOOD GLUCOSE MONITORING 1 DEV DEV FS SCH ×4 (08:17→20:30)
[2018-02-13] MEDS ORDERED: NICOTINE TRANSD SYS 14 MG/24 HR PATCH TD SCH ×2 (09:00→14:01)
[2018-02-13] MEDS: LISINOPRIL 20 MG TAB PO SCH ×2 (09:26→20:29)
[2018-02-13] MEDS: DIVALPROEX 500 MG TABEC PO SCH ×2 (09:26→20:29)
[2018-02-13] MEDS: LACTOBACILLUS RHAMNOSUS GG 1 EACH CAP PO SCH (09:26)
[2018-02-13] MEDS: BENZTROPINE 1 MG TAB PO SCH (09:27)
[2018-02-13] MEDS: FERROUS SULFATE 325 MG TABEC PO SCH ×2 (09:27→18:21)
[2018-02-13] MEDS: CALCIUM ACETATE 667 MG TAB PO SCH ×3 (09:27→18:20)
[2018-02-13] MEDS: ASCORBIC ACID 500 MG TAB PO SCH (09:27)
[2018-02-13] MEDS: LACTULOSE 20 GM/30 ML UDC PO SCH ×2 (09:28→20:29)
[2018-02-13] MEDS: ARIPiprazole 10 MG TAB PO SCH (09:28)
--- NOTE | 2018-02-13 10:27 | NUR ---
PATIENT HAS BEEN SCREENED AND CATEGORIZED MODERATE NUTRITION RISK. PATIENT WILL BE SEEN WITHIN 3-5 DAYS OF ADMISSION. 02/15/18 02/17/[address]
--- NOTE | 2018-02-13 11:30 | NUR ---
PT CAME AND ASSISTED THE PT TO DO WALKING. NO SIGN OF DISTRESS NOTED ON THE PT. WILL MONITOR.
--- NOTE | 2018-02-13 11:40 | NUR ---
FAXED INITIAL REVIEW TO [facility] [phone] PHONE [facility] [phone]
[2018-02-13] MEDS: NACL 0.9% 1,000 ML IV SCH (11:50)
[2018-02-13 12:00] VITALS: BP 167/74
[2018-02-13] MEDS: PIPER/TAZO 2.25GM/D5W PREMIX 50 ML IV SCH ×2 (13:25→20:29)
[2018-02-13 16:00] VITALS: BP 168/70
[2018-02-13] MEDS ORDERED: POTASSIUM CHLORIDE 10 MEQ TABER PO SCH (16:00)
--- NOTE | 2018-02-13 16:30 | NUR ---
PT IS AWAKE AND BLOOD GLUCOSE CHECK DONE. MEDICATIONS GIVEN AND PT TOLERATED IT WELL. NO SIGN OF DISTRESS NOTED. WILL MONITOR.
--- NOTE | 2018-02-13 19:20 | NUR ---
ENDORSED PT TO CONCRETE PAVER NURSE FOR CONTINUITY OF CARE. PT IS STABLE AT THIS TIME.
--- NOTE | 2018-02-13 19:30 | NUR ---
RECEIVED PT REPORT AT BEDSIDE FOR CONTINUITY OF CARE. PT AAOX2. PT IV NOTED LAC 20G NS 80ML HR. BED LOWERED CALL LIGHT WITHIN REACH WILL CONTINUE TO MONITOR. PT IS MRSA NARES CONTACT PRECAUTIONS.
[2018-02-13 20:00] VITALS: BP 184/77
[2018-02-14] VITALS: BP 191/92
[2018-02-14] MEDS: NACL 0.9% 1,000 ML IV SCH ×2 (00:59→13:03)
[2018-02-14] MEDS ORDERED: NIFEdipine 30 MG TABER PO SCH (01:00)
[2018-02-14] MEDS ORDERED: hydrALAZINE 20 MG/ML VIAL IVP SCH (01:00)
[2018-02-14 04:00] VITALS: BP 164/86
[2018-02-14] MEDS: PIPER/TAZO 2.25GM/D5W PREMIX 50 ML IV SCH ×3 (04:47→22:04)
[2018-02-14] MEDS: PANTOPRAZOLE 40 MG TABEC PO SCH (06:08)
[2018-02-14 06:20] LABS: T4 (THYROXINE) 4.5 ug/dL (4.5-12.0)
[2018-02-14] MEDS: BLOOD GLUCOSE MONITORING 1 DEV DEV FS SCH ×4 (06:39→21:00)
--- NOTE | 2018-02-14 07:27 | NUR ---
GAVE REPORT TO DAYSHIFT NURSE AT BEDSIDE FOR CONTINUITY OF CARE.
--- NOTE | 2018-02-14 07:35 | NUR ---
RECEIVED REPORT FROM SIPHONER NURSE, GOLDEN, PT IS AWAKE AND SEATED ON THE BED WITH AN IV LINE IN PLACED AT THE LEFT AC G. 20, INTACT AND NS RUNNING AT 80ML/HR. SIDE RAILS ARE UP AND CALL LIGHT WITHIN REACH. PT KEEPS TALKING AND IS STABLE. NO SIGN OF DISTRESS NOTED. WILL CONTINUE TO MONITOR.
--- NOTE | 2018-02-14 07:55 | NUR ---
PT IS AWAKE AND VITAL SIGNS TAKEN AND IS STABLE. NO SIGN OF DISTRESS NOTED AND CALL LIGHT WITHIN REACH. WILL CONTINUE TO MONITOR.
[2018-02-14 08:00] VITALS: BP 128/68
[2018-02-14 08:07] LABS: BASOPHILS % (AUTO) 0.2 % (0.0-2.0); EOSINOPHILS % (AUTO) 0.3 % (0.0-4.0); HEMATOCRIT 34.1 % (36-52); HEMOGLOBIN 11.1 g/dL (12.0-18.0); LYMPHOCYTES # (AUTO) 1.6 K/uL (2.0-11.5); LYMPHOCYTES % (AUTO) 24.3 % (20.5-51.1); MAGNESIUM 1.7 mg/dL (1.8-2.4); MEAN CORPUSCULAR HEMOGLOBIN 30 pg (27-31); MEAN CORPUSCULAR HGB CONC 32 g/dL (33-37); MEAN CORPUSCULAR VOLUME 92.1 fL (80-94); MONOCYTES # (AUTO) 0.4 K/uL (0.8-1.0); MONOCYTES % (AUTO) 5.9 % (1.7-9.3); NEUTROPHILS # (AUTO) 4.5 K/uL (1.8-7.7); NEUTROPHILS % (AUTO) 69.3 % (42.2-75.2); PHOSPHORUS 3.4 mg/dL (2.5-4.9); PLATELET COUNT (AUTO) 94 K/uL (140-450); RED BLOOD CELL COUNT(AUTO) 3.71 MIL/uL (4.20-6.10); WHITE BLOOD COUNT (AUTO) 6.4 K/uL (4.8-10.8)
[2018-02-14 08:14] LABS: ANION GAP 15.9 (8-16); CARBON DIOXIDE 16.3 mmol/L (21-32); CREATININE 1.8 mg/dL (0.7-1.3); POTASSIUM 3.2 mmol/L (3.5-5.1)
[2018-02-14] MEDS: DIVALPROEX 500 MG TABEC PO SCH ×2 (08:18→22:03)
[2018-02-14] MEDS: ASCORBIC ACID 500 MG TAB PO SCH (08:19)
[2018-02-14] MEDS: LACTOBACILLUS RHAMNOSUS GG 1 EACH CAP PO SCH (08:19)
[2018-02-14] MEDS: ARIPiprazole 10 MG TAB PO SCH (08:20)
[2018-02-14] MEDS: hydrALAZINE 25 MG TAB PO SCH ×3 (08:20→16:28)
[2018-02-14] MEDS: LISINOPRIL 20 MG TAB PO SCH (08:20)
[2018-02-14] MEDS: CALCIUM ACETATE 667 MG TAB PO SCH ×2 (08:21→11:44)
[2018-02-14] MEDS: BENZTROPINE 1 MG TAB PO SCH (08:21)
[2018-02-14] MEDS: FERROUS SULFATE 325 MG TABEC PO SCH ×2 (08:21→16:29)
[2018-02-14] MEDS: LACTULOSE 20 GM/30 ML UDC PO SCH ×2 (08:24→22:03)
--- NOTE | 2018-02-14 08:35 | NUR ---
PT IS AWAKE, EATING HIS BREAKFAST, MEDICATIONS GIVEN AND PT TOLERATED IT. DR. BROTHERS MADE HIS ROUNDS AND SPOKE TO THE PT. NO SIGN OF DISTRESS NOTED, CALL LIGHT WITHIN REACH AND WILL CONTINUE TO MONITOR.
[2018-02-14] MEDS ORDERED: NICOTINE TRANSD SYS 14 MG/24 HR PATCH TD SCH (09:00)
--- NOTE | 2018-02-14 09:11 | NUR ---
RECEIVED REPORT FROM PAU REGARDING THE CULTURE DONE ON THE PT, PT IS POSITIVE FOR MRSA O0F NARES. REPOPRT ACKNOWLEDGED AND WILL INFORM THE DOCTOR.
--- NOTE | 2018-02-14 09:45 | NUR ---
REPORTED TO DR. HORNE THAT PAU CALLED AND PT IS POSITIVE FOR MRSA OF NARES. DR. HORNE ACKNOWLEDGED AND WILL PLACE AN ORDER FOR THE PT.
--- NOTE | 2018-02-14 10:30 | NUR ---
PT IS AWAKE AND SEATED ON THE BED, BEING CLEANED AND ASSISTED BY THE CNAS, GAVIN. NO SIGN OF DISTRESS NOTED AND WILL CONTINUE TO MONITOR.
[2018-02-14 12:00] VITALS: BP 116/64
[2018-02-14] MEDS ORDERED: RIFAXIMIN 550 MG TAB PO SCH (13:14)
[2018-02-14] MEDS ORDERED: MAG SULF 2000 MG/WATER PREMIX 50 ML IV SCH (13:30)
[2018-02-14] MEDS: MUPIROCIN CA NASAL 2% 1GM TUBE NS SCH (13:32)
[2018-02-14] MEDS: CHLORHEXADINE GLUC 2% CLOTH TP SCH (13:33)
--- NOTE | 2018-02-14 13:46 | NUR ---
FAXED CONCURRENT REVIEW TO [facility] [phone] PHONE GROVER [phone]. CALLED GROVER FROM [facility] AND ALSO GAVE VERBAL REPORT.TO GROVER.
--- NOTE | 2018-02-14 15:20 | NUR ---
PHYSICAL THERAPY CO-SIGN The Physical Therapy Progress Notes documented by Manager Ent have been reviewed. I CONCUR WITH GROUND CREW CHIEF NOTE; CONT WITH PT Reviewed/Co-Signed by: Lyn Burr, PT Documentation Done by: ROBERTO NETTLES, GROUND CREW CHIEF Addendum: 02/14/18 at 1520 by Lyn Burr PT Amended: Links added.
[2018-02-14 16:00] VITALS: BP 111/52
--- NOTE | 2018-02-14 16:00 | NUR ---
PT IS AWAKE LYING ON THE BED, VITAL SIGNS TAKEN, MEDICATIONS GIVEN AND PT TOLERATED IT. NO SIGN OF DISTRESS NOTED. WILL MONITOR.
[2018-02-14] MEDS: NICOTINE TRANSD SYS 14 MG/24 HR PATCH TD SCH (16:15)
--- NOTE | 2018-02-14 19:20 | NUR ---
ENDORSED PT TO RUBY DEVELOPER NURSEGOLDEN, FOR CONTINUITY OF CARE. PT IS AWAKE AND SEATED ON THE BED AND IS STABLE AT THIS TIME.
--- NOTE | 2018-02-14 19:21 | NUR ---
RECEIVED PT REPORT FROM [facility] AT BEDSIDE FOR CONTINUITY OF CARE. PT IS AAOX2. PT IV NOTED LAC 20G. PT IS ON MRSA CONTACT NARES. BED LOWERED CALL LIGHT WITHIN REACH WILL CONTINUE TO MONITOR.
[2018-02-14 20:00] VITALS: BP 149/75
--- NOTE | 2018-02-14 21:30 | NUR ---
ADMINISTERED PO MEDS PT ABLE TO SWALLOW WITH NO PROBLEM. PT IV NOT INFUSING WELL PT COMPLAINING OF PAIN WILL CHANGE IV SITE.
[2018-02-14] MEDS: HYDROcodone/APAP 7.5/325 MG 1 TAB PO PRN (22:03)
[2018-02-14] MEDS: POTASSIUM CHLORIDE 10 MEQ TABER PO SCH (22:04)
[2018-02-14] MEDS: RIFAXIMIN 550 MG TAB PO SCH (22:04)
[2018-02-15] VITALS: BP 144/84
--- NOTE | 2018-02-15 00:19 | NUR ---
STARTED NEW IV IN RFA 22G. D/C IV LAC 20 INTACT CANULA.
--- NOTE | 2018-02-15 00:20 | NUR ---
PT IS SLEEPING WILL CONTINUE TO MONITOR.
[2018-02-15] MEDS: NACL 0.9% 1,000 ML IV SCH ×3 (02:51→18:11)
--- NOTE | 2018-02-15 03:25 | NUR ---
PT REFUSING SPUTUM CULTURE.
[2018-02-15 04:00] VITALS: BP 179/84
[2018-02-15] MEDS: PIPER/TAZO 2.25GM/D5W PREMIX 50 ML IV SCH ×3 (04:18→20:24)
[2018-02-15] MEDS ORDERED: hydrALAZINE 25 MG TAB PO SCH ×3 (05:00→21:00)
[2018-02-15] MEDS: PANTOPRAZOLE 40 MG TABEC PO SCH (06:00)
--- NOTE | 2018-02-15 06:02 | NUR ---
GAVE HYDRALAZINE 25MG PO. PT BP 178/84.
[2018-02-15] MEDS: BLOOD GLUCOSE MONITORING 1 DEV DEV FS SCH ×4 (06:15→20:24)
--- NOTE | 2018-02-15 07:00 | NUR ---
159/79 HR 75. AFTER HYDRLAZINE. PT COMPLAINING OF HEART PAIN. ASSESSED PT AND HEART MONITOR NO ABNORMAL CHANGES TOLD PT HE IS OK. PT CALMED DOWN AND SAID OK.
[2018-02-15 07:15] LABS: BASOPHILS % (AUTO) 0.2 % (0.0-2.0); EOSINOPHILS % (AUTO) 0.6 % (0.0-4.0); HEMATOCRIT 37.2 % (36-52); HEMOGLOBIN 11.9 g/dL (12.0-18.0); LYMPHOCYTES # (AUTO) 1.6 K/uL (2.0-11.5); LYMPHOCYTES % (AUTO) 26.3 % (20.5-51.1); MEAN CORPUSCULAR HEMOGLOBIN 30 pg (27-31); MEAN CORPUSCULAR HGB CONC 32 g/dL (33-37); MEAN CORPUSCULAR VOLUME 93.4 fL (80-94); MONOCYTES # (AUTO) 0.5 K/uL (0.8-1.0); MONOCYTES % (AUTO) 7.5 % (1.7-9.3); NEUTROPHILS % (AUTO) 65.4 % (42.2-75.2); PLATELET COUNT (AUTO) 104 K/uL (140-450); RED BLOOD CELL COUNT(AUTO) 3.98 MIL/uL (4.20-6.10); RED CELL DISTRIBUTION WIDTH 20.6 % (11.6-13.7); WHITE BLOOD COUNT (AUTO) 6.1 K/uL (4.8-10.8)
--- NOTE | 2018-02-15 07:32 | NUR ---
GAVE REPORT TO DAYSHIFT NURSE AT BEDSIDE FOR CONTINUITY OF CARE.
--- NOTE | 2018-02-15 07:33 | NUR ---
REPORT RECEIVED FROM YOUTH DEVELOPMENT PROFESSIONAL NURSE AT BEDSIDE FOR CONTINUITY OF CARE. PATIENT AOX2, MUMBLES, RESPIRATIONS EVEN AND UNLABORED, DENIES PAIN AT THIS TIME. IV TO R FA INTACT, PATENT, AND ASYMPTOMATIC, INFUSING NS AT 80 ML/HR. UPDATED BOARD, UPDATED PATIENT WITH PLAN OF CARE FOR THE DAY, PATIENT VERBALIZED UNDERSTANDING. SAFETY AND ISOLATION PRECAUTIONS IN PLACE, BED ON LOWEST SETTING, CALL LIGHT WITHIN REACH. WILL CONTINUE TO MONITOR PATIENT.
[2018-02-15 07:39] LABS: ANION GAP 9.9 (8-16); CARBON DIOXIDE 22.9 mmol/L (21-32); POTASSIUM 3.8 mmol/L (3.5-5.1)
[2018-02-15 07:46] LABS: MAGNESIUM 1.8 mg/dL (1.8-2.4); PHOSPHORUS 2.5 mg/dL (2.5-4.9)
[2018-02-15 08:00] VITALS: BP 178/83
[2018-02-15] MEDS: LACTULOSE 20 GM/30 ML UDC PO SCH ×2 (08:33→20:26)
[2018-02-15] MEDS: ARIPiprazole 10 MG TAB PO SCH (08:33)
[2018-02-15] MEDS: hydrALAZINE 25 MG TAB PO SCH ×2 (08:34→12:48)
[2018-02-15] MEDS: RIFAXIMIN 550 MG TAB PO SCH ×2 (08:34→20:26)
[2018-02-15] MEDS: LACTOBACILLUS RHAMNOSUS GG 1 EACH CAP PO SCH (08:34)
[2018-02-15] MEDS: ASCORBIC ACID 500 MG TAB PO SCH (08:34)
[2018-02-15] MEDS: FERROUS SULFATE 325 MG TABEC PO SCH ×2 (08:34→17:09)
[2018-02-15] MEDS: DIVALPROEX 500 MG TABEC PO SCH ×2 (08:35→20:25)
[2018-02-15] MEDS: POTASSIUM CHLORIDE 10 MEQ TABER PO SCH ×2 (08:35→20:25)
--- NOTE | 2018-02-15 08:42 | NUR ---
PATIENT SITTING UP IN BED EATING BREAKFAST. ORDERED MEDICATIONS ADMINISTERED. PATIENT TOLERATED THEM WELL. RESPIRATIONS EVEN AND UNLABORED, DENIES PAIN AT THIS TIME. SAFETY AND ISOLATION PRECAUTIONS IN PLACE, CALL LIGHT WITHIN REACH. WILL CONTINUE TO MONITOR PATIENT.
--- NOTE | 2018-02-15 09:35 | NUR ---
PATIENT C/O 6/10 PAIN ON RIGHT ARM, NORCO PRN GIVEN. PATIENT TOLERATING IT WELL. NO SIGNS OF DISTRESS OR SOB NOTED, SAFETY AND ISOLATION PRECAUTIONS IN PLACE, CALL LIGHT WITHIN REACH, BED ON LOWEST SETTING, WILL CONTINUE TO MONITOR PATIENT.
[2018-02-15] MEDS: HYDROcodone/APAP 7.5/325 MG 1 TAB PO PRN (09:37)
--- NOTE | 2018-02-15 10:48 | NUR ---
PATIENT'S BP 172/82 HR 76, REPEAT BP 180/[address] ROMO INFORMED. NEW ORDERS IN FOR LACTULOSE PO AND HYDRALAZINE IVP. WILL MEDICATE ORDERED. PATIENT INFORMED. PATIENT RESTING IN BED, NO SIGNS OF DISTRESS OR SOB NOTED, PATIENT DENIES PAIN AT THE MOMENT. SAFETY AND ISOLATION PRECAUTIONS IN PLACE, CALL LIGHT WITHIN REACH, BED ON LOWEST SETTING, WILL CONTINUE TO MONITOR PATIENT.
[2018-02-15] MEDS ORDERED: hydrALAZINE 20 MG/ML VIAL IVP SCH ×2 (11:00→20:00)
[2018-02-15] MEDS ORDERED: LACTULOSE 20 GM/30 ML UDC PO SCH (11:30)
--- NOTE | 2018-02-15 11:33 | NUR ---
ORDERED MEDICATIONS ADMINISTERED. PATIENT TOLERATING THEM WELL. NO SIGNS OF DISTRESS OR SOB NOTED ON ROOM AIR. BREATHING EVEN AND UNLABORED. PATIENT DENIES PAIN AT THE MOMENT. SAFETY AND ISOLATION PRECAUTION IN PLACE, CALL LIGHT WITHIN REACH. WILL CONTINUE TO MONITOR PATIENT.
[2018-02-15 12:00] VITALS: BP 157/79
--- NOTE | 2018-02-15 12:20 | NUR ---
PATIENT AMBULATED TO BATHROOM ON STEADY GAIT WITH STANDBY ASSIST. PATIENT HAD BOWEL MOVEMENT.
[2018-02-15] MEDS: MUPIROCIN CA NASAL 2% 1GM TUBE NS SCH (12:48)
[2018-02-15] MEDS: CHLORHEXADINE GLUC 2% CLOTH TP SCH (12:49)
--- NOTE | 2018-02-15 12:49 | NUR ---
ORDERED MEDICATIONS ADMINISTERED. PATIENT TOLERATING THEM WELL. REPEAT BP 157/79 HR 79. NO SIGNS OF DISTRESS OR SOB NOTED ON ROOM AIR. BREATHING EVEN AND UNLABORED. PATIENT DENIES PAIN AT THE MOMENT. SAFETY AND ISOLATION PRECAUTION IN PLACE, CALL LIGHT WITHIN REACH. WILL CONTINUE TO MONITOR PATIENT.
--- NOTE | 2018-02-15 13:29 | NUR ---
spoke to the nurse case manager at [facility] at [phone] and stated will arrange home health and will call me back.
--- NOTE | 2018-02-15 14:00 | NUR ---
Associate Professor Of Anthropology Notes: I call Lata at [facility] to inform her about Patient status, discuss possible discharge with home health and Patient lab result for MRSA. Lata stated that patient will not be able to return to board and care until Patient is treated and colonized. Lata Also stated that Patient will be able to received Home health services at their facility when he returns ready and clear after discharge from [facility]. I thanked her for the information and ended the call. Charge Nurse Nemo was made aware by these film writer.
--- NOTE | 2018-02-15 14:23 | NUR ---
PHYSICAL THERAPY CO-SIGN The Physical Therapy Progress Notes documented by Cloth Mercerizing Supervisor have been reviewed. Reviewed/Co-Signed by: Benito Ramirez PT Documentation Done by: ROBERTO NETTLES PTA PATIENT MAKING GOOD STEADY GAINS TOWARDS REHAB GOALS, CLOSE MONITORING OF VS. Addendum: 02/15/18 at 1423 by Benito Ramirez PT Amended: Links added.
--- NOTE | 2018-02-15 15:01 | NUR ---
PATIENT AMBULATED TO THE BATHROOM ON STEADY GAIT WITH STANDBY ASSIST. PATIENT VOIDED AND HAD SOME DIARRHEA.
--- NOTE | 2018-02-15 15:21 | NUR ---
JAVIER FROM [facility] CALLED, REQUESTED FAX OF THE SOCIAL SERVICE ORDER FOR HOME HEALTH WITH PT. FAX # [phone]. ORDER FAXED REQUESTED.
[2018-02-15] MEDS: NICOTINE TRANSD SYS 14 MG/24 HR PATCH TD SCH (15:49)
[2018-02-15 16:01] VITALS: BP 179/60
--- NOTE | 2018-02-15 17:09 | NUR ---
ORDERED MEDICATIONS ADMINISTERED. PATIENT TOLERATING THEM WELL. BLOOD SUGAR 87, NO COVERAGE NEEDED. NO SIGNS OF DISTRESS OR SOB NOTED ON ROOM AIR. BREATHING EVEN AND UNLABORED. PATIENT DENIES PAIN AT THE MOMENT. SAFETY AND ISOLATION PRECAUTION IN PLACE, CALL LIGHT WITHIN REACH. WILL CONTINUE TO MONITOR PATIENT.
[2018-02-15] MEDS: CLINDAMYCIN 600 MG in DEXTROSE 5% 50 ML IV SCH (18:10)
--- NOTE | 2018-02-15 18:10 | NUR ---
NEW IVPB CLEOCIN ADMINISTERED. PATIENT TOLERATING IT WELL. BP 193/94 HR 92. PATIENT CURRENTLY SITTING UP IN BED EATING DINNER. NO SIGNS OF DISTRESS OR SOB NOTED ON ROOM AIR. BREATHING EVEN AND UNLABORED. PATIENT DENIES PAIN AT THE MOMENT. SAFETY AND ISOLATION PRECAUTION IN PLACE, CALL LIGHT WITHIN REACH. WILL CONTINUE TO MONITOR PATIENT.
--- NOTE | 2018-02-15 18:49 | NUR ---
PATIENT RESTING IN BED, BP 173/[address] VALENZUELA AWARE[address] WILL AWAIT FOR NEW ORDERS.
--- NOTE | 2018-02-15 19:17 | NUR ---
REPORT GIVEN TO INDUSTRIAL HYGIENE MANAGER NURSE AT BEDSIDE FOR CONTINUITY OF CARE. PATIENT RESTING IN BED, PATIENT IN STABLE CONDITION.
--- NOTE | 2018-02-15 19:27 | NUR ---
RECEIVED REPORT FROM DAY SHIFT, PATIENT RESTING IN BED, AWAKE, BUT MUMBLING AND CONFUSED. NO S/S OF DISTRESS NOTED, RESPIRATION EVEN AND UNLABORED, ON ROOM AIR. IV PATENT AND INTACT. PLAN OF CARE DISCUSSED, PATIENT SAID," OKAY." CALL LIGHT WITHIN REACH, SAFETY MEASURE ENSURED, WILL CONTINUE TO MONITOR.
--- NOTE | 2018-02-15 19:56 | NUR ---
BP 188/89, HR 80, MADE DR. VALENZUELA AWARE. DR. VALENZUELA SAID," WILL PUT ORDER IN." WILL CONTINUE TO MONITOR.
[2018-02-15 20:00] VITALS: BP 188/89
--- NOTE | 2018-02-15 20:39 | NUR ---
DUE MEDICATION GIVEN, PATIENT TOLERATED WELL. NO S/S OF DISTRESS NOTED, RESPIRATION EVEN AND UNLABORED, PATIENT IS TALKING TO HIMSELF IN THE ROOM. CALL LIGHT WITHIN REACH, SAFETY MEASURE ENSURED, WILL CONTINUE TO MONITOR.
--- NOTE | 2018-02-15 21:45 | NUR ---
BP 156/86, HR 85, PATIENT WAS SLEEPING, EASY TO AROUSE. NO S/S OF DISTRESS NOTED, SAFETY MEASURE ENSURED, WILL CONTINUE TO MONITOR.
--- NOTE | 2018-02-15 23:51 | NUR ---
BP 180/86, HR 86, MADE DR. VALENZUELA AWARE. DR. VALENZUELA SAID," I WILL PUT ORDER IN."
[2018-02-16] VITALS: BP 180/86
--- NOTE | 2018-02-16 00:04 | NUR ---
CALLED DR. VALENZUELA, I WAS INFORMED THAT DR. VALENZUELA IS DOING PROCEDURE, UNABLE TO PUT ORDER AT THIS TIME, WILL CONTINUE TO MONITOR PATIENT.
--- NOTE | 2018-02-16 01:23 | NUR ---
NIFEDIPINE ER 30MG ADMINISTERED. PATIENT TOLERATED WELL. NO S/S OF DISTRESS NOTED, NO SPUTUM COLLECTED AT THIS TIME. WILL CONTINUE TO MONITOR.
[2018-02-16] MEDS ORDERED: NIFEdipine 30 MG TABER PO SCH (01:30)
[2018-02-16 04:05] VITALS: BP 176/81
--- NOTE | 2018-02-16 04:05 | NUR ---
BP 176/81, HR 85, MADE DR. VALENZUELA AWARE. WILL CONTINUE TO MONITOR.
[2018-02-16] MEDS ORDERED: LABETALOL 100 MG/20 ML VIAL IV SCH (04:30)
[2018-02-16] MEDS: PIPER/TAZO 2.25GM/D5W PREMIX 50 ML IV SCH (04:38)
[2018-02-16] MEDS ORDERED: LABETALOL 100 MG/20 ML VIAL ONE (04:55)
[2018-02-16] MEDS: CLINDAMYCIN 600 MG in DEXTROSE 5% 50 ML IV SCH ×3 (05:01→20:33)
--- NOTE | 2018-02-16 05:01 | NUR ---
TRANDATE 5MG ADMINISTERED ORDERED. WILL CONTINUE TO MONITOR.
[2018-02-16] MEDS: PANTOPRAZOLE 40 MG TABEC PO SCH (06:06)
--- NOTE | 2018-02-16 06:15 | NUR ---
BP 158/75 HR 74, NO S/S OF DISTRESS NOTED, RESPIRATION EVEN AND UNLABORED, ON ROOM AIR. CALL LIGHT WITHIN REACH, SAFETY MEASURE ENSURED, WILL CONTINUE TO MONITOR.
[2018-02-16] MEDS ORDERED: amLODIPine 5 MG TAB PO SCH (06:30)
[2018-02-16] MEDS ORDERED: LISINOPRIL 5 MG TAB PO SCH (06:30)
[2018-02-16] MEDS: BLOOD GLUCOSE MONITORING 1 DEV DEV FS SCH ×4 (06:33→20:33)
--- NOTE | 2018-02-16 07:30 | NUR ---
ENDORSED PLAN OF CARE TO DAY SHIFT RN, PATIENT IS RESTING IN BED, RESPIRATION EVEN AND UNLABORED, IN STABLE CONDITION.
--- NOTE | 2018-02-16 07:31 | NUR ---
RECEIVED REPORT FROM PT AT BEDSIDE FOR CONTINUITY OF CARE. PT LYING ON BACK ON HIS BED. AOX2. INCOHERENT SPEECH. NO MUMBLING. ALL SAFETY MEASURE IN PLACE. EMPTIED PT URINAL. WILL CONTINUE TO MONITOR THE PT.
[2018-02-16 08:00] VITALS: BP 153/75
[2018-02-16] MEDS: ARIPiprazole 10 MG TAB PO SCH (09:14)
[2018-02-16] MEDS: POTASSIUM CHLORIDE 10 MEQ TABER PO SCH ×2 (09:14→20:35)
[2018-02-16] MEDS: LACTOBACILLUS RHAMNOSUS GG 1 EACH CAP PO SCH (09:15)
[2018-02-16] MEDS: RIFAXIMIN 550 MG TAB PO SCH ×2 (09:15→20:35)
[2018-02-16] MEDS: FERROUS SULFATE 325 MG TABEC PO SCH ×2 (09:15→17:28)
[2018-02-16] MEDS: ASCORBIC ACID 500 MG TAB PO SCH (09:15)
[2018-02-16] MEDS: DIVALPROEX 500 MG TABEC PO SCH ×2 (09:15→20:34)
[2018-02-16] MEDS: LACTULOSE 20 GM/30 ML UDC PO SCH ×2 (09:16→20:46)
[2018-02-16] MEDS: hydrALAZINE 25 MG TAB PO SCH ×3 (09:28→17:29)
--- NOTE | 2018-02-16 10:02 | NUR ---
CHECKED ON PT. PT IN RESTROOM WITH PT. STABLE AT THIS TIME.
[2018-02-16] MEDS: NACL 0.9% 1,000 ML IV SCH (10:39)
--- NOTE | 2018-02-16 10:42 | NUR ---
ADMINISTERED 0.9 NS ORDERED . PT SLEEPING . IV INFUSING WELL. ALL SAFETY MEASURE IN PLACE. WILL CONTINUE TO MONITOR PT.
[2018-02-16 12:00] VITALS: BP 142/74
--- NOTE | 2018-02-16 12:00 | NUR ---
CHECKED ON PT. TOOK VS. BP 142/74, SPO2 93% RA. RAISED THE HEAD OF PT BED. ADMINISTERED MEDICATION ORDERED. BS 106. PT STABLE AT THIS KIET,E. ALL SAFETY MEASURE IN PLACE . WILL CONTINUE TO MONITOR PT.
[2018-02-16] MEDS: MUPIROCIN CA NASAL 2% 1GM TUBE NS SCH (13:06)
[2018-02-16] MEDS: CHLORHEXADINE GLUC 2% CLOTH TP SCH (13:09)
--- NOTE | 2018-02-16 13:30 | NUR ---
CHECKED ON PT. NO SIGN OF DISTRESS. EMPTIED HIS URINAL. CALL LIGHT WITHIN REACH. WILL CONTINUE TO MONITOR PT.
--- NOTE | 2018-02-16 14:58 | NUR ---
02/16/18 RD INITIAL ASSESSMENT COMPLETED PLEASE REFER TO NUTRITION ASSESSMENT UNDER CARE ACTIVITY FOR ESTIMATED NUTRITIONAL NEEDS. 1. CONTINUE CCHO60 GM DIET TOLERATED 2. RD TO FOLLOW-UP 3-5 DAYS, MODERATE RISK BETINA SALINAS RD
--- NOTE | 2018-02-16 15:25 | NUR ---
PHYSICAL THERAPY CO-SIGN The Physical Therapy Progress Notes documented by Detector Car Operator have been reviewed. I CONCUR W/SPECIAL EDUCATION KINDERGARTEN TEACHER NOTE; CONT PER TX PLAN Reviewed/Co-Signed by: Lyn Burr, PT Documentation Done by: ROBERTO NETTLES PTA Addendum: 02/16/18 at 1528 by Lyn Burr PT Amended: Links added.
[2018-02-16] MEDS: NICOTINE TRANSD SYS 14 MG/24 HR PATCH TD SCH (15:39)
--- NOTE | 2018-02-16 15:51 | NUR ---
Clau from [facility] called and stated that the patient is not qualify to go to SNF, antibiotic can be given orally and home health can be arrange for the boarding care. shelter case manager at [facility] wants Dr. Boyce to speak to th medical investigator at [facility] and was given the phone number [phone] and the number was given to Dr Boyce to call.
[2018-02-16 16:00] VITALS: BP 117/63
--- NOTE | 2018-02-16 16:30 | NUR ---
CHECKED ON PT. ASSISTED TO COMMODE FOR BM, NO BM ONLY URINATED. TRANSFERRED BACK TO BED. NO SIGN OF DISTRESS. ALL SAFETY MEASURE IN PLACE. WILL CONTINUE TO MONITOR PT.
--- NOTE | 2018-02-16 16:41 | NUR ---
Spoke to test case developer Feli at [facility] and informed her that since SNF denied and patient is positive for MRSA and cannot return to his nursing home at this time until the MRSA colonized, the patient will remain at the [facility]. Feli took note of that and will inform her health information director Dr. risa Fernandes. Feli called back and stated that Dr. Fernandes said that the patient does not require to be in isolation because the MRSA is not active infection.
--- NOTE | 2018-02-16 16:53 | NUR ---
Called Lata at the longterm and informed her that the patient is colonized for MRSA and per Feli at [facility], he can go back to the longterm. Lata at the [facility] wants me to find another [facility] because they cannot take care of him due to his recent hospitalization. I gave Lata the [facility] community case manager Feli to let her know that.
--- NOTE | 2018-02-16 17:29 | NUR ---
ADMINISTERED HYDRALAZINE ORDERED ,BP 136/75. PT TOLERATED WELL. WILL CONTINUE TO MONITOR PT.
--- NOTE | 2018-02-16 19:24 | NUR ---
ENDORSED TO PM NURSE FOR CONTINUITY OF CARE. PT STABLE AT THIS TIME.
--- NOTE | 2018-02-16 19:30 | NUR ---
RECEIVED REPORT FROM DAY SHIFT, PATIENT RESTING IN BED, AWAKE, MUMBLING MOST OF THE TIME, BUT SOME SENTENCES WERE CLEAR AND UNDERSTANDABLE. NO S/S OF DISTRESS NOTED, RESPIRATION EVEN AND UNLABORED, ON ROOM AIR. IV PATENT AND INTACT. PLAN OF CARE DISCUSSED, PATIENT VERBALIZED UNDERSTANDING, CALL LIGHT WITHIN REACH, SAFETY MEASURE ENSURED, WILL CONTINUE TO MONITOR.
[2018-02-16 19:56] VITALS: BP 137/71
--- NOTE | 2018-02-16 20:43 | NUR ---
PATIENT REFUSED LACTULOSE, EDUCATION PROVIDED REGARDING THE COMPLICATION OF NOT TAKING THE LACTULOSE, PATIENT SAID," I DON'T CARE. THIS LIQUID MAKES ME SICK." MADE DR. VALENZUELA AWARE, DR. VALENZUELA SAID," THAT'S FINE."
--- NOTE | 2018-02-16 22:35 | NUR ---
PATIENT IS SLEEPING, NO S/S OF DISTRESS NOTED, RESPIRATION EVEN AND UNLABORED, ON ROOM AIR. CALL LIGHT WITHIN REACH, SAFETY MEASURE ENSURED, WILL CONTINUE TO MONITOR.
[2018-02-17] VITALS: BP 145/72
--- NOTE | 2018-02-17 00:16 | NUR ---
VITAL SIGNS STABLE, NO S/S OF DISTRESS NOTED, HEAD OF BED ELEVATED, CALL LIGHT WITHIN REACH, SAFETY MEASURE ENSURED, WILL CONTINUE TO MONITOR.
--- NOTE | 2018-02-17 02:46 | NUR ---
NO CHANGE IN CONDITION, NO S/S OF DISTRESS NOTED, RESPIRATION EVEN AND UNLABORED, ON ROOM AIR. CALL LIGHT WITHIN REACH, SAFETY MEASURE ENSURED, WILL CONTINUE TO MONITOR.
[2018-02-17 04:00] VITALS: BP 145/67
[2018-02-17] MEDS: NACL 0.9% 1,000 ML IV SCH ×2 (04:28→15:12)
[2018-02-17] MEDS: CLINDAMYCIN 600 MG in DEXTROSE 5% 50 ML IV SCH ×2 (04:28→13:51)
--- NOTE | 2018-02-17 04:31 | NUR ---
DUE IV CLEOCIN STARTED. PATIENT TOLERATED WELL. NO S/S OF DISTRESS NOTED, RESPIRATION EVEN AND UNLABORED, ON ROOM AIR. CALL LIGHT WITHIN REACH, SAFETY MEASURE ENSURED, WILL CONTINUE TO MONITOR.
[2018-02-17] MEDS: PANTOPRAZOLE 40 MG TABEC PO SCH (05:40)
[2018-02-17] MEDS: BLOOD GLUCOSE MONITORING 1 DEV DEV FS SCH ×2 (06:31→12:24)
[2018-02-17 07:11] LABS: BASOPHILS % (AUTO) 0.2 % (0.0-2.0); EOSINOPHILS # (AUTO) 0.1 K/uL (0-0.4); EOSINOPHILS % (AUTO) 2.1 % (0.0-4.0); HEMATOCRIT 37.2 % (36-52); LYMPHOCYTES # (AUTO) 2.2 K/uL (2.0-11.5); LYMPHOCYTES % (AUTO) 38.4 % (20.5-51.1); MEAN CORPUSCULAR HEMOGLOBIN 30 pg (27-31); MEAN CORPUSCULAR HGB CONC 32 g/dL (33-37); MEAN CORPUSCULAR VOLUME 92.8 fL (80-94); MONOCYTES # (AUTO) 0.5 K/uL (0.8-1.0); MONOCYTES % (AUTO) 8.5 % (1.7-9.3); NEUTROPHILS # (AUTO) 2.9 K/uL (1.8-7.7); NEUTROPHILS % (AUTO) 50.8 % (42.2-75.2); PLATELET COUNT (AUTO) 94 K/uL (140-450); RED BLOOD CELL COUNT(AUTO) 4.01 MIL/uL (4.20-6.10); RED CELL DISTRIBUTION WIDTH 20.7 % (11.6-13.7); WHITE BLOOD COUNT (AUTO) 5.7 K/uL (4.8-10.8)
--- NOTE | 2018-02-17 07:30 | NUR ---
ENDORSED PLAN OF CARE TO DAY SHIFT RN, PATIENT RESTING IN BED, IN STABLE CONDITION.
[2018-02-17 07:34] LABS: ANION GAP 13.5 (8-16); CARBON DIOXIDE 19.7 mmol/L (21-32); CREATININE 0.7 mg/dL (0.7-1.3); POTASSIUM 5.2 mmol/L (3.5-5.1)
[2018-02-17 07:56] VITALS: BP 163/80
--- NOTE | 2018-02-17 08:18 | NUR ---
ADMINISTERED LEVAQUIN IVPB . INFUSING WELL. PT TOLERATED WELL. PT HELPED WITH BEDSIDE COMMODE. ELEVATOR ERECTOR HELPER AT BEDSIDE. PT LYING ON MED. NO SIGN OF DISTRESS. CALL LIGHT WITHIN REACH. BED ON LOW POSITION. WILL CONTINUE TO MONITOR PT.
[2018-02-17] MEDS: hydrALAZINE 25 MG TAB PO SCH ×2 (08:19→13:51)
[2018-02-17] MEDS: LACTOBACILLUS RHAMNOSUS GG 1 EACH CAP PO SCH (08:19)
[2018-02-17] MEDS: ASCORBIC ACID 500 MG TAB PO SCH (08:20)
[2018-02-17] MEDS: FERROUS SULFATE 325 MG TABEC PO SCH (08:20)
[2018-02-17] MEDS: DIVALPROEX 500 MG TABEC PO SCH (08:20)
[2018-02-17] MEDS: ARIPiprazole 10 MG TAB PO SCH (08:21)
[2018-02-17 08:31] LABS: MAGNESIUM 1.3 mg/dL (1.8-2.4)
[2018-02-17] MEDS: RIFAXIMIN 550 MG TAB PO SCH (08:36)
[2018-02-17] MEDS ORDERED: amLODIPine 5 MG TAB PO SCH (09:00)
[2018-02-17] MEDS: LACTULOSE 20 GM/30 ML UDC PO SCH (09:00)
[2018-02-17] MEDS ORDERED: LISINOPRIL 5 MG TAB PO SCH (09:00)
[2018-02-17] MEDS ORDERED: LEVOFLOXACIN 500 MG/D5W PREMIX 100 ML IV SCH (09:00)
--- NOTE | 2018-02-17 11:00 | NUR ---
PT CHECKED ON BEDSIDE. ASSISTED TO RESTROOM. HAD BM. ASSISTED BACK TO BED. PT STABLE . NO SIGN OF DISTRESS. ALL SAFETY MEASURE IN PLACE. WILL CONTINUE TO MONITOR PT.
[2018-02-17 12:00] VITALS: BP 157/73
[2018-02-17] MEDS: MUPIROCIN CA NASAL 2% 1GM TUBE NS SCH (13:00)
[2018-02-17] MEDS: CHLORHEXADINE GLUC 2% CLOTH TP SCH (13:00)
--- NOTE | 2018-02-17 13:00 | NUR ---
CHECKED ON PT. GAVE CRACKER AND MILK. ALL SAFETY MEASURE IN PLACE. WILL CONTINUE TO MONITOR PT.
--- NOTE | 2018-02-17 13:15 | NUR ---
PHYSICAL THERAPY CO-SIGN The Physical Therapy Progress Notes documented by Child Care Centre Manager have been reviewed. I concur with the documentation of this JUNIOR NET DEVELOPER. Plan: continue PT as per plan of care. Reviewed/Co-Signed by: Mirian Quarles, PT Documentation Done by: Derrell Obrien, JUNIOR NET DEVELOPER Addendum: 02/17/18 at 1518 by Mirian Quarles PT Amended: Links added.
[2018-02-17] MEDS ORDERED: MAG SULF 2000 MG/WATER PREMIX 50 ML IV SCH (14:00)
--- NOTE | 2018-02-17 14:08 | NUR ---
Cake Washer Note: I called and spoke with cyber security administrator Lata from [facility] regarding facility not wanting to accept patient back upon discharge. Per Lata, patient has attempted to get out of their facility before and she thinks patient should be transfer to snf upon discharge from our hospital. She reported patient is not conversed and makes him on medical decisions. I explained to Lata according to returned case inspector from health insurance plan patient does not meet criteria to be transfer to a snf. She requested I contacted laundrette owner of [facility], Tato . I called and spoke with Tato. Tato stated he had concerns regarding patient's medical condition, I referred him to speak with returned case inspector Sri.
--- NOTE | 2018-02-17 14:37 | NUR ---
RECEIVED A CALL BACK FROM MARK, ENTRY ANALYST OF [facility]. I GAVE HIM REPORT AND INFORMED HIM THAT THE DOCTOR SAID HE WAS DISCHARGED TO GO BACK TO THE [facility]. HE SAID THEY WILL TAKE HIM BACK AND THAT HE WILL BE PICKED UP AT 3:30 P.M. I SPOKE WITH JAVIER AT [facility] AND INFORMED HER THAT THE PATIENT WILL GO BACK TO THE [facility]. SHE SAID SHE HAS ARRANGED Belanit [facility] FOR P.T. PHONE IS [phone] I INFORMED BROOKE AGUAYOSCRUFF WORKER NURSE.
[2018-02-17] MEDS ORDERED: HYDR-4420 PO (14:46)
[2018-02-17] MEDS ORDERED: AMLO5TAB4 PO (14:46)
[2018-02-17] MEDS ORDERED: CLIN300C2 PO (14:53)
[2018-02-17] MEDS: NICOTINE TRANSD SYS 14 MG/24 HR PATCH TD SCH (15:29)
--- NOTE | 2018-02-17 16:10 | NUR ---
PT DISCHARGED AND LEFT THE HOSPITAL WITH STAFF FROM [facility]. PT LEFT WITH ALL HIS BELONGINGS. PT STABLE. ASSISTED WALKING TO HIS CAR AT FRONT PARKING LOT. BLU HASTINGS PRESENT.
== END 2018-02-17 16:10 | disposition home health service (06) | DRG 917 ==
LOC: MED 19:57 → MTU 02-13 03:59 → OBSVTOIN 02-13 10:06
PROVIDERS: ADMIT General Practice; ATTEND General Practice
DX: T43.621A Poisoning by amphetamines, accidental (unintentional), initial encounter (principal); J69.0 Pneumonitis due to inhalation of food and vomit; G92 Toxic encephalopathy; N17.0 Acute kidney failure with tubular necrosis; E43 Unspecified severe protein-calorie malnutrition; D68.59 Other primary thrombophilia; Z68.1 Body mass index [BMI] 19.9 or less, adult; E87.2 Acidosis; N39.0 Urinary tract infection, site not specified; E87.1 Hypo-osmolality and hyponatremia; L03.113 Cellulitis of right upper limb; E11.65 Type 2 diabetes mellitus with hyperglycemia; F20.9 Schizophrenia, unspecified; Z88.8 Allergy status to other drugs, medicaments and biological substances; Z85.9 Personal history of malignant neoplasm, unspecified; I11.0 Hypertensive heart disease with heart failure; F19.10 Other psychoactive substance abuse, uncomplicated; E86.0 Dehydration; F31.9 Bipolar disorder, unspecified; Z91.19 Patient's noncompliance with other medical treatment and regimen; R31.9 Hematuria, unspecified; Z90.49 Acquired absence of other specified parts of digestive tract; Z82.5 Family history of asthma and other chronic lower respiratory diseases; F15.10 Other stimulant abuse, uncomplicated; E87.6 Hypokalemia; K72.90 Hepatic failure, unspecified without coma; E83.39 Other disorders of phosphorus metabolism; D69.6 Thrombocytopenia, unspecified; D64.9 Anemia, unspecified; Z22.322 Carrier or suspected carrier of Methicillin resistant Staphylococcus aureus; Y92.89 Other specified places as the place of occurrence of the external cause; I50.9 Heart failure, unspecified; Z88.5 Allergy status to narcotic agent
CPT/HCPCS: 96360; 96361; 99285; G0378; 36415; 70450; 71045; 73130; 76536; 76705; 76770; 80048; 80053; 80305; 81001; 82140; 82150; 82550; 82553; 82948; 83036; 83690; 83735; 83880; 84100; 84300; 84436; 84439; 84443; 84479; 84484; 85025; 85610; 85730; 87081; 87086; 93005; 93308; 93925; 93930; 93970; 93971; 93976; 97110; 97116; 97140; 97530; C1758; G0482; J0360; J1815; J1956; J2543; J3475; J3480; J3490; J7030; J7060; Q0092

== ENCOUNTER 2018-03-21 22:13 | Inpatient (IN) | payer OTHER ==
[~2018-03-21] VITALS: Ht 162.6 cm; Wt 73.0 kg
[~2018-03-21 22:13] MED LIST changes: +AMLO5TAB4 PO; +CLIN300C2 PO; -COG1 PO; -FER325 PO; +HYDR-4420 PO; -IPRA3AMP IH; -LISI-420 PO; -PHO667 PO; -POTA10TE30 PO; -PUL.5N INH
--- NOTE | 2018-03-21 22:13 | NUR ---
67/M BIBA D/T ALTERED MENTAL STATUS. EMS STATES PATIENT IS FROM A [facility]. EMS STATES PATIENT BLOOD SUGAR IS 73, PATIENT DROWSY AT THIS TIME PATIENT PRESENTS WITH 2+ BILATERAL PITTING EDEMA IN LOWER EXTREMITIES, PATIENT IS MUMBLING AT THIS TIME BUT DOES NOT MAKE ANY SENSE. EMS STATES PATIENT IS S/P FALL. PATIENT HAS LACERATION ON RIGHT FINGER, DIARRHEA, AND HYPOTENSIVE AT THIS TIME 61/32. PATIENT IS PLACED ON MONITOR AT THIS TIME, IV ACCESS BEING ESTABLISHED. ER MADE AWARE OF PATIENT STATUS. WILL CONTINUE TO MONITOR.
--- NOTE | 2018-03-21 22:13 | NUR ---
PT GIOVANNIA ALS. TAKEN TO BED 11 Addendum: 03/21/18 at 2219 by XI PT TAKEN TO BED 10
[2018-03-21] MEDS ORDERED: NACL 0.9% 1,000 ML IV SCH (22:19)
[2018-03-21] MEDS ORDERED: DEXTROSE 50% 50 ML SYR IVP ONE ×2 (22:20→22:23)
--- NOTE | 2018-03-21 22:24 | NUR ---
PT ABLE TO DRINK ORAL FLUIDS, PROVIDED W/ JUICE, TOLERATED WELL.
--- NOTE | 2018-03-21 22:30 | NUR ---
IV ESTABLISHED AT THIS TIME. BLOOD SUGAR 48. ER MD MADE AWARE OF PATIENT STATUS. WILL FOLLOW OUT PATIENT STATUS
[2018-03-21 22:36] VITALS: BP 61/32
[2018-03-21] MEDS ORDERED: QUET200T PO (22:53)
[2018-03-21 23:17] LABS: APPEARANCE,URINE CLOUDY (CLEAR); BILIRUBIN,URINE 1+ (NEGATIVE); BLOOD, URINE NEGATIVE (NEGATIVE); COLOR,URINE YELLOW (YELLOW); LEUKOCYTE ESTERASE ,URINE NEGATIVE (NEGATIVE); NITRITE, URINE NEGATIVE (NEGATIVE); PH,URINE 5.5 (5.0-9.0); UGLUCOSE NEGATIVE (NEGATIVE)
[2018-03-21 23:18] LABS: BASOPHILS % (AUTO) 0.3 % (0.0-2.0); HEMATOCRIT 28.1 % (36-52); HEMOGLOBIN 9.2 g/dL (12.0-18.0); LYMPHOCYTES # (AUTO) 1.8 K/uL (2.0-11.5); MEAN CORPUSCULAR HEMOGLOBIN 30 pg (27-31); MEAN CORPUSCULAR HGB CONC 33 g/dL (33-37); MONOCYTES # (AUTO) 0.5 K/uL (0.8-1.0); MONOCYTES % (AUTO) 4.4 % (1.7-9.3); NEUTROPHILS # (AUTO) 7.9 K/uL (1.8-7.7); NEUTROPHILS % (AUTO) 77.3 % (42.2-75.2); PLATELET COUNT (AUTO) 79 K/uL (140-450); RED BLOOD CELL COUNT(AUTO) 3.09 MIL/uL (4.20-6.10); RED CELL DISTRIBUTION WIDTH 17.9 % (11.6-13.7); WHITE BLOOD COUNT (AUTO) 10.2 K/uL (4.8-10.8)
--- NOTE | 2018-03-21 23:34 | NUR ---
X-Ray at bedside.
[2018-03-21 23:35] LABS: HYALINE CASTS, URINE 0-10 /LPF (None Seen); RBC,URINE NONE SEEN /HPF (0-5); URINE AMORPHOUS URATE 3+ /HPF (None Seen); WBC,URINE 0-5 (RARE) /HPF (0-5)
[2018-03-21 23:35] LABS: LIPASE 88 U/L (73-393)
[2018-03-21 23:37] LABS: ALBUMIN 1.6 g/dL (3.4-5.0); ANION GAP 17.5 (8-16); CREATININE 3.2 mg/dL (0.7-1.3); TOTAL BILIRUBIN 0.7 mg/dL (0.0-1.0)
[2018-03-21 23:44] LABS: POTASSIUM 2.5 mmol/L (3.5-5.1)
[2018-03-21] MEDS ORDERED: POTASSIUM CHL 20 MEQ/NACL 0.9% 1,000 ML IV ONE (23:45)
[2018-03-22] VITALS (10 sets, daily range): BP systolic 87–123; BP diastolic 41–67
--- NOTE | 2018-03-22 00:29 | NUR ---
Dr. Cabral evaluating patient at bedside.
[2018-03-22] MEDS ORDERED: NACL 0.9% 1,000 ML IV ONE ×4 (00:30→03:15)
[2018-03-22] MEDS ORDERED: NACL 0.9% 1,000 ML IV SCH (01:39)
[2018-03-22] MEDS ORDERED: DOCUSATE SODIUM 100 MG GELCAP PO PRN (01:40)
[2018-03-22] MEDS ORDERED: ZOLPIDEM 5 MG TAB PO PRN (01:40)
[2018-03-22] MEDS ORDERED: HYDROcodone/APAP 5/325 MG 1 TAB TAB PO PRN (01:40)
[2018-03-22] MEDS ORDERED: MORPHINE SULFATE 2 MG/ML SYR IVP PRN (01:40)
[2018-03-22] MEDS ORDERED: ONDANSETRON 4 MG/2 ML VIAL IM/IVP PRN (01:40)
[2018-03-22] MEDS ORDERED: ACETAMINOPHEN 325 MG TAB PO PRN (01:40)
--- NOTE | 2018-03-22 01:43 | NUR ---
Dr. Ovalles evaluating patient
[2018-03-22] MEDS ORDERED: INSULIN LISPRO SLIDING SCALE 100 UNITS/ML VIAL SUBQ PRN (02:10)
[2018-03-22] MEDS ORDERED: MECLIZINE 25 MG TAB PO PRN (02:10)
[2018-03-22 02:26] LABS: BARBITURATE, URINE NEG. ng/ml (NEG <=200); BENZODIAZEPINE, URINE NEG. ng/mL (NEG <=200); CANNABINOID, URINE NEG. ng/mL (NEG <=50); COCAINE, URINE NEG. ng/mL (NEG <=300); OPIATE, URINE NEG. ng/mL (NEG <=2000); PHENCYCLIDINE SCREEN,URINE NEG. ng/mL (NEG <=25)
[2018-03-22 02:35] LABS: CHOL/HDL RATIO 3.6 (1-4.5); THYROID STIMULATING HORMONE 2.07 uIU/mL (0.34-3.74)
[2018-03-22] MEDS ORDERED: NOREPINEPHRINE 8 MG in DEXTROSE 5% 250 ML IV PRN (02:40)
[2018-03-22] MEDS ORDERED: LACTULOSE 20 GM/30 ML UDC PO SCH (03:00)
--- NOTE | 2018-03-22 03:13 | NUR ---
Patient will be admitted to care of DR. PAREDES. Admited to ICU. Will go to room 1. Belongings list completed. Report to SHIRA AGUAYO.
--- NOTE | 2018-03-22 03:20 | NUR ---
PT PRESENTED TO ICU FROM ER VIA PRITESH. PT A0 X 2. CONFUSED. PERRL. MUMBLING SPEECH. AFEBRILE. SR ON MONITOR. S1 AND S2 SOUNDS PRESENT. ROOM AIR. LUNGS CLEAR BILAT. COPIOUS AMOUNTS OF BROWN WATERY STOOL PRESENT. L FA IV 20 G PATENT. MULTIPLE SCABS PRESENT ON LUE AND LLE. SKIN TURGOR ELASTIC. WARM AND DRY. PT ARRIVED ON UNIT WITH ITEMS: BROWN PANTS, YELLOW NECKLACE, BROWN RING, AND PLASTIC WRISTBAND. BED IN LOWEST POSITION. CALL LIGHT WITHIN REACH. WILL CONTINUE TO MONITOR.
[2018-03-22] MEDS ORDERED: KCL 20 MEQ/WATER INJ PREMIX 200 ML IV SCH ×2 (03:30→14:00)
[2018-03-22] MEDS ORDERED: HYDROmorphone 1 MG/ML AMP IVP SCH (04:00)
[2018-03-22] MEDS ORDERED: ALBUTEROL SULFATE/IPRATROPIU 3 ML SOL IH PRN (04:10)
[2018-03-22] MEDS: LORazepam 2 MG/ML VIAL IM/IVP PRN (04:15)
--- NOTE | 2018-03-22 04:40 | NUR ---
CENTRAL LINE SUCCESSFULLY INSERTED BY DR. DAS ON RIGHT IJ. XRAY TO BE TAKEN TO VERIFY PLACEMENT.
[2018-03-22] MEDS: PIPER/TAZO 2.25GM/D5W PREMIX 50 ML IV SCH ×3 (05:00→13:38)
[2018-03-22] MEDS ORDERED: ALBUTEROL SULFATE/IPRATROPIU 3 ML SOL IH SCH (06:00)
--- NOTE | 2018-03-22 06:01 | NUR ---
SPOKE WITH LITA FROM RADIOLOGY REGARDING XRAY RESULT FOR CENTRAL LINE ACCESS. ACCORDING TO HER, RESULT FOR PLACEMENT SHOULD BE UP IN FEW MINUTES.
[2018-03-22 06:24] LABS: HEMATOCRIT 29.3 % (36-52); HEMOGLOBIN 9.4 g/dL (12.0-18.0); MEAN CORPUSCULAR HEMOGLOBIN 30 pg (27-31); MEAN CORPUSCULAR HGB CONC 32 g/dL (33-37); MEAN CORPUSCULAR VOLUME 92.2 fL (80-94); PLATELET COUNT (AUTO) 73 K/uL (140-450); RED BLOOD CELL COUNT(AUTO) 3.18 MIL/uL (4.20-6.10); RED CELL DISTRIBUTION WIDTH 17.6 % (11.6-13.7); WHITE BLOOD COUNT (AUTO) 13.5 K/uL (4.8-10.8)
--- NOTE | 2018-03-22 06:32 | NUR ---
CALLED RADIOLOGY DEPARTMENT AGAIN AND SPOKE WITH LITA REGARDING XRAY RESULT. ACCORDING TO HER, SHE WILL FOLLOW-UP AGAIN FOR XRAY RESULT TO BE READ.
[2018-03-22 06:49] LABS: LYMPHOCYTES % (MANUAL) 18 % (20-46); MONOCYTES % (MANUAL) 5 % (5-12)
[2018-03-22 06:50] LABS: EOSINOPHILS % (MANUAL) 1 % (0-4)
--- NOTE | 2018-03-22 06:51 | NUR ---
PLACED PT ON 2 L NC. NO SOB OR DISTRESS NOTED. RN AWARE.
[2018-03-22 06:53] LABS: ANION GAP 14.7 (8-16); CARBON DIOXIDE 18.2 mmol/L (21-32); CREATININE 2.6 mg/dL (0.7-1.3)
[2018-03-22 06:56] LABS: MAGNESIUM 1.6 mg/dL (1.8-2.4); PHOSPHORUS 6.1 mg/dL (2.5-4.9)
[2018-03-22 06:58] LABS: PROTHROMBIN TIME 14.2 secs (10.8-13.4)
[2018-03-22 07:02] LABS: POTASSIUM 2.9 mmol/L (3.5-5.1)
--- NOTE | 2018-03-22 07:20 | NUR ---
REPORT GIVEN TO AM NURSE. PT BELONGINGS ENDORSED TO INCOMING SHIFT. IV SITE L FA PATENT. POTASSIUM REPLACEMENT INFUSING AT THIS TIME. NO SIGNS OF ACUTE DISTRESS AT THIS TIME. PT CLEAN AND DRY. BED IN LOWEST POSITION. CALL LIGHT WITHIN REACH.
--- NOTE | 2018-03-22 07:30 | NUR ---
PT LEFT FOR CT ACCOMPANIED WITH PRIMARY NURSE AND COMPUTER LABORATORY TECHNICIAN.
--- NOTE | 2018-03-22 07:36 | NUR ---
PATIENT BACK FROM RADIOLOGY FOR CT SCAN, PATIENT TOLERATED WELL, NO SIGNS OF DISTRESS NOTED.
[2018-03-22] MEDS: BLOOD GLUCOSE MONITORING 1 DEV DEV FS SCH ×4 (07:52→20:20)
--- NOTE | 2018-03-22 08:07 | NUR ---
DR. BROTHERS AND RESIDENT PHYSICIANS AT BEDSIDE, UPDATED ON PATIENT'S CONDITION. WILL FOLLOW UP ON ANY ORDERS.
--- NOTE | 2018-03-22 08:19 | NUR ---
RECEIVED BEDSIDE REPORT FROM STOCK ASSOCIATE RN FOR CONTINUITY OF CARE, PATIENT IS AAOX1, CONFUSED, UNABLE TO FOLLOW SIMPLE COMMANDS. PATIENT SKIN IS WARM AND DRY, INTACT, HE HAS PERIPHERAL IV SITE TO LEFT AC AND RIGHT IJ CENTRAL LINE IN PLACE, HOWEVER CHEST XRAY RESULTS ARE STILL PENDING. PATIENT HAS NASAL CANNULA 2LPM. HOB IS ELEVATED 30 DEGREES, CALL LIGHT WITHIN REACH, NO SIGNS OF DISTRESS NOTED. WILL CONTINUE TO MONITOR.
--- NOTE | 2018-03-22 08:49 | NUR ---
PATIENT HAS BEEN SCREENED AND CATEGORIZED HIGH NUTRITION RISK. PATIENT WILL BE SEEN WITHIN 1-2 DAYS OF ADMISSION. 03/22/18 03/23/[address]
[2018-03-22] MEDS: ASCORBIC ACID 500 MG TAB PO SCH (08:58)
[2018-03-22] MEDS: FERROUS GLUCONATE 324 MG TAB PO SCH (08:58)
[2018-03-22] MEDS: DIVALPROEX 500 MG TABEC PO SCH ×2 (08:58→20:10)
[2018-03-22] MEDS: LACTOBACILLUS RHAMNOSUS GG 1 EACH CAP PO SCH (08:58)
--- NOTE | 2018-03-22 09:06 | NUR ---
DR. MILLER IS TO SEE PATIENT, UPDATED ON PATIENTS CONDITION. STATED THAT CENTRAL LINE IS OK TO USE, ORDER IS IN. DOCTOR IS AWARE THAT ZOSYN WAS NOT STARTED PREVIOUS SHIFT DUE TO CENTRAL LINE RESULT NOT IN YET.
--- NOTE | 2018-03-22 09:29 | NUR ---
US TECH AT BEDSIDE, PATIENT PRESENTS NO SIGNS OF DISTRESS AT THIS TIME. WILL CONTINUE TO MONITOR.
[2018-03-22] MEDS ORDERED: MAG SULF 2000 MG/WATER PREMIX 50 ML IV ONE (10:15)
[2018-03-22] MEDS ORDERED: CALCIUM ACETATE 667 MG TAB PO SCH (10:18)
[2018-03-22] MEDS ORDERED: DEXT 5% /NACL 0.9% 1,000 ML IV SCH (10:20)
[2018-03-22] MEDS ORDERED: LACTULOSE 20 GM/30 ML UDC PO PRN (10:30)
[2018-03-22] MEDS ORDERED: LACT10SO1 PO (10:41)
[2018-03-22] MEDS ORDERED: OMEP20TC12 PO (10:41)
[2018-03-22] MEDS ORDERED: BENZ2TAB27 PO (10:41)
[2018-03-22] MEDS ORDERED: FURO-570 PO (10:41)
[2018-03-22] MEDS: MAGNESIUM SULFATE 1GM in DEXTROSE 5% 100 ML PREMIX IV SCH ×2 (10:58→12:39)
[2018-03-22] MEDS: DEXT 5% /NACL 0.9% 1,000 ML IV SCH (10:58)
--- NOTE | 2018-03-22 12:46 | NUR ---
SPEECH THERAPIST AT BEDSIDE FOR SWALLOW EVAL, NO SIGNS OF DISTRESS NOTED. WILL CONTINUE TO MONITOR
--- NOTE | 2018-03-22 12:54 | NUR ---
CM NOTE PER ED CALL HISTORY LOG AUTHORIZED TO ADMIT AUTH# [id number] INITIAL REVIEW FAXED TO [facility] [phone] # [phone] SPOKE WITH [facility] ADMISSIONS EVALUATOR GUDIO # [phone] AND GAVE HER A VERBAL CLINICAL UPDATE ON THE PATIENT AND SHE SAID TO CONTACT HER IF THERE ARE ANY DISCHARGE NEEDS FOR THE PATIENT
--- NOTE | 2018-03-22 13:01 | NUR ---
STONE CIRCULAR SAWYER NOTE [id number] Bedside swallow evaluation completed following clearance by DEDE Culver. Please refer to STONE CIRCULAR SAWYER evaluation for full report. Recommend: -NPO except ice chips when awake and alert, strict 1:1 nursing supervision during intake. -Ok for small sips of water via tsp only if alertness improves prior to next STONE CIRCULAR SAWYER visit -Strict oral care prior to intake -STONE CIRCULAR SAWYER to re-assess swallow in 24 hours if mentation improves -STONE CIRCULAR SAWYER to follow 2x/wk x1wk for diet advancement as tolerated. PVE w/RN re: results and recommendations. G8996: CL G8997: CJ Swallow NOMS 1
[2018-03-22 13:05] LABS: ANION GAP 15.9 (8-16); CARBON DIOXIDE 15.8 mmol/L (21-32); CREATININE 2.4 mg/dL (0.7-1.3)
[2018-03-22 13:11] LABS: POTASSIUM 2.7 mmol/L (3.5-5.1)
--- NOTE | 2018-03-22 13:17 | NUR ---
PHYSICAL THERAPIST AT BEDSIDE, NO SIGNS OF DISTRESS NOTED AT THIS TIME.
--- NOTE | 2018-03-22 16:01 | NUR ---
PATIENT IS MORE AWAKE THAN THIS MORNING, HE ASKED FOR HOT TEA BUT I TOLD HIM HE COULD ONLY HAVE ICE CHIPS. PATIENT AGREED TO ICE CHIPS. HE IS SITTING UP EATING ICE CHIPS AND WATCHING TV
--- NOTE | 2018-03-22 16:20 | NUR ---
DR. REINA IN TO SEE AND EXAMINE PATIENT, UPDATED ON PATIENT'S CONDITION. WILL FOLLOW UP ON ANY ORDERS.
--- NOTE | 2018-03-22 16:46 | NUR ---
PATIENT PULLED ON CENTRAL LINE, TRIED TO CALL DR. MILLER HOWEVER HE WAS NOT AVAILABLE. DR. JAVED ANSWERED AND SAID TO TAPE IT DOWN.
--- NOTE | 2018-03-22 17:08 | NUR ---
PATIENT PULLED OUT CENTRAL LINE FULLY, I APPLIED PRESSURE TO THE SITE AND COVERED IT WITH DRESSING.
[2018-03-22] MEDS: LACTULOSE 20 GM/30 ML UDC PO SCH (17:40)
[2018-03-22] MEDS: MIDODRINE 5 MG TAB PO SCH (18:16)
--- NOTE | 2018-03-22 18:16 | NUR ---
DR. MCKENZIE AND DR. DAS IN TO SEE PATIENT, AWARE THAT PATIENT PULLED OUT CENTRAL LINE. WILL FOLLOW UP ON ANY ORDERS
--- NOTE | 2018-03-22 19:18 | NUR ---
GAVE BEDSIDE REPORT TO SUPERVISOR GENERAL RN FOR CONTINUITY OF CARE. NO SIGNS OF DISTRESS NOTED
[2018-03-22] MEDS: ALBUTEROL SULFATE/IPRATROPIU 3 ML SOL IH SCH (19:27)
--- NOTE | 2018-03-22 19:30 | NUR ---
REPORT GIVEN BY AM SHIFT, PT IS ALERT ORIENTED ,ABLE TO ANSWER SIMPLE QUESTION. NO S/S OF ANY RESP.DISTRESS.NO C/O ANY PAIN OR ANY DISCOMFORT.SKIN WARM TO TOUCH. CHRISS LUNGS SOUND CLEAR.ON O2 AT 2 LPM VIA N/C JOHNATHON WELL. SR-SB ON MONITOR. PER REPORT PT IS NPO EXCEPT MEDS, MAY GIVE ICE CHIPS. ALSO PER REPORT PT PULL OUT HIS CENTRAL LINE RIGHT IJ. NO IV LINE AT THIS TIME. PT IS INCONTINENT BOWEL AND BLADDER AT THIS TIME. ABD SOFT NON DISTENDED.PT HAS X1 LARGE LOOSE BM. GENTLE CARE GIVEN. KEPT PT CLEAN AND DRY. PT IS PLAN TO TRANSFER TO TELE FLOOR TO ROOM 123. CALL LIGHT IN REACH.
--- NOTE | 2018-03-22 20:00 | NUR ---
REPORTED TO DR. DEMETRIUS MCKEON THAT PT IS C.DIFF POSITIVE. PER MD HE WILL F/O
[2018-03-22] MEDS ORDERED: VANCOMYCIN PER PHARMACY MC PRN (20:05)
[2018-03-22] MEDS: QUEtiapine FUMARATE 100 MG TAB PO SCH (20:10)
--- NOTE | 2018-03-22 20:15 | NUR ---
INSERNEW IV LINE TO LEFT HAND NO 24 GAUGE WITH GOOD BLOOD RETURN
--- NOTE | 2018-03-22 20:30 | NUR ---
NIGHT MEDS IS GIVEN AND BLOOD SUGAR IS 107, NO COVERAGE NEED TO GIVEN.
--- NOTE | 2018-03-22 20:45 | NUR ---
TRANSFER PT TO ROOM 123-B REPORT GIVEN TO MEHREEN AGUAYO, MADE AWARE THAT NEW ORDER FLAGYL IS NOT GIVEN YET ALSO RIMFAMICIN. MADE AWARE PT IS ISOLATION FOR ESBL SPUTUM AND POSITIVE OF C.DIFF.PT ABLE TO TRANSFER HIM SELF FROM ICU BED TO TELE BED. NO SOB ,NO C/O PAIN STABLE AT THIS TIME.
--- NOTE | 2018-03-22 20:50 | NUR ---
RECEIVED REPORT FROM DAYSHIFT NURSE AT BEDSIDE FOR CONTINUITY OF CARE. PT HAS NO SOB NO S/S OF DISTRESS ON 2L NC. IV NOTED LHAND 22G. ALOC. PT RESPONDS TO NAME. PT IS FALL RISK. BUT HAS BEEN SEEN WALKING TO THE BATHROOM. BED LOWERED BED ALARM PLACED WILL CONTINUE TO MONITOR.
[2018-03-22] MEDS ORDERED: VANCOMYCIN 1,000 MG in NACL 0.9% 250 ML IV SCH (22:00)
[2018-03-22 23:12] LABS: ANION GAP 15.5 (8-16); CARBON DIOXIDE 17.2 mmol/L (21-32); CREATININE 2.7 mg/dL (0.7-1.3)
[2018-03-22 23:18] LABS: POTASSIUM 2.7 mmol/L (3.5-5.1)
[2018-03-23] VITALS: BP 121/92
[2018-03-23] MEDS: DEXT 5% /NACL 0.9% 1,000 ML IV SCH ×2 (00:45→18:00)
[2018-03-23] MEDS: MIDODRINE 5 MG TAB PO SCH ×4 (00:49→18:01)
[2018-03-23] MEDS: LACTULOSE 20 GM/30 ML UDC PO SCH ×4 (00:49→20:41)
[2018-03-23] MEDS ORDERED: KCL 20 MEQ/WATER INJ PREMIX 200 ML IV SCH ×2 (01:00→17:30)
--- NOTE | 2018-03-23 01:38 | NUR ---
PT CONFUSED AND YELLING ALSO SWUNG AT ME.
[2018-03-23] MEDS: metroNIDAZOLE 500 MG/NS PREMIX 100 ML IV SCH ×4 (03:13→20:42)
[2018-03-23] MEDS: RIFAXIMIN 550 MG TAB PO SCH ×3 (03:36→20:42)
[2018-03-23 04:00] VITALS: BP 80/38
[2018-03-23] MEDS ORDERED: VANCOMYCIN 1,000 MG VIAL ONE (04:04)
[2018-03-23] MEDS ORDERED: POTASSIUM CHLORIDE 10 MEQ TABER PO ONE (04:20)
[2018-03-23] MEDS: PANTOPRAZOLE 40 MG TABEC PO SCH (06:01)
[2018-03-23 06:43] LABS: BASOPHILS % (AUTO) 0.2 % (0.0-2.0); EOSINOPHILS % (AUTO) 0.2 % (0.0-4.0); HEMOGLOBIN 9.8 g/dL (12.0-18.0); LYMPHOCYTES # (AUTO) 2.3 K/uL (2.0-11.5); LYMPHOCYTES % (AUTO) 23.9 % (20.5-51.1); MEAN CORPUSCULAR HEMOGLOBIN 30 pg (27-31); MEAN CORPUSCULAR HGB CONC 33 g/dL (33-37); MEAN CORPUSCULAR VOLUME 91.9 fL (80-94); MONOCYTES # (AUTO) 0.4 K/uL (0.8-1.0); NEUTROPHILS # (AUTO) 6.8 K/uL (1.8-7.7); NEUTROPHILS % (AUTO) 71.7 % (42.2-75.2); PLATELET COUNT (AUTO) 67 K/uL (140-450); RED BLOOD CELL COUNT(AUTO) 3.26 MIL/uL (4.20-6.10); RED CELL DISTRIBUTION WIDTH 17.7 % (11.6-13.7); WHITE BLOOD COUNT (AUTO) 9.5 K/uL (4.8-10.8)
[2018-03-23] MEDS ORDERED: NACL 0.9% 1,000 ML IV SCH (06:55)
[2018-03-23 07:04] LABS: ANION GAP 14.4 (8-16); CARBON DIOXIDE 16.4 mmol/L (21-32); CREATININE 2.7 mg/dL (0.7-1.3)
[2018-03-23 07:09] LABS: PHOSPHORUS 5.6 mg/dL (2.5-4.9)
[2018-03-23 07:23] LABS: POTASSIUM 2.8 mmol/L (3.5-5.1)
--- NOTE | 2018-03-23 07:30 | NUR ---
ENDORSED REPORT TO MORNING NURSE AT BEDSIDE FOR CONTINUITY OF CARE.
--- NOTE | 2018-03-23 07:31 | NUR ---
RECEIVED REPORT FROM PODIATRIC MEDICINE DOCTOR NURSE. PATIENT LYING DOWN IN BED, AROUSABLE BY VOICE. AAOX1, CONFUSED, SKIN COLOR APPROPRIATE TO ETHNICITY, WARM TO TOUCH. HAS LEFT HAND SKIN TEAR AND BUTTOCK REDNESS NOTED. DRESSING IS DRY AND INTACT. BP IS LOW, 1000 ML NS BOLUS STARTED PER MD ORDERS. IV SITE ON LEFT FOREARM INTACT, PATENT AND INFUSING IVF PER MD ORDERS. ABDOMEN SOFT, NON-DISTENDED. REVIEWED PLAN OF CARE WITH PATIENT. REINFORCEMENT NEEDED. SAFETY MEASURES IN PLACE, CALL LIGHT WITHIN REACH. WILL CONTINUE TO MONITOR.
[2018-03-23] MEDS: BLOOD GLUCOSE MONITORING 1 DEV DEV FS SCH ×4 (07:40→21:00)
[2018-03-23 07:59] LABS: FOLIC ACID 14.4 ng/mL (>3.0)
[2018-03-23 08:00] VITALS: BP 96/40
[2018-03-23] MEDS: ALBUTEROL SULFATE/IPRATROPIU 3 ML SOL IH SCH ×3 (08:37→19:39)
--- NOTE | 2018-03-23 08:47 | NUR ---
RECEIVED PATIENT ON ROOM AIR, O2 SAT 88%. PLACED PATIENT ON NASAL CANNULA AT 3L, O2 SAT 94%. SCHEDULED BREATHING TREATMENT ADMINISTERED. PATIENT TOLERATED TREATMENT WELL, NO ADVERSE SIDE EFFECTS. WILL CONTINUE TO MONITOR.
[2018-03-23] MEDS: BENZTROPINE 1 MG TAB PO SCH (09:22)
[2018-03-23] MEDS: DIVALPROEX 500 MG TABEC PO SCH ×2 (09:22→20:42)
[2018-03-23] MEDS: ASCORBIC ACID 500 MG TAB PO SCH (09:22)
[2018-03-23] MEDS: CALCIUM ACETATE 667 MG TAB PO SCH (09:22)
[2018-03-23] MEDS: LACTOBACILLUS RHAMNOSUS GG 1 EACH CAP PO SCH (09:22)
[2018-03-23] MEDS: FERROUS GLUCONATE 324 MG TAB PO SCH (09:25)
--- NOTE | 2018-03-23 09:44 | NUR ---
PATIENT LYING DOWN IN BED SLEEPING, AROUSABLE BY VOICE. NO DISTRESS NOTED. DENIES ANY PAIN. FLACC 0. SCHEDULED MEDICATIONS DUE GIVEN. 1000 ML NS BOLUS FINISHED, IVF OF D5NS AT 60 ML/HR STARTED AGAIN PER MD ORDERS. SAFETY MEASURES IN PLACE, CALL LIGHT WITHIN REACH. WILL CONTINUE TO MONITOR.
[2018-03-23] MEDS ORDERED: POTASSIUM CHLORIDE 10 MEQ TABER PO SCH (10:30)
--- NOTE | 2018-03-23 11:00 | NUR ---
Internet Sales Representative Notes: I attempted to meet with Patient for a screen to discuss, confirm and gather additional information about Patient. He was sleeping and I attempted to wake him up several times however; he was not able to wake up despite of several attempts during the day #3 times.
--- NOTE | 2018-03-23 11:12 | NUR ---
PATIENT LYING DOWN IN BED DROWSY, AROUSABLE BY VOICE AND SHAKING. SCHEDULED MEDICATIONS DUE GIVEN. CONDITION UNCHANGED. WILL CONTINUE TO MONITOR.
[2018-03-23 12:00] VITALS: BP 104/47
[2018-03-23] MEDS: VANCOMYCIN 500 MG VIAL PO SCH ×2 (13:04→18:01)
--- NOTE | 2018-03-23 13:05 | NUR ---
Clinical review faxed to [facility] at [phone]
--- NOTE | 2018-03-23 13:21 | NUR ---
PATIENT LYING DOWN IN BED, DROWSY. AROUSABLE BY VOICE AND SHAKING. SCHEDULED MEDICATIONS DUE GIVEN. SAFETY MEASURES IN PLACE, CALL LIGHT WITHIN REACH. WILL CONTINUE TO MONITOR.
--- NOTE | 2018-03-23 13:40 | NUR ---
NO HHN GIVEN, PATIENT SLEEPING. NO RESPIRATORY DISTRESS NOTED AT THIS TIME. WILL CONTINUE TO MONITOR.
--- NOTE | 2018-03-23 14:10 | NUR ---
TUNNEL ELASTIC OPERATOR ZIGZAG NOTE [id number] S/O: Pt seen at bedside, eyes closed, minimally rouseable after sternal rub and calling out. Pt opened mouth and mumbled, but did not open eyes or fully rouse. A/P: Pt rouses occasionally to take medication, crushed in applesauce, and small sips of thin liquids. Overall, pt is at a significant risk of aspiration/choking given lethargy, recommend continue NPO except meds + consideration for alternative means of nutrition/hydration (via NGT/IV fluids, etc) if pt present condition persists. TUNNEL ELASTIC OPERATOR ZIGZAG to d/c from skilled ST services d/t pt no longer appropriate for services. PVE w/RN Rickie re: results and recommendation for alternative means of nutrition/hydration given pt present condition. RN voiced understanding. G8996: CL G8998: CJ G8998: CL Swallow NOMS 1
--- NOTE | 2018-03-23 15:06 | NUR ---
ASSISTED HEALTHCARE RECEPTIONIST IN CLEANING AND REPOSITIONING PATIENT. CONTINUES TO BE DROWSY AND LETHARGIC. WILL CONTINUE TO MONITOR.
[2018-03-23 15:53] LABS: ANION GAP 17.9 (8-16); CREATININE 2.7 mg/dL (0.7-1.3)
[2018-03-23 16:00] VITALS: BP 102/42
--- NOTE | 2018-03-23 16:04 | NUR ---
03/23/18 RD INITIAL ASSESSMENT COMPLETED PLEASE REFER TO NUTRITION ASSESSMENT UNDER CARE ACTIVITY FOR ESTIMATED NUTRITIONAL NEEDS. 1. WHEN/IF PT MEDICALLY STABLE TO BEGIN NUTRITON, CONSIDER ADVANCE DIET TOLERATED TO CCHO 60GM, CARDIAC 2. IF MEDICALLY APPROPRIATE, RECOMMEND NUTRITION SUPPORT VIA NG TUBE @ GOAL RATE 65 ML/H WITH H2O FLUSH 130 Q4H. INITIATE AT 10 ML/H AND INCREASE 10 ML QH. THIS WILL PROVIDE 1872 CALORIES, 93.6 GM PROTEIN, AND [address] TO FOLLOW-UP 2-3 DAYS, HIGH RISK BETINA SALINAS RD
[2018-03-23 16:05] LABS: POTASSIUM 2.9 mmol/L (3.5-5.1)
--- NOTE | 2018-03-23 16:30 | NUR ---
FNS RECOMMENDS IF PATIENT CONTINUES TO BE NPO THAT HE GETS AN NGTUBE PLACEMENT FOR NUTRITION WITH GLUCERNA 1.2 AT A GOAL RATE OF 65 ML/HR (START 10 ML/HR AND INCREASE UP TO GOAL RATE) WITH H20 FLUSH:130 ML Q4. WILL NOTIFY MD. WILL CONTINUE TO MONITOR.
[2018-03-23] MEDS ORDERED: MAG SULF 2000 MG/WATER PREMIX 50 ML IV ONE (16:35)
[2018-03-23] MEDS: MUPIROCIN CA NASAL 2% 1GM TUBE NS SCH (18:00)
[2018-03-23] MEDS: CHLORHEXADINE GLUC 2% CLOTH TP SCH (18:01)
--- NOTE | 2018-03-23 18:15 | NUR ---
PATIENT LYING IN BED. CONTINUES TO BE DROWSY AND LETHARGIC. AROUSABLE BY VOICE AND SHAKING. SCHEDULED MEDICATIONS DUE GIVEN. SAFETY MEASURES IN PLACE, CALL LIGHT WITHIN REACH. WILL CONTINUE TO MONITOR.
--- NOTE | 2018-03-23 19:30 | NUR ---
GAVE REPORT TO TRANSMISSION TESTER NURSE FOR CONTINUITY OF CARE. PATIENT IN STABLE CONDITION.
--- NOTE | 2018-03-23 19:31 | NUR ---
RECEIVED REPORT AT BEDSIDE FROM DAYSHIFT NURSE AT BEDSIDE FOR CONTINUITY OF CARE. PT SLEEPING RESPONDS TO NAME. IV NOTED LEFT FA 22G D5 0.9NS 60ML/HR. NO SOB NO S/S OF DISTRESS ON O2 3L NC. BED LOWERED BED ALARM PLACED. SKIN LEFT HAND SKIN TEAR CLEANED AND VERSATALE Q5. NPO EXCEPT MEDS. WILL CONTINUE TO MONITOR.
--- NOTE | 2018-03-23 19:38 | NUR ---
PT ASLEEP. NO BREATHING TX GIVEN. PT IN 0 SOB. WILL CONT TO MONITOR PT.
[2018-03-23 20:00] VITALS: BP 110/62
[2018-03-23] MEDS: POTASSIUM CHLORIDE 10 MEQ TABER PO SCH (20:42)
[2018-03-23] MEDS: QUEtiapine FUMARATE 100 MG TAB PO SCH (20:42)
[2018-03-23] MEDS: MAGNESIUM SULFATE 1GM in DEXTROSE 5% 100 ML PREMIX IV SCH ×2 (21:50→22:57)
[2018-03-24] VITALS: BP 99/42
[2018-03-24] MEDS: VANCOMYCIN 500 MG VIAL PO SCH ×5 (01:50→23:44)
[2018-03-24] MEDS: MIDODRINE 5 MG TAB PO SCH ×5 (01:50→23:42)
--- NOTE | 2018-03-24 02:46 | NUR ---
PT SLEEPING. NO SOB NO S/S OF DISTRESS WILL CONTINUE TO MONITOR.
--- NOTE | 2018-03-24 02:46 | NUR ---
PT SLEEPING. NO SOB NO S/S OF DISTRESS WILL CONTINUE TO MONITOR.
[2018-03-24 04:00] VITALS: BP 117/48
[2018-03-24] MEDS: metroNIDAZOLE 500 MG/NS PREMIX 100 ML IV SCH ×3 (04:08→21:18)
[2018-03-24] MEDS ORDERED: HYDRAGUARD CREAM TP ONE (04:20)
[2018-03-24 04:55] LABS: ANION GAP 15.3 (8-16); CARBON DIOXIDE 15.1 mmol/L (21-32); CREATININE 2.6 mg/dL (0.7-1.3); POTASSIUM 3.4 mmol/L (3.5-5.1)
[2018-03-24] MEDS ORDERED: HYDRAGUARD CREAM TP PRN (05:00)
[2018-03-24] MEDS: PANTOPRAZOLE 40 MG TABEC PO SCH (05:56)
[2018-03-24] MEDS ORDERED: POTASSIUM CHLORIDE 10 MEQ TABER PO SCH (06:00)
[2018-03-24] MEDS: BLOOD GLUCOSE MONITORING 1 DEV DEV FS SCH ×4 (07:21→21:16)
--- NOTE | 2018-03-24 07:23 | NUR ---
ENDORSED REPORT TO DAYSHIFT NURSE AT BEDSIDE FOR CONTINUITY OF CARE.
--- NOTE | 2018-03-24 07:24 | NUR ---
RECEIVED REPORT FROM LINER REROLL TENDER NURSE. PATIENT LYING DOWN IN BED, AROUSABLE BY VOICE. AAOX1, CONFUSED, DROWSY, SKIN COLOR APPROPRIATE TO ETHNICITY, WARM TO TOUCH. HAS LEFT HAND SKIN TEAR AND BUTTOCK REDNESS NOTED. DRESSING IS DRY AND INTACT. RESPIRATIONS EVEN, UNLABORED, ON O2 3L/MIN VIA NC. IV SITE ON LEFT FOREARM INTACT, PATENT AND INFUSING IVF PER MD ORDERS. ABDOMEN SOFT, NON-DISTENDED. REVIEWED PLAN OF CARE WITH PATIENT. REINFORCEMENT NEEDED. SAFETY MEASURES IN PLACE, CALL LIGHT WITHIN REACH. WILL CONTINUE TO MONITOR.
[2018-03-24 07:27] LABS: BASOPHILS % (AUTO) 0.4 % (0.0-2.0); EOSINOPHILS % (AUTO) 0.2 % (0.0-4.0); HEMATOCRIT 29.1 % (36-52); HEMOGLOBIN 9.4 g/dL (12.0-18.0); LYMPHOCYTES # (AUTO) 1.5 K/uL (2.0-11.5); LYMPHOCYTES % (AUTO) 13.8 % (20.5-51.1); MEAN CORPUSCULAR HEMOGLOBIN 30 pg (27-31); MEAN CORPUSCULAR HGB CONC 32 g/dL (33-37); MEAN CORPUSCULAR VOLUME 91.9 fL (80-94); MONOCYTES # (AUTO) 0.4 K/uL (0.8-1.0); MONOCYTES % (AUTO) 3.9 % (1.7-9.3); NEUTROPHILS # (AUTO) 8.7 K/uL (1.8-7.7); NEUTROPHILS % (AUTO) 81.7 % (42.2-75.2); PLATELET COUNT (AUTO) 57 K/uL (140-450); RED BLOOD CELL COUNT(AUTO) 3.17 MIL/uL (4.20-6.10); RED CELL DISTRIBUTION WIDTH 17.9 % (11.6-13.7); WHITE BLOOD COUNT (AUTO) 10.6 K/uL (4.8-10.8)
[2018-03-24 07:32] LABS: ANION GAP 15.8 (8-16); CARBON DIOXIDE 14.4 mmol/L (21-32); CREATININE 2.2 mg/dL (0.7-1.3); POTASSIUM 3.2 mmol/L (3.5-5.1)
[2018-03-24 07:40] LABS: MAGNESIUM 2.4 mg/dL (1.8-2.4); PHOSPHORUS 3.9 mg/dL (2.5-4.9)
[2018-03-24] MEDS: ALBUTEROL SULFATE/IPRATROPIU 3 ML SOL IH SCH ×2 (07:44→13:12)
[2018-03-24 08:00] VITALS: BP 98/76
[2018-03-24] MEDS: LACTOBACILLUS RHAMNOSUS GG 1 EACH CAP PO SCH (08:59)
[2018-03-24] MEDS: ASCORBIC ACID 500 MG TAB PO SCH (08:59)
[2018-03-24] MEDS: BENZTROPINE 1 MG TAB PO SCH (08:59)
[2018-03-24] MEDS: CALCIUM ACETATE 667 MG TAB PO SCH (09:00)
[2018-03-24] MEDS: PHARMACY COMMENTS MC SCH (09:00)
[2018-03-24] MEDS: LACTULOSE 20 GM/30 ML UDC PO SCH ×2 (09:00→21:18)
[2018-03-24] MEDS: POTASSIUM CHLORIDE 10 MEQ TABER PO SCH ×2 (09:00→21:17)
[2018-03-24] MEDS: DIVALPROEX 500 MG TABEC PO SCH ×2 (09:00→21:17)
[2018-03-24] MEDS: FERROUS GLUCONATE 324 MG TAB PO SCH (09:02)
--- NOTE | 2018-03-24 09:23 | NUR ---
PATIENT LYING DOWN IN BED SLEEPING, ABLE TO AROUSE BY VOICE AND SHAKING. ABLE TO TAKE SCHEDULED MEDICATIONS ORALLY. NO DISTRESS NOTED. FLACC 0. SAFETY MEASURES IN PLACE, CALL LIGHT WITHIN REACH. WILL CONTINUE TO MONITOR.
[2018-03-24] MEDS: DEXT 5% /NACL 0.9% 1,000 ML IV SCH ×2 (10:05→21:17)
[2018-03-24] MEDS: RIFAXIMIN 550 MG TAB PO SCH ×2 (10:54→21:18)
--- NOTE | 2018-03-24 11:20 | NUR ---
PATIENT LYING DOWN IN BED SLEEPING, DROWSY. NO DISTRESS NOTED. FLACC 0. CONDITION UNCHANGED. WILL CONTINUE TO MONITOR.
--- NOTE | 2018-03-24 11:30 | NUR ---
Test Lead Application Testing Notes: I attempted to meet and talk to patient during a screen, patient was sleep and I attempted to wake him up. Patient wake up briefly look at me and stated " I dont want to talk now" patient turned around and fall as sleep again. These principal technical writer will contact Patient's Board and care.
--- NOTE | 2018-03-24 11:45 | NUR ---
Principal Process Engineer Notes: I called Patient's Board and care [facility] in [place] I spoke with staff member Smita who stated that [facility] was not available at the time however; Patient has been living in their facility for a long time and has a walker that he uses sometimes. Per Smita Patient has not issues with medications and will be able to return only if he is a in better medical condition, ready and clear for discharge from [facility].
[2018-03-24 12:00] VITALS: BP 110/48
--- NOTE | 2018-03-24 12:18 | NUR ---
SPOKE WITH GROVER FROM [facility] AND GAVE VERBAL REPORT. ALSO FAXED CONCURRENT REVIEW TO HER AT [phone] PHONE [phone]. SHE ALSO SAID THAT [facility] CAN BE REACHED OVER THE WEEKEND AT THE SAME PHONE NUMBER.
--- NOTE | 2018-03-24 13:00 | NUR ---
PATIENT CONTINUES TO BE DROWSY. AROUSABLE BY VOICE AND ABLE TO TAKE SCHEDULED MEDICATIONS ORALLY. CONDITION UNCHANGED. WILL CONTINUE TO MONITOR.
[2018-03-24] MEDS: HYDRAGUARD CREAM TP SCH (13:29)
--- NOTE | 2018-03-24 13:29 | NUR ---
ENTEROSTOMAL NURSE NOTE 1325 ENTEROSTOMAL NURSE conferred w/Dr. Caballero re: pt diet. Current ENTEROSTOMAL NURSE recommendation of NPO except meds is based on pt lethargy and poor alertness. Pt has demonstrated tolerance of puree texture and thin liquids when roused, however is at an increased risk of choking/aspiration/malnutrition if unable to stay roused enough to consume PO. Recommend initiate diet of puree/thin liquids w/1:1 feeder assistance ONLY WHEN AWAKE AND ALERT. HOLD PO IF PT IS NOT ROUSEABLE. Recommend consideration for alternative forms of nutrition and hydration if pt is not able to sustain nutritional needs via PO (NGT/IV fluids, etc.). Dr. Caballero voiced agreement to all points of ramona.
--- NOTE | 2018-03-24 15:20 | NUR ---
ASSISTED CONTACT CENTER TEAM LEAD IN CLEANING AND REPOSITIONING PATIENT. SAFETY MEASURES IN PLACE, CALL LIGHT WITHIN REACH. WILL CONTINUE TO MONITOR.
--- NOTE | 2018-03-24 15:21 | NUR ---
PHYSICAL THERAPY CO-SIGN The Physical Therapy Progress Notes documented by Corporate Licensed Broker have been reviewed. I CONCUR W/HIV NURSE NOTE; CONT PER TX PLAN Reviewed/Co-Signed by: Lyn Burr, PT Documentation Done by: ROBERTO NETTLES PTA Addendum: 03/24/18 at 1521 by Lyn Burr PT Amended: Links added.
[2018-03-24 16:00] VITALS: BP 135/68
[2018-03-24] MEDS: MUPIROCIN CA NASAL 2% 1GM TUBE NS SCH (17:46)
--- NOTE | 2018-03-24 18:00 | NUR ---
PATIENT LYING IN BED SLEEPING, AROUSABLE BY VOICE AND SHAKING, CONTINUES TO BE DROWSY. ABLE TO TAKE ORAL MEDICATIONS. CONDITION UNCHANGED. SAFETY MEASURES IN PLACE, CALL LIGHT WITHIN REACH. WILL CONTINUE TO MONITOR.
[2018-03-24] MEDS: CHLORHEXADINE GLUC 2% CLOTH TP SCH (18:22)
--- NOTE | 2018-03-24 19:34 | NUR ---
GAVE REPORT TO COOLER WORKER NURSE FOR CONTINUITY OF CARE. PATIENT IN STABLE CONDITION.
--- NOTE | 2018-03-24 19:34 | NUR ---
RECEIVED REPORT FROM DAY SHIFT NURSE AT BEDSIDE. PT IN STABLE CONDITION. PT IS A/O X1. IV ACCESS IN L FA 22G WITH D5NS 60ML/HR. IV INTACT AND PATENT. PT HAS NC 3L. PT HAS SKIN TEAR ON L WRIST COVERED WITH DRESSING. REDNESS ON SACRAL AREA. BED LOCKED, LOW POSITION, WITH SIDE RAILS UP X2. BOARD UPDATED. WILL CONTINUE TO MONITOR PT.
[2018-03-24 20:00] VITALS: BP 140/65
[2018-03-24] MEDS: QUEtiapine FUMARATE 100 MG TAB PO SCH (21:17)
--- NOTE | 2018-03-24 21:18 | NUR ---
ADMINISTERED NIGHT TIME MEDICATIONS TO PT. PT TOLERATED WELL. BS CHECKED, 89. NO COVERAGE NEEDED. ASSISTED PT IN EATING SNACK. WILL CONTINUE TO MONITOR PT.
--- NOTE | 2018-03-24 23:42 | NUR ---
MIDODRINE HELD D/T SBP ABOVE 110. ORAL ABX ADMINISTERED. PT TOLERATED WELL. WILL CONTINUE TO MONITOR.
[2018-03-25] VITALS: BP 130/57
--- NOTE | 2018-03-25 00:30 | NUR ---
PT HAD LOOSE BM. PT CLEANED, GOWN AND LINEN CHANGED. PT COMFORTABLE IN BED. ALL NEEDS ARE MET AT THIS TIME.
[2018-03-25] MEDS: HYDRAGUARD CREAM TP SCH ×2 (00:50→13:11)
--- NOTE | 2018-03-25 02:58 | NUR ---
PT IS SLEEPING IN BED. NO S/SX OF DISTRESS. WILL CONTINUE TO MONITOR.
[2018-03-25 04:00] VITALS: BP 134/68
--- NOTE | 2018-03-25 04:10 | NUR ---
PT VS WITHIN NORMAL LIMITS. CHANGED, CLEANED AND REPOSITIONED PT. WILL CONTINUE TO MONITOR.
[2018-03-25] MEDS: MIDODRINE 5 MG TAB PO SCH ×5 (05:42→23:06)
[2018-03-25] MEDS: metroNIDAZOLE 500 MG/NS PREMIX 100 ML IV SCH ×3 (05:48→21:27)
[2018-03-25] MEDS: PANTOPRAZOLE 40 MG TABEC PO SCH (05:48)
[2018-03-25] MEDS: VANCOMYCIN 500 MG VIAL PO SCH ×4 (05:49→23:04)
[2018-03-25] MEDS: BLOOD GLUCOSE MONITORING 1 DEV DEV FS SCH ×4 (05:52→21:26)
--- NOTE | 2018-03-25 05:52 | NUR ---
BS CHECKED, 87. NO COVERAGE NEEDED. WILL CONTINUE TO MONITOR PT.
[2018-03-25] MEDS: ALBUTEROL SULFATE/IPRATROPIU 3 ML SOL IH SCH ×3 (06:57→19:29)
[2018-03-25 07:12] LABS: BASOPHILS % (AUTO) 0.1 % (0.0-2.0); EOSINOPHILS % (AUTO) 0.2 % (0.0-4.0); HEMOGLOBIN 9.4 g/dL (12.0-18.0); LYMPHOCYTES # (AUTO) 1.8 K/uL (2.0-11.5); LYMPHOCYTES % (AUTO) 22.3 % (20.5-51.1); MEAN CORPUSCULAR HEMOGLOBIN 30 pg (27-31); MEAN CORPUSCULAR HGB CONC 32 g/dL (33-37); MEAN CORPUSCULAR VOLUME 92.8 fL (80-94); MONOCYTES # (AUTO) 0.4 K/uL (0.8-1.0); MONOCYTES % (AUTO) 4.9 % (1.7-9.3); NEUTROPHILS % (AUTO) 72.5 % (42.2-75.2); PLATELET COUNT (AUTO) 46 K/uL (140-450); RED BLOOD CELL COUNT(AUTO) 3.13 MIL/uL (4.20-6.10); RED CELL DISTRIBUTION WIDTH 18.1 % (11.6-13.7); WHITE BLOOD COUNT (AUTO) 8.2 K/uL (4.8-10.8)
--- NOTE | 2018-03-25 07:19 | NUR ---
ENDORSED PT TO DAY SHIFT NURSE FOR CONTINUITY OF CARE. PT IN STABLE CONDITION.
--- NOTE | 2018-03-25 07:30 | NUR ---
RECEIVED PT AAOX1-2, CONFUSED. NO SOB NOTED. NO C/O PAIN AT THIS TIME. IV TO LT HAND PATENT AND INTACT. CHEST, DIMINISHED AIR ENTRY TO THE BASES. ABDOMEN SOFT, BOWEL SOUNDS PRESENT. NO EDEMA NOTED. INSTRUCTED PT TO CALL FOR ASSISTANCE, BED ON LOW POSITION, BED ALARM ON. CALL LIGHT WITHIN REACH, PT VERBALIZED PARTIAL UNDERSTANDING.
[2018-03-25 08:00] VITALS: BP 121/62
[2018-03-25 08:00] LABS: PHOSPHORUS 3.3 mg/dL (2.5-4.9)
[2018-03-25 08:27] LABS: ANION GAP 15.7 (8-16); CARBON DIOXIDE 14.3 mmol/L (21-32); CREATININE 1.4 mg/dL (0.7-1.3)
[2018-03-25] MEDS: PHARMACY COMMENTS MC SCH (09:00)
[2018-03-25] MEDS: LACTULOSE 20 GM/30 ML UDC PO SCH ×2 (09:05→21:28)
[2018-03-25] MEDS: RIFAXIMIN 550 MG TAB PO SCH ×2 (09:05→21:29)
[2018-03-25] MEDS: BENZTROPINE 1 MG TAB PO SCH (09:06)
[2018-03-25] MEDS: CALCIUM ACETATE 667 MG TAB PO SCH (09:06)
[2018-03-25] MEDS: FERROUS GLUCONATE 324 MG TAB PO SCH (09:06)
[2018-03-25] MEDS: LACTOBACILLUS RHAMNOSUS GG 1 EACH CAP PO SCH (09:06)
[2018-03-25] MEDS: POTASSIUM CHLORIDE 10 MEQ TABER PO SCH ×2 (09:07→21:28)
[2018-03-25] MEDS: ASCORBIC ACID 500 MG TAB PO SCH (09:07)
[2018-03-25] MEDS: DIVALPROEX 500 MG TABEC PO SCH ×2 (09:07→21:28)
--- NOTE | 2018-03-25 11:30 | NUR ---
SPOKE WITH DR. GREEN AND NOTIFIED HER THAT PT WAS FED AND WAS ABLE TO TOLERATE 50% OF PUREED BREAKFAST. NEW ORDER GIVEN TO CANCEL NG TUBE INSERTION.
[2018-03-25 12:00] VITALS: BP 140/68
--- NOTE | 2018-03-25 12:00 | NUR ---
MIDODRINE HELD. PT'S SBP ABOVE 110 MMHG.
--- NOTE | 2018-03-25 12:06 | NUR ---
03/25/18 RD FOLLOW UP COMPLETED REFER TO NUTRITION PROGRESS NOTE UNDER CARE ACTIVITY FOR ESTIMATED NEEDS. RD RECOMMENDATIONS: 1.CONTINUE PUREED DIET WITH TOTAL ASSISTANCE/RECS PER SPEECH THERAPIST TOLERATED. 2. INITIATE TF VIA NG-TUBE TO SUPPLEMENT PTS NUTRITION AND PREVENT SKIN BREAKDOWN JEVITY 1.2 AT 15ML ADVANCE BY 20ML Q4H TO GOAL RATE 55ML/HR PROVIDES DAILY: 1320ML, 1584KCALS, 73gm PROTEIN, AND 1065 ML FREE WATER. - ADEQUATE TO MEET >75% PT ESTIMATED KCAL AND PROTEIN NEEDS. 3. PLEASE ADD 220mg ZINC SULFATE/DAY (X 14DAYS ONLY TO PREVENT A COPPER DEFICIENCY) FOR HEPATIC ENCEPHALOPATHY. -DISCUSSED RECOMMENDATIONS #2 AND #3 WITH MD 4.RD TO FOLLOW-UP 2-3 DAYS, HIGH RISK [facility]BOR[facility] OLIVIER RD[facility]
--- NOTE | 2018-03-25 14:30 | NUR ---
PT RESTING. NO SOB NOTED. NO SIGNS OF PAIN AT THIS TIME.
[2018-03-25 16:00] VITALS: BP 131/54
--- NOTE | 2018-03-25 17:18 | NUR ---
PT HAD BM X1, LARGE, SOFT BROWN STOOLS NOTED.
--- NOTE | 2018-03-25 17:55 | NUR ---
MIDODRINE HELD. PT'S SBP ABOVE 110 MMHG.
[2018-03-25] MEDS: MUPIROCIN CA NASAL 2% 1GM TUBE NS SCH (18:15)
[2018-03-25] MEDS: CHLORHEXADINE GLUC 2% CLOTH TP SCH (18:16)
[2018-03-25] MEDS: DEXT 5% /NACL 0.9% 1,000 ML IV SCH (18:17)
--- NOTE | 2018-03-25 18:20 | NUR ---
PT HAD ANOTHER BM X1, LARGE, SOFT BROWN STOOLS NOTED.
--- NOTE | 2018-03-25 18:44 | NUR ---
PT WAS FED BY WORKGROUP LEADER AND WAS ABLE TO CONSUMED 100% OF PUREE SERVED FOR DINNER. FOOD TOLERATED WELL. ON ASPIRATION PRECAUTIONS.
--- NOTE | 2018-03-25 19:25 | NUR ---
PT RESTING. NO SOB NOTED. NO SIGNS OF PAIN. ENDORSED TO NEXT SHIFT NURSE FOR CONTINUITY OF CARE.
--- NOTE | 2018-03-25 19:35 | NUR ---
RECEIVED REPORT FROM DAY SHIFT RN, PATIENT SLEEPING IN BED, EASY TO AROUSE, BUT VERY DROWSY. NO S/S OF DISTRESS NOTED, RESPIRATION EVEN AND UNLABORED, IV PATENT AND INTACT, INFUSING D5 NS AT 60ML/HR. CALL LIGHT WITHIN REACH, SAFETY MEASURE ENSURED, WILL CONTINUE TO MONITOR.
[2018-03-25 20:00] VITALS: BP 143/74
--- NOTE | 2018-03-25 20:05 | NUR ---
INFORMED DR. VALENZUELA PATIENT IS PUREE DIET. DR. VALENZUELA SAID," IT'S OKAY TO GIVE MEDICATION WITHOUT CRUSHING."
[2018-03-25] MEDS: QUEtiapine FUMARATE 100 MG TAB PO SCH (21:27)
--- NOTE | 2018-03-25 21:50 | NUR ---
DUE MEDICATION GIVEN, PATIENT TOLERATED WELL. NO S/S OF DISTRESS NOTED, RESPIRATION EVEN AND UNLABORED, CALL LIGHT WITHIN REACH, SAFETY MEASURE ENSURED, WILL CONTINUE TO MONITOR.
--- NOTE | 2018-03-25 22:31 | NUR ---
MADE BOWEL MOVEMENT, CLEANED PATIENT, AND REPOSITIONED PATIENT. CALL LIGHT WITHIN REACH, SAFETY MEASURE ENSURED, WILL CONTINUE TO MONITOR.
--- NOTE | 2018-03-25 23:07 | NUR ---
PROAMATINE HELD DUE TO SBP > 110
--- NOTE | 2018-03-25 23:26 | NUR ---
HR 122. PATIENT IS SLEEPING, NO S/S OF DISTRESS NOTED, MADE DR. VALENZUELA AWARE. NO ORDER RECEIVED AT THIS TIME. WILL CONTINUE TO MONITOR.
[2018-03-26] VITALS (71 sets, daily range): BP systolic 60–142; BP diastolic 30–91
[2018-03-26] MEDS: HYDRAGUARD CREAM TP SCH ×2 (01:19→13:00)
--- NOTE | 2018-03-26 01:20 | NUR ---
MADE BOWEL MOVEMENT, CLEANED PATIENT AND HYDRAGUARD APPLIED ORDERED. REPOSITIONED PATIENT. CALL LIGHT WITHIN REACH, SAFETY MEASURE ENSURED, WILL CONTINUE TO MONITOR.
--- NOTE | 2018-03-26 03:39 | NUR ---
MADE ANOTHER BOWEL MOVEMENT, CLEANED THE PATIENT, AND REPOSITIONED PATIENT. CALL LIGHT WITHIN REACH, SAFETY MEASURE ENSURED, WILL CONTINUE TO MONITOR.
[2018-03-26] MEDS: metroNIDAZOLE 500 MG/NS PREMIX 100 ML IV SCH ×3 (04:27→21:45)
[2018-03-26] MEDS: LORazepam 2 MG/ML VIAL IM/IVP PRN (04:31)
--- NOTE | 2018-03-26 04:37 | NUR ---
PATIENT IS CRYING AND YELLING, TRYING TO GET OUT OF THE BED. BP 142/78, HR 129, ATIVAN ADMINISTERED ORDERED. CALL LIGHT WITHIN REACH, SAFETY MEASURE ENSURED, WILL CONTINUE TO MONITOR.
[2018-03-26] MEDS: MIDODRINE 5 MG TAB PO SCH ×4 (06:00→18:00)
[2018-03-26] MEDS: PANTOPRAZOLE 40 MG TABEC PO SCH ×2 (06:24→06:30)
[2018-03-26] MEDS: VANCOMYCIN 500 MG VIAL PO SCH ×3 (06:24→18:00)
[2018-03-26] MEDS: BLOOD GLUCOSE MONITORING 1 DEV DEV FS SCH ×4 (06:25→20:20)
[2018-03-26] MEDS: ALBUTEROL SULFATE/IPRATROPIU 3 ML SOL IH SCH ×3 (06:56→19:18)
--- NOTE | 2018-03-26 07:25 | NUR ---
ENDORSED PLAN OF CARE TO DAY SHIFT RN. PATIENT IS SLEEPING, IN STABLE CONDITION.
--- NOTE | 2018-03-26 07:30 | NUR ---
RECEIVED PT WITH EYES CLOSED, AROUSABLE AT TIMES. ON OXYGEN AT 2LPM VIA NASAL CANNULA WITH RESPIRATIONS OF 15 BREATHS PER MIN. WITH IV TO LT HAND PATENT AND INTACT. CHEST, DIMINISHED AIR ENTRY TO THE BASES. ABDOMEN SOFT, BOWEL SOUNDS PRESENT. WILL CONTINUE TO MONITOR.
--- NOTE | 2018-03-26 07:40 | NUR ---
PT UNAROUSABLE, DECREASED BP 60/31 MMHG, HR 125, ON 2 PLM 02 VIA NASAL CANNULA WITH SATS AT 63%. , RESPIRATIONS AT 12/MIN, AGONAL BREATHING, DR. MILLER NOTIFIED. RESPIRATORY THERAPIST AT THE BEDSIDE.
[2018-03-26 07:51] LABS: HEMATOCRIT 32.1 % (36-52); HEMOGLOBIN 9.7 g/dL (12.0-18.0); MEAN CORPUSCULAR HEMOGLOBIN 29 pg (27-31); MEAN CORPUSCULAR HGB CONC 30 g/dL (33-37); PLATELET COUNT (AUTO) 81 K/uL (140-450); RED BLOOD CELL COUNT(AUTO) 3.31 MIL/uL (4.20-6.10); RED CELL DISTRIBUTION WIDTH 19.6 % (11.6-13.7)
--- NOTE | 2018-03-26 07:55 | NUR ---
BP: 66/29 MMHG, AT STILL UNAROUSABLE. HR AT 125/MIN. CRITICAL WBC RECEIVED 32.5, PT ON NON-REBREATHER MASK AT 15 LITERS OXYGEN WITH SATS OF 73%; DR. MILLER AT THE BEDSIDE. NEW ORDERS RECEIVED.
[2018-03-26 07:57] LABS: ANION GAP 15.6 (8-16); CARBON DIOXIDE 16.5 mmol/L (21-32); CREATININE 1.5 mg/dL (0.7-1.3); POTASSIUM 4.1 mmol/L (3.5-5.1); WHITE BLOOD COUNT (AUTO) 32.5 K/uL (4.8-10.8)
[2018-03-26] MEDS ORDERED: NACL 0.9% 1,000 ML IV SCH ×3 (08:00→12:50)
[2018-03-26] MEDS: CALCIUM ACETATE 667 MG TAB PO SCH (08:00)
[2018-03-26] MEDS ORDERED: NOREPINEPHRINE 4 MG in DEXTROSE 5% 250 ML IV PRN (08:05)
--- NOTE | 2018-03-26 08:10 | NUR ---
PT TRANSFERRED TO ICU BED 1, ENDORSED CARE TO [id number].
[2018-03-26 08:14] LABS: MAGNESIUM 1.7 mg/dL (1.8-2.4); PHOSPHORUS 4.1 mg/dL (2.5-4.9)
[2018-03-26 08:28] LABS: LYMPHOCYTES % (MANUAL) 25 % (20-46); MONOCYTES % (MANUAL) 1 % (5-12)
[2018-03-26 08:29] LABS: METAMYELOCYTES % 1 % (0-0); MYELOCYTES % 1 % (0-0)
--- NOTE | 2018-03-26 08:30 | NUR ---
CALLED TEL # : [phone], PT'S NEXT OF KIN ROSEMARIE RASHID REGARDING THE TRANSFER TO ICU. NO RESPONSE, THIS NUMBER HAS BEEN DISCONNECTED OR NO LONGER IN SERVICE.
--- NOTE | 2018-03-26 08:39 | NUR ---
RECEIVED PT FROM FLOOR, RECEIVED REPORT FROM CLINTON AGUAYO. PT IS NONRESPONSIVE, PT WAS BEING BAGGED; AGONAL BREATHING. HAS L HAND IV 22 ALONA, PATENT, ASYMPTOMATIC. PT IS ON CONTACT ISOLATION. PTS SKIN IS NOT INTACT; SEE WOUND ASSESSMENT; SEVERAL SKIN TEARS ON UPPER EXTREMITIES, REDNESS ON SACRAL AREA, BRUISES. ON EXERCISE EQUIPMENT SPECIALIST. BED LOCKED AND IN LOWEST POSITION, CALL LIGHT WITHIN REACH.
--- NOTE | 2018-03-26 08:39 | NUR ---
DR. HAYS AT BEDSIDE TO INTUBATE. X2 RT, X3 NURSES, X2 DR AT BEDSIDE.
--- NOTE | 2018-03-26 08:44 | NUR ---
DR HAYS ARRIVED TO INTUBATE. 1L NS BOLUS RUNNING. RIGHT FOREARM IV HAS BEEN ESTABLISHED. 0844 80MG ETOMIDATE WAS GIVEN, 0845 20 MG SUCCINATE GIVEN. 0845 PT INTUBATED, USING [id number]. 21 AT LIP LINE
--- NOTE | 2018-03-26 08:53 | NUR ---
XRAY AT BEDSIDE TO CONFIRM ETT TUBE PLACEMENT
[2018-03-26] MEDS: RIFAXIMIN 550 MG TAB PO SCH ×2 (09:00→20:47)
[2018-03-26] MEDS: ASCORBIC ACID 500 MG TAB PO SCH (09:00)
[2018-03-26] MEDS: LACTOBACILLUS RHAMNOSUS GG 1 EACH CAP PO SCH (09:00)
[2018-03-26] MEDS: LACTULOSE 20 GM/30 ML UDC PO SCH ×2 (09:00→20:47)
[2018-03-26] MEDS ORDERED: SODIUM BICARBONATE 8.4% PFS 50 MEQ/50 ML SYR IVP SCH ×3 (09:00→13:45)
[2018-03-26] MEDS: QUEtiapine FUMARATE 100 MG TAB PO SCH ×2 (09:00→20:47)
[2018-03-26] MEDS: BENZTROPINE 1 MG TAB PO SCH (09:00)
--- NOTE | 2018-03-26 09:00 | NUR ---
oral medication not given due to pt being unconscious, no NGT. doctor aware.
--- NOTE | 2018-03-26 09:00 | NUR ---
TRIED CALLING [facility] AT [phone], PHONE NUMBER NOT WORKING NUMBER. LEFT MESSAGE TO RAN, CANDELARIO AT [phone]. TO GET CONSENT FOR CENTRAL LINE.
--- NOTE | 2018-03-26 09:00 | NUR ---
ER DR HAYS INTUBATED PT WITH 7.5 ETT 23CM AT THE GUM LINE PLACED ON VENT WITH SETTINGS CHARTED BREATH SOUNDS PRESENT BILAT RHONCHI X RAY DONE AMBU BAG AT BEDSIDE ETT SECURE VENT PLUGGED INTO RED OUTLET
--- NOTE | 2018-03-26 09:10 | NUR ---
RESIDENT PHYSICIAN, DR. MILLER MADE AWARE THAT UNABLE TO CONTACT FAMILY AT THIS TIME.
--- NOTE | 2018-03-26 09:45 | NUR ---
ETT CONFIRMED ON CXR, BILATERALL BREATH SOUNDS AND GOOD CHEST RISE. VT DELIVERED ARE ADEQUATE.
[2018-03-26] MEDS: PHARMACY COMMENTS MC SCH (09:48)
--- NOTE | 2018-03-26 10:18 | NUR ---
PT SUCTIONED OBTAINED LARGE AMOUNT OF THIN BOLAND COLORED SECRETIONS, AIRWAY IS PATENT AND ETT IS SECURE WITH ANCHOR FAST DEVICE. THERE IS NO BITING OR KINKING OF ETT. VENT ALARMS ARE ON AND FUNCTIONING. WILL CONTINUE TO MONITOR.
--- NOTE | 2018-03-26 10:25 | NUR ---
NGT INSERTED. WILL CALL FOR X.RAY
--- NOTE | 2018-03-26 10:29 | NUR ---
RESIDENT PHYSICIAN, DR. MILLER INFORMED OF PATIENT'S MAG LEVEL OF 1.7. WILL FOLLOW UP ON ORDERS.
--- NOTE | 2018-03-26 10:30 | NUR ---
XRAY AT BEDSIDE TO CONFIRM NGT PLACEMENT
--- NOTE | 2018-03-26 10:35 | NUR ---
LEFT MESSAGE AGAIN TO CANDELARIO TONG, AWAITING FOR CALL BACK.
--- NOTE | 2018-03-26 11:27 | NUR ---
BLOOD SUGAR 36, WILL GIVE D50
--- NOTE | 2018-03-26 11:30 | NUR ---
DR MILLER AT BEDSIDE FOR CENTRAL LINE INSERTION
[2018-03-26] MEDS: DEXTROSE 50% 50 ML SYR IVP PRN (11:31)
--- NOTE | 2018-03-26 11:37 | NUR ---
FIO2 TITRATED TO 80% PT NOT SOB AT THIS TIME. SPO2 REMAINS AT 99%. WILL CONTINUE TO MONITOR.
--- NOTE | 2018-03-26 12:00 | NUR ---
oral medication not given due to pt being unconscious, no NGT. doctor aware.
--- NOTE | 2018-03-26 12:04 | NUR ---
BLOOD SUGAR RECHECK 94
--- NOTE | 2018-03-26 12:10 | NUR ---
CENTRAL LINE INSERTED
[2018-03-26] MEDS ORDERED: DEXT 5% / NACL 0.45% 1,000 ML IV SCH (12:55)
--- NOTE | 2018-03-26 13:24 | NUR ---
ABG RESULTS GIVEN TO WILL NOTIFY PULMONOLOGISTS REGARDING CRITICAL VALUES.
[2018-03-26] MEDS ORDERED: DEXTROSE 5% 1,000 ML IV SCH (13:30)
[2018-03-26] MEDS ORDERED: DOBUTamine 500 MG/D5W PREMIX 250 ML IV SCH (13:35)
[2018-03-26] MEDS ORDERED: VANCOMYCIN PER PHARMACY MC PRN (13:35)
--- NOTE | 2018-03-26 13:44 | NUR ---
TEMPERATURE DOWN TO 95.0, PUTTING BEAR HUGGER ON PT
--- NOTE | 2018-03-26 13:51 | NUR ---
TOOK RECTAL TEMP 91.5, BEAR HUGGER APPLIED, HIGHEST SPEED
--- NOTE | 2018-03-26 13:51 | NUR ---
PAGED REGARDING ABG RESULTS WAITING FOR CALL BACK.
--- NOTE | 2018-03-26 13:56 | NUR ---
ABG RESULTS GIVEN TO . NEW VENT ORDERS AC 20 VT 500, PEEP 5 AND KEEP SPO2 >=92%.
--- NOTE | 2018-03-26 14:09 | NUR ---
FIO2 TITRATED TO 60%. SPO2 95% AT THIS TIME. PT AGONAL BREATHING PRESENT AND MADE AWARE. WILL CONTINUE TO MONITOR.
[2018-03-26] MEDS ORDERED: VANCOMYCIN 1GM/DEXT 5% PREMIX 200 ML IV STA (14:13)
[2018-03-26] MEDS ORDERED: PIPER/TAZO 3.375GM/D5W PREMIX 50 ML IV SCH (14:17)
--- NOTE | 2018-03-26 14:22 | NUR ---
BEDSIDE PHYSICIAN INCREASED VT TO 550. WILL CONTINUE TO MONITOR.
[2018-03-26] MEDS: VANCOMYCIN 750 MG in DEXTROSE 5% 250 ML IV SCH (14:48)
--- NOTE | 2018-03-26 14:50 | NUR ---
SPO2 INCREASED TO 100% DUE TO PT SPO2 LOW TO MID 80'S NURSE ANGEL MADE AWARE.
--- NOTE | 2018-03-26 14:56 | NUR ---
CRITICAL REPORT: There is a new 20% right pneumothorax.
[2018-03-26] MEDS: SODIUM BICARBONATE 8.4% 50 MEQ in DEXTROSE 5% 1,000 ML IV SCH (15:30)
[2018-03-26] MEDS: VASOPRESSIN 20 UNITS in NACL 0.9% 250 ML IV SCH (15:36)
--- NOTE | 2018-03-26 15:37 | NUR ---
CENTRAL LINE, OKAY TO USE
--- NOTE | 2018-03-26 16:16 | NUR ---
DR. BUCK AT BEDSIDE PERFORMING CHEST TUBE INSERTION. TIME OUT PERFORMED PRIOR TO PROCEDURE.
[2018-03-26] MEDS ORDERED: LIDOCAINE 2% 100 MG/5 ML SYR IVP ONE (16:17)
--- NOTE | 2018-03-26 16:31 | NUR ---
X-RAY AT BEDSIDE TO CONFIRM CHEST TUBE PLACEMENT. DR. BUCK SAW X-RAY
--- NOTE | 2018-03-26 16:36 | NUR ---
ABG RESULTS GIVEN TO .
[2018-03-26 16:45] LABS: ANION GAP 20.9 (8-16); CARBON DIOXIDE 13.7 mmol/L (21-32); CREATININE 1.9 mg/dL (0.7-1.3); POTASSIUM 3.6 mmol/L (3.5-5.1)
[2018-03-26] MEDS ORDERED: NOREPINEPHRINE IV SCH (17:00)
[2018-03-26] MEDS ORDERED: LIDOCAINE 2% 1000 MG/50 ML VIAL INJ SCH (17:00)
[2018-03-26] MEDS ORDERED: SODIUM BICARBONATE 8.4% PFS 50 MEQ/50 ML SYR IVP ONE (17:00)
[2018-03-26] MEDS ORDERED: DEXTROSE 5% IV SCH (17:00)
--- NOTE | 2018-03-26 17:35 | NUR ---
FIO2 TITRATED TO 80% SPO2 93% AT THIS TIME. PT REMAINS TACHYPNEIC AT THIS TIME. ETT REMAINS SECURE WITH A PATENT AIRWAY. PT SUCTIONED OBTAINED LARGE AMOUNT OF THIN BOLAND COLORED SECRETIONS. VENT ALARMS REMAIN ON AND FUNCTIONING.
[2018-03-26] MEDS: CHLORHEXADINE GLUC 2% CLOTH TP SCH (18:00)
--- NOTE | 2018-03-26 18:00 | NUR ---
oral medication not given due to pt being unconscious, have an NGT awaiting orders to use.
[2018-03-26] MEDS ORDERED: PHENYLEPHRINE 10 MG in NACL 0.9% 250 ML IV PRN (18:35)
[2018-03-26] MEDS: MUPIROCIN CA NASAL 2% 1GM TUBE NS SCH (18:48)
--- NOTE | 2018-03-26 19:15 | NUR ---
RECEIVED REPORT FROM MORNING RN FOR CONTINUITY OF CARE. PT TEMPERATURE ON THE LOW SIDE AT 96.8; RECEIVED PT ON BARE HUGGER. FLACC 0. LETHARGIC AND VENTILATED. ETT TO VENT WITH SETTINGS: AC20, TV550, FIO2 80% AND PEEP 5. LUNG SOUNDS COARSE. PT HAS CHEST TUBE ON RIGHT LATERAL CHEST CONNECTED TO SUCTION. S1+S2 HEARD. PULSES PALPABLE IN ALL EXTREMITIES. SR TO ST ON MONITOR. SBP ABOVE 100 AT THIS TIME. ABDOMEN ROUND, SOFT AND NONDISTENDED. NGT IN PLACE. CHECKED PLACEMENT. HORNER CATHETER IN PLACE AND DRAINING CLEAR, LIGHT ASIF URINE. PT HAS RIGHT IJ CENTRAL LINE, RIGHT FOREARM 20G PERIPHERAL IV ACCESS AND LEFT FOREARM 22G PERIPHERAL IV ACCESS. RECEIVED PT ON LEVOPHED AT 30MCG, VASOPRESSIN AT 0.02 UNITS, SODIUM BICARBONATE AT 100ML/HR. HOB KEPT AT 30 DEGREES. BED AT LOW POSSIBLE POSITION. ALL SAFETY PRECAUTIONS ARE IN PLACE. WILL CONTINUE TO MONITOR PT.
--- NOTE | 2018-03-26 20:00 | NUR ---
I DID TRY THREE TIMES FOR ABG AND UNABLE TO OBTAIN, I DID HAVE FLUSH BUT THE BLOOD STOP
[2018-03-26] MEDS: PIPER/TAZO 3.375GM/D5W PREMIX 50 ML IV SCH (20:20)
[2018-03-26 20:46] LABS: APPEARANCE,URINE CLOUDY (CLEAR); BILIRUBIN,URINE NEGATIVE (NEGATIVE); BLOOD, URINE 2+ (NEGATIVE); COLOR,URINE YELLOW (YELLOW); LEUKOCYTE ESTERASE ,URINE 3+ (NEGATIVE); NITRITE, URINE NEGATIVE (NEGATIVE); PH,URINE 5.5 (5.0-9.0); UGLUCOSE NEGATIVE (NEGATIVE)
[2018-03-26 21:00] LABS: RBC,URINE 20-50 /HPF (0-5); WBC,URINE 20-60 /HPF (0-5)
[2018-03-26 21:01] LABS: YEAST,URINE Many /HPF (None Seen)
--- NOTE | 2018-03-26 21:20 | NUR ---
DR. EDDY AT BEDSIDE TO SEE PT.
--- NOTE | 2018-03-26 21:35 | NUR ---
INCREASED FIO2 TO 100%, DUE TO PT SAT 87%
--- NOTE | 2018-03-26 22:20 | NUR ---
DR. VALENZUELA AND DR. DAS AT BEDSIDE TO SEE PT.
--- NOTE | 2018-03-26 22:21 | NUR ---
I GAVE AN PRN DUONEB PER ET TUBE TO IMPROVED AERATION FAST AND INCREASED SATURATION, ASKING DR VALENZUELA , WHO WAS AT THE BED SIDE,.HE TOLD ME TO DO , IF WILL BE AN IMPROVEMENT.
[2018-03-27] VITALS (107 sets, daily range): BP systolic 60–126; BP diastolic 28–76
[2018-03-27] MEDS: MIDODRINE 5 MG TAB PO SCH ×5 (00:28→23:25)
[2018-03-27] MEDS: HYDRAGUARD CREAM TP SCH ×2 (00:28→12:59)
--- NOTE | 2018-03-27 00:45 | NUR ---
STILL MONITORING VS OF PT. TEMPERATURE IMPROVED AT 97.5; BLOOD PRESSURE STILL ON THE LOW SIDE. ORAL CARE PROVIDED TO PT. PT TURNED AND REPOSITIONED. HAS VERY MINIMAL URINARY OUTPUT. HOB KEPT AT 30 DEGREES. NGT DISCONNECTED FROM SUCTION DUE TO MEDS NEEDED TO BE ADMINISTERED THROUGH NGT. ALL SAFETY PRECAUTIONS ARE IN PLACE. WILL CONTINUE TO MONITOR PT.
[2018-03-27] MEDS ORDERED: VANCOMYCIN 500 MG VIAL PO SCH (01:00)
--- NOTE | 2018-03-27 02:15 | NUR ---
ASKED DR. VALENZUELA IF ITS POSSIBLE TO QUADRUPLE THE DOSE OF NEOSYNEPHRINE. RECEIVED NEW ORDERS. WILL BE STARTING PT ON NEOSYNEPHRINE IF SBP WILL CONTINUE TO BE BELOW 90S. IN THE MEAN TIME, WILL CALL AFTER HOURS PHARMACY TO VERIFY ORDER.
[2018-03-27] MEDS: SODIUM BICARBONATE 8.4% 50 MEQ in DEXTROSE 5% 1,000 ML IV SCH ×2 (02:30→04:40)
[2018-03-27] MEDS ORDERED: PHENYLEPHRINE 10 MG/ML VIAL ONE (02:36)
[2018-03-27] MEDS: PHENYLEPHRINE 40 MG in NACL 0.9% 250 ML IV PRN ×5 (02:48→23:37)
[2018-03-27] MEDS ORDERED: NOREPINEPHRINE 4 MG/4 ML VIAL IV ONE (03:59)
[2018-03-27] MEDS: NOREPINEPHRINE 16 MG in DEXTROSE 5% 250 ML IV PRN ×3 (04:00→23:31)
[2018-03-27] MEDS: VASOPRESSIN 20 UNITS in NACL 0.9% 250 ML IV SCH ×3 (04:10→22:20)
[2018-03-27] MEDS: PIPER/TAZO 3.375GM/D5W PREMIX 50 ML IV SCH ×3 (04:45→20:47)
--- NOTE | 2018-03-27 05:05 | NUR ---
MORNING CARE PROVIDED TO PT. TOLERATED BEING TURNED AND REPOSITIONED FAIRLY. PT HAD WATERY STOOL THAT IS YELLOWISH TO ORANGE IN COLOR. CENTRAL LINE DRESSING CHANGED WELL. STERILE TECHNIQUE PERFORMED. HOB AT 30 DEGREES. ALL SAFETY PRECAUTIONS ARE IN PLACE. WILL CONTINUE TO MONITOR PT.
[2018-03-27] MEDS: VANCOMYCIN 500 MG VIAL PO SCH ×4 (05:41→23:26)
[2018-03-27] MEDS: metroNIDAZOLE 500 MG/NS PREMIX 100 ML IV SCH ×3 (05:42→20:47)
[2018-03-27] MEDS: PANTOPRAZOLE 40 MG TABEC PO SCH (05:43)
[2018-03-27 05:50] LABS: HEMATOCRIT 27.5 % (36-52); HEMOGLOBIN 8.2 g/dL (12.0-18.0); MEAN CORPUSCULAR HEMOGLOBIN 30 pg (27-31); MEAN CORPUSCULAR HGB CONC 30 g/dL (33-37); MEAN CORPUSCULAR VOLUME 98.5 fL (80-94); PLATELET COUNT (AUTO) 48 K/uL (140-450); RED BLOOD CELL COUNT(AUTO) 2.79 MIL/uL (4.20-6.10); RED CELL DISTRIBUTION WIDTH 19.3 % (11.6-13.7); WHITE BLOOD COUNT (AUTO) 22.9 K/uL (4.8-10.8)
--- NOTE | 2018-03-27 06:20 | NUR ---
DR. STEWARD AT BEDSIDE TO SEE PT. AWARE THAT ALL VASOPRESSORS ARE MAX OUT AT THIS TIME. WILL FOLLOW-UP WITH ANY NEW ORDER,.
[2018-03-27 06:25] LABS: ANION GAP 9.6 (8-16); CARBON DIOXIDE 17.1 mmol/L (21-32); CREATININE 2.7 mg/dL (0.7-1.3); POTASSIUM 3.7 mmol/L (3.5-5.1)
[2018-03-27 06:32] LABS: MAGNESIUM 1.2 mg/dL (1.8-2.4); PHOSPHORUS 5.4 mg/dL (2.5-4.9)
[2018-03-27] MEDS: ALBUTEROL SULFATE/IPRATROPIU 3 ML SOL IH SCH ×3 (06:53→18:56)
--- NOTE | 2018-03-27 06:56 | NUR ---
PAGED DR. BUCK AT 0619, VERIFIED SUCTION ORDER FOR CHEST TUBE, ORDERED CHEST TUBE TO CONTINOUS LOW SUCTION.
[2018-03-27 06:57] LABS: LYMPHOCYTES % (MANUAL) 24 % (20-46); METAMYELOCYTES % 5 % (0-0); MONOCYTES % (MANUAL) 6 % (5-12); MYELOCYTES % 3 % (0-0)
--- NOTE | 2018-03-27 07:03 | NUR ---
RECEIVED INTUBATED PT WITH A 7.5 ETT SECURED @23 TEETH/GUMS ON VENT. SETTINGS AC 20, VT 550, PEEP 5 AND FIO2 100%.SPO2 92% AT THIS TIME. PT SUCTIONED OBTAINED SMALL AMOUNT OF THICK YELLOW SECRETIONS, AIRWAY IS PATENT AND ETT IS SECURE WITH ANCHOR FAST DEVICE. PT HAS NO GAG REFLEX DURING SUCTIONING. PT IS NOT AWAKE, NOT ALERT AND REMAINS TACHYPNEIC AT THIS TIME. THERE IS NO BITING OR KINKING OF ETT. VENT IS PLUGGED INTO A RED OUTLET WITH ALARMS ON AND FUNCTIONING. AMBU BAG IS PRESENT NEAR BEDSIDE.
--- NOTE | 2018-03-27 07:04 | NUR ---
RECEIVED BEDSIDE REPORT FROM PHOTOGRAPHIC AIDE RN FOR CONTINUITY OF CARE. PATIENT IS AAOX0, NOT ABLE TO FOLLOW SIMPLE COMMANDS, OPENS EYES TO PAIN. PATIENT SKIN IS EDEMATOUS, PITTINGX1, WEEPING. HE HAS CENTRAL LINE TO RIGHT IJ, AND PERIPHERAL IV SITE TO RIGHT FOREARM, LEFT FOREARM. PATIENT IS ON BICARB AT 100ML/HR, NEOSYNEPHRINE, LEVOPHED, AND PITRESSIN. PATIENT HAS ETT TO VENT, SETTINGS ARE AC 20,TV 550, FIO2 100 AND PEEP 5. PATIENT HAS CHEST TUBE IN PLACE. NGTUBE IN PLACE, HORNER CATHETER IN PLACE. HOB IS 30 DEGREES, CALL LIGHT IN REACH, NO SIGNS OF DISTRESS NOTED. WILL CONTINUE TO MONITOR
[2018-03-27] MEDS: BLOOD GLUCOSE MONITORING 1 DEV DEV FS SCH ×4 (07:51→20:49)
[2018-03-27] MEDS: DEXTROSE 50% 50 ML SYR IVP PRN ×4 (07:51→16:48)
--- NOTE | 2018-03-27 08:15 | NUR ---
DR. BROTHERS AND RESIDENT PHYSICIANS IN TO SEE PATIENT, UPDATED ON PATIENT'S CONDITION. WILL FOLLOW UP ON ANY ORDERS.
[2018-03-27] MEDS: LANSOPRAZOLE 30 MG CAPDR GT SCH (08:18)
[2018-03-27] MEDS: ASCORBIC ACID 500 MG TAB PO SCH (08:18)
[2018-03-27] MEDS: LACTOBACILLUS RHAMNOSUS GG 1 EACH CAP PO SCH (08:18)
[2018-03-27] MEDS: CALCIUM ACETATE 667 MG TAB PO SCH (08:18)
[2018-03-27] MEDS: QUEtiapine FUMARATE 100 MG TAB PO SCH ×2 (08:18→20:50)
[2018-03-27] MEDS: FERROUS SULFATE 300 MG/5 ML UDC GT SCH (08:19)
[2018-03-27] MEDS: LACTULOSE 20 GM/30 ML UDC PO SCH ×2 (08:19→20:48)
[2018-03-27] MEDS: BENZTROPINE 1 MG TAB PO SCH (09:02)
[2018-03-27] MEDS: RIFAXIMIN 550 MG TAB PO SCH ×2 (09:03→20:48)
[2018-03-27] MEDS: PHARMACY COMMENTS MC SCH (09:03)
--- NOTE | 2018-03-27 09:16 | NUR ---
ADMINISTERS PRESCRIBED MEDICATIONS THROUGH NG TUBE, PATIENT TOLERATED WELL. NO SIGNS OF DISTRESS NOTED AT THIS TIME. WILL CONTINUE TO MONITOR
[2018-03-27] MEDS ORDERED: MAG SULF 2000 MG/WATER PREMIX 100 ML IV ONE (10:00)
--- NOTE | 2018-03-27 10:00 | NUR ---
RECHECKED GLUCOSE, IT WAS 40 SO I ADMINISTERED DEXTROSE 50 IVP. PATIENT TOLERATED WELL
[2018-03-27] MEDS ORDERED: PROBIOTIC SCREEN 1 EA MISC MC PRN (10:20)
--- NOTE | 2018-03-27 10:44 | NUR ---
PATIENT'S GLUCOSE IS 89, NO SIGNS OF DISTRESS NOTED. WILL CONTINUE TO MONITOR
--- NOTE | 2018-03-27 11:09 | NUR ---
PT SUCTIONED OBTAINED SCANT AMOUNT OF THICK YELLOW SECRETIONS, AIRWAY IS PATENT AND ETT IS SECURE. PT REMAINS TACHYPNEIC AT THIS TIME AND SPO2 CONTINUE TO DECREASE DESPITE BEING ON 100% FIO2. WILL CONTINUE TO MONITOR.
[2018-03-27] MEDS: MAGNESIUM SULFATE 1GM in DEXTROSE 5% 100 ML PREMIX IV SCH ×2 (11:17→12:27)
--- NOTE | 2018-03-27 11:38 | NUR ---
CHECKED PATIENT GLUCOSE, IT WAS 59, I ADMINISTERED DEXTROSE 50 IVP. RECHECKED GLUCOSE AND IT WAS 150, PATIENT TOLERATED WELL. WILL CONTINUE TO MONITOR
--- NOTE | 2018-03-27 12:07 | NUR ---
FAXED CONCURRENT REVIEW TO [facility] [phone] PHONE [facility] [phone]. CALLED [facility] AND ALSO GAVE VERBAL REPORT.
--- NOTE | 2018-03-27 14:13 | NUR ---
CALLED [facility]IC[facility] REGARDING PATIENT'S LOW BLOOD PRESSURE AND LOW O2 SATS, WILL FOLLOW UP ON ANY ORDERS.
--- NOTE | 2018-03-27 14:20 | NUR ---
PAGED DR. REINA, STATED THAT HE HIS ON HIS WAY TO SEE PATIENT
--- NOTE | 2018-03-27 14:32 | NUR ---
P.T. NOTES D/C FROM P.T. DUE TO Pt TRANSFERRED TO ICU; WILL AWAIT P.T. RE EVAL ORDER WHEN APPROPRIATE. Addendum: 03/27/18 at 1432 by Nanette Mendenhall PT Amended: Links added.
[2018-03-27] MEDS: VANCOMYCIN 750 MG in DEXTROSE 5% 250 ML IV SCH (15:13)
[2018-03-27] MEDS ORDERED: CALCIUM GLUCONATE 10% 1000 MG/10 ML VIAL IVP STA (15:29)
[2018-03-27] MEDS ORDERED: SODIUM BICARBONATE 8.4% PFS 50 MEQ/50 ML SYR IVP SCH (15:33)
[2018-03-27] MEDS ORDERED: DEXTROSE 5% IV PRN (15:55)
[2018-03-27] MEDS ORDERED: EPINEPHRINE IV PRN (15:55)
--- NOTE | 2018-03-27 16:08 | NUR ---
ABG RESULTS GIVEN TO NEW VENT CHANGES AC 25, VT 550, PEEP 5 AND FIO2 TO KEEP SPO2 >=92%.
--- NOTE | 2018-03-27 16:08 | NUR ---
DR. REINA AND RESIDENT PHYSICIAN IN TO SEE PATIENT, UPDATED ON PATIENT'S CONDITION. WILL FOLLOW UP ON ANY ORDERS.
[2018-03-27] MEDS: HYDROCORTISONE NA SUCC 100 MG/2 ML VIAL IV SCH ×2 (16:13→21:52)
--- NOTE | 2018-03-27 16:20 | NUR ---
SCREEN FOR LOW ALEX SCALE, NO REDNESS, NO PRESSURE INJURY, SKIN TEAR TO LEFT HAND TX IN PLACE. ALL PRESSURE ULCER INTERVENTIONS IN PLACE AND PRIMARY RN AWARE OF INTERVENTIONS.
[2018-03-27] MEDS: DEXTROSE 10% IV SCH (16:42)
[2018-03-27] MEDS: SODIUM BICARBONATE IV SCH (16:42)
[2018-03-27 16:46] LABS: ANION GAP 16.3 (8-16); CREATININE 3.2 mg/dL (0.7-1.3); POTASSIUM 4.3 mmol/L (3.5-5.1)
--- NOTE | 2018-03-27 17:27 | NUR ---
VENT CHECK COMPLETED, SETTINGS AC 25, VT 550, PEEP 5 AND FIO2 90%. SPO2 92% AT THIS TIME. PT REMAINS TACHYPNEIC. VENT ALARMS REMAIN ON AND FUNCTIONING. ETT REMAINS SECURE WITH A PATENT AIRWAY. NO AUTO PEEP DETECTED ON VENT AT THIS TIME.
--- NOTE | 2018-03-27 17:34 | NUR ---
FIO2 INCREASED BACK TO 100% DUE TO PT DESATURATION TO MID 80'S%.
--- NOTE | 2018-03-27 17:45 | NUR ---
DR. FORD IN TO SEE AND EXAMINE PATIENT, UPDATED ON PATIENT'S CONDITION. STATED THAT PATIENT IS NOT ELIGIBLE FOR HEMODIALYSIS AT THIS TIME AND WILL PUT IN ORDER FOR BUMEX IF NEEDED. WILL FOLLOW UP ON ANY ORDERS
[2018-03-27] MEDS: MUPIROCIN CA NASAL 2% 1GM TUBE NS SCH (17:54)
[2018-03-27] MEDS: CHLORHEXADINE GLUC 2% CLOTH TP SCH (17:55)
--- NOTE | 2018-03-27 19:04 | NUR ---
ENDORSED BEDSIDE REPORT TO PHOTO OFFSET PRINTER RN FOR CONTINUITY OF CARE, NO SIGNS OF DISTRESS NOTED.
--- NOTE | 2018-03-27 19:30 | NUR ---
RECEIVED REPORT FROM DAY NURSE. WILL CONTINUE TO OBSERVE.
--- NOTE | 2018-03-27 19:40 | NUR ---
PT OBTUNDED, UN RESPONSIVE TO STIMULI. PUPILS SLUGGISH R 4 MM L 3 MM, BILATERAL UPPER AND LOWER EXTREMITIES FLACCID. GAG REFLEX ABSENT. 7.5 ETT TO VENT 23 @LIP. CURRENT SETTINGS AC 550 R 25 TV 550 100% FIO2 PEEP 5. R UPPER LATERAL CHEST TUBE IN PLACE HOOKED TO LOW CONTINUOUS WALL SUCTION. LUNG SOUNDS DIMINISHED BILATERALLY. THICK YELLOW SPUTUM NOTED IN SUCTION. SINUS TACH 100S, GENERALIZED +2 EDEMA NOTED. +3 EDEMA TO SCROTUM. ABDOMEN SOFT ROUND, NGT TO L NARES, JEVITY RUNNING @ 20 ML/HR. HORNER CATH IN PLACE LOW OUTPUT, DARK URINE NOTED. R IJ IN PLACE WITH VASPRESSORS LEVOPHED, NEOSYNEPHRINE, VASOPRESSIN, NABICARB DRIPS RUNNING. RAIZA HUGGER THERAPY IN PLACE FOR HYPOTHERMIA. BLANCHABLE REDNESS ARNOLDO BUTTOCKS NOTED, BILATERAL ARMS WEEPING. NO ACUTE S/S OF DISTRESS NOTED. WILL CONTINUE TO OBSERVE.
--- NOTE | 2018-03-27 20:00 | NUR ---
ORAL CARE VAP PER PROTOCOL. PT REPOSITIONED AND TURNED. WILL CONTINUE TO OBSERVE.
--- NOTE | 2018-03-27 22:00 | NUR ---
PT TURNED AND REPOSITIONED, CONTINUING TO DESAT; RT @ BEDSIDE. SPO2 PROBE REPLACED, REPOSITIONED. WILL CONTINUE TO MONITOR.
[2018-03-28] VITALS (45 sets, daily range): BP systolic 91–157; BP diastolic 32–64
--- NOTE | 2018-03-28 | NUR ---
ORAL CARE DONE PER VAP PROTOCOL. PT TURNED AND REPOSITIONED. WILL CONTINUE TO OBSERVE
--- NOTE | 2018-03-28 00:25 | NUR ---
INFORMED MD ABOUT PT COTINUING TO DESAT; MD PUT ORDERS IN FOR STAT ABG, CXR. WILL CONTINUE TO MONITOR.
[2018-03-28] MEDS ORDERED: SODIUM BICARBONATE 8.4% PFS 50 MEQ/50 ML SYR IVP ONE ×4 (00:40→05:19)
--- NOTE | 2018-03-28 00:50 | NUR ---
BLOOD SUGAR RECHECK PER MD ORDER, BS 36 X1 AMP D50 GIVEN. RECHECKED BLOOD SUGAR, NOW 117. X2 AMPS GIVEN OF NA BICARB. ABG OBTAINED BY RT AFTER BICARB GIVEN. WILL CONTINUE TO OBSERVE.
[2018-03-28] MEDS: DEXTROSE 50% 50 ML SYR IVP PRN ×2 (00:55→05:15)
[2018-03-28] MEDS: HYDRAGUARD CREAM TP SCH (01:04)
[2018-03-28 01:15] LABS: HEMATOCRIT 23.8 % (36-52); MEAN CORPUSCULAR HEMOGLOBIN 29 pg (27-31); MEAN CORPUSCULAR HGB CONC 29 g/dL (33-37); MEAN CORPUSCULAR VOLUME 98.5 fL (80-94); RED BLOOD CELL COUNT(AUTO) 2.41 MIL/uL (4.20-6.10); RED CELL DISTRIBUTION WIDTH 19.4 % (11.6-13.7)
[2018-03-28 01:18] LABS: ALBUMIN 0.8 g/dL (3.4-5.0); ANION GAP 20.1 (8-16); CARBON DIOXIDE 15.5 mmol/L (21-32); CREATININE 3.7 mg/dL (0.7-1.3); TOTAL BILIRUBIN 0.3 mg/dL (0.0-1.0)
[2018-03-28 01:21] LABS: POTASSIUM 5.6 mmol/L (3.5-5.1)
[2018-03-28 02:47] LABS: WHITE BLOOD COUNT (AUTO) 49.1 K/uL (4.8-10.8)
[2018-03-28 02:48] LABS: PLATELET COUNT (AUTO) 16 K/uL (140-450)
[2018-03-28 02:49] LABS: LYMPHOCYTES % (MANUAL) 1 % (20-46); METAMYELOCYTES % 12 % (0-0); MONOCYTES % (MANUAL) 4 % (5-12); MYELOCYTES % 44 % (0-0)
--- NOTE | 2018-03-28 02:50 | NUR ---
MD MADE AWARE OF CRITICAL LABS FROM PREVIOUS DRAW, NO NEW ORDERS. WILL CONTINUE TO OBSERVE.
[2018-03-28] MEDS: SODIUM BICARBONATE IV SCH (03:52)
[2018-03-28] MEDS: DEXTROSE 10% IV SCH (03:52)
[2018-03-28] MEDS: PHENYLEPHRINE 40 MG in NACL 0.9% 250 ML IV PRN ×2 (03:56→09:46)
[2018-03-28] MEDS: HYDROCORTISONE NA SUCC 100 MG/2 ML VIAL IV SCH (04:10)
[2018-03-28] MEDS: metroNIDAZOLE 500 MG/NS PREMIX 100 ML IV SCH (04:11)
[2018-03-28] MEDS: PIPER/TAZO 3.375GM/D5W PREMIX 50 ML IV SCH (04:11)
--- NOTE | 2018-03-28 05:25 | NUR ---
INFORMED MD ABOUT DESATURATION, AND 26 BLOOD SUGAR, X1 AMP D50 GIVEN. MD ORDERED X2 AMP BICARB WILL CONTINUE TO OBSERVE.
[2018-03-28] MEDS: MIDODRINE 5 MG TAB PO SCH (05:27)
[2018-03-28] MEDS: VANCOMYCIN 500 MG VIAL PO SCH (05:28)
--- NOTE | 2018-03-28 05:55 | NUR ---
DR. GREEN @ BEDSIDE.
[2018-03-28] MEDS: BLOOD GLUCOSE MONITORING 1 DEV DEV FS SCH (06:11)
[2018-03-28 06:16] LABS: HEMATOCRIT 21.7 % (36-52); MEAN CORPUSCULAR HEMOGLOBIN 29 pg (27-31); MEAN CORPUSCULAR HGB CONC 29 g/dL (33-37); MEAN CORPUSCULAR VOLUME 97.6 fL (80-94); RED BLOOD CELL COUNT(AUTO) 2.23 MIL/uL (4.20-6.10); RED CELL DISTRIBUTION WIDTH 19.2 % (11.6-13.7)
[2018-03-28 06:21] LABS: HEMOGLOBIN 6.4 g/dL (12.0-18.0); WHITE BLOOD COUNT (AUTO) 39.4 K/uL (4.8-10.8)
[2018-03-28 06:22] LABS: PLATELET COUNT (AUTO) 12 K/uL (140-450)
--- NOTE | 2018-03-28 06:30 | NUR ---
RT @ BEDSIDE FOR AGATA
[2018-03-28 06:33] LABS: ANION GAP 23.9 (8-16); CARBON DIOXIDE 18.5 mmol/L (21-32); CREATININE 3.8 mg/dL (0.7-1.3)
[2018-03-28 06:37] LABS: MAGNESIUM 2.2 mg/dL (1.8-2.4)
--- NOTE | 2018-03-28 06:45 | NUR ---
DR. CAMERON @ NURSING STATION; NO ACUTE DISTRESS NOTED. WILL CONTINUE TO OBSERVE.
[2018-03-28] MEDS ORDERED: SODIUM POLYSTYRENE 15 GM/60 ML UDBTL PO SCH (06:50)
[2018-03-28] MEDS ORDERED: CALCIUM GLUCONATE 10% 1,000 MG in NACL 0.9% 50 ML IV SCH ×2 (06:50→11:00)
[2018-03-28] MEDS: ALBUTEROL SULFATE/IPRATROPIU 3 ML SOL IH SCH (06:55)
[2018-03-28 07:01] LABS: LYMPHOCYTES % (MANUAL) 9 % (20-46); METAMYELOCYTES % 13 % (0-0); MONOCYTES % (MANUAL) 3 % (5-12); MYELOCYTES % 1 % (0-0)
[2018-03-28 07:05] LABS: POTASSIUM 7.4 mmol/L (3.5-5.1)
[2018-03-28 07:12] LABS: PHOSPHORUS 12.4 mg/dL (2.5-4.9)
--- NOTE | 2018-03-28 07:26 | NUR ---
REPORT GIVEN TO DAY SHIFT RN. ORDERS ENDORSED.
--- NOTE | 2018-03-28 07:30 | NUR ---
RECIEVED REPORT FROM NIGHT NURSE, CHRISTIANO. PT HAS CRITICAL LABS INCLUDING K-7.4, LA-14.9, PHOS-12.4. PT RECEIVED A BATH DURING THE NIGHT. THREE VASOPRESSOR DRIPS RUNNING. TUBE FEEDINGS STOPPED BECAUSE THEY WERE NOT TOLERATED WELL. WILL CONTINUE TO MONITOR.
[2018-03-28] MEDS ORDERED: CALCIUM ACETATE 667 MG TAB PO SCH (08:00)
[2018-03-28] MEDS: FERROUS SULFATE 300 MG/5 ML UDC GT SCH (08:01)
[2018-03-28] MEDS: LACTULOSE 20 GM/30 ML UDC PO SCH (08:01)
[2018-03-28] MEDS: QUEtiapine FUMARATE 100 MG TAB PO SCH (08:02)
[2018-03-28] MEDS: CALCIUM ACETATE 667 MG TAB PO SCH (08:02)
[2018-03-28] MEDS: LACTOBACILLUS RHAMNOSUS GG 1 EACH CAP PO SCH (08:02)
[2018-03-28] MEDS: LANSOPRAZOLE 30 MG CAPDR GT SCH (08:02)
[2018-03-28] MEDS: PHARMACY COMMENTS MC SCH (08:08)
[2018-03-28] MEDS: BENZTROPINE 1 MG TAB PO SCH (08:08)
[2018-03-28] MEDS: RIFAXIMIN 550 MG TAB PO SCH (08:08)
--- NOTE | 2018-03-28 08:13 | NUR ---
DR. BROTHERS AND GROUP ROUNDING ON THE PATIENT. MADE AWARE OF SHORT RUN V TACH NOTED ON THE MONITOR. WILL FOLLOW UP WITH NEW ORDERS.
--- NOTE | 2018-03-28 08:30 | NUR ---
DR. REINA MADE AWARE OF SHORT RUN V TACH'S AND ABG RESULTS. WITH NEW ORDERS TO GIVE 2 AMPS SODIUM BICARB, 10 UNITS REGULAR INSULIN IVP AND D50 IV PUSH. WILL TRANSCRIBE AND CARRY OUT ORDERS.
[2018-03-28] MEDS ORDERED: DEXTROSE 50% 50 ML SYR IVP SCH (08:32)
[2018-03-28] MEDS ORDERED: SODIUM BICARBONATE 8.4% PFS 50 MEQ/50 ML SYR IVP SCH (08:33)
[2018-03-28] MEDS ORDERED: INSULIN REGULAR, HUMAN 100 UNIT/ML VIAL IV SCH (08:33)
--- NOTE | 2018-03-28 08:48 | NUR ---
LEFT MESSAGE AT [phone] TO CANDELARIO TONG. WAITING FOR CALL BACK. CALLED [place] [facility], PHONE IS A NON WORKING NUMBER.
--- NOTE | 2018-03-28 08:53 | NUR ---
CALLED [phone], NUMBER IS NO LONGER IN SERVICE AND NON WORKING NUMBER. CASE MANAGEMENT MADE AWARE.
[2018-03-28] MEDS ORDERED: PANTOPRAZOLE 40 MG INJ VIAL IVP SCH ×2 (09:00)
[2018-03-28] MEDS ORDERED: VANCOMYCIN 1GM/DEXT 5% PREMIX 200 ML IV SCH (09:00)
[2018-03-28] MEDS ORDERED: SODIUM PHOS / POTASSIUM PHOS 1 PKT PDR GT SCH (09:00)
[2018-03-28] MEDS ORDERED: ASCORBIC ACID 500 MG/5 ML ORASYR GT SCH (09:00)
[2018-03-28] MEDS ORDERED: ZINC SULF 220 MG CAP PO SCH (09:00)
--- NOTE | 2018-03-28 09:00 | NUR ---
CALLED [facility] AT [phone], PER ALTA (MUSIC AGENT) THEY DO NOT HAVE ANY CONTACT INFORMATION FOR PATIENT'S FAMILY MEMBERS.
[2018-03-28 09:32] LABS: ANION GAP 28.8 (8-16); CARBON DIOXIDE 13.5 mmol/L (21-32); CREATININE 3.9 mg/dL (0.7-1.3)
[2018-03-28 09:37] LABS: POTASSIUM 9.3 mmol/L (3.5-5.1)
--- NOTE | 2018-03-28 09:41 | NUR ---
RESIDENT PHYSICIAN, DR. STEWARD MADE AWARE OF REPEAT K 9.3. SENT A PAGE TO DR. FORD THROUGH EXCHANGE.
[2018-03-28] MEDS: NOREPINEPHRINE 16 MG in DEXTROSE 5% 250 ML IV PRN (09:44)
[2018-03-28] MEDS ORDERED: SODIUM POLYSTYRENE 15 GM/60 ML UDBTL GT SCH (10:00)
--- NOTE | 2018-03-28 10:05 | NUR ---
RESIDENT PHYSICIAN DR HORNE MADE AWARE OF PATIENT'S HAVING EPISODES OF BRADYCARDIA [id number].
--- NOTE | 2018-03-28 10:31 | NUR ---
1014 ASYSTOLE ON MONITOR, RT AT BEDSIDE. CODE BLUE CALLED. COMPRESSION STARTED. CRASH CART AND CODE TEAM ARRIVED AT 1015. 1016 SODIUM BICARB GIVEN. 1017 EPI PUSHED, D50 PUSHED. 1019 ASYSTOLE ON MONITOR CPR RESUMED, CALCIUM GIVEN. 1020 VFIB ON MONITOR, DFIB 150J CPR RESUMED. 1022 VFIB 250J. 1023 SECOND DOSE OF EPI GIVEN. 1024 ASYSTOLE CPR RESUMED, D50 GIVEN. 1025 ASYSTOLE. DOCTOR DU PRONOUCED AT 1025.
--- NOTE | 2018-03-28 10:50 | NUR ---
DR. FORD MADE AWARE THAT PATIENT .
--- NOTE | 2018-03-28 11:00 | NUR ---
DR. EDDY MADE AWARE THAT PATIENT .
--- NOTE | 2018-03-28 11:01 | NUR ---
CALLED [facility] AND THEY DID NOT PLAN TO PURSUE. CASE #[id number] SPOKE WITH [facility] OFFICE. A DEPUTY WILL CALL ME BACK.
--- NOTE | 2018-03-28 11:28 | NUR ---
FAXED CONCURRENT REVIEW TO [facility] [phone].
--- NOTE | 2018-03-28 11:31 | NUR ---
CALLED GROVER AT [facility] AND INFORMED HER THAT THE PATIENT . [phone]. I DID CALL GROVER EARLIER AND ASKED IF SHE HAD ANY CONTACTS FOR THIS PATIENT. SHE DID NOT.
--- NOTE | 2018-03-28 13:34 | NUR ---
[facility] OFFICE CALLED BACK. INFORMATION WAS GIVEN. [employer] SPECIALIST REQUESTED FORMS TO BE FAXED: FACE SHEET, ESTHETICIAN/SPA COORDINATOR REPORT, ER REPORT, H&P, INITIAL RADIOLOGY RESULTS, MOST RECENT CHEST X RAY, NOTES ON PNEUMOTHORAX AND CL PLACEMENT, NOTE, MOST RECENT PHYSICIAN NOTE AND SOCIAL WORK NOTE, INITAL TOX SCREEN. ALL WERE FAXED OVER. WILL WAIT TO HERE BACK. Addendum: 03/28/18 at 1350 by Angy Frank RN [employer] SPECIALIST DEPUTY NAME MARYELLEN
--- NOTE | 2018-03-28 13:37 | NUR ---
CALLED DEVON JACK, AND REPORTED THAT THE [facility] OFFICE HAD UNPDATED CONTACT INFORMATION FOR NEXT OF KIN, ROSEMARIE RASHID. NEW NUMBERS: #[phone] AND #[phone] ALSO AN ADDRESS WAS FOUND: [address] [place] [address] ,[place] [phone]
--- NOTE | 2018-03-28 13:50 | NUR ---
[facility] MARYELLEN ANGELES, CALLED BACK AND SAID THAT THE PATIENT WAS OKAY TO BE RELEASED TO THE [facility] BUT HAD A CORONERS HOLD. CASE # [id number] Addendum: 03/28/18 at 1557 by Angy Frank RN okay to remove all lines and clean patient before transfer.
--- NOTE | 2018-03-28 14:00 | NUR ---
CALLED NOREEN QUINTANA, ABLE TO SPEAK TO LEIWS REGARDING PATIENT'S REMAINS. AND THE REMAINS IS A FOOD TESTER'S HOLD. SHE STATED SHE WILL CALL FOOD TESTER'S OFFICE AND WILL CALL ME BACK SOON SHE GETS CONFIRMATION.
--- NOTE | 2018-03-28 14:17 | NUR ---
CALLED SHIPPING TRACK SUPERVISOR'S OFFICE FOR CLARIFICATION OF RELEASE OF THE BODY ON SHIPPING TRACK SUPERVISOR'S HOLD. ABLE TO SPEAK TO DONY, I TOLD HER THAT WE DO NOT HAVE A MORGUE IN OUR FACILITY. SHE STATED WE CAN RELEASE THE BODY TO A OF CHOICE BUT CAN NOT DO EMBALMING UNTIL THE CAUSE OF IS DETERMINED.
--- NOTE | 2018-03-28 15:42 | NUR ---
SPOKE TO NOREEN AND LILIAN PERSONNEL, SHE SAID THEY DISPATCH THE SOCK LINER ALREADY AND WILL BE HERE IN AN HOUR OR SO.
== END 2018-03-28 16:21 | disposition expired | DRG 871 ==
LOC: MED 22:13 → MIC 03-22 01:39 → MTU 03-22 23:26 → MIC 03-26 08:16
PROVIDERS: ADMIT General Practice; ATTEND General Practice
PROC: 02HV33Z Insertion of Infusion Device into Superior Vena Cava, Percutaneous Approach (ICD-10-PCS; 2018-03-22)
PROC: 0W9930Z Drainage of Right Pleural Cavity with Drainage Device, Percutaneous Approach (ICD-10-PCS; principal; 2018-03-26)
PROC: 5A1945Z Respiratory Ventilation, 24-96 Consecutive Hours (ICD-10-PCS; 2018-03-26)
PROC: 02HV33Z Insertion of Infusion Device into Superior Vena Cava, Percutaneous Approach (ICD-10-PCS; 2018-03-27)
PROC: B548ZZA Ultrasonography of Superior Vena Cava, Guidance (ICD-10-PCS; 2018-03-27)
DX: A41.9 Sepsis, unspecified organism (principal); G92 Toxic encephalopathy; J69.0 Pneumonitis due to inhalation of food and vomit; N17.0 Acute kidney failure with tubular necrosis; E43 Unspecified severe protein-calorie malnutrition; R65.21 Severe sepsis with septic shock; J96.01 Acute respiratory failure with hypoxia; E87.1 Hypo-osmolality and hyponatremia; A04.72 Enterocolitis due to Clostridium difficile, not specified as recurrent; K76.6 Portal hypertension; N39.0 Urinary tract infection, site not specified; F15.90 Other stimulant use, unspecified, uncomplicated; K72.90 Hepatic failure, unspecified without coma; D64.9 Anemia, unspecified; E87.6 Hypokalemia; E11.65 Type 2 diabetes mellitus with hyperglycemia; F20.9 Schizophrenia, unspecified; J44.9 Chronic obstructive pulmonary disease, unspecified; I11.0 Hypertensive heart disease with heart failure; F31.9 Bipolar disorder, unspecified; F19.10 Other psychoactive substance abuse, uncomplicated; K74.60 Unspecified cirrhosis of liver; D69.6 Thrombocytopenia, unspecified; E87.8 Other disorders of electrolyte and fluid balance, not elsewhere classified; E83.39 Other disorders of phosphorus metabolism; E86.0 Dehydration; E86.9 Volume depletion, unspecified; E11.649 Type 2 diabetes mellitus with hypoglycemia without coma; Y95 Nosocomial condition; I46.9 Cardiac arrest, cause unspecified; I50.9 Heart failure, unspecified; Z90.49 Acquired absence of other specified parts of digestive tract; Z88.8 Allergy status to other drugs, medicaments and biological substances; Z91.19 Patient's noncompliance with other medical treatment and regimen; Z22.322 Carrier or suspected carrier of Methicillin resistant Staphylococcus aureus
CPT/HCPCS: 36415; 36600; 70450; 71045; 76700; 80048; 80053; 80202; 80305; 81001; 82140; 82550; 82607; 82728; 82746; 82803; 82948; 83036; 83540; 83605; 83690; 83735; 83880; 84100; 84134; 84443; 84484; 85025; 85045; 85610; 85730; 86886; 86900; 86901; 86920; 87040; 87045; 87070; 87081; 87086; 87186; 87205; 89055; 92526; 92610; 93005; 93880; 93970; 94002; 94003; 94640; 96365; 96366; 96375; 97110; 97116; 97140; 97530; 97799; 99291; C9113; G0482; J0171; J0610; J1170; J1642; J1720; J1815; J2001; J2060; J2370; J2405; J2543; J3370; J3480; J3490; J7030; J7042; J7060; J7620; Q0092